=== PATIENT | female | born 1955 | race Caucasian/White ===

== ENCOUNTER 2020-07-26 10:15 | Outpatient (CLI) | payer BC, OTHER, SELFPAY ==
--- NOTE | ~2020-07-26 | MM_ITS ---
EXAMINATION: MM screening davie BI w dexter HISTORY: Screening TECHNIQUE: Craniocaudal and mediolateral oblique 3-D tomosynthesis images were obtained and synthetic 2-D images were generated. CAD analysis was submitted and interpreted. COMPARISON: Comparison to multiple prior studies sequentially, with oldest reviewed study dated 12/11. BREAST PARENCHYMAL COMPOSITION: The breasts are heterogeneously dense, which may obscure small masses . FINDINGS: There is no evidence of suspicious mass, calcification, or architectural distortion to sugg est malignancy in either breast. There has been no suspicious interval change. IMPRESSION: 1. No mammographic evidence of malignancy. 2. Recommend routine screening mammography in one year. BI-RADS Category 1: Negative Reviewed, dictated and finalized at location A.
[2020-07-26 10:31] LABS: Hematocrit 38.3 % (35.0-49.0); Mean Corpuscular HGB Conc 31.3 g/dL (32.0-36.0); Mean Corpuscular Hemoglobin 28.4 pg (27.0-31.0); Mean Corpuscular Volume 90.8 fL (78.0-102.0); Mean Platelet Volume 9.2 fl (9.2-11.8); Platelet Count Result 199 K/mm3 (150-420); Red Blood Count 4.22 M/mm3 (4.20-5.40); Red Cell Distribution Width 14.4 % (11.6-14.4); White Blood Count 5.4 K/mm3 (4.8-10.8)
[2020-07-26 10:33] LABS: Add Urine Microscopic? YES; Appearance Urine Clear (Clear); Bilirubin Urine Negative (Negative); Blood Urine Negative (Negative); Color Urine Yellow (Yellow); Glucose Urine UA Negative (Negative); Ketones Urine Negative (Negative); Leukocyte Esterase Ur 1+ (Negative); Nitrate Urine Negative (Negative); Protein Urine Negative (Negative); Urobilinogen Urine 0.2 mg/dL (0.2-1.0); pH Urine 6.5 (5.0-8.0)
[2020-07-26 10:39] LABS: Bacteria Urine Trace /hpf; RBC Urine 0-2 /hpf (0-2); Squamous Epithelial Cell Urine Few /hpf (Few)
[2020-07-26 10:55] LABS: Band Neutrophils Percent 0 % (0-6); Lymphocytes Absolute Manual 1.51 K/mm3 (1.1-4.5); Lymphocytes Percent Manual 28 % (18-44); Monocytes Absolute Manual 0.43 K/mm3 (0.1-0.90); Monocytes Percent Manual 8 % (3-9); Neutrophils Absolute Manual 3.29 K/mm3 (1.7-7.2); Neutrophils Percent Manual 61 % (46-73); Total Cells Counted 100
[2020-07-26 10:56] LABS: Basophils Percent Manual 0 % (0-1); Eosinophils Absolute Manual 0.16 K/mm3 (0.02-0.5); Eosinophils Percent Manual 3 % (1-6); Platelet Estimate Adequate (Adequate)
[2020-07-26 11:12] LABS: Alanine Aminotransferase 25 U/L (14-59); Albumin Level 3.6 g/dL (3.4-5.0); Alkaline Phosphatase 104 U/L (46-116); Anion Gap 3 mmol/L (8-16); Aspartate Amino Transferase 21 U/L (15-37); Bilirubin,Total 0.5 mg/dL (0.00-1.00); Blood Urea Nitrogen 13 mg/dL (7-18); Calcium 9.1 mg/dL (8.5-10.1); Carbon Dioxide 32 mmol/L (21-32); Chloride 106 mmol/L (98-108); Cholesterol 149 mg/dL (0-200); Estimated Glomerular Filt Rate > 60; Glucose 93 mg/dL (70-99); HDL Direct 14 mg/dL (40-60); LDL Cholesterol Calculated 115 mg/dL (<130); Osmolality Calculated 292 mOsm/kg (285-295); Potassium 4.4 mmol/L (3.5-5.1); Sodium 141 mmol/L (136-145); Total Protein 7.6 g/dL (6.4-8.2); Triglycerides 102 mg/dL (0-150)
== END 2020-07-26 10:16 | disposition home or self-care (01) ==
LOC: CHSIMG 10:20
PROVIDERS: PCP Internal Medicine; Visit Provider Internal Medicine
DX: Z12.31 Encounter for screening mammogram for malignant neoplasm of breast (principal); Z00.00 Encounter for general adult medical examination without abnormal findings
CPT/HCPCS: 36415; 77063; 77067; 80053; 80061; 81001; 85025

== ENCOUNTER 2021-09-05 06:56 | Outpatient (CLI) | payer BC, OTHER, SELFPAY ==
[2021-09-05 07:09] LABS: Basophils Absolute Auto 0.05 K/mm3 (0.00-0.10); Basophils Percent Auto 0.6 % (0.0-1.0); Eosinophils Absolute Auto 0.25 K/mm3 (0.02-0.50); Eosinophils Percent Auto 3.2 % (1.0-6.0); Hematocrit 37.4 % (35.0-49.0); Hemoglobin 11.9 g/dL (12.0-15.0); Immature Granulocyte Absolute 0.03 K/mm3 (0.00-0.00); Immature Granulocyte Percent A 0.4 % (0.0-0.0); Lymphocytes Absolute Auto 1.91 K/mm3 (1.10-4.50); Lymphocytes Percent Auto 24.3 % (18.0-42.0); Mean Corpuscular HGB Conc 31.8 g/dL (32.0-36.0); Mean Corpuscular Hemoglobin 27.9 pg (27.0-31.0); Mean Corpuscular Volume 87.8 fL (78.0-102.0); Mean Platelet Volume 9.2 fl (9.2-11.8); Monocytes Absolute Auto 0.77 K/mm3 (0.10-0.90); Monocytes Percent Auto 9.8 % (2.0-11.0); Neutrophils Absolute Auto 4.8 K/mm3 (1.7-7.2); Neutrophils Percent Auto 61.7 % (50.0-70.0); Platelet Count Result 266 K/mm3 (150-420); Red Blood Count 4.26 M/mm3 (4.20-5.40); Red Cell Distribution Width 13.8 % (11.6-14.4); White Blood Count 7.9 K/mm3 (4.8-10.8)
[2021-09-05 07:13] LABS: Add Urine Microscopic? YES; Appearance Urine Clear (Clear); Bilirubin Urine Negative (Negative); Blood Urine Negative (Negative); Color Urine Light Yellow (Yellow); Glucose Urine UA Negative (Negative); Ketones Urine Negative (Negative); Leukocyte Esterase Ur Trace (Negative); Nitrate Urine Negative (Negative); Protein Urine Negative (Negative); Specific Grav Ur 1.025 (1.010-1.020); Urobilinogen Urine 0.2 mg/dL (0.2-1.0)
[2021-09-05 07:31] LABS: Bacteria Urine Trace /hpf; RBC Urine 0-2 /hpf (0-2); Squamous Epithelial Cell Urine Few /hpf (Few); WBC Urine 0-3 /hpf (0-3)
[2021-09-05 08:12] LABS: Alanine Aminotransferase 24 U/L (14-59); Albumin Level 3.2 g/dL (3.4-5.0); Alkaline Phosphatase 115 U/L (46-116); Anion Gap 7 mmol/L (8-16); Aspartate Amino Transferase 18 U/L (15-37); Bilirubin,Total 0.3 mg/dL (0.00-1.00); Blood Urea Nitrogen 18 mg/dL (7-18); Calcium 9.5 mg/dL (8.5-10.1); Carbon Dioxide 31 mmol/L (21-32); Chloride 103 mmol/L (98-108); Estimated Glomerular Filt Rate > 60; Glucose 89 mg/dL (70-99); HDL Direct 33 mg/dL (40-60); Osmolality Calculated 292 mOsm/kg (285-295); Potassium 4.4 mmol/L (3.5-5.1); Sodium 141 mmol/L (136-145); Triglycerides 48 mg/dL (0-150)
[2021-09-05 08:43] LABS: Cholesterol 158 mg/dL (0-200); LDL Cholesterol Calculated 115 mg/dL (<130)
== END 2021-09-05 06:57 | disposition home or self-care (01) ==
LOC: CHSLAB 07:00
PROVIDERS: PCP Internal Medicine; Visit Provider Internal Medicine
DX: Z00.00 Encounter for general adult medical examination without abnormal findings (principal); M85.80 Other specified disorders of bone density and structure, unspecified site
CPT/HCPCS: 36415; 80053; 80061; 81001; 84443; 85025

== ENCOUNTER 2021-09-14 13:07 | Outpatient (CLI) | payer BC, OTHER, SELFPAY ==
--- NOTE | ~2021-09-14 | MM_ITS ---
EXAMINATION: MM screening davie BI w dexter HISTORY: Screening mammogram TECHNIQUE: Craniocaudal and mediolateral oblique 3-D tomosynthesis images were obtained and synthetic 2-D images were generated. CAD analysis was submitted and interpreted. COMPARISON: , 06/11/2019, 10/14/2017 bilateral screening mammogram examinations BREAST PARENCHYMAL COMPOSITION: The breasts are heterogeneously dense, which may obscure small masses . FINDINGS: There is no evidence of suspicious mass, calcification, or architectural distortion to sugg est malignancy in either breast. There has been no suspicious interval change. IMPRESSION: 1. No mammographic evidence of malignancy. 2. Recommend routine screening mammography in one year. BI-RADS Category 1: Negative Reviewed, dictated and finalized at location A.
--- NOTE | ~2021-09-14 | DEXA_ITS ---
Bone Density Report Name: Bruna Turcios Age: 66 Sex: Female Ethnicity: White Date of : 1955 Indication: postmenopausal; screening for osteoporosis; height loss; Referring Provider: Rodney Mckay Study: Bone densitometry was performed. Exam Date: September 14, 2021 Accession number: [id number] Bone Density: Region BMD T-score Z-score Classification AP Spine(L1-L4) 0.987 -0.5 1.2 Normal Femoral Neck (Left) 0.691 -1.4 0.0 Osteopenia Total Hip (Left) 0.894 -0.4 0.8 Normal Femoral Neck (Right) 0.681 -1.5 0.0 Osteopenia Total Hip (Right) 0.853 -0.7 0.4 Normal Femoral Neck Mean 0.686 -1.5 0.0 Osteopenia Total Hip Mean 0.874 -0.6 0.6 Normal World Health Organization criteria for BMD impression classify patients as: Normal (T-score at or above -1.0), Osteopenia (T-score between -1.0 and -2.5), or Osteoporosis (T-score at or below -2.5). 10-year Fracture Risk(1): Major Osteoporotic Fracture 8.6% Hip Fracture 0.9% Reported Risk Factors: [place] (), Neck BMD=0.681, BMI=23.9 (1) FRAX(R) Version 3.08. Fracture probability calculated for an untreated patient. Fracture probability may be lower if the patient has received treatment. Clinical Information Provided by Patient: Has used the following medications: Calcium, vit d3 Patient maximum height was 64 Menopause Age: 52 No regular weight bearing exercise Drinks caffeinated beverages Onset of menses at age 15 Number of children 1 Impression: The patient has low bone mass, based on the Right Femoral Neck T-score. Discussion: BONE DENSITY IS LOW AT ONE OR MORE SKELETAL SITES. This patient's lowest T-score is low at one or more skeletal sites. It meets the World Health Organization's (WHO) criteria for ?low bone mass? (T-score between -1.0 and -2.5). The patient's 10-year risk of fracture as calculated by FRAX is less than the threshold where pharmacological therapy is recommended by the National Osteoporosis Foundation (NOF). However, all treatment decisions require clinical judgment and consideration of individual patient factors, including patient preferences, comorbidities, previous drug use, risk factors not captured in the FRAX model (e.g., frailty, falls, vitamin D deficiency, increased bone turnover, interval significant decline in bone density) and possible under or overestimation of fracture risk by FRAX. The patient should follow a healthful lifestyle (good nutrition with adequate calcium and vitamin D, and appropriate weight-bearing exercise). Follow-Up: Consider repeating this study in 2 to 3 years to reassess this patient's status, or sooner if there is some new clinical indication. Reported by: Dr. Ascencion Duffy on 09/14/2021 2:01:00 PM.
--- NOTE | 2021-09-14 14:50 | ECHO_ITS ---
Patient Info Name: Bruna Turcios Age: 66 years : 1955 Gender: Female Ht: 63 in Wt: 135 lbs BSA: 1.66 m2 HR: 74 bpm BP: 125 / 72 mmHg Exam Date: 09/14/2021 2:45 PM Exam Location: [facility] Patient Status: Outpatient Admit Date: 09/14/2021 Staff Ordering Physician: Rodney Mckay MD Poultry Hatchery Manager: Migue Petty RDCS, RT Attending Provider: Rodney Mckay MD Exam Type: CA echo doppler color flow Study Info Indications R94.31 - Abnormal electrocardiogram ECG EKG Complete two-dimensional, color flow and Doppler transthoracic echocardiogram is performed. Strain analysis performed. Summary 1. Complete two-dimensional, color flow and Doppler transthoracic echocardiogram is performed. 2. Left ventricular chamber dimension is normal. 3. Left ventricular systolic function is normal, estimated at 60-65%. 4. The left ventricular diastolic function is grade II diastolic dysfunction. 5. E/e' 6 is not elevated. 6. Global longitudinal strain is normal at -18.5%. 7. There is mild mitral valve regurgitation. 8. There is mild tricuspid valve regurgitation. 9. No pulmonary hypertension, estimated pulmonary arterial systolic pressure is 23 mmHg. 10. There is trace pulmonic regurgitation. Left Ventricle E/e' 6 is not elevated. Global longitudinal strain is normal at -18.5%. Left ventricular chamber dimension is normal. Left ventricular systolic function is normal, estimated at 60-65%. The left ventricular diastolic function is grade II diastolic dysfunction. Right Ventricle Right ventricular systolic function is normal and with normal TAPSE 2.2 cm. Right ventricular chamber dimension is normal. Left Atria Left atrial chamber dimension is normal. Right Atria Right atrial chamber dimension is normal. Aortic Valve The aortic valve is trileaflet. There is no aortic valve stenosis. There is no aortic valve regurgitation. Pulmonic Valve There is trace pulmonic regurgitation. Mitral Valve There is no mitral valve stenosis. There is mild mitral valve regurgitation. Tricuspid Valve There is mild tricuspid valve regurgitation. No pulmonary hypertension, estimated pulmonary arterial systolic pressure is 23 mmHg. Pericardium/Pleural There is no pericardial effusion. Inferior Vena Cava Normal inferior vena cava with >50% collapse upon inspiration consistent with normal right atrial pressure, 5 mmHg. Aorta The aortic root size at the sinus of Valsalva is normal. Left Ventricular Outflow Tract Name Value Normal LVOT 2D LVOT Diameter 1.9 cm LVOT Doppler LVOT Peak Velocity 87 cm/s LVOT Peak Gradient 3 mmHg LVOT Mean Gradient 2 mmHg LVOT VTI 20 cm LVOT VTI/AV VTI Ratio 0.8 LVOT Stroke Volume 56 ml Mitral Valve Name Value Normal MV Doppler
== END 2021-09-14 13:08 | disposition home or self-care (01) ==
PROVIDERS: PCP Internal Medicine; Visit Provider Internal Medicine
DX: Z78.0 Asymptomatic menopausal state (principal); Z12.31 Encounter for screening mammogram for malignant neoplasm of breast; R94.31 Abnormal electrocardiogram [ECG] [EKG]
CPT/HCPCS: 77063; 77067; 77080; 93306

== ENCOUNTER 2021-11-16 06:59 | Outpatient (CLI) | payer BC, OTHER, SELFPAY ==
[2021-11-16 07:12] LABS: Hematocrit 33.5 % (35.0-49.0); Hemoglobin 10.5 g/dL (12.0-15.0); Mean Corpuscular HGB Conc 31.3 g/dL (32.0-36.0); Mean Corpuscular Hemoglobin 27.6 pg (27.0-31.0); Mean Corpuscular Volume 88.2 fL (78.0-102.0); Mean Platelet Volume 9.6 fl (9.2-11.8); Platelet Count Result 219 K/mm3 (150-420); Red Cell Distribution Width 14.6 % (11.6-14.4); White Blood Count 10.1 K/mm3 (4.8-10.8)
[2021-11-16 07:45] LABS: Band Neutrophils Percent 0 % (0-6); Eosinophils Percent Manual 2 % (1-6); Lymphocytes Absolute Manual 3.53 K/mm3 (1.1-4.5); Lymphocytes Percent Manual 35 % (18-44); Monocytes Percent Manual 9 % (3-9); Neutrophils Absolute Manual 5.45 K/mm3 (1.7-7.2); Neutrophils Percent Manual 54 % (46-73); Total Cells Counted 100
[2021-11-16 07:46] LABS: Platelet Estimate Adequate (Adequate)
[2021-11-16 08:06] LABS: Alanine Aminotransferase 24 U/L (14-59); Albumin Level 2.9 g/dL (3.4-5.0); Alkaline Phosphatase 118 U/L (46-116); Anion Gap 7 mmol/L (8-16); Aspartate Amino Transferase 23 U/L (15-37); Bilirubin,Total 0.3 mg/dL (0.00-1.00); Blood Urea Nitrogen 19 mg/dL (7-18); Calcium 9.2 mg/dL (8.5-10.1); Carbon Dioxide 32 mmol/L (21-32); Chloride 103 mmol/L (98-108); Estimated Glomerular Filt Rate > 60; Glucose 101 mg/dL (70-99); Osmolality Calculated 296 mOsm/kg (285-295); Potassium 4.2 mmol/L (3.5-5.1); Sodium 142 mmol/L (136-145)
== END 2021-11-16 07:00 | disposition home or self-care (01) ==
LOC: CHSLAB 07:03
PROVIDERS: PCP Internal Medicine; Visit Provider Internal Medicine
DX: E88.09 Other disorders of plasma-protein metabolism, not elsewhere classified (principal)
CPT/HCPCS: 36415; 80053; 85025

== ENCOUNTER 2021-12-04 09:12 | Outpatient (CLI) | payer BC, OTHER, SELFPAY ==
[2021-12-04 09:43] LABS: Immature Reticulocyte Fraction 13.9 % (2.0-16.52); Reticulocyte Hemoglobin Conten 29.7 pg (28.0-35.0); Reticulocyte Percent 2.05 % (0.50-1.50); Reticulocytes Absolute 0.08 M/mm3 (0.02-0.1)
[2021-12-04 10:54] LABS: Ferritin 72 ng/mL (8-252); Iron 75 ug/dL (50-170); Percent Iron Saturation 37 % (12-57)
[2021-12-04 11:22] LABS: Basophils Absolute Auto 0.05 K/mm3 (0.00-0.10); Basophils Percent Auto 0.6 % (0.0-1.0); Eosinophils Absolute Auto 0.11 K/mm3 (0.02-0.50); Eosinophils Percent Auto 1.2 % (1.0-6.0); Hematocrit 33.5 % (35.0-49.0); Hemoglobin 10.4 g/dL (12.0-15.0); Immature Granulocyte Absolute 0.03 K/mm3 (0.00-0.00); Immature Granulocyte Percent A 0.3 % (0.0-0.0); Lymphocytes Absolute Auto 2.55 K/mm3 (1.10-4.50); Lymphocytes Percent Auto 28.3 % (18.0-42.0); Mean Corpuscular Hemoglobin 27.4 pg (27.0-31.0); Mean Corpuscular Volume 88.4 fL (78.0-102.0); Mean Platelet Volume 10.1 fl (9.2-11.8); Monocytes Absolute Auto 0.95 K/mm3 (0.10-0.90); Monocytes Percent Auto 10.6 % (2.0-11.0); Neutrophils Absolute Auto 5.3 K/mm3 (1.7-7.2); Platelet Count Result 312 K/mm3 (150-420); Red Blood Count 3.79 M/mm3 (4.20-5.40)
[2021-12-07 14:54] LABS: Red Blood Cell Folate 969 ng/mL RBC (>280)
[2021-12-08 16:49] LABS: Methylmalonic Acid 228 nmol/L (87-318)
== END 2021-12-04 09:13 | disposition home or self-care (01) ==
LOC: CHSLAB 09:14
PROVIDERS: PCP Internal Medicine; Visit Provider Internal Medicine
DX: D64.9 Anemia, unspecified (principal)
CPT/HCPCS: 36415; 82728; 82747; 83540; 83550; 83921; 85025; 85046

== ENCOUNTER 2022-02-08 07:27 | Outpatient (CLI) | payer BC, OTHER, SELFPAY ==
[2022-02-08 07:47] VITALS: BP 130/62; PULSE 88; RESP 14; TEMP 36.6; O2SAT 98
[2022-02-08 07:48] VITALS: BMI 22.1
[2022-02-08] MEDS: IRON SUCROSE COMPLEX 300 MG in SODIUM CHLORIDE 0.9% IV 235 ML 125 MG IVPB (08:13)
--- NOTE | 2022-02-08 11:11 | PC.NURSE ---
Patient here for #1 of 3 IV weekly Venofer infusions. Education given. All concerns answered. IV Venofer administered. See MAR. Tolerated well. Will return 02/16/22 for #2 of 3. Safe exit of hospital.
== END 2022-02-08 07:28 | disposition home or self-care (01) ==
LOC: CHSTREATRM 07:35
PROVIDERS: PCP Internal Medicine; Visit Provider Internal Medicine Hematology & Oncology
DX: D50.9 Iron deficiency anemia, unspecified (principal)
CPT/HCPCS: 96365; 96366; J1756; J7050

== ENCOUNTER 2022-02-15 07:57 | Outpatient (CLI) | payer BC, OTHER, SELFPAY ==
[2022-02-15 08:03] VITALS: BMI 22.1
[2022-02-15] MEDS: IRON SUCROSE COMPLEX 300 MG in SODIUM CHLORIDE 0.9% IV 250 ML 125 MG IV PUSH (08:10)
[2022-02-15 08:15] VITALS: BP 122/67; PULSE 88; RESP 14; TEMP 36; O2SAT 99
--- NOTE | 2022-02-15 10:41 | PC.NURSE ---
Patient here for #2 of 3 IV Venofer infusions. Education given. No concerns voiced. IV Venofer administered. See MAR. Tolerated well. Safe exit of hospital. Will return for #3 02/20/22 at 0800.
== END 2022-02-15 07:58 | disposition home or self-care (01) ==
LOC: CHSTREATRM 08:01
PROVIDERS: PCP Internal Medicine; Visit Provider Internal Medicine Hematology & Oncology
DX: D50.9 Iron deficiency anemia, unspecified (principal)
CPT/HCPCS: 96365; 96366; J1756; J7050

== ENCOUNTER 2022-02-22 07:49 | Outpatient (CLI) | payer BC, OTHER, SELFPAY ==
[2022-02-22 08:05] VITALS: BP 106/70; PULSE 92; RESP 14; TEMP 36.4; O2SAT 98
[2022-02-22 08:06] VITALS: BMI 22.1
[2022-02-22] MEDS: IRON SUCROSE COMPLEX 300 MG in SODIUM CHLORIDE 0.9% IV 235 ML 125 MG IVPB (08:15)
--- NOTE | 2022-02-22 10:05 | PC.NURSE ---
Patient here for #3 of 3 IV Venofer infusions. No concerns voiced. Reports feels a little more energetic. IV Venofer administered. SEE MAR. Tolerated well. Safe exit of hospital. Patient will follow up in month with Dr. Jones.
== END 2022-02-22 07:50 | disposition home or self-care (01) ==
LOC: CHSTREATRM 07:53
PROVIDERS: PCP Internal Medicine; Visit Provider Internal Medicine Hematology & Oncology
DX: D50.9 Iron deficiency anemia, unspecified (principal)
CPT/HCPCS: 96365; 96366; J1756; J7050

== ENCOUNTER 2022-03-20 07:21 | Outpatient (CLI) | payer BC, OTHER, SELFPAY ==
[2022-03-20 07:34] LABS: Basophils Absolute Auto 0.04 K/mm3 (0.00-0.10); Basophils Percent Auto 0.5 % (0.0-1.0); Eosinophils Absolute Auto 0.15 K/mm3 (0.02-0.50); Eosinophils Percent Auto 1.8 % (1.0-6.0); Hematocrit 33.2 % (35.0-49.0); Immature Granulocyte Absolute 0.02 K/mm3 (0.00-0.00); Immature Granulocyte Percent A 0.2 % (0.0-0.0); Lymphocytes Absolute Auto 1.51 K/mm3 (1.10-4.50); Lymphocytes Percent Auto 17.9 % (18.0-42.0); Mean Corpuscular HGB Conc 30.1 g/dL (32.0-36.0); Mean Corpuscular Volume 86.2 fL (78.0-102.0); Mean Platelet Volume 9.1 fl (9.2-11.8); Monocytes Absolute Auto 0.74 K/mm3 (0.10-0.90); Monocytes Percent Auto 8.8 % (2.0-11.0); Neutrophils Percent Auto 70.8 % (50.0-70.0); Platelet Count Result 295 K/mm3 (150-420); Red Blood Count 3.85 M/mm3 (4.20-5.40); Red Cell Distribution Width 17.4 % (11.6-14.4); White Blood Count 8.4 K/mm3 (4.8-10.8)
[2022-03-20 08:31] LABS: Ferritin 471 ng/mL (8-252); Iron 46 ug/dL (50-170); Percent Iron Saturation 23 % (12-57)
== END 2022-03-20 07:22 | disposition home or self-care (01) ==
LOC: CHSLAB 07:23
PROVIDERS: PCP Internal Medicine; Visit Provider Internal Medicine Hematology & Oncology
DX: E61.1 Iron deficiency (principal)
CPT/HCPCS: 36415; 82728; 83540; 83550; 85025

== ENCOUNTER 2022-05-14 15:30 | Outpatient (CLI) | payer BC, OTHER, SELFPAY ==
[2022-05-14 15:45] LABS: Basophils Absolute Auto 0.04 K/mm3 (0.00-0.10); Basophils Percent Auto 0.5 % (0.0-1.0); Eosinophils Percent Auto 2.3 % (1.0-6.0); Hematocrit 37.3 % (35.0-49.0); Hemoglobin 11.4 g/dL (12.0-15.0); Immature Granulocyte Absolute 0.03 K/mm3 (0.00-0.00); Immature Granulocyte Percent A 0.3 % (0.0-0.0); Lymphocytes Absolute Auto 2.14 K/mm3 (1.10-4.50); Lymphocytes Percent Auto 24.4 % (18.0-42.0); Mean Corpuscular HGB Conc 30.6 g/dL (32.0-36.0); Mean Corpuscular Hemoglobin 26.6 pg (27.0-31.0); Mean Corpuscular Volume 86.9 fL (78.0-102.0); Mean Platelet Volume 8.6 fl (9.2-11.8); Monocytes Absolute Auto 0.75 K/mm3 (0.10-0.90); Monocytes Percent Auto 8.5 % (2.0-11.0); Neutrophils Absolute Auto 5.6 K/mm3 (1.7-7.2); Platelet Count Result 310 K/mm3 (150-420); Red Blood Count 4.29 M/mm3 (4.20-5.40); Red Cell Distribution Width 14.6 % (11.6-14.4); White Blood Count 8.8 K/mm3 (4.8-10.8)
[2022-05-14 16:42] LABS: Alanine Aminotransferase 14 U/L (14-59); Albumin Level 3.1 g/dL (3.4-5.0); Alkaline Phosphatase 126 U/L (46-116); Amylase 31 U/L (25-115); Anion Gap 6 mmol/L (8-16); Aspartate Amino Transferase 20 U/L (15-37); Bilirubin,Total 0.4 mg/dL (0.00-1.00); Blood Urea Nitrogen 11 mg/dL (7-18); CRP 0.6 mg/dL (0.0-0.9); Calcium 9.4 mg/dL (8.5-10.1); Carbon Dioxide 31 mmol/L (21-32); Chloride 103 mmol/L (98-108); Creatine Kinase 24 U/L (26-192); Estimated Glomerular Filt Rate > 60; Ferritin 211 ng/mL (8-252); Glucose 100 mg/dL (70-99); Iron 29 ug/dL (50-170); Lipase 18 U/L (73-393); Osmolality Calculated 289 mOsm/kg (285-295); Percent Iron Saturation 13 % (12-57); Potassium 3.9 mmol/L (3.5-5.1); Sodium 140 mmol/L (136-145); Troponin I 5.8 ng/L (0.00-60.4)
== END 2022-05-14 15:31 | disposition home or self-care (01) ==
LOC: CHSLAB 15:32
PROVIDERS: PCP Internal Medicine; Visit Provider Nurse Practitioner Family
DX: R10.9 Unspecified abdominal pain (principal); D64.9 Anemia, unspecified
CPT/HCPCS: 36415; 80053; 82150; 82550; 82553; 82728; 83540; 83550; 83690; 84484; 85025; 86140

== ENCOUNTER 2022-05-14 18:35 | Emergency (ER) | payer BC, OTHER, SELFPAY ==
--- NOTE | ~2022-05-14 | XR_ITS ---
EXAM: XR abdomen/kub 1V DATE: 05/14/2022 22:22 HISTORY: NG placement . COMPARISON: CT abdomen and pelvis, same date. FINDINGS: NG tube, tip and side port within the gas distended stomach. Multiple loops of air-filled dilated small bowel in the mid abdomen. Regional bones and soft tissues are normal for age. IMPRESSION: NG tube, in good position. Several air-filled dilated loops of small bowel in the midabdo men, noting that the cecal/small bowel obstruction demonstrated in the prior CT is less well seen due to multiple loops of fluid-filled bowel. Reviewed, dictated and finalized at location K. IMPRESSION: NG tube, in good position. Several air-filled dilated loops of smal l bowel in the midabdomen, noting that the cecal/small bowel obstruction demons trated in the prior CT is less well seen due to multiple loops of fluid-filled bowel.
--- NOTE | ~2022-05-14 | CT_ITS ---
EXAMINATION: CT abdomen pelvis wo con DATE: 05/14/2022 21:01 INDICATION: epigastric pain w/ N/V TECHNIQUE: Computed tomography (CT) of the abdomen and pelvis was performed without intravenous contr ast. Automated exposure control and iterative reconstruction technique were employed. The dose-length product was 220.58 mGy-cm. COMPARISON: None. FINDINGS: Lower thorax: Bibasilar atelectasis. Liver: Normal. Biliary/Gallbladder: Gallbladder is normal. No bile duct dilation. Pancreas: No mass or duct dilation. Spleen: Normal. Adrenals:No mass. Kidneys: No mass, stone, or hydronephrosis. GI tract: Diffuse dilation of fluid-filled small bowel. The cecum is dilated up to 7.8 cm. Pronounced , irregular and eccentric short segment soft tissue density wall thickening in the distal cecum/proxi mal ascending colon. The distal colon is decompressed but also contains fluid. Appendix not visualize d. Mesentery/Peritoneum: Right lower quadrant lymphadenopathy. Innumerable subcentimeter lymph nodes thr oughout the remainder of the mesentery. Retroperitoneum: No mass. Periaortic lymphadenopathy. Pelvis: Pelvic organs are within normal limits. Soft Tissues: Soft tissues and body wall unremarkable. Bones: No acute osseous finding. IMPRESSION: Distal cecal/proximal ascending colonic mass, concerning for carcinoma, causing at least partial ceca l and diffuse small bowel obstruction. Right lower quadrant and periaortic lymphadenopathy. Reviewed, dictated and finalized at location K. IMPRESSION: Distal cecal/proximal ascending colonic mass, concerning for carcinoma, causing at least partial cecal and diffuse small bowel obstruction. Right lower quadra nt and periaortic lymphadenopathy.
--- NOTE | 2022-05-14 18:53 | ED.NAVMDI ---
HPI - Nausea/Vomiting/Diarrhea General Chief complaint: Abdominal Pain Stated complaint: abdominal pain/vomiting Time Seen by Provider: 05/14/22 18:53 Source: patient Limitations: no limitations History of Present Illness HPI Narrative: 66-year-old female with recently diagnosed iron deficiency anemia (with a negative EGD and a negative colonoscopy 4 years ago. Normal Bone marrow exam) presents to the ER with a 12 hour history of -- epigastric discomfort /pain which is intermittent. Pain increases to 8/10 with periods of no pain -- nausea/ vomiting which started half an hour ago no fever. No diarrhea. No hematemesis/ melena. No recent use of NSAIDs. MD elicited complaint: nausea, vomiting and abdominal pain Pertinent past history: anorexia Onset (ago): hour(s) ( Started 12 hours ago) Description of vomiting: food contents Associated nausea: Yes Associated abdominal pain: Yes Location of pain: epigastric Radiation: does not radiate Pain consistency: intermittent Severity: moderate Pain scale (0-10): 8 Exacerbating factors: none Relieving factors: none Associated symptoms: denies other symptoms Related Data Home Medications Medication Instructions Recorded Confirmed montelukast 10 mg tablet 10 mg PO DAILY 02/08/22 05/14/22 oxybutynin chloride 10 mg 10 mg PO DAILY 02/08/22 05/14/22 tablet,extended release 24 hr Allergies Allergy/AdvReac Type Severity Reaction Status Date / Time codeine AdvReac Nausea Verified 05/14/22 19:36 Review of Systems Review of Systems: All systems reviewed & are unremarkable except as noted in HPI and below Constitutional: Constitutional: Reports as per HPI and Reports no additional constitutional complaints Eyes: Eyes: Reports as per HPI and Reports no additional eye complaints ENT: Reports system reviewed and no additional complaints, except as documented and Reports as per HPI Cardiovascular: Cardiovascular: Reports as per HPI and Reports no additional cardiovascular complaints Respiratory: Respiratory: Reports as per HPI and Reports no additional respiratory complaints Gastrointestinal: Gastrointestinal: Reports as per HPI, Reports no additional gastrointestinal complaints, Reports abdominal pain, Reports GI cramping, Reports nausea and Reports vomiting Genitourinary: Genitourinary: Reports no additional female genitourinary complaints and Reports as per HPI Musculoskeletal: Musculoskeletal: Reports no additional musculoskeletal complaints and Reports as per HPI Integumentary/Breasts: Skin/Breast: Reports system reviewed and no additional complaints, except as docu and Reports as per HPI Neurologic: Reports system reviewed and no additional complaints, except as documented and Reports as per HPI Psychiatric: Psychiatric: Reports no additional psychiatric complaints and Reports as per HPI Endocrine: Endocrine: Reports no additional endocrine complaints and Reports as per HPI Hematologic/Lymphatic: Hematologic/Lymphatic: Reports no additional hematologic/lymphatic complaints and Reports as per HPI Allergic/Immunologic: Allergic/Immunologic: Reports no additional allergic/immunologic complaints and Reports as per HPI Exam Const: General: cooperative, healthy appearing and comfortable Orientation/consciousness: oriented to person, oriented to place, oriented to time and patient oriented x3 Limitations: no limitations HENMT: Head: normal to inspection, No palpable skull fracture present and normocephalic Ears: hearing grossly normal bilaterally and external ears normal General nose exam: Normal external nose present Face and sinus: normal facial exam and sinuses nontender Mouth: Yes Normal oral and palatal mucosa present and Yes lip normal Throat: posterior oropharynx normal Eyes: General: appearance normal, both eyes and all related structures Visual Lake: normal visual lake by confrontation Alignment and Position: alignment normal Eyelids: eyelids normal Conjunct
[2022-05-14 19:07] VITALS: BP 129/77; PULSE 105; RESP 16; TEMP 36.9; O2SAT 96
--- NOTE | 2022-05-14 19:15 | ECG_ITS ---
Measurements Intervals [place] Rate: 82 P: 36 ND: 135 QRS: 16 QRSD: 86 T: 30 QT: 376 QTc: 440 Interpretive Statements SINUS RHYTHM NO PREVIOUS ECG AVAILABLE FOR COMPARISON Electronically Signed On 05-15-2022 10:44:00 CDT by Gold Carrillo M.D.
[2022-05-14 19:35] LABS: Basophils Absolute Auto 0.04 K/mm3 (0.00-0.10); Basophils Percent Auto 0.4 % (0.0-1.0); Eosinophils Absolute Auto 0.16 K/mm3 (0.02-0.50); Eosinophils Percent Auto 1.5 % (1.0-6.0); Hemoglobin 11.5 g/dL (12.0-15.0); Immature Granulocyte Absolute 0.05 K/mm3 (0.00-0.00); Immature Granulocyte Percent A 0.5 % (0.0-0.0); Lymphocytes Absolute Auto 2.37 K/mm3 (1.10-4.50); Lymphocytes Percent Auto 21.6 % (18.0-42.0); Mean Corpuscular HGB Conc 31.1 g/dL (32.0-36.0); Mean Corpuscular Hemoglobin 26.6 pg (27.0-31.0); Mean Corpuscular Volume 85.5 fL (78.0-102.0); Monocytes Absolute Auto 0.83 K/mm3 (0.10-0.90); Monocytes Percent Auto 7.6 % (2.0-11.0); Neutrophils Absolute Auto 7.5 K/mm3 (1.7-7.2); Neutrophils Percent Auto 68.4 % (50.0-70.0); Platelet Count Result 322 K/mm3 (150-420); Red Blood Count 4.33 M/mm3 (4.20-5.40); Red Cell Distribution Width 14.6 % (11.6-14.4)
[2022-05-14] MEDS: ONDANSETRON INJ 4 MG/2 ML VIAL IV PUSH (19:35)
[2022-05-14] MEDS: LACTATED RINGERS 1,000 ML 999 ML IV CONT (19:35)
[2022-05-14 19:38] LABS: Add Urine Microscopic? YES; Appearance Urine Clear (Clear); Bilirubin Urine 1+ (Negative); Blood Urine Negative (Negative); Color Urine Dark Yellow (Yellow); Glucose Urine UA Negative (Negative); Ketones Urine Trace (Negative); Leukocyte Esterase Ur Negative (Negative); Nitrate Urine Negative (Negative); Protein Urine Trace (Negative); Specific Grav Ur >= 1.030 (1.010-1.020); Urobilinogen Urine 0.2 mg/dL (0.2-1.0); pH Urine 5.5 (5.0-8.0)
[2022-05-14 19:52] LABS: Bacteria Urine 2+ /hpf; Calcium Oxalate Crystals Urine Present /hpf; RBC Urine 0-2 /hpf (0-2); Squamous Epithelial Cell Urine Rare /hpf (Few); WBC Urine 0-3 /hpf (0-3)
[2022-05-14 20:04] LABS: Partial Thromboplastin Time 23.7 SEC (23.90-30.70)
[2022-05-14 20:05] VITALS: BP 124/71; PULSE 92; RESP 16; O2SAT 98
[2022-05-14 20:08] LABS: Alanine Aminotransferase 17 U/L (14-59); Alkaline Phosphatase 127 U/L (46-116); Anion Gap 10 mmol/L (8-16); Aspartate Amino Transferase 22 U/L (15-37); Bilirubin,Total 0.4 mg/dL (0.00-1.00); Blood Urea Nitrogen 13 mg/dL (7-18); Calcium 9.3 mg/dL (8.5-10.1); Carbon Dioxide 26 mmol/L (21-32); Chloride 102 mmol/L (98-108); Estimated CRCL calculation 54 ml/min; Estimated Glomerular Filt Rate > 60; Glucose 185 mg/dL (70-99); Lipase 17 U/L (73-393); Osmolality Calculated 291 mOsm/kg (285-295); Potassium 3.7 mmol/L (3.5-5.1); Sodium 138 mmol/L (136-145); Total Protein 7.6 g/dL (6.4-8.2); Troponin I 5.4 ng/L (0.00-60.4)
[2022-05-14 20:11] LABS: Lactic Acid Reflex 0.8 mmol/L (0.4-2.0)
[2022-05-14] MEDS: PANTOPRAZOLE SODIUM IV 40 MG VIAL IV PUSH (20:30)
[2022-05-14] MEDS: PROCHLORPERAZINE EDISYLATE 10 MG/2 ML VIAL IV PUSH (20:46)
[2022-05-14 21:19] VITALS: BP 118/54; PULSE 93; RESP 14; O2SAT 96
[2022-05-14] MEDS: LACTATED RINGERS 1,000 ML 150 ML IV CONT (21:37)
[2022-05-14] MEDS: HYDROmorphone HCL INJ (*CRX) 2 MG/ML VIAL 0.5 MG IV PUSH (21:40)
--- NOTE | 2022-05-14 22:04 | PC.NURSE ---
RN called [facility] for an attempt to transfer per pt request. After talking to transfer center, RN was informed that pt would be placed on a waitlist due to no beds this evening. [facility] would update RN if a change in bed status occurs.
--- NOTE | 2022-05-14 22:08 | PC.NURSE ---
RN called transfer center for [facility]. RN was informed [facility] is on surgical delay and could not take a pt requiring immediate surgery, but would update if a medical bed is open. RN instructed that [facility] would be receiving a call soon.
--- NOTE | 2022-05-14 22:35 | PC.NURSE ---
Call back fro [facility], no bed available for surgical tonight if needed, pt placed on their waitlist. Informed Dr Salgado and pt informed.
[2022-05-14 22:58] LABS: SARS-CoV-2 Ag Negative (Negative)
--- NOTE | 2022-05-14 22:58 | PC.NURSE ---
RN called [facility] steward/stewardess for a possible transfer. weave room supervisor states that there is a delay on any surgical bed and would be updated as soon as possible.
[2022-05-14 23:15] VITALS: BP 143/77; PULSE 89; RESP 20; O2SAT 92
[2022-05-15 00:22] VITALS: BP 141/82; PULSE 86; RESP 18; O2SAT 95
[2022-05-15 01:00] VITALS: BP 131/74; PULSE 93; RESP 18; TEMP 36.6; O2SAT 96
[2022-05-15] MEDS: HYDROmorphone HCL INJ (*CRX) 2 MG/ML VIAL 0.5 MG IV PUSH (01:20)
[2022-05-15 02:01] VITALS: BP 134/74; PULSE 79; RESP 14; O2SAT 95
== END 2022-05-15 02:20 | disposition short-term general hospital (02) ==
PROVIDERS: Emergency Provider Internal Medicine Critical Care Medicine; PCP Internal Medicine
DX: R19.09 Other intra-abdominal and pelvic swelling, mass and lump (principal); K56.609 Unspecified intestinal obstruction, unspecified as to partial versus complete obstruction; Z20.822 Contact with and (suspected) exposure to COVID-19
CPT/HCPCS: 36415; 74018; 74176; 80053; 81001; 83605; 83690; 84484; 85025; 85730; 87426; 93005; 96361; 96374; 96375; 96376; 99285; C9113; C9803; J0780; J1170; J2405; J7120

== ENCOUNTER 2022-05-15 04:17 | Inpatient (IN) | payer BC, OTHER, SELFPAY ==
--- NOTE | ~2022-05-15 | XR_ITS ---
XR abdomen obstructive series 05/16/2022 09:12 Indication: Bowel obstruction. Cecal mass. Procedure: KUB Comparison: 05/14/2022 Findings: There are multiple air-fluid levels in the small bowel, consistent with obstruction. NG tub e in the stomach. No acute osseous abnormality. Small sclerotic lesion of the right ilium which may r epresent a bone island, although given the history of colon mass, cannot exclude metastases. Small le ft pleural effusion. Impression: 1: Small bowel obstruction. 2: Small sclerotic lesion of the right ilium, most likely bone island, although metastatic disease no t excluded. Consider correlation with bone scan. 3: Small left pleural effusion. Reviewed, dictated and finalized at location A. Impression: 1: Small bowel obstruction. 2: Small sclerotic lesion of the right ilium, most likely bone island, although metastatic disease not excluded. Consider correlation with bone scan. 3: Small left pleural effusion.
--- NOTE | 2022-05-15 03:01 | ADMGEN ---
This patient, Bruna Turcios, was admitted to Medical Room [facility] at 0255. Patient/family oriented to hospital policies and general routines including ID bracelet, bed and alarms, visiting hours, pain management, procedures, bathroom and other care routines, personal items, smoking policy, room service/diet, and visiting hours. Information on how to activate the Rapid Response Team has been discussed. Patient/Family are encouraged to report perceived risks to care and to ask questions if they do not understand what they are told or what they should do.
[2022-05-15 03:03] VITALS: BMI 21.3
[2022-05-15] MEDS: SODIUM CHLORIDE 0.9% IV 1,000 ML 100 ML IV CONT ×2 (04:18→14:49)
[2022-05-15 04:31] VITALS: BP 138/80; PULSE 86; RESP 16; TEMP 36.4; O2SAT 97
[2022-05-15] MEDS: ONDANSETRON INJ 4 MG/2 ML VIAL IV PUSH ×2 (05:46→20:11)
[2022-05-15] MEDS: MORPHINE SULFATE (*CRX) 2 MG/ML INJ IV PUSH ×4 (05:46→20:11)
--- NOTE | 2022-05-15 06:22 | PM.IMHP ---
H&P: HPI History of Present Illness Date/Time: 05/15/22 06:22 Chief Complaint: Nausea vomiting abdominal pain Narrative: 66-year-old female with a past medical history of urge urinary incontinence, allergic rhinitis and grade 2 diastolic dysfunction who presented to the ER at [facility] due to sudden onset of abdominal pain, nausea and vomiting. The patient reported that she woke up on the morning of the with upper abdominal pain that was colicky in nature. When it with crescendo her pain was a 9/10 in intensity but did tend to wax and wane throughout the day. After morphine the patient's pain was a 6/10 in intensity. Around 3:00 p.m. she had acute worsening of her abdominal pain with associated vomiting. She was unable to keep anything down and decided to go to the ER. In the ER the patient had a CT of the abdomen pelvis without contrast performed which demonstrated distal cecal/ ascending colon mass concerning for carcinoma causing at least partial cecal and diffuse small-bowel obstruction with associated right lower quadrant and periaortic lymphadenopathy. Patient had baseline labs drawn which were relatively unremarkable. Patient's labs were significant for some mild anemia. The patient has been struggling with mild anemia since August of last year. She went to the doctor complaining of dyspnea on exertion. She had an echocardiogram performed which demonstrated grade 2 diastolic dysfunction but was otherwise unremarkable. She stated that she went back to the gear shaver set up operator because her primary doctor did not believe that the echo was that bad to describe the patient's symptoms and when she went back to the gear shaver set up operator the rate read the echo and said that it was a bad read. She does not know what version of the report is in the computer. She reports that any time she gets up and walks around she does get some dyspnea. At that time they did do anemia labs and her 2nd and 3rd set of labs did demonstrate low iron levels with 2nd set of labs demonstrating a high ferritin in the 3rd set demonstrating a low ferritin. Her % saturation was within normal limits but trending down. These labs were most consistent with iron deficiency anemia. She did undergo an EGD last month to evaluate her iron deficiency. She reports that they did not do a colonoscopy because her primary care doctor did not feel she needed it since she had a colonoscopy 4 years ago. She reports that she was not having any preceding symptoms prior to her abdominal pain on the morning of the . She did not notice any changes school stool caliber, stool color or consistency. She does admit that she would have varying stool consistency between hard stools to soft stools but this is unchanged for many years. Patient reports that she has had chronic urinary incontinence and has to wear pads at all times ever since her daughter was born. CT at [place] demonstrated Distal cecal/proximal ascending colonic mass, concerning for carcinoma, causing at least partial cecal and diffuse small bowel obstruction. Right lower quadrant and periaortic lymphadenopathy. CMP was reviewed and was remarkable only for glucose of 1 Review of Systems Review of Systems: 12 systems were reviewed with pertinent positives and negatives per HPI. Except as documented in the HPI, all other systems were reviewed and are negative. [facility] Past Medical History Medical History (Updated 05/15/22 @ 10:06 by Jigna Allen DO) Allergic rhinitis Grade II diastolic dysfunction Echocardiogram 08/2021: Patient denies significant cardiac history and states the gear shaver set up operator changes read after repeat visit. Iron deficiency anemia Mixed stress and urge urinary incontinence Normal colonoscopy (~2018) Surgical History Surgical History (Updated 05/15/22 @ 10:00 by Jigna Allen DO) History of dilation and curettage (~2006) Family History Family History (Updated 05/15/22 @ 10:05 by Jigna Williamson
--- NOTE | 2022-05-15 10:25 | PM.CNGS ---
Assessment and Plan Assessment and plan (1) Cecum mass: Code(s): K63.89 - Other specified diseases of intestine Status: Acute Assessment and Plan: CT scan reviewed and discussed with the patient and her in detail. There is evidence of a distal cecal/proximal ascending colon mass that is causing an obstruction, as well as some right lower quadrant and periaortic lymphadenopathy. This is concerning for a malignancy. She reports having a normal colonoscopy about 4 years ago in [place], but there is no record of this in our chart. She does have obstructive symptoms with no bowel function today. She would likely not tolerate the prep for a colonoscopy at this point. For now, we will continue with NG tube decompression and bowel rest. I discussed with the patient that we will plan on scheduling a colon resection in the next few days depending on how she progresses. This will allow some time for bowel decompression and preparation for surgery. Will order an obstructive series for tomorrow morning and check a CEA level. Thank you for allowing us to see the patient in consultation and we will continue to follow along with you. (2) Bowel obstruction: Code(s): K56.609 - Unspecified intestinal obstruction, unspecified as to partial versus complete obstruction Status: Acute Assessment and Plan: Secondary to the colon mass. Continue NG tube decompression, bowel rest, IV fluids, and analgesics as needed. See plan above. (3) Anemia of chronic disease: Code(s): D63.8 - Anemia in other chronic diseases classified elsewhere Status: Acute (4) Grade II diastolic dysfunction: Code(s): I51.89 - Other ill-defined heart diseases Status: Acute Plan I have discussed the patient's case and plan of care with Dr. Moreno. History of Present Illness Consult details Consult date: 05/15/22 Reason for consult: other (Cecal mass with obstruction) Requesting physician: Jigna Allen DO Narrative: This is a 66-year-old female who presented to [place] ER yesterday with complaints of upper abdominal pain and vomiting. She reports epigastric abdominal pain starting yesterday afternoon. She describes this as cramping abdominal pain that would come and go. She tried taking Tums without relief. She developed bloating and had an episode of vomiting in the afternoon. She had drank red Gatorade prior to vomiting, and reports her emesis had the same appearance. Symptoms persisted and she presented to the ER at [place] yesterday evening. CT scan of the abdomen and pelvis showed a distal cecal/proximal ascending colon mass concerning for malignancy that is causing at least a partial obstruction, and right lower quadrant and periaortic lymphadenopathy. The patient was transferred and directly admitted to [facility] last night. Our service has been consulted for surgical evaluation of the obstructing colon mass. She has an NG tube and is currently NPO. The patient is seen on the medical floor. She is still experiencing cramping abdominal pain that seems to return as her pain medication wears off. She reports having 3 small formed bowel movements yesterday and 1 small liquid bowel movement in the ER last night. She denies flatus today. She does report that over the past year, she has noticed a change in her bowel habits. She deals with a fluctuation between constipation and diarrhea, but symptoms have been mild so she has not seen a medical provider. She reports a history of iron deficiency anemia that was reportedly worked up with a negative colonoscopy and EGD 4 years ago. About 3 months ago on outpatient labs, she was found to have severely low iron and has had further work-up for this. She required three iron infusions at [place] and was referred to a [facility]. She had a bone marrow biopsy that was reportedly normal, and another negative EGD. She denies a colonoscopy being done at that time. Rachel
--- NOTE | 2022-05-15 13:04 | PM.IMPN ---
Progress Note: A&P Assessment and Plan (1) Cecum mass: Code(s): K63.89 - Other specified diseases of intestine Status: Acute (2) SBO (small bowel obstruction): Code(s): K56.609 - Unspecified intestinal obstruction, unspecified as to partial versus complete obstruction Status: Deleted Plan Abdominal pain nausea vomiting: CT abdomen pelvis without contrast showed distal cecal/ascending mass concerning for ACS versus eco issues small-bowel obstruction with associated right lower quadrant and. Aortic lymphadenopathy. Small-bowel obstruction due to cecal mass. General surgery has been consulted. Patient is NPO. NG is in place to suction lower intermittent. Pain medications nausea medications and Tylenol have been ordered. IV fluids have been ordered. history of urge incontinence Grade 2 diastolic dysfunction Iron deficiency anemia recently underwent EGD. No recent colonoscopy last colonoscopy done 4 years ago DVT prophylaxis SCDs Subjective Date/time seen: 05/15/22 13:04 Interval history: HPI:66-year-old female with a past medical history of urge urinary incontinence, allergic rhinitis and grade 2 diastolic dysfunction who presented to the ER at [facility] due to sudden onset of abdominal pain, nausea and vomiting.? The patient reported that she woke up on the morning of the with upper abdominal pain that was colicky in nature.? When it with crescendo her pain was a 9/10 in intensity but did tend to wax and wane throughout the day.? After morphine the patient's pain was a 6/10 in intensity.? Around 3:00 p.m. she had acute worsening of her abdominal pain with associated vomiting.? She was unable to keep anything down and decided to go to the ER.? In the ER the patient had a CT of the abdomen pelvis without contrast performed which demonstrated distal cecal/ ascending colon mass concerning for carcinoma causing at least partial cecal and diffuse small-bowel obstruction with associated right lower quadrant and periaortic lymphadenopathy.? Patient had baseline labs drawn which were relatively unremarkable.? Patient's labs were significant for some mild anemia.? The patient has been struggling with mild anemia since August of last year.? She went to the doctor complaining of dyspnea on exertion.? She had an echocardiogram performed which demonstrated grade 2 diastolic dysfunction but was otherwise unremarkable.? She stated that she went back to the associate professor computer science because her primary doctor did not believe that the echo was that bad to describe the patient's symptoms and when she went back to the associate professor computer science the rate read the echo and said that it was a bad read.? She does not know what version of the report is in the computer.? She reports that any time she gets up and walks around she does get some dyspnea.? At that time they did do anemia labs and her 2nd and 3rd set of labs did demonstrate low iron levels with 2nd set of labs demonstrating a high ferritin in the 3rd set demonstrating a low ferritin.? Her % saturation was within normal limits but trending down.? These labs were most consistent with iron deficiency anemia.? She did undergo an EGD last month to evaluate her iron deficiency.? She reports that they did not do a colonoscopy because her primary care doctor did not feel she needed it since she had a colonoscopy 4 years ago.? She reports that she was not having any preceding symptoms prior to her abdominal pain on the morning of the .? She did not notice any changes school stool caliber, stool color or consistency.? She does admit that she would have varying stool consistency between hard stools to soft stools but this is unchanged for many years.? Patient reports that she has had chronic urinary incontinence and has to wear pads at all times ever since her daughter was born. CT at [place] demonstrated?Distal cecal/proximal ascending colonic mass, concerning for carcinoma, causing at least partial cecal and d
[2022-05-15 14:36] VITALS: BP 139/75; PULSE 97; RESP 18; TEMP 36.7; O2SAT 97
[2022-05-16] VITALS (13 sets, daily range): BP systolic 108–143; BP diastolic 59–78; PULSE 78–114; RESP 12–20; TEMP 36.4–37.1; O2SAT 93–100; BMI 21.3
[2022-05-16] MEDS: SODIUM CHLORIDE 0.9% IV 1,000 ML 100 ML IV CONT ×2 (00:27→10:55)
[2022-05-16 05:44] LABS: Basophils Percent Auto 0.4 % (0.2-1.2); Eosinophils Absolute Auto 0.1 K/mm3 (0-0.3); Eosinophils Percent Auto 0.5 % (0-4.4); Hematocrit 38.6 % (37.0-47.0); Hemoglobin 12.1 g/dL (12.0-15.0); Immature Granulocyte Absolute 0.06 K/mm3 (0.00-0.031); Immature Granulocyte Percent A 0.5 % (0-0.5); Lymphocytes Absolute Auto 1.84 K/mm3 (0.9-3.2); Lymphocytes Percent Auto 16.3 % (18.3-44.2); Mean Corpuscular HGB Conc 31.3 g/dl (32-36); Mean Corpuscular Hemoglobin 26.7 pg (26-34); Mean Corpuscular Volume 85.2 fl (80-100); Mean Platelet Volume 8.8 fl (7.4-10.4); Monocytes Absolute Auto 0.8 K/mm3 (0.1-0.6); Monocytes Percent Auto 6.9 % (2.6-8.5); Neutrophils Absolute Auto 8.5 K/mm3 (1.3-6.7); Neutrophils Percent Auto 75.4 % (45.5-73.1); Platelet Count Result 351 k/mm3 (150-375); Red Blood Count 4.53 M/mm3 (4.2-5.4); Red Cell Distribution Width 14.9 % (11.5-14.5); White Blood Count 11.3 K/mm3 (4.5-10.0)
[2022-05-16 05:55] LABS: Anion Gap 6 mmol/L (8-16); Blood Urea Nitrogen 13 mg/dL (7-17); Calcium 7.7 mg/dL (8.4-10.2); Carbon Dioxide 24 mmol/L (22-30); Chloride 107 mmol/L (98-107); Estimated CRCL calculation 67 ml/min; Estimated Glomerular Filt Rate > 60; Glucose 113 mg/dL (65-110); Potassium 3.8 mmol/L (3.4-5.0); Sodium 137 mmol/L (137-145)
[2022-05-16 06:25] LABS: Carcinoembryonic Antigen 0.9 ng/mL (0.0-3.0)
--- NOTE | 2022-05-16 13:03 | WPDANESEPPF ---
Anes - Initial Pre Proc Eval Procedure: Operation Date: 05/16/22 13:00 Proposed Procedures p Hand Assisted Laparoscopic Right Hemicolectomy - Yves Moreno DO Date/Time: 05/16/22 13:03 Surgeon: Dl Oneill MD Pre Op Diagnosis: Small Bowel Obstruction Patient Data Age: 66 Gender: F Height: 1.6 m Weight: 54.7 kg Last Vital Signs Temp 36.7 C 05/16/22 05:22 Pulse 100 05/16/22 05:22 Resp 16 05/16/22 05:22 BP 143/78 H 05/16/22 05:22 Pulse Ox 93 05/16/22 05:22 O2 Del Method Room Air 05/16/22 08:00 Allergies Allergy/AdvReac Type Severity Reaction Status Date / Time codeine AdvReac Nausea Verified 05/14/22 19:36 Home Medications Medication Instructions Recorded Confirmed Type montelukast 10 mg tablet 10 mg PO DAILY 02/08/22 05/15/22 History oxybutynin chloride 10 mg 10 mg PO BID 02/08/22 05/15/22 History tablet,extended release 24 hr Laboratory Tests 05/16/22 05/16/22 05/16/22 05:27 05:27 05:27 WBC 11.3 K/mm3 H K/mm3 (4.5-10.0) RBC 4.53 M/mm3 M/mm3 (4.2-5.4) Hgb 12.1 g/dL g/dL (12.0-15.0) Hct 38.6 % % (37.0-47.0) MCV 85.2 fl fl (80-100) MCH 26.7 pg pg (26-34) MCHC 31.3 g/dl L g/dl (32-36) RDW 14.9 % H % (11.5-14.5) Plt Count 351 k/mm3 k/mm3 (150-375) MPV 8.8 fl fl (7.4-10.4) Immature Gran % (Auto) 0.5 % % (0-0.5) Neut % (Auto) 75.4 % H % (45.5-73.1) Lymph % (Auto) 16.3 % L % (18.3-44.2) [place] % (Auto) 6.9 % % (2.6-8.5) Eos % (Auto) 0.5 % % (0-4.4) Baso % (Auto) 0.4 % % (0.2-1.2) Lymph # (Auto) 1.84 K/mm3 K/mm3 (0.9-3.2) [place] # (Auto) 0.8 K/mm3 H K/mm3 (0.1-0.6) Eos # (Auto) 0.1 K/mm3 K/mm3 (0-0.3) Baso # (Auto) 0.0 K/mm3 K/mm3 (0.0-0.1) Abs Immat Gran (auto) 0.06 K/mm3 H K/mm3 (0.00-0.031) Absolute Neuts (auto) 8.5 K/mm3 H K/mm3 (1.3-6.7) Absolute Nucleated RBC 0.0 K/mm3 K/mm3 (0.0-0.012) Nucleated RBC % 0.0 % % (0.0-0.2) Sodium 137 mmol/L mmol/L (137-145) Potassium 3.8 mmol/L mmol/L (3.4-5.0) Chloride 107 mmol/L mmol/L (98-107) Carbon Dioxide 24 mmol/L mmol/L (22-30) Anion Gap 6 mmol/L L mmol/L (8-16) BUN 13 mg/dL mg/dL (7-17) Creatinine 0.60 mg/dL L mg/dL (0.7-1.0) Estim Creat Clear Calc 67 ml/min ml/min Estimated GFR > 60 (59 - ) Glucose 113 mg/dL H mg/dL (65-110) Calcium 7.7 mg/dL L mg/dL (8.4-10.2) Carcinoembryonic Ag 0.9 ng/mL ng/mL (0.0-3.0) Blood Type O Negative Antibody Screen Negative Patient hx anesthesia problems: none Family hx anesthesia problems: none Results Review: All pre-operative results and documents have been reviewed as part of the pre-operative evaluation. [facility] Past Medical History Medical History Allergic rhinitis Grade II diastolic dysfunction Echocardiogram 08/2021: Patient denies significant cardiac history and states the fingernail sculptor changes read after repeat visit. Iron deficiency anemia Mixed stress and urge urinary incontinence Normal colonoscopy (~2018) Surgical History Surgical History History of dilation and curettage (~2006) Family History Family History Father , Age 61 Lung cancer Mother Over 80 years old, Onset Age: 91 Sibling Multiple sclerosis Social History Social History Social History: Code status: Full code Surrogate decision maker: Smoking status: Never smoker Alcohol intake: never Substance use:
[2022-05-16] MEDS: ONDANSETRON INJ 4 MG/2 ML VIAL IV PUSH (13:34)
--- NOTE | 2022-05-16 13:40 | WPDHPUPDATE1 ---
History and Physical Update Update Date/Time: 05/16/22 13:40 History and Physical has been reviewed, including an updated exam of the patient. There are NO changes in the patient's condition. Risks, benefits, and alternatives have been discussed and questions answered. Patient agrees to proceed with procedure.
--- NOTE | 2022-05-16 13:53 | PM.IMPN ---
Progress Note: A&P Assessment and Plan (1) Cecum mass: Code(s): K63.89 - Other specified diseases of intestine Status: Inactive (2) SBO (small bowel obstruction): Code(s): K56.609 - Unspecified intestinal obstruction, unspecified as to partial versus complete obstruction Status: Inactive Plan Abdominal pain nausea vomiting: CT abdomen pelvis without contrast showed distal cecal/ascending mass concerning for carcinoma causing at least partial cecal and diffuse small-bowel obstruction with associated right lower quadrant and. Aortic lymphadenopathy. Small-bowel obstruction due to cecal mass. General surgery has been consulted. Patient is NPO. NG is in place to suction lower intermittent. Pain medications nausea medications and Tylenol have been ordered. IV fluids have been ordered. She is planned for right hemicolectomy this afternoon history of urge incontinence Grade 2 diastolic dysfunction Iron deficiency anemia recently underwent EGD. No recent colonoscopy last colonoscopy done 4 years ago DVT prophylaxis SCDs Subjective Date/time seen: 05/16/22 13:53 Interval history: HPI:66-year-old female with a past medical history of urge urinary incontinence, allergic rhinitis and grade 2 diastolic dysfunction who presented to the ER at [facility] due to sudden onset of abdominal pain, nausea and vomiting.? The patient reported that she woke up on the morning of the with upper abdominal pain that was colicky in nature.? When it with crescendo her pain was a 9/10 in intensity but did tend to wax and wane throughout the day.? After morphine the patient's pain was a 6/10 in intensity.? Around 3:00 p.m. she had acute worsening of her abdominal pain with associated vomiting.? She was unable to keep anything down and decided to go to the ER.? In the ER the patient had a CT of the abdomen pelvis without contrast performed which demonstrated distal cecal/ ascending colon mass concerning for carcinoma causing at least partial cecal and diffuse small-bowel obstruction with associated right lower quadrant and periaortic lymphadenopathy.? Patient had baseline labs drawn which were relatively unremarkable.? Patient's labs were significant for some mild anemia.? The patient has been struggling with mild anemia since August of last year.? She went to the doctor complaining of dyspnea on exertion.? She had an echocardiogram performed which demonstrated grade 2 diastolic dysfunction but was otherwise unremarkable.? She stated that she went back to the head golf coach because her primary doctor did not believe that the echo was that bad to describe the patient's symptoms and when she went back to the head golf coach the rate read the echo and said that it was a bad read.? She does not know what version of the report is in the computer.? She reports that any time she gets up and walks around she does get some dyspnea.? At that time they did do anemia labs and her 2nd and 3rd set of labs did demonstrate low iron levels with 2nd set of labs demonstrating a high ferritin in the 3rd set demonstrating a low ferritin.? Her % saturation was within normal limits but trending down.? These labs were most consistent with iron deficiency anemia.? She did undergo an EGD last month to evaluate her iron deficiency.? She reports that they did not do a colonoscopy because her primary care doctor did not feel she needed it since she had a colonoscopy 4 years ago.? She reports that she was not having any preceding symptoms prior to her abdominal pain on the morning of the .? She did not notice any changes school stool caliber, stool color or consistency.? She does admit that she would have varying stool consistency between hard stools to soft stools but this is unchanged for many years.? Patient reports that she has had chronic urinary incontinence and has to wear pads at all times ever since her daughter was born. CT at [place] demonstrated?Distal cecal/p
[2022-05-16] MEDS: metroNIDAZOLE 500 MG/ISO 100ML 500 MG/100 ML BAG 100 MG IVPB (14:05)
[2022-05-16] MEDS: ceFAZolin 2 GM/D5W 50 ML 2 GM/50 ML BAG IVPB (14:05)
[2022-05-16] MEDS: LACTATED RINGERS 1,000 ML 30 ML IV CONT ×2 (16:42)
--- NOTE | 2022-05-16 16:55 | W.PM.PROC2 ---
Procedure Note - Detailed Date of Procedure 05/16/22 Pre-op Diagnosis Cecal mass, bowel obstruction Post-op Diagnosis Other (Ascending colon mass with peritoneal implant) Procedure Performed Hand assisted laparoscopic right hemicolectomy with ileocolic anastomosis Surgeon Yves Moreno, DO Anesthesia General and Local (Exparel) Indications This is a 66-year-old woman who presented to the emergency department on 05/14/2022 with complaints of abdominal pain, bloating, nausea, and vomiting. She initially presented to the emergency department in [place] and then was transferred to [facility] for further treatment. The CT in [place] showed evidence of a cecal or ascending colon mass causing a bowel obstruction. There was also evidence of lymphadenopathy. An NG tube was placed to decompress the bowel. She was showing no signs of returning bowel function and appeared to be completely obstructed. Discussions were made with the patient about treatment options and decision was made to proceed with hand assisted laparoscopic right hemicolectomy, possible open. Her preoperative labs did show a slightly elevated alk-phos but her CEA level was normal. Findings Hand assisted laparoscopic right hemicolectomy was performed. Upon inspecting the abdomen laparoscopically, the patient did have a significant amount of serous ascites. About 750 mL was suctioned from the abdomen. In the right lower quadrant there did appear to be a peritoneal implant right next to the mass along the lateral abdominal wall. I was able to excise this with the mass and right colon. There also appeared to be some tethering of the mass to the retroperitoneum. I identified the right ureter and had to carefully dissect the mass off of the retroperitoneum. I did not see the mass invading into the ureter along its path and was careful to avoid injuring the ureter while dissecting the mass free. There also appeared to be some enlarged lymph nodes along the mesocolon. A high ligation of the ileocolic vessels was performed to adequately obtain lymph nodes for staging purposes. A [id number] stapled ileocolic anastomosis was performed. NG tube was checked and appeared in proper position the right colon was sent to the lab for pathology. Description of Procedure Procedure as well as risks benefits and alternatives were explained to the patient. Written consent was obtained and placed in chart prior to procedure. Patient was brought back to surgical suite. She was placed supine on operating table. Time-out was done to confirm patient procedure. she was then intubated by the anesthesia department. her abdomen was prepped and draped in sterile fashion using chlorhexidine prep. A 7 centimeter vertical incision was made centered on the umbilicus using a 15 blade scalpel. Electrocautery was used for hemostasis and for dissection down through Cristine's fascia. The linea alba was identified, and incised using electrocautery. Two Janey clamps were used to lift the fascia anteriorly, and the peritoneum was then entered using electrocautery. The abdomen was inspected and no acute abnormalities were noted. The wound protector was placed at this incision, and the GelPort was applied with a 5 millimeter port placed through it. Carbon dioxide insufflation was used to create a pneumoperitoneum. The camera was inserted and the abdominal cavity was inspected. The tattooed region was identified on the colon, and no other abnormalities were noted. The patient was placed in Trendelenburg position and rotated slightly to the left. A 5 millimeter incision was made in the lower midline and a 5 millimeter trocar was inserted under direct visualization. Another 5 millimeter incision was made in the left lower quadrant, and a 5 millimeter trocar was inserted under direct visualization. A transversus abdominis plane block with Exparel was performed under laparoscopic visualization bilaterally. After ca
--- NOTE | 2022-05-16 17:03 | SUR.PHASEI ---
1703- oral airway removed
[2022-05-16] MEDS: fentaNYL CITRATE INJ (*CRX) 100 MCG/2 ML VIAL 25 MCG IV PUSH (17:32)
[2022-05-16] MEDS: LACTATED RINGERS 1,000 ML 100 ML IV CONT (18:41)
[2022-05-16] MEDS: MORPHINE SULFATE (*CRX) 2 MG/ML INJ IV PUSH (18:42)
[2022-05-16] MEDS: MORPHINE SULFATE (*CRX) 4 MG/ML INJ IV PUSH ×2 (19:41→23:44)
--- NOTE | 2022-05-16 23:28 | ECG_ITS ---
Measurements Intervals [place] Rate: 114 P: 34 NV: 108 QRS: 18 QRSD: 80 T: 34 QT: 336 QTc: 463 Interpretive Statements SINUS TACHYCARDIA WITH SHORT NV INTERVAL POSSIBLE LEFT ATRIAL ENLARGEMENT [-0.1mV P WAVE IN V1/V2] COMPARED TO ECG 05/14/2022 19:42:35 SINUS TACHYCARDIA NOW PRESENT MINIMAL ST CHANGES PRESENT Electronically Signed On 05-17-2022 17:54:44 CDT by Kassie Thorpe M.D.
[2022-05-17] VITALS (8 sets, daily range): BP systolic 100–120; BP diastolic 55–60; PULSE 89–110; RESP 16–18; TEMP 36.6–37.4; O2SAT 92–97
--- NOTE | 2022-05-17 00:09 | PC.NURSE ---
Respitory called to bring incentive spirometer at 2020
[2022-05-17] MEDS: LACTATED RINGERS 1,000 ML 100 ML IV CONT ×2 (05:31→16:11)
[2022-05-17 06:05] LABS: Basophils Absolute Auto 0.1 K/mm3 (0.0-0.1); Basophils Percent Auto 0.5 % (0.2-1.2); Eosinophils Percent Auto 0.4 % (0-4.4); Hematocrit 36.3 % (37.0-47.0); Hemoglobin 11.2 g/dL (12.0-15.0); Immature Granulocyte Absolute 0.04 K/mm3 (0.00-0.031); Immature Granulocyte Percent A 0.4 % (0-0.5); Lymphocytes Absolute Auto 1.65 K/mm3 (0.9-3.2); Lymphocytes Percent Auto 14.9 % (18.3-44.2); Mean Corpuscular HGB Conc 30.9 g/dl (32-36); Mean Corpuscular Hemoglobin 26.5 pg (26-34); Monocytes Absolute Auto 0.7 K/mm3 (0.1-0.6); Monocytes Percent Auto 6.4 % (2.6-8.5); Neutrophils Absolute Auto 8.6 K/mm3 (1.3-6.7); Neutrophils Percent Auto 77.4 % (45.5-73.1); Platelet Count Result 353 k/mm3 (150-375); Red Blood Count 4.22 M/mm3 (4.2-5.4); Red Cell Distribution Width 14.9 % (11.5-14.5); White Blood Count 11.1 K/mm3 (4.5-10.0)
[2022-05-17 06:17] LABS: Alanine Aminotransferase 10 U/L (6-35); Albumin Level 2.6 g/dL (3.5-5.1); Alkaline Phosphatase 79 U/L (38-126); Anion Gap 2 mmol/L (8-16); Aspartate Amino Transferase 25 U/L (14-36); Bilirubin,Total 0.3 mg/dL (0.2-1.3); Blood Urea Nitrogen 13 mg/dL (7-17); Calcium 7.8 mg/dL (8.4-10.2); Carbon Dioxide 28 mmol/L (22-30); Chloride 102 mmol/L (98-107); Estimated CRCL calculation 67 ml/min; Estimated Glomerular Filt Rate > 60; Glucose 126 mg/dL (65-110); Magnesium 2.2 mg/dL (1.6-2.3); Potassium 3.8 mmol/L (3.4-5.0); Sodium 132 mmol/L (137-145)
[2022-05-17] MEDS: ENOXAPARIN 40 MG/0.4 ML SYRINGE SUB-Q (08:51)
--- NOTE | 2022-05-17 09:15 | P.PNAN_ITS ---
Anes - Prog Note Post-Op Date/Time: 05/17/22 09:15 Cardiovascular status: normal Respiratory status: normal Airway patency: baseline Mental status: baseline Post-Op hydration status: normal Vital Signs: Last Vital Signs Temp 36.6 C 05/17/22 07:53 Pulse 102 H 05/17/22 07:53 Resp 18 05/17/22 07:53 BP 120/57 L 05/17/22 07:53 Pulse Ox 92 05/17/22 07:53 O2 Del Method Room Air 05/17/22 03:50 O2 Flow Rate 8 05/16/22 17:12 Pain Score (VAS): 2 I/O: Intake & Output 05/16/22 05/17/22 05/17/22 23:59 07:59 15:59 Intake Total 200 1050 Output Total 50 550 Balance 150 500 Laboratory Tests 05/17/22 05:39 05/17/22 05:39 05/17/22 05/17/22 05:39 05:39 WBC 11.1 H RBC 4.22 Hgb 11.2 L Hct 36.3 L MCV 86.0 MCH 26.5 MCHC 30.9 L RDW 14.9 H Plt Count 353 MPV 9.0 Immature Gran % (Auto) 0.4 Neut % (Auto) 77.4 H Lymph % (Auto) 14.9 L [place] % (Auto) 6.4 Eos % (Auto) 0.4 Baso % (Auto) 0.5 Lymph # (Auto) 1.65 [place] # (Auto) 0.7 H Eos # (Auto) 0.0 Baso # (Auto) 0.1 Abs Immat Gran (auto) 0.04 H Absolute Neuts (auto) 8.6 H Absolute Nucleated RBC 0.0 Nucleated RBC % 0.0 Sodium 132 L Potassium 3.8 Chloride 102 Carbon Dioxide 28 Anion Gap 2 L BUN 13 Creatinine 0.60 L Estim Creat Clear Calc 67 Estimated GFR > 60 Glucose 126 H Calcium 7.8 L Magnesium 2.2 Total Bilirubin 0.3 AST 25 ALT 10 Alkaline Phosphatase 79 Total Protein 5.0 L Albumin 2.6 L Post-procedural complaints: none Patient Feedback: Patient satisfied with anesthetic care.
--- NOTE | 2022-05-17 10:17 | PM.PNGS ---
Progress Note: A&P Assessment and Plan (1) Colonic mass: Code(s): K63.89 - Other specified diseases of intestine Status: Acute Assessment and Plan: Await return of bowel function. Will remove NG and start clear liquids. Encouraged sitting in the chair and to try walking in the halls today Pathology pending Repeat labs tomorrow (2) Bowel obstruction: Code(s): K56.609 - Unspecified intestinal obstruction, unspecified as to partial versus complete obstruction Status: Acute Assessment and Plan: Remove NG and try clear liquids Plan I have discussed the plan of care with Dr. Moreno. Subjective Subjective Date/Time Seen: 05/17/22 09:17 Post Op day: 1 (ROSY right hemicolectomy with ileocolic anastomosis) Patient reports: voiding w/o difficulty, no flatus, no bowel movement and afebrile Interval history: Patient seen and examined. She reports feeling very bloated this morning. She also has some incisional pain but mostly complains of the bloating. No nausea. No flatus yet. She has been up to the chair and walked in the room, which she tolerated well. Noted mild tachycardia on her vital signs, and appears Hospitalist got EKG last night that showed sinus tachycardia. Review of Systems Review of Systems: All systems reviewed & are unremarkable except as noted in HPI and below Constitutional: Constitutional: Reports no additional constitutional complaints and Denies fever(s) Cardiovascular: Cardiovascular: Reports no additional cardiovascular complaints, Denies chest pain and Denies leg edema Respiratory: Respiratory: Reports no additional respiratory complaints and Denies dyspnea Gastrointestinal: Gastrointestinal: Reports as per HPI and Reports no additional gastrointestinal complaints Exam Const: General: comfortable and no acute distress Orientation/consciousness: patient oriented x3 Resp: Effort & Inspection: normal respiratory effort Auscultation: clear to auscultation bilaterally Cardio: Rate: tachycardic Rhythm: regular rhythm GI: Inspection: distended and incision (dry and glue intact.) GI Palp: Yes Soft to palpation and Yes Tenderness to palpation present (GI) (incisional) Auscultation: Hypoactive bowel sounds present Neuro: General: moves all extremities and no focal motor deficits Extrem: General: no calf tenderness and no edema Psych: Insight: Good insight present (Psych) Judgement: Good judgement present (Psych) Objective Data Vital Signs Vital Signs: Vital Signs - 24 hr 05/16/22 16:42 05/16/22 16:57 05/16/22 17:12 Temperature 97.7 F Pulse Rate 85 80 78 Respiratory Rate 16 14 14 Blood Pressure 127/62 124/68 131/65 Pulse Oximetry 100 100 100 Oxygen Delivery Simple Face Mask Simple Face Mask Simple Face Mask Oxygen Flow Rate 8 8 8 05/16/22 17:25 05/16/22 17:40 05/16/22 17:46 Temperature Pulse Rate 87 82 89 Respiratory Rate 18 12 14 Blood Pressure 126/67 120/63 121/68 Pulse Oximetry 96 93 94 Oxygen Delivery Room Air Room Air Room Air Oxygen Flow Rate 05/16/22 18:15 05/16/22 18:30 05/16/22 19:00 Temperature 98.8 F 98.8 F 98.6 F Pulse Rate 95 91 104 H Respiratory Rate 20 20 18 Blood Pressure 126/64 120/62 123/62 Pulse Oximetry 94 93 94 Oxygen Delivery Oxygen Flow Rate 05/16/22 19:53 05/16/22 20:00 05/16/22 23:53 Temperature 97.6 F 97.8 F Pulse Rate 110 H 110 H 114 H Respiratory Rate 16 16 16 Blood Pressure 108/59 L 121/60 Pulse Oximetry 94 94 93 Oxygen Delivery Room Air Oxygen Flow Rate 05/17/22 03:50 05/17/22 03:53 05/17/22 07:53 Temperature 99.3 F 97.9 F Pulse Rate 110 H 102 H Respiratory Rate 16 18 Blood Pressure 104/60 120/57 L Pulse Oximetry 94 93 92 Oxygen Delivery Room Air Oxygen Flow Rate Intake/Output Intake/Output: Intake & Output 05/14/22 05/15/22 05/16/22 05/17/22 23:59 23:59 23:59 23:59 Intake Total 1000 2200 1050 Output Total 550 450 650 Balance 450 1750
--- NOTE | 2022-05-17 15:36 | PM.IMPN ---
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 Aortic lymphadenopathy. #Small-bowel obstruction due to cecal mass. General surgery has been consulted. Patient is NPO. NG is in place to suction lower intermittent. Pain medications nausea medications and Tylenol have been ordered. IV fluids have been ordered. 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 # history of urge incontinence #Grade 2 diastolic dysfunction #Iron deficiency anemia recently underwent EGD. No recent colonoscopy last colonoscopy done 4 years ago #DVT prophylaxis SCDs, Lovenox started Subjective Date/time seen: 05/17/22 15:36 Interval history: HPI:66-year-old female with a past medical history of urge urinary incontinence, allergic rhinitis and grade 2 diastolic dysfunction who presented to the ER at [facility] due to sudden onset of abdominal pain, nausea and vomiting.? The patient reported that she woke up on the morning of the with upper abdominal pain that was colicky in nature.? When it with crescendo her pain was a 9/10 in intensity but did tend to wax and wane throughout the day.? After morphine the patient's pain was a 6/10 in intensity.? Around 3:00 p.m. she had acute worsening of her abdominal pain with associated vomiting.? She was unable to keep anything down and decided to go to the ER.? In the ER the patient had a CT of the abdomen pelvis without contrast performed which demonstrated distal cecal/ ascending colon mass concerning for carcinoma causing at least partial cecal and diffuse small-bowel obstruction with associated right lower quadrant and periaortic lymphadenopathy.? Patient had baseline labs drawn which were relatively unremarkable.? Patient's labs were significant for some mild anemia.? The patient has been struggling with mild anemia since August of last year.? She went to the doctor complaining of dyspnea on exertion.? She had an echocardiogram performed which demonstrated grade 2 diastolic dysfunction but was otherwise unremarkable.? She stated that she went back to the white sugar supervisor because her primary doctor did not believe that the echo was that bad to describe the patient's symptoms and when she went back to the white sugar supervisor the rate read the echo and said that it was a bad read.? She does not know what version of the report is in the computer.? She reports that any time she gets up and walks around she does get some dyspnea.? At that time they did do anemia labs and her 2nd and 3rd set of labs did demonstrate low iron levels with 2nd set of labs demonstrating a high ferritin in the 3rd set demonstrating a low ferritin.? Her % saturation was within normal limits but trending down.? These labs were most consistent with iron deficiency anemia.? She did undergo an EGD last month to evaluate her iron deficiency.? She reports that they did not do a colonoscopy because her primary care doctor did not feel she needed it since she had a colonoscopy 4 years ago.? She reports that she was not having any preceding symptoms prior to her abdominal pain on the morning of the .? She did not notice any changes school stool caliber, stool color or consistency.? She does admit that she would have varying stool consistency between hard stools to soft stools but this is unchanged for many years.? Patient reports that she has had chronic urinary incontine
[2022-05-17] MEDS: MORPHINE SULFATE (*CRX) 2 MG/ML INJ IV PUSH (20:51)
[2022-05-18] MEDS: LACTATED RINGERS 1,000 ML 100 ML IV CONT (01:42)
[2022-05-18] MEDS: MORPHINE SULFATE (*CRX) 2 MG/ML INJ IV PUSH (02:47)
[2022-05-18 03:56] VITALS: BP 115/61; PULSE 81; RESP 17; TEMP 36.6; O2SAT 98
[2022-05-18 06:00] LABS: Hematocrit 30.5 % (37.0-47.0); Hemoglobin 9.4 g/dL (12.0-15.0); Mean Corpuscular HGB Conc 30.8 g/dl (32-36); Mean Corpuscular Hemoglobin 26.8 pg (26-34); Mean Corpuscular Volume 86.9 fl (80-100); Platelet Count Result 238 k/mm3 (150-375); Red Blood Count 3.51 M/mm3 (4.2-5.4); Red Cell Distribution Width 14.8 % (11.5-14.5); White Blood Count 6.4 K/mm3 (4.5-10.0)
[2022-05-18 06:11] LABS: Alanine Aminotransferase 10 U/L (6-35); Albumin Level 2.2 g/dL (3.5-5.1); Alkaline Phosphatase 73 U/L (38-126); Anion Gap 0 mmol/L (8-16); Aspartate Amino Transferase 26 U/L (14-36); Bilirubin,Total 0.2 mg/dL (0.2-1.3); Blood Urea Nitrogen 11 mg/dL (7-17); Calcium 7.4 mg/dL (8.4-10.2); Carbon Dioxide 31 mmol/L (22-30); Chloride 105 mmol/L (98-107); Estimated CRCL calculation 67 ml/min; Estimated Glomerular Filt Rate > 60; Glucose 92 mg/dL (65-110); Magnesium 2.2 mg/dL (1.6-2.3); Potassium 3.4 mmol/L (3.4-5.0); Sodium 136 mmol/L (137-145)
[2022-05-18] MEDS: ENOXAPARIN 40 MG/0.4 ML SYRINGE SUB-Q (08:33)
--- NOTE | 2022-05-18 11:51 | PCNFU ---
Nutrition Follow-Up Complete: Altered GI function as related to SMO as evidenced by NPO Goal: Meet estimated nutritional needs - pt is progressing towards her goal, continue with current goal Pt current nutrition is clear liquids. Last recorded weight is 62.7 kg, up 8kg from initial visit on 05/16. Bowel Motility: Last BM was recorded on 05/15 Labs Reviewed: Hgb 9.4, Hct 30.5, Alb 2.2, Na 136, Cr .6 Meds Noted: Zofran, Morphine Sulfate Skin:WNL except surgical incision (abdomen). Additional Notes: Pt is very compliant and polite. She reports an improved appetite and is eating about half her meals. Pt is currently on orders for Ensure Clear (240kcal, 8gm protein) and was instructed to drink as much of it as she can. Pt is looking forward to transitioning back to her normal PO diet. Will monitor every 5 days.
--- NOTE | 2022-05-18 12:37 | PM.IMPN ---
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 Aortic lymphadenopathy. #Small-bowel obstruction due to cecal mass. General surgery has been consulted. Patient is NPO. NG is in place to suction lower intermittent. Pain medications nausea medications and Tylenol have been ordered. IV fluids have been ordered. NG tube removed now post surgery # status post right hemicolectomy With ileocolic anastomosis 05/16/2022 findings of cecal mass in the ascending colon with peritoneal implant. Awaiting pathology report # history of urge incontinence #Grade 2 diastolic dysfunction #Iron deficiency anemia recently underwent EGD. No recent colonoscopy last colonoscopy done 4 years ago #DVT prophylaxis SCDs, Lovenox started Subjective Date/time seen: 05/18/22 12:37 Interval history: HPI:66-year-old female with a past medical history of urge urinary incontinence, allergic rhinitis and grade 2 diastolic dysfunction who presented to the ER at [facility] due to sudden onset of abdominal pain, nausea and vomiting.? The patient reported that she woke up on the morning of the with upper abdominal pain that was colicky in nature.? When it with crescendo her pain was a 9/10 in intensity but did tend to wax and wane throughout the day.? After morphine the patient's pain was a 6/10 in intensity.? Around 3:00 p.m. she had acute worsening of her abdominal pain with associated vomiting.? She was unable to keep anything down and decided to go to the ER.? In the ER the patient had a CT of the abdomen pelvis without contrast performed which demonstrated distal cecal/ ascending colon mass concerning for carcinoma causing at least partial cecal and diffuse small-bowel obstruction with associated right lower quadrant and periaortic lymphadenopathy.? Patient had baseline labs drawn which were relatively unremarkable.? Patient's labs were significant for some mild anemia.? The patient has been struggling with mild anemia since August of last year.? She went to the doctor complaining of dyspnea on exertion.? She had an echocardiogram performed which demonstrated grade 2 diastolic dysfunction but was otherwise unremarkable.? She stated that she went back to the controls technician because her primary doctor did not believe that the echo was that bad to describe the patient's symptoms and when she went back to the controls technician the rate read the echo and said that it was a bad read.? She does not know what version of the report is in the computer.? She reports that any time she gets up and walks around she does get some dyspnea.? At that time they did do anemia labs and her 2nd and 3rd set of labs did demonstrate low iron levels with 2nd set of labs demonstrating a high ferritin in the 3rd set demonstrating a low ferritin.? Her % saturation was within normal limits but trending down.? These labs were most consistent with iron deficiency anemia.? She did undergo an EGD last month to evaluate her iron deficiency.? She reports that they did not do a colonoscopy because her primary care doctor did not feel she needed it since she had a colonoscopy 4 years ago.? She reports that she was not having any preceding symptoms prior to her abdominal pain on the morning of the .? She did not notice any changes school stool caliber, stool color or consistency.? She does admit that she would have varying stool consistency between hard stools to soft stools but this is unchanged for many years
--- NOTE | 2022-05-18 12:55 | PM.PNGS ---
Progress Note: A&P Assessment and Plan (1) Colonic mass: Code(s): K63.89 - Other specified diseases of intestine Status: Acute Assessment and Plan: Increase activity Will advance to full liquids for dinner Await return of bowel function Pathology pending (2) Bowel obstruction: Code(s): K56.609 - Unspecified intestinal obstruction, unspecified as to partial versus complete obstruction Status: Acute Subjective Subjective Date/Time Seen: 05/18/22 12:55 Interval history: Improved ambulation. Pain controlled. Tolerating clears. No nausea but mild bloating. No flatus or BM yet. Exam GI: Inspection: incision (intact with glue) and other (minimal distention) Auscultation: normal bowel sounds Objective Data Vital Signs Vital Signs: Vital Signs - 24 hr 05/17/22 17:13 05/17/22 15:53 05/17/22 19:45 Temperature 37.2 C 36.6 C Pulse Rate 102 H 89 Respiratory Rate 16 18 Blood Pressure 115/59 L 100/60 Pulse Oximetry 94 96 97 Oxygen Delivery Room Air 05/17/22 20:00 05/18/22 03:56 Temperature 36.6 C Pulse Rate 89 81 Respiratory Rate 18 17 Blood Pressure 115/61 Pulse Oximetry 97 98 Oxygen Delivery Room Air Intake/Output Intake/Output: Intake & Output 05/15/22 05/16/22 05/17/22 05/18/22 23:59 23:59 23:59 23:59 Intake Total 1000 2200 2490 2360 Output Total 454 707 8895 1400 Balance 450 1750 1240 960 Meds/Results Medications: Active Medications Generic Name Dose Route Start Last Admin Trade Name Freq PRN Reason Stop Dose Admin Benzocaine 1 lozenge 05/16/22 18:08 Benzocaine/Menthol (*Bkc) 18 Ea Lozenge PO PRN PRN Sore Throat Enoxaparin Sodium 40 mg 05/17/22 09:00 05/18/22 08:33 Enoxaparin 40 Mg/0.4 Ml Syringe SUB-Q 40 mg DAILY KIRSTEN Administration Lactated Ringer's 1,000 mls @ 50 mls/hr 05/16/22 18:08 05/18/22 01:42 Lr - Lactated Ringers Iv IV CONT 100 mls/hr .Q20H KIRSTEN Administration Morphine Sulfate 2 mg 05/16/22 18:08 05/18/22 02:47 Morphine Sulfate (*Crx) 2 Mg/Ml Inj IV PUSH 2 mg Q2H PRN Administration Pain Rated 4-6 Morphine Sulfate 4 mg 05/16/22 18:08 05/16/22 23:44 Morphine Sulfate (*Crx) 4 Mg/Ml Inj IV PUSH 4 mg Q2H PRN Administration Pain Rated 7-10 Ondansetron HCl 4 mg 05/15/22 03:19 05/16/22 13:34 Ondansetron Inj 4 Mg/2 Ml Vial IV PUSH 4 mg Q6H PRN Administration Nausea And Vomiting Radiology Results: ITS Impressions Abdomen X-Ray 05/16/22 10:03 Impression: 1: Small bowel obstruction. 2: Small sclerotic lesion of the right ilium, most likely bone island, although metastatic disease not excluded. Consider correlation with bone scan. 3: Small left pleural effusion. Labs Labs: Laboratory Results - last 24 hr 05/18/22 05/18/22 05:44 05:44 WBC 6.4 RBC 3.51 L Hgb 9.4 L Hct 30.5 L MCV 86.9 MCH 26.8 MCHC 30.8 L RDW 14.8 H Plt Count 238 MPV 9.0 Sodium 136 L Potassium 3.4 Chloride 105 Carbon Dioxide 31 H Anion Gap 0 L BUN 11 Creatinine 0.60 L Estim Creat Clear Calc 67 Estimated GFR > 60 Glucose 92 Calcium 7.4 L Magnesium 2.2 Total Bilirubin 0.2 AST 26 ALT 10 Alkaline Phosphatase 73 Total Protein 5.0 L Albumin 2.2 L Quality VTE Prophylaxis VTE prophylaxis: mechanical ordered (SCDs)
[2022-05-18 13:00] VITALS: BP 142/66; PULSE 82; RESP 20; TEMP 36.5; O2SAT 99
--- NOTE | 2022-05-18 15:19 | PCNSR ---
On 05/18/22, the student, Alexa Kern, provided care and completed [facility] documentation on this patient. I have reviewed the student's documentation and agree with the findings.
[2022-05-18] MEDS: ACETAMINOPHEN 500 MG TABLET 1000 MG PO (18:47)
[2022-05-18 20:30] VITALS: BP 105/63; PULSE 97; RESP 18; TEMP 36.8; O2SAT 97
[2022-05-18 21:07] VITALS: O2SAT 97
[2022-05-18] MEDS: SIMETHICONE 80 MG TAB.CHEW PO (21:49)
[2022-05-19] MEDS: ACETAMINOPHEN 500 MG TABLET 1000 MG PO ×2 (00:30→06:51)
[2022-05-19 05:28] VITALS: BP 116/70; PULSE 79; RESP 18; TEMP 36.8; O2SAT 98
[2022-05-19 05:35] LABS: Hematocrit 37.3 % (37.0-47.0); Hemoglobin 11.9 g/dL (12.0-15.0); Mean Corpuscular HGB Conc 31.9 g/dl (32-36); Mean Corpuscular Hemoglobin 26.7 pg (26-34); Mean Corpuscular Volume 83.8 fl (80-100); Platelet Count Result 387 k/mm3 (150-375); Red Blood Count 4.45 M/mm3 (4.2-5.4); Red Cell Distribution Width 14.4 % (11.5-14.5); White Blood Count 9.7 K/mm3 (4.5-10.0)
[2022-05-19 05:39] LABS: Anion Gap 6 mmol/L (8-16); Blood Urea Nitrogen 9 mg/dL (7-17); Calcium 8.3 mg/dL (8.4-10.2); Carbon Dioxide 28 mmol/L (22-30); Chloride 103 mmol/L (98-107); Estimated CRCL calculation 67 ml/min; Estimated Glomerular Filt Rate > 60; Glucose 96 mg/dL (65-110); Magnesium 2.2 mg/dL (1.6-2.3); Potassium 3.6 mmol/L (3.4-5.0); Sodium 137 mmol/L (137-145)
[2022-05-19] MEDS: SIMETHICONE 80 MG TAB.CHEW PO (06:51)
[2022-05-19 08:18] VITALS: O2SAT 95
[2022-05-19] MEDS: ENOXAPARIN 40 MG/0.4 ML SYRINGE SUB-Q (08:40)
--- NOTE | 2022-05-19 11:37 | PM.DS ---
DS: Admitting Diagnosis Discharge Date 05/19/2022 Admitting Diagnosis Obstructing cecal mass Small bowel obstruction Iron deficiency anemia DS: Discharge Diagnosis Discharge Diagnosis (1) Colonic mass: Code(s): K63.89 - Other specified diseases of intestine Status: Acute (2) Bowel obstruction: Code(s): K56.609 - Unspecified intestinal obstruction, unspecified as to partial versus complete obstruction Status: Acute (3) Anemia of chronic disease: Code(s): D63.8 - Anemia in other chronic diseases classified elsewhere Status: Acute DS: Summary Hospital Course Hospital Course: Patient is a 66-year-old woman with a history of iron deficiency anemia who developed vomiting and abdominal pain. She presented to the emergency room in [place] on 05/15/2029. 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 She transferred to [facility]. She was seen in consultation by General surgery, Dr. Moreno. After discussion and NG tube decompression, she was taken to surgery on 05/16/2029. She underwent laparoscopic right colectomy. At surgery there were some suspicious enlarged mesenteric lymph nodes as well as a possible peritoneal implant near the tumor. These were all excised with the specimen. Pathology is pending at the time of this dictation. Patient did well after the surgery. She was tolerating liquids and had bowel movements on postoperative day number 2. She was comfortable with really only Tylenol for pain and was able to be discharged in good condition on postop day 3. No transfusions were required. Hemoglobin was very stable and was 11.9 on the day of discharge. Status at Discharge Functional status at discharge: independent ambulation Overall status at discharge: patient is progressing back to baseline Time Spent with Patient Time attestation: Total time spent providing and/or coordinating discharge services: Time spent: Less than 30 minutes Exam Const: General: cooperative, healthy appearing, comfortable, alert and awake Nutritional Appearance: thin Orientation/consciousness: patient oriented x3 and No confusion GI: Inspection: non-distended and incision (All incisions look good and healing well) GI Palp: Yes Soft to palpation and Yes Tenderness to palpation present (GI) (Minimal tenderness) Auscultation: normal bowel sounds DS: Data Data Completed and Pending Pending studies at discharge: Pending at discharge 05/16/22 15:53 Surgical [PTH] Routine Labs on day of discharge: Labs from last 24 hours 05/19/22 05/19/22 05:21 05:21 WBC 9.7 RBC 4.45 Hgb 11.9 L Hct 37.3 MCV 83.8 MCH 26.7 MCHC 31.9 L RDW 14.4 Plt Count 387 H D MPV 9.0 Sodium 137 Potassium 3.6 Chloride 103 Carbon Dioxide 28 Anion Gap 6 L BUN 9 Creatinine 0.60 L Estim Creat Clear Calc 67 Estimated GFR > 60 Glucose 96 Calcium 8.3 L Magnesium 2.2 Discharge Plan Discharge Attending physician on discharge: Dl Oneill Consulting providers: Yves Moreno ; Jigna Allen Discharging Clinician: Ford Carrillo Anticipated Discharge Date/Time: 05/19/22 11:47 Patient Disposition: Home, Self-Care Activity: may shower, no straining and as tolerated Diet: as tolerated Wound Care Instructions: incision open to air Discharge Instructions: Ambulate 3-4 x per day and as tolerated. No lifting over 15-20lbs. May bathe or shower. Stairs are OK. May drive a car in 3 days. Rabun diet next 48 hours then advance to regular diet. Loose stools are common after this surgery. If stools are frequent enough to cause rectal discomfort, try Imodium 1-2 tabs p.o. q.6 hours p.r.n. diarrhea. It is over the counter. Patient Instructions: Antibiotic Form Stand Alone Forms: General Discharge Information Follow-up/Referrals: Rodney Mckay MD [Primary Care Provider] - 2 Weeks (Call for appointment) Timothy
--- NOTE | 2022-05-19 13:09 | PM.IMPN ---
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 Aortic lymphadenopathy. #Small-bowel obstruction due to cecal mass. General surgery has been consulted. Patient is NPO. NG is in place to suction lower intermittent. Pain medications nausea medications and Tylenol have been ordered. IV fluids have been ordered. NG tube removed now post surgery. Postoperatively doing well tolerating diet. Okay to discharge from medical standpoint # status post right hemicolectomy With ileocolic anastomosis 05/16/2022 findings of cecal mass in the ascending colon with peritoneal implant. Awaiting pathology report follow-up as an outpatient basis # history of urge incontinence #Grade 2 diastolic dysfunction #Iron deficiency anemia recently underwent EGD. No recent colonoscopy last colonoscopy done 4 years ago #DVT prophylaxis SCDs, Lovenox started Subjective Date/time seen: 05/19/22 13:09 Interval history: HPI:66-year-old female with a past medical history of urge urinary incontinence, allergic rhinitis and grade 2 diastolic dysfunction who presented to the ER at [facility] due to sudden onset of abdominal pain, nausea and vomiting.? The patient reported that she woke up on the morning of the with upper abdominal pain that was colicky in nature.? When it with crescendo her pain was a 9/10 in intensity but did tend to wax and wane throughout the day.? After morphine the patient's pain was a 6/10 in intensity.? Around 3:00 p.m. she had acute worsening of her abdominal pain with associated vomiting.? She was unable to keep anything down and decided to go to the ER.? In the ER the patient had a CT of the abdomen pelvis without contrast performed which demonstrated distal cecal/ ascending colon mass concerning for carcinoma causing at least partial cecal and diffuse small-bowel obstruction with associated right lower quadrant and periaortic lymphadenopathy.? Patient had baseline labs drawn which were relatively unremarkable.? Patient's labs were significant for some mild anemia.? The patient has been struggling with mild anemia since August of last year.? She went to the doctor complaining of dyspnea on exertion.? She had an echocardiogram performed which demonstrated grade 2 diastolic dysfunction but was otherwise unremarkable.? She stated that she went back to the repair manager because her primary doctor did not believe that the echo was that bad to describe the patient's symptoms and when she went back to the repair manager the rate read the echo and said that it was a bad read.? She does not know what version of the report is in the computer.? She reports that any time she gets up and walks around she does get some dyspnea.? At that time they did do anemia labs and her 2nd and 3rd set of labs did demonstrate low iron levels with 2nd set of labs demonstrating a high ferritin in the 3rd set demonstrating a low ferritin.? Her % saturation was within normal limits but trending down.? These labs were most consistent with iron deficiency anemia.? She did undergo an EGD last month to evaluate her iron deficiency.? She reports that they did not do a colonoscopy because her primary care doctor did not feel she needed it since she had a colonoscopy 4 years ago.? She reports that she was not having any preceding symptoms prior to her abdominal pain on the morning of the .? She did not notice any changes school stool caliber, stool color or consistency.? She does a
[2022-05-19 13:41] VITALS: BP 141/70; PULSE 92; RESP 16; TEMP 36.8; O2SAT 98
== END 2022-05-19 16:00 | disposition home or self-care (01) | DRG 330 ==
PROVIDERS: Internal Medicine; Nurse Practitioner Family; Surgery; Admitting Provider Internal Medicine; PCP Internal Medicine; Visit Provider Surgery
PROC: 0DTF4ZZ Resection of Right Large Intestine, Percutaneous Endoscopic Approach (ICD-10-PCS; CPT 44204; principal; 2022-05-16 13:00)
DX: C18.2 Malignant neoplasm of ascending colon (principal); K56.609 Unspecified intestinal obstruction, unspecified as to partial versus complete obstruction; N80.3 Endometriosis of pelvic peritoneum; D63.8 Anemia in other chronic diseases classified elsewhere; D50.9 Iron deficiency anemia, unspecified; N39.46 Mixed incontinence; I51.89 Other ill-defined heart diseases
CPT/HCPCS: 36415; 74019; 80048; 80053; 82378; 83735; 85025; 85027; 86850; 86900; 86901; 88309; 93005; A9270; C9290; J0131; J0330; J0690; J1100; J1170; J1650; J2250; J2270; J2370; J2405; J2704; J2710; J3010; J7030; J7120

== ENCOUNTER 2022-05-23 12:19 | Outpatient (CLI) | payer BC, OTHER, SELFPAY ==
--- NOTE | ~2022-05-23 | US_ITS ---
EXAMINATION: US venous doppler [facility] DATE: 05/23/2022 13:11 INDICATION: Bilateral lower limb swelling TECHNIQUE: Grayscale ultrasound images without and with compression and Doppler ultrasound images of the bilateral lower extremity veins were obtained. COMPARISON: None. FINDINGS: The visualized portions of right common femoral vein, profunda (deep) femoral vein, femoral vein, pop liteal vein, posterior tibial veins, peroneal veins, gastrocnemius vein, lesser saphenous vein and gr eater saphenous vein outflow are patent. The visualized portions of left common femoral vein, profunda femoral vein, femoral vein, popliteal v ein, posterior tibial veins, peroneal veins, gastrocnemius vein, lesser saphenous vein and greater sa phenous vein outflow are patent. IMPRESSION: 1. No deep venous thrombosis in either lower limb. Reviewed, dictated and finalized at location A.
== END 2022-05-23 12:20 | disposition home or self-care (01) ==
LOC: CHSLAB 12:22
PROVIDERS: PCP Internal Medicine; Visit Provider Internal Medicine
DX: M79.89 Other specified soft tissue disorders (principal)
CPT/HCPCS: 93970

== ENCOUNTER 2023-09-26 12:46 | Outpatient (CLI) | payer MEDICARE, OTHER, SELFPAY ==
--- NOTE | ~2023-09-26 | MM_ITS ---
EXAMINATION: MM screening davie BI w dexter HISTORY: Screening TECHNIQUE: Craniocaudal and mediolateral oblique 3-D tomosynthesis images were obtained and synthetic 2-D images were generated. CAD analysis was submitted and interpreted. COMPARISON: Comparison to multiple prior studies sequentially, with oldest reviewed study dated 12/11. BREAST PARENCHYMAL COMPOSITION: The breasts are heterogeneously dense, which may obscure small masses FINDINGS: There is no evidence of suspicious mass, calcification, or architectural distortion to sugg est malignancy in either breast. There has been no suspicious interval change. IMPRESSION: 1. No mammographic evidence of malignancy. 2. Recommend routine screening mammography in one year. BI-RADS Category 1: Negative Reviewed, dictated and finalized at location A. N'S APPAREL SALESPERSON
== END 2023-09-26 12:47 | disposition home or self-care (01) ==
LOC: CHSIMG 12:48
PROVIDERS: PCP Internal Medicine; Visit Provider Internal Medicine
DX: Z12.31 Encounter for screening mammogram for malignant neoplasm of breast (principal)
CPT/HCPCS: 77063; 77067

== ENCOUNTER 2023-10-01 08:17 | Outpatient (CLI) | payer MEDICARE, OTHER, SELFPAY ==
[2023-10-01 09:41] LABS: Cholesterol 198 mg/dL (0-200); HDL Direct 55 mg/dL (40-60); LDL Cholesterol Calculated 131 mg/dL (<130); Thyroid Stimulating Hormone 3.34 uIU/mL (0.36-3.74); Triglycerides 58 mg/dL (0-150)
== END 2023-10-01 08:18 | disposition home or self-care (01) ==
LOC: CHSLAB 08:20
PROVIDERS: PCP Internal Medicine; Visit Provider Internal Medicine
DX: E78.5 Hyperlipidemia, unspecified (principal); R53.83 Other fatigue
CPT/HCPCS: 36415; 80061; 84443

== ENCOUNTER 2024-04-29 12:00 | Outpatient (CLI) | payer MEDICARE, OTHER, SELFPAY ==
--- NOTE | ~2024-04-29 | XR_ITS ---
EXAMINATION: XR chest 2V 04/29/2024 12:41 INDICATION: Pneumonia. Shortness of breath. PROCEDURE: 2 view chest COMPARISON: 06/04/2019 FINDINGS: The lungs are clear. The cardiomediastinal silhouette is within normal limits. There are no pleural effusions. There is no pneumothorax suspected. Portacatheter tip in the SVC. There is pe ctus excavatum. IMPRESSION: 1: NO ACUTE CARDIOPULMONARY DISEASE. Reviewed, dictated and finalized at location B.
[2024-04-29 13:00] LABS: Basophils Absolute Auto 0.02 K/mm3 (0.00-0.10); Basophils Percent Auto 0.2 % (0.0-1.0); Eosinophils Percent Auto 1.2 % (1.0-6.0); Hematocrit 40.5 % (35.0-42.0); Hemoglobin 13.1 g/dL (11.7-13.8); Immature Granulocyte Absolute 0.03 K/mm3 (0.00-0.00); Immature Granulocyte Percent A 0.4 % (0.0-0.0); Lymphocytes Absolute Auto 1.68 K/mm3 (1.10-4.50); Lymphocytes Percent Auto 20.2 % (18.0-42.0); Mean Corpuscular HGB Conc 32.3 g/dL (32-36); Mean Corpuscular Hemoglobin 28.4 pg (27.0-31.0); Mean Corpuscular Volume 87.7 fL (78.0-102.0); Mean Platelet Volume 9.9 fl (9.2-11.8); Monocytes Absolute Auto 0.42 K/mm3 (0.10-0.90); Monocytes Percent Auto 5.1 % (2.0-11.0); Neutrophils Absolute Auto 6.05 K/mm3 (1.70-7.20); Neutrophils Percent Auto 72.9 % (50.0-70.0); Platelet Count Result 216 K/mm3 (150-420); Red Blood Count 4.62 M/mm3 (4.20-5.40); Red Cell Distribution Width 13.2 % (11.6-14.4); White Blood Count 8.3 K/mm3 (4.8-10.8)
[2024-04-29 13:11] LABS: SARS-CoV-2 RNA PCR Negative (Negative)
[2024-04-29 13:12] LABS: RSV RNA, RT-PCR Negative (Negative)
[2024-04-29 13:20] LABS: Alanine Aminotransferase 29 U/L (14-59); Albumin Level 3.6 g/dL (3.4-5.0); Alkaline Phosphatase 157 U/L (46-116); Anion Gap 10 mmol/L (4-12); Aspartate Amino Transferase 31 U/L (15-37); Bilirubin,Total 0.5 mg/dL (0.00-1.00); Blood Urea Nitrogen 12 mg/dL (7-18); Calcium 9.3 mg/dL (8.5-10.1); Carbon Dioxide 29 mmol/L (21-32); Chloride 101 mmol/L (98-108); Estimated Glomerular Filt Rate > 60; Glucose 102 mg/dL (70-99); Osmolality Calculated 289 mOsm/kg (285-295); Potassium 3.9 mmol/L (3.5-5.1); Sodium 140 mmol/L (136-145); Total Protein 7.5 g/dL (6.4-8.2)
[2024-05-05 01:23] LABS: Legionella pneumophila Ag Ur NOT DETECTED
[2024-05-16 00:43] LABS: C. pneumoniae Ab (IgG) <1:64 titer; C. pneumoniae Ab (IgM) <1:10 titer; C. psittaci Ab (IgG) <1:64 titer; C. psittaci Ab (IgM) <1:10 titer; C. trachomatis Ab (IgG) <1:64 titer; C. trachomatis Ab (IgM) <1:10 titer
== END 2024-04-29 12:01 | disposition home or self-care (01) ==
PROVIDERS: PCP Internal Medicine; Visit Provider Internal Medicine
DX: J18.9 Pneumonia, unspecified organism (principal); R06.02 Shortness of breath; Z11.3 Encounter for screening for infections with a predominantly sexual mode of transmission
CPT/HCPCS: 36415; 71046; 80053; 85025; 86140; 86631; 86632; 86738; 87449; 87634; 87635

== ENCOUNTER 2024-12-16 11:53 | Outpatient (CLI) | payer MEDICARE, OTHER, SELFPAY ==
--- NOTE | ~2024-12-16 | MM_ITS ---
EXAMINATION: MM screening davie BI w dexter HISTORY: Screening TECHNIQUE: Craniocaudal and mediolateral oblique 3-D tomosynthesis images were obtained and synthetic 2-D images were generated. CAD analysis was submitted and interpreted. COMPARISON: Comparison to multiple prior studies sequentially, with oldest reviewed study dated 06/13. BREAST PARENCHYMAL COMPOSITION: Dense: The breasts are heterogeneously dense, which may obscure small masses FINDINGS: There is no evidence of suspicious mass, calcification, or architectural distortion to sugg est malignancy in either breast. There has been no suspicious interval change. IMPRESSION: 1. No mammographic evidence of malignancy. 2. Recommend routine screening mammography in one year. BI-RADS Category 1: Negative Reviewed, dictated and finalized at location A. [employer] SALES CONSULTANT
--- OUTSIDE RECORDS SUMMARY | 2024-12-16 13:02 | XMS_ITS | Data Portability ---
Author Organization [facility], [address] [facility] Address [address] [address] Care Team Providers Care Calibration Technician Name Role Phone JM SEBASTIAN Primary Care Provider Assessment Encounter Date Assessment Date Assessment LastModified by Organization Details LastModified Time 06/29/2024 06/29/2024 Bruna Turcios was in today for hearing aid check. She is accompanied by her . Julito Pandya L70? R L [id number] on the left and [id number] on the right 1M(5) with small open domes Warranty expires 02/27/2027 Last hearing test 01/03/2024 She states everything is going well. I also reviewed with her the application. RECOMMENDATION S: 1. Patient will return in 6 months for hearing aid check. 2. No charges for today's appointment. [email or web address] Not available 06/29/2024 12:39:16 Plan of Treatment Reminders Order Date Submit Date Provider Last Modified By Organization Details Last Modified Time Details Appointments Establis [facility] Patient 30.EST 2024 09:30A M Hilaria Maillet Not available Not available Not available Lab None recorded . Referral None recorded . Procedures None recorded . Surgeries None recorded . Imaging None recorded . Medication Orders None recorded . Patient TargetsNo targets recorded. Patient InstructionsNo instructions recorded. Reason for Referral None Reported. Results Created Date Observation Date Name Description Value Unit Range Abnormal Flag Note LastModifiedBy Organization Detail LastModifiedTime 09/15/20 24 12/24/2023 imagi ng/di agnos tic resul t No observ ation record ed. [email or web address] Not Available 05:59:32 Result Notes None recorded. Problems Name Problem SNOMED Code Status Onset Date Resolution Date Notes Provider Name and Address Organization Details Recorded Time Sensorineural hearing loss of bilateral ears [id number] Active 2023 Noe Palma [address] [facility], [place], [address] , [facility] 12:36:28 Problem Notes None recorded. Procedures Surgical History None recorded. Imaging Results Imaging Date Name Status LastModified by Organiz ation Details LastModified Time 12/24/2023 imaging/diag nostic result completed [email or web address] Information not available 09/15/2024 05:59:32 Procedure Notes None recorded. Medical Equipment None Reported. Allergies Allergen ID Allergen Name Allergen Category Reaction Reaction Severity Criticality Documentation Date Start Date Code Code System Note Provider Name and Address Organization Details Recorded Time [id number] codeine medicatio n Not available Not available Not available 12/16/20232006 2670 RxNorm Not Available Not Available Not Available Vitals None Recorded Social History None recorded. Functional Status None recorded. Mental Status None recorded. Family History Nothing Reported. Medical History No medical history recorded. Gynecological HistoryNo gynecological history recorded. Obstetrics History GPAL:G 0 P 0 0 0 0 Past Encounters Encounter ID Performer Location Encounter Start Date Encounter Closed Date Diagnosis/Indication Diagnosis SNOMED-CT Code Diagnosis ICD10 Code Diagnosis Note [id number] [facility]e [facility] [address] [place] [address] 06/29/2024 10:49:15 06/29/2024 10:52:05 Sensorineural hearing loss of bilateral ears 701961465 H90.3 Health Concerns Section Related Observation LastModified by Organization Detai ls LastModified Time None Recorded Concern Status LastModified by Organization Details LastModified Time None Recorded Advance Directives Directive None Recorded Payers None recorded. OBGyn Episode No OBEpisode recorded.
--- OUTSIDE RECORDS SUMMARY | 2024-12-16 13:02 | XMS_ITS | Encounter Summary ---
Author Organization [facility] Address [address] [place] [address] Phone Care Team Providers Care Sterilization Technician Name Role Phone Rodney Mckay MD Primary Care Provider [phone] Yves Moreno DO Unavailable [phone] Jose G Jimenez MD Unavailable [phone] Encounter Details Date Type Department Care Team (Latest Contact Info) Description 05/16/2022 Orders Only [facility] Scanning, Provider Social History Tobacco Use Types Packs/Day Years Used Date Smoking Tobacco: Never Assessed Comments Unknown Sex and Gender Information Value Date Recorded Sex Assigned at Not on file 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 Gender Identity Not on file Sexual Orientation Not on file documented as of this encounter Plan of Treatment Not on file documented as of this encounter Procedures Procedure Name Priority Date/Time Associated Diagnosis Comments SCAN - PATHOLOGY 05/16/2022 documented in this encounter Results * SCAN - PATHOLOGY (05/16/2022) us Provider Scanning Final Result documented in this encounter Visit Diagnoses Not on filedocumented in this encounter Additional Health Concerns Infection Onset Date Last Indicated Resolved Time COVID: Suspected 07/26/2023 07/26/2023 07/26/2023 2:20 PM CDT documented as of this encounter Care Teams Sterilization Technician Relationship Specialty Start Date End Date Rodney Mckay MD PCP - General Internal Medicine 05/30/22 Yves Moreno DO [address] [facility] [address] [facility] [address] [place] [address] Referring Physician Surgery 06/04/22 Jose G Jimenez MD [address] [facility], [facility] [address] [place] [address] Medical Oncologist/Legal Intern Medical Oncology 09/04/23 documented as of this encounter
--- OUTSIDE RECORDS SUMMARY | 2024-12-16 13:02 | XMS_ITS | Clinical Summary ---
Author Organization [facility] Address [address] [place] [address] Care Team Providers Care Agricultural Pilot Name Role Phone Rodney Mckay MD Primary Care Provider [phone] Source Comments [facility]-owned [facility] and Associated [facility]ician Practices is amultiple site organization consisting of ambulatory clinics and hospital sitesin [place], [place], [place] and [place]. This disclosure is being madepursuant to the Care Everywhere program and may not contain all information available regarding this patient. Last updated 18.[facility] Allergies Active Allergy Reactions Criticality Noted Date Comments Azithromycin Palpitations Low 06/09/2018 Codeine Nausea and/or Vomiting Low 06/09/2018 Medications * Be aware that medications may not be up to date on this document. Alwaysverify current medications with the patient. Medication Sig Dispensed Refills Start Date End Date Status vitamin D3 (Cholecalciferol) (25 MCG) 1000 UNIT capsule Take 1 (one) capsule by mouth once daily Active dexAMETHasone (Decadron) 4 MG tablet 01/22/2023 Active Ferrous Sulfate 324 MG TBEC Take 324 mg by mouth once daily Active gabapentin (Neurontin) 300 MG capsule TAKE ONE CAPSULE BY MOUTH IN THE AM. TAKE TWO CAPSULES BY MOUTH IN THE PM 02/13/2023 Active lidocaine-prilocaine (Emla) 2.5-2.5 % cream APPLY TOPICALLY NEEDED FOR PAIN PLEASE APPLY ONE HOUR PRIOR TO PORT USE 07/02/2022 Active montelukast (Singulair) 10 MG tablet Take 1 (one) tablet by mouth once daily 12/31/2022 Active omeprazole (PriLOSEC) 40 MG capsule TAKE 1 CAPSULE BY MOUTH EVERY DAY BEFORE A MEAL 05/14/2022 Active ondansetron (Zofran) 8 MG tablet 06/22/2022 Active oxyBUTYnin CR 24hr (Ditropan-XL) 10 MG tablet Take 1 (one) tablet by mouth 2 times daily 12/31/2022 Active prochlorperazine (Compazine) 10 MG tablet 06/22/2022 Active Pyridoxine HCl 100 MG Take 1 (one) tablet by mouth once daily Active Social History Tobacco Use Types Packs/Day Years Used Date Smoking Tobacco: Never Smokeless Tobacco: Never Sex and Gender Information Value Date Recorded Sex Assigned at Not on file Gender Identity Not on file Sexual Orientation Not on file Last Filed Vital Signs Vital Sign Reading Time Taken Comments Blood Pressure 126/75 03/07/2023 8:13 AM CDT Pulse 82 03/07/2023 8:13 AM CDT Temperature 36.8 ??C (98.2 ??F) 03/07/2023 8:13 AM CD T Respiratory Rate - - Oxygen Saturation 95% 03/07/2023 8:13 AM CDT Inhaled Oxygen Concentration - - Weight 62.9 kg (138 lb 9.6 oz) 03/07/2023 8:13 A M CDT Height 160 cm (5' 3 ) 03/07/2023 8:13 AM CDT Body Mass Index 24.55 03/07/2023 8:13 AM CDT Plan of Treatment Health Maintenance Due Date Last Done Comments BONE DENSITY TESTING 1955 COLOGUARD (AGES 45-75) - COL ON CA SCREENING 1957 COLON MONITORING 1957 COLONOSCOPY - COLON CA SCREENING 1957 CT COLONOGRAPHY - COLON CA SCREENING 1955 Colorectal Cancer Screening 1957 FIT - COLON CA SCREENING 1957 FLEX SIG - COLON CA SCREENING 1957 LIPID TESTING 1957 MAMMOGRAM 1957 HEPATITIS C SCREENING 07/30/1975 DTAP/TDAP/TD VACCINES (1 - Tdap) 1976 PNEUMOCOCCAL VACCINE 50+ (1 of 1 - PCV) 2007 ZOSTER VACCINE (1 of 2) 2007 COVID-19 VACCINE ( - 2023-2 5 season) 2024 INFLUENZA VACCINE (#1) 2024 08/29/2022 DEPRESSION SCREENING 11/18/2024 Respiratory Syncytial Virus (RSV) Vaccine Pt: or over 60 yrs (1 - 1-dose 75+ series) 2032 HEPATITIS B VACCINE Aged Out No longe r eligible based on patient's age to complete this topic HIB VACCINE Aged Out No longer eligi ble based on patient's age to complete this topic HPV VACCINE Aged Out No longer eligi ble based on patient's age to complete this topic MENINGOCOCCAL (Group B) VACCINE Aged Out No longer eligible based on patient's age to complete this topic MENINGOCOCCAL VACCINE Aged Out No bhavani pedrito eligible based on patient's age to complete this topic Care Teams Agricultural Pilot Relationship Specialty Start Date End Date Rodney Mckay MD [address] [place], [place] [id number] PCP - General 05/25/22
--- OUTSIDE RECORDS SUMMARY | 2024-12-16 13:02 | XMS_ITS | Encounter Summary ---
Author Organization [facility] Address [address] [place] [address]. [place] [address] [place] [address] Care Team Providers Care Atomic Physics Professor Name Role Phone Rodney Mckay MD Primary Care Provider Danyel Romero MD Unavailable Unavailabl e Encounter Details Date Type Department Care Team (Late st Contact Info) Description 06/09/2018 Abstract [facility] [address] [place] [id number] Danyel Romero MD Social History Tobacco Use Types Packs/Day Years Used Date Smoking Tobacco: Never Smokeless Tobacco: Never Alcohol Use Standard Drinks/Week Comments No 0 (1 standard drink = 0.6 oz pur e alcohol) Comments Unknown Sex and Gender Information Value Date Recorded Sex Assigned at Not on file 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
--- OUTSIDE RECORDS SUMMARY | 2024-12-16 13:02 | XMS_ITS | Referral Summary ---
Author Organization [facility] Address [address] [place] [address] Care Team Providers Care Auto Technician Name Role Phone Rodney Mckay MD Primary Care Provider [phone] Source Comments [facility],non-Counts include [facility] and Associated [facility]ician Practices is amultiple site organization consisting of ambulatory clinics and hospital sitesin [place], [place], [place] and [place]. This disclosure is being madepursuant to the Care Everywhere program and may not contain all information available regarding this patient. Last updated 18.[facility] Allergies Active Allergy Reactions Criticality Noted Date [...] 03/07/2023 8:13 AM CDT Plan of Treatment Not on file Care Teams Auto Technician Relationship Specialty Start Date End Date Rodney Mckay MD [address] [place], [place] [id number] PCP - General 05/25/22
--- OUTSIDE RECORDS SUMMARY | 2024-12-16 13:02 | XMS_ITS | Encounter Summary ---
Author Organization [facility] Address [address] [place] [address] Phone Care Team Providers Care Tractor Technician Name Role Phone Rodney Mckay MD Primary Care Provider [phone] Yves Moreno DO Unavailable [phone] Jose G Jimenez MD Unavailable [phone] Encounter Details Date Type Department Care Team (Latest Contact Info) Description 01/30/2024 Orders Only [facility] Scanning, Provider Social History Tobacco Use Types Packs/Day Years Used Date Smoking Tobacco: Never Smokeless Tobacco: Never AUDIT-C Answer Date Recorded Frequency of Alcohol Consumption Not on file 01/28/2024 Q2: How many drinks containi ng alcohol do you have on a typical day when you are drinking? 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 Gender Identity Not on file Sexual Orientation Not on file documented as of this encounter Plan of Treatment Not on file documented as of this encounter Procedures Procedure Name Priority Date/Time Associated Diagnosis Comments SCAN - PATHOLOGY 01/30/2024 10:50 AM CDT documented in this encounter Results * SCAN - PATHOLOGY (01/30/2024 10:50 AM CDT) us Provider Scanning Final Result documented in this encounter Visit Diagnoses Not on filedocumented in this encounter Care Teams Tractor Technician Relationship Specialty Start Date End Date Rodney Mckay MD PCP - General Internal Medicine 05/30/22 Yves Moreno DO [address] [facility] [address] [place], [place] [id number] Referring Physician Surgery 06/04/22 Jose G Jimenez MD [facility] [facility], [facility] [address] [place] [address] Medical Oncologist/Engine Head Repairer Medical Oncology 09/04/23 documented as of this encounter
--- OUTSIDE RECORDS SUMMARY | 2024-12-16 13:02 | XMS_ITS | Clinical Summary ---
Author Organization [facility] Address [address] [place] [address]. [place] [address] [place] [address] Care Team Providers Care Continuous Dryout Operator Helper Name Role Phone Rodney Mckay MD Primary Care Provider Danyel Romero MD Unavailable Unavailabl e Allergies Active Allergy Reactions Criticality Noted Date Comments Azithromycin Palpitations Low 06/09/2018 Codeine Nausea Only 06/09/2018 Medications montelukast 10 MG tablet Take 10 mg by mouth nightly at bedtime. Active oxybutynin ER 10 MG 24 hr tablet Take 10 mg by mouth 2 (two) times daily. Active vitamin B-12 1000 MCG tablet Take 1,000 mcg by mouth daily. Active Vitamin D, Cholecalciferol , 1000 units Cap Take 1 tablet by mouth daily. Active Ascorbic Acid (VITAMIN C) 100 MG tablet Take 100 mg by mouth daily. Active ferrous sulfate, 65 mg elemental, 324 (65 Fe) MG tablet Take 324 mg by mouth daily with breakfast. 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 Gender Identity Not on file Sexual Orientation Not on file Last Filed Vital Signs Vital Sign Reading Time Taken Comments Blood Pressure 102/58 06/13/2018 10:44 AM CDT Pulse 83 06/13/2018 10:44 AM CDT Temperature - - Respiratory Rate 18 06/13/2018 10:44 AM CDT Oxygen Saturation 96% 06/13/2018 10:44 AM CDT Inhaled Oxygen Concentration - - Weight 61.2 kg (135 lb) 06/13/2018 10:44 AM CDT Height 162.6 cm (5' 4 ) 06/13/2018 10:44 AM CDT Body Mass Index 23.17 06/13/2018 10:44 AM CDT Plan of Treatment Health Maintenance Due Date Last Done Comments Colorectal Cancer Screening Colonoscopy (10 Years) 1957 Hepatitis C 1975 DTaP, Tdap and Td Vaccines ( 1 - Tdap) 1976 Mammogram Screening 1997 Zoster Vaccines (1 of 2) 2007 Dexa Scan (General) 2022 Pneumococcal Vaccine: 65+ Ye ars (1 of 1 - PCV) 2022 COVID-19 Vaccine (1 - 2023-2 5 season) 2024 Influenza Adult (#1) 2024 RSV Immunization or 60+ Years (1 - 1-dose 75+ series) 2032 Meningococcal B Vaccine Aged Out No l onger eligible based on patient's age to complete this topic Meningococcal Vaccine Aged Out No bhavani pedrito eligible based on patient's age to complete this topic RSV Immunizations Under 20 Months Aged Out No longer eligible based on patient's age to complete this topic Insurance Care Teams Continuous Dryout Operator Helper Relationship Specialty Start Date End Date Rodney Mckay MD [address] [place] [address] PCP - General INTERNAL MEDICINE 06/11/18 Danyel Romero MD [address] [place] [address] [place] Division Officer Weapons Department CARDIOVASCULAR DISEASE 06/11/18
--- OUTSIDE RECORDS SUMMARY | 2024-12-16 13:02 | XMS_ITS | Patient Health Summary ---
Author Organization [facility] Address [address] [place] [address] Care Team Providers Care Cable Lacer Name Role Phone Rodney Mckay MD Primary Care Provider [phone] Note from [facility],non-owned Affiliates and Associated Physician Practices is amultiple site organization consisting of ambulatory clinics and hospital sitesin [place], [place], [place] and [place]. This disclosure is being madepursuant to the Care Everywhere program and may not contain all information available regarding this patient. Last updated 18.[facility] Allergies * Azithromycin(Palpitations) -Low Criticality * Codeine(Nausea and/or Vomiting) -Low Criticality Medications * Be aware that medications may not be up to date on this document. Alwaysverify current medications with the patient. * vitamin D3 (Cholecalciferol) (25 MCG) 1000 UNIT capsule Take 1 (one) capsule by mouth once daily * dexAMETHasone (Decadron) 4 MG tablet(Started 01/22/2023) * Ferrous Sulfate 324 MG TBEC Take 324 mg by mouth once daily * gabapentin (Neurontin) 300 MG capsule(Started 02/13/2023) TAKE ONE CAPSULE BY MOUTH IN THE AM. TAKE TWO CAPSULES BY MOUTH IN THE PM * lidocaine-prilocaine (Emla) 2.5-2.5 % cream(Started 07/02/2022) APPLY TOPICALLY NEEDED FOR PAIN PLEASE APPLY ONE HOUR PRIOR TO PORT USE * montelukast (Singulair) 10 MG tablet(Started 12/31/2022) Take 1 (one) tablet by mouth once daily * omeprazole (PriLOSEC) 40 MG capsule(Started 05/14/2022) TAKE 1 CAPSULE BY MOUTH EVERY DAY BEFORE A MEAL * ondansetron (Zofran) 8 MG tablet(Started 06/22/2022) * oxyBUTYnin CR 24hr (Ditropan-XL) 10 MG tablet(Started 12/31/2022) Take 1 (one) tablet by mouth 2 times daily * prochlorperazine (Compazine) 10 MG tablet(Started 06/22/2022) * Pyridoxine HCl 100 MG Take 1 (one) tablet by mouth once daily Social History Tobacco Use Types Packs/Day Years [...] Mass Index 24.55 03/07/2023 8:13 AM CDT Care Teams Cable Lacer Relationship Specialty Start Date End Date Rodney Mckay MD [address] [place], [place] [id number] PCP - General 05/25/22
--- OUTSIDE RECORDS SUMMARY | 2024-12-16 13:03 | XMS_ITS | Encounter Summary ---
Author Organization [facility] Address [address] [place] [address] Phone Care Team Providers Care Test Kitchen Home Economist Name Role Phone Rodney Mckay MD Primary Care Provider [phone] Yves Moreno DO Unavailable [phone] Jose G Jimenez MD Unavailable [phone] Encounter Details Date Type Department Care Team (Latest Contact Info) Description 07/18/2023 Orders Only [facility] Scanning, Provider Social History Tobacco Use Types Packs/Day Years Used Date Smoking Tobacco: Never Smokeless Tobacco: Never AUDIT-C Answer Date Recorded Q1: How often do you have a drink containing alcohol? Never 06/27/2022 Q2: How many drinks containi ng alcohol do you have on a typical day when you are drinking? Patient does not drink Q3: How often do you have si x or more drinks on one occasion? 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 Gender Identity Not on file Sexual Orientation Not on file documented as of this encounter Plan of Treatment Not on file documented as of this encounter Procedures Procedure Name Priority Date/Time Associated Diagnosis Comments SCAN - PATHOLOGY 07/18/2023 3:32 PM CDT documented in this encounter Results * SCAN - PATHOLOGY (07/18/2023 3:32 PM CDT) us Provider Scanning Final Result documented in this encounter Visit Diagnoses Not on filedocumented in this encounter Additional Health Concerns Infection Onset Date Last Indicated Resolved Time COVID: Suspected 07/26/2023 07/26/2023 07/26/2023 2:20 PM CDT documented as of this encounter Care Teams Test Kitchen Home Economist Relationship Specialty Start Date End Date Rodney Mckay MD PCP - General Internal Medicine 05/30/22 Yves Moreno DO [address] [facility] [address] [place] [address] Referring Physician Surgery 06/04/22 Jose G Jimenez MD [address] [facility], [address] [address] Medical Oncologist/Sterilization Technician Medical Oncology 09/04/23 documented as of this encounter
--- OUTSIDE RECORDS SUMMARY | 2024-12-16 13:03 | XMS_ITS | Encounter Summary ---
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) Malignant neoplasm of ascending colon (CMS/HCC) (HCC) Jose G Jimenez MD [address] [facility] [address] [place] [address] Phone: tel: fax: [facility] at [address] [address] Phone: tel: fax: Referral ID Status Reason Start Date Expiration Date V isits Requested Visits Authorized [id number] Authorized 07/10/2023 03/17/2025 1 99 Encounter Details Date Type Department Care Team (Late st Contact Info) Description 12/15/2024 11:00 AM TAXICAB STARTER Infusion [facility] at [address] [address] Malignant neoplasm of ascending colon (CMS/HCC) (HCC) (Primary Dx); 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 female who presents for treatment cycle 12, day 15 of Opdivo. 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) Oral Mucosa Grade: Normal (0) Shortness of Breath?: No Respiratory Effort Characteristics: Dyspnea exertion Cough: Absent (resolved) Appetite: Good Nausea/Vomiting: No Abdomen: Soft Diarrhea: No Constipation: No Skin Condition/Temp: Warm, Dry Swelling: No Encounter Vitals BP: 129/77 (12/15/2024 10:28 AM) Pulse: 59 (12/15/2024 10:28 AM) Resp: 16 (12/15/2024 10:28 AM) Temp: 36.4 ??C (97.5 ??F) (12/15/2024 10:28 AM) Temp src: Temporal (12/15/2024 10:28 AM) SpO2: 98 % (12/15/2024 10:28 AM) Weight: 64 kg (141 lb) (no shoes) (12/15/2024 10:28 AM) Pain Score: 0 - No pain Treatment Patient: met treatment parameters Pre blood return: Brisk Bruna Turcios tolerated treatment well. Patient was frequently observed and monitored throughout the administration of their treatment. Post blood return: Brisk IV access post infusion: NS Patient Education Treatment Education: Information/teaching given to patient including symptom management, process and procedure related to today's visit, and when to notify MD Response: Verbalizes understanding Discharge Plan Discharge instructions given to patient. Future appointments given and reviewed with treatment plan. 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) documented in this encounter Administered Medications Inactive Administered Medications - up to 3 most recent administrations Medication Order MAR Action Action Date Dose Rate Site diphenhydrAMINE (BENADRYL) tab/cap 25 mg 25 mg, oral, Once, On Sat12/15/24 at 1215, For 1 doseIndications: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),Malignant neoplasm of ascending colon (CMS/HCC) (HCC) New Bag 12/15/2024 12:08 PM TAXICAB STARTER 190 mg 154 mL/hr documented in this encounter Orders Nursing Count Last Ordered Date First Orde red Date ONCBCN NURSING COMMUNICATION [id number] 1 0 12/15/2024 ONCBCN TREATMENT PARAMETERS 4 1 12/15/2024 Appointment Requests Count Last Ordered Date Fi rst Ordered Date ONCBCN RETURN CHEMO 2.5HRS 1 12/15/2024 documented in this encounter Care Teams An/Sqq 89(V)15 Sonar System Journeyman Relationship Specialty Start Date End Date Rodney Mckay MD PCP - General Internal Medicine 05/30/22 Yves Moreno DO [address] [place] [address] Referring Physician Surgery 06/04/22 Jose G Jimenez MD [address] [facility], [address] [place] [address] Medical Oncologist/Gas Welder Apprentice Medical Oncology 09/04/23 documented as of this encounter
--- OUTSIDE RECORDS SUMMARY | 2024-12-16 13:03 | XMS_ITS | Clinical Summary ---
Author Organization [address] Address [address] [place] [phone] Care Team Providers Care Special Agent Secret Service Name Role Phone Rodney Mckay MD Primary Care Provider Yves Moreno DO Unavailable [phone] Jose G Jimenez MD Unavailable [phone] Allergies Active Allergy Reactions Criticality Noted Date Comments Azithromycin Palpitations Low 06/09/2018 Codeine Nausea only Low 06/09/2018 Nivolumab Other (See comments) Low 08/07/2023 Lower back pain/tightening Medications ascorbic acid (VITAMIN C) 100 mg tablet Take 1 tablet (100 mg total) by mouth daily Active cholecalciferol (VITAMIN D-3) 1,000 unit capsule Take 1 capsule (1,000 Units total) by mouth daily Active cyanocobalamin (Vitamin B-12) 1,000 mcg tablet Take 1 tablet (1,000 mcg total) by mouth daily Active ferrous sulfate ER 324 mg (65 mg iron) EC tablet Take 1 tablet (324 mg total) by mouth daily Active montelukast (SINGULAIR) 10 mg tablet Take 1 tablet (10 mg total) by mouth daily Active omeprazole (PriLOSEC) 40 mg capsule Take by mouth daily before breakfast 2 Active oxybutynin XL (DITROPAN-XL) 10 mg 24 hr tablet Take 1 tablet (10 mg total) by mouth 2 (two) times a day Active oxyCODONE-acetamin ophen (PERCOCET) 5-325 mg per tablet 2 Active lidocaine-prilocai ne (EMLA) creamIndications:A dministration of Local Anesthesia Apply topically as needed for pain Please apply one hour prior to port use 30 g 11 2 Active al & mag hydroxide with simethicone-diphen hydramine-lidocain e (MAGIC MOUTHWASH) suspension 7-5-6Dbjcurqmfua:C hemotherapy-Induce d Mucositis Swish and swallow 15 mL every 4 (four) hours as needed (Mucositis; mouth sores; pain) 480 mL 2 2 Active Lactated Ringer's parenteral solution 1,000 mL with lidocaine 20 mg/mL (2 %) solution 60 mL, EPINEPHrine 1 mg/mL (1 mL) solution 1 mg 2 Active pyridoxine (VITAMIN B-6) 100 mg tablet Take 1 tablet (100 mg total) by mouth daily Active traMADoL (ULTRAM) 50 mg tabletIndications: Malignant neoplasm of ascending colon (CMS/HCC) (HCC),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),Low back pain, unspecified back pain laterality, unspecified chronicity, unspecified whether sciatica present Take 1 tablet (50 mg total) by mouth every 6 (six) hours as needed for pain 56 tablet 3 Active prochlorperazine (Compazine) 10 mg tabletIndications: 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) 12/15/2024 10:00 AM DISABILITY SERVICES COORDINATOR Clinical Support [facility] at [address] [address] 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); Malignant neoplasm of ascending colon (CMS/HCC) (HCC) 12/01/2024 1:00 PM DISABILITY SERVICES COORDINATOR Infusion [facility] at [address] [phone] Malignant neoplasm of ascending colon (CMS/HCC) (HCC) (Primary Dx); 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) 12/01/2024 12:30 PM DISABILITY SERVICES COORDINATOR Clinical Support [facility] at [address] [address] 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); Malignant neoplasm of ascending colon (CMS/HCC) (HCC) 12/01/2024 Orders Only [facility] Oncology [facility] [place] [address] Jose G Jimenze MD 11/17/2024 1:00 PM DISABILITY SERVICES COORDINATOR Infusion [facility] at [address] [phone] Malignant neoplasm of ascending colon (CMS/HCC) (HCC) (Primary Dx); 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 Oncology [address] [place] [phone] Kathie Stockton NP 11/17/2024 Orders Only 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); Malignant neoplasm of ascending colon (CMS/HCC) (HCC) 10/27/2024 7:48 AM DISABILITY SERVICES COORDINATOR - 10/27/2024 11:59 PM DISABILITY SERVICES COORDINATOR Hospital Encounter [facility] [address] [place] [address] Malignant neoplasm of ascending colon (CMS/HCC) (HCC) Discharge Disposition: Discharge to home or self care 10/20/2024 8:45 AM DISABILITY SERVICES COORDINATOR Infusion [address] [phone] Malignant neoplasm of ascending colon (CMS/HCC) (HCC) (Primary Dx); 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); Malignant neoplasm of ascending colon (CMS/HCC) (HCC) 09/21/2024 Orders Only [facility] Phys[facility] Oncology [address] [facility] [address] [place] [phone] Jose G Jimenez MD from Last 3 Months Immunizations Name Administration Dates Next Due Influenza, Quadrivalent, Michelle l Culture-based MDCK, Preservative Free, Antibiotic Free, Intramuscular 08/29/2022 Influenza, Quadrivalent, Split, Intramuscular Influenza, Quadrivalent, Spl it, Preservative Free, Intramuscular 08/10/2021,11/03/2020 Influenza, Unspecified 07/19/2023 Tdap 06/14/2020,05/11/2009 ZOSTER Recombinant 09/06/2019,06/30/2019 Surgical History Surgery Date Site/Laterality Comments PORT PLACEMENT CHEST >5 YEARS 06/27/2022 N/A COLON SURGERY Medical History Medical History Date Comments Cancer (CMS/HCC) (HCC) Social History Tobacco Use Types Packs/Day Years Used Date Smoking Tobacco: Never Smokeless Tobacco: Never Tobacco Cessation:Counseling Given: Not Answered AUDIT-C Answer Date Recorded Frequency of Alcohol Consumption Not on file 01/28/2024 Q2: How many drinks containi ng alcohol do you have on a typical day when you are drinking? Patient does not drink Frequency of Binge Drinking Not on file 01/16 Comments Unknown Sex and Gender Information Value Date Recorded Sex Assigned at Not on file Legal Sex Female 12:09 PM DISABILITY SERVICES COORDINATOR Gender Identity Not on file Sexual Orientation Not on file Obstetrics History Last Filed Vital Signs Vital Sign Reading Time Taken Comments Blood Pressure 129/77 12/15/2024 10:28 AM DISABILITY SERVICES COORDINATOR Pulse 59 12/15/2024 10:28 AM DISABILITY SERVICES COORDINATOR Temperature 36.4 ??C (97.5 ??F) 12/15/2024 10:[address] Respiratory Rate 16 12/15/2024 10:28 AM DISABILITY SERVICES COORDINATOR Oxygen Saturation 98% 12/15/2024 10:28 AM DISABILITY SERVICES COORDINATOR Inhaled Oxygen Concentration - - Weight 64 kg (141 lb) 12/15/2024 10:28 AM DISABILITY SERVICES COORDINATOR no shoes Height 160 cm (5' 3 ) 08/18/2024 9:36 AM CDT Body Mass Index 24.98 08/18/2024 9:36 AM CDT Plan of Treatment Health Maintenance Due Date Last Done Comments Breast Cancer Screening-Mammogram 1957 Colon Cancer Screening-Colonoscopy 1955 Depression Screening 1957 Hepatitis C Screening 1957 Osteoporosis Screening-Bone Density Scan 1957 Pneumococcal vaccine 65+ (1 of 2 - PCV) 1963 Hepatitis B Screening 1975 Well Visit 65+ 2022 Covid-19 Vaccine (4 - 2023-2 5 season) 2024 10/31/2021, 01/13/2021, 12/23/2020 Influenza Vaccine (#1) 2024 , 08/29/2022, 08/10/2021, Additional history exists Fall Risk Assessment 07/26/2024 07/26/2023 DTaP/Tdap/Td Vaccine (3 - Td or Tdap) 06/14/2030 06/14/2020, 05/11/2009 Zoster Vaccine Completed 09/06/2019, 06/30/2019 Medical Devices Implanted Type Area Brick Shader Device Identifier Shelf Expiration Date Model / Serial / Lot [employer] Excela Low Porfile Power Port 8fr 1.6mm 1 Lumen [id number] - [id number] Implanted:Qty: 1 on 06/27/2022 at [facility] [employer] 02/06/2027 [id number] / / [id number] Procedures Procedure Name Priority Date/Time Associated Diagnosis Comments EGFR STAT 12/15/2024 10:18 AM DISABILITY SERVICES COORDINATOR 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) Malignant neoplasm of ascending colon (CMS/HCC) (HCC) DIFFERENTIAL AUTO Routine 12/15/2024 10: 18 AM DISABILITY SERVICES COORDINATOR 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) Malignant neoplasm of ascending colon (CMS/HCC) (HCC) CBC WITH AUTO DIFFERENTIAL Routine 12/15/2024 10:18 AM DISABILITY SERVICES COORDINATOR 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) Malignant neoplasm of ascending colon (CMS/HCC) (HCC) COMPREHENSIVE METABOLIC PANEL STAT 12/15/2024 10:18 AM DISABILITY SERVICES COORDINATOR 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) Malignant neoplasm of ascending colon (CMS/HCC) (HCC) EGFR STAT 12/01/2024 12:48 PM DISABILITY SERVICES COORDINATOR 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) Malignant neoplasm of ascending colon (CMS/HCC) (HCC) DIFFERENTIAL AUTO Routine 12/01/2024 12: 48 PM DISABILITY SERVICES COORDINATOR 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) Malignant neoplasm of ascending colon (CMS/HCC) (HCC) CEA Routine 12/01/2024 12:48 PM DISABILITY SERVICES COORDINATOR 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) Malignant neoplasm of ascending colon (CMS/HCC) (HCC) CBC WITH AUTO DIFFERENTIAL Routine 12/01/2024 12:48 PM DISABILITY SERVICES COORDINATOR 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) Malignant neoplasm of ascending colon (CMS/HCC) (HCC) COMPREHENSIVE METABOLIC PANEL STAT 12/01/2024 12:48 PM DISABILITY SERVICES COORDINATOR 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) Malignant neoplasm of ascending colon (CMS/HCC) (HCC) THYROID FUNCTION CASCADE STAT 12/01/2024 12:48 PM DISABILITY SERVICES COORDINATOR 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) Malignant neoplasm of ascending colon (CMS/HCC) (HCC) CORTISOL Routine 12/01/2024 12:48 PM DISABILITY SERVICES COORDINATOR 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) Malignant neoplasm of ascending colon (CMS/HCC) (HCC) EGFR STAT 11/17/2024 12:40 PM DISABILITY SERVICES COORDINATOR 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) Malignant neoplasm of ascending colon (CMS/HCC) (HCC) DIFFERENTIAL AUTO Routine 11/17/2024 12: 40 PM DISABILITY SERVICES COORDINATOR 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) Malignant neoplasm of ascending colon (CMS/HCC) (HCC) CBC WITH AUTO DIFFERENTIAL Routine 11/17/2024 12:40 PM DISABILITY SERVICES COORDINATOR 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) Malignant neoplasm of ascending colon (CMS/HCC) (HCC) COMPREHENSIVE METABOLIC PANEL STAT 11/17/2024 12:40 PM DISABILITY SERVICES COORDINATOR 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) Malignant neoplasm of ascending colon (CMS/HCC) (HCC) EGFR STAT 11/03/2024 9:39 AM DISABILITY SERVICES COORDINATOR 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) Malignant neoplasm of ascending colon (CMS/HCC) (HCC) DIFFERENTIAL AUTO Routine 11/03/2024 9:3 9 AM DISABILITY SERVICES COORDINATOR 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) Malignant neoplasm of ascending colon (CMS/HCC) (HCC) CEA Routine 11/03/2024 9:39 AM DISABILITY SERVICES COORDINATOR Malignant neoplasm of ascending colon (CMS/HCC) (HCC) CBC WITH AUTO DIFFERENTIAL Routine 11/03/2024 9:39 AM DISABILITY SERVICES COORDINATOR 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) Malignant neoplasm of ascending colon (CMS/HCC) (HCC) COMPREHENSIVE METABOLIC PANEL STAT 11/03/2024 9:39 AM DISABILITY SERVICES COORDINATOR 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) Malignant neoplasm of ascending colon (CMS/HCC) (HCC) CT CHEST ABDOMEN PELVIS W CONTRAST Schedule Routine, Read Routine (OP Routine) 10/27/2024 8:27 AM DISABILITY SERVICES COORDINATOR Malignant neoplasm of ascending colon (CMS/HCC) (HCC) EGFR STAT 10/20/2024 8:23 AM DISABILITY SERVICES COORDINATOR 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) Malignant neoplasm of ascending colon (CMS/HCC) (HCC) DIFFERENTIAL AUTO Routine 10/20/2024 8:2 3 AM DISABILITY SERVICES COORDINATOR 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) Malignant neoplasm of ascending colon (CMS/HCC) (HCC) CBC WITH AUTO DIFFERENTIAL Routine 10/20/2024 8:23 AM DISABILITY SERVICES COORDINATOR 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) Malignant neoplasm of ascending colon (CMS/HCC) (HCC) COMPREHENSIVE METABOLIC PANEL STAT 10/20/2024 8:23 AM DISABILITY SERVICES COORDINATOR 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) Malignant neoplasm of ascending colon (CMS/HCC) (HCC) THYROID FUNCTION CASCADE STAT 10/20/2024 8:23 AM DISABILITY SERVICES COORDINATOR 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) Malignant neoplasm of ascending colon (CMS/HCC) (HCC) CORTISOL Routine 10/20/2024 8:23 AM DISABILITY SERVICES COORDINATOR 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) Malignant neoplasm of ascending colon (CMS/HCC) (HCC) EGFR STAT 10/06/2024 9:38 AM DISABILITY SERVICES COORDINATOR 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) Malignant neoplasm of ascending colon (CMS/HCC) (HCC) DIFFERENTIAL AUTO Routine 10/06/2024 9:3 8 AM DISABILITY SERVICES COORDINATOR 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) Malignant neoplasm of ascending colon (CMS/HCC) (HCC) CBC WITH AUTO DIFFERENTIAL Routine 10/06/2024 9:38 AM DISABILITY SERVICES COORDINATOR 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) Malignant neoplasm of ascending colon (CMS/HCC) (HCC) COMPREHENSIVE METABOLIC PANEL STAT 10/06/2024 9:38 AM DISABILITY SERVICES COORDINATOR 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) Malignant neoplasm of ascending colon (CMS/HCC) (HCC) SIGNATERA ONLY Routine 10/06/2024 8:58 AM DISABILITY SERVICES COORDINATOR MANUAL DIFFERENTIAL Routine 09/22/2024 1 1:58 AM DISABILITY SERVICES COORDINATOR 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) Malignant neoplasm of ascending colon (CMS/HCC) (HCC) EGFR STAT 09/22/2024 11:58 AM DISABILITY SERVICES COORDINATOR 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) Malignant neoplasm of ascending colon (CMS/HCC) (HCC) DIFFERENTIAL AUTO Routine 09/22/2024 11: 58 AM DISABILITY SERVICES COORDINATOR 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 73 m2 Comment: Interpretive Data Reference Interval Normal ?>/= 90 mL/min/1.73m2 Mildly decreased* ? 60 - 89 mL/min/1.73m2 Mildly to moderately decreased ?45 - 59 mL/min/1.73m2 Moderately to severely decreased ??30 - 44 mL/min/1.73m2 Severely decreased ?15 - 29 mL/min/1.73m2 Kidney Failure ?< 15 ??mL/min/1.73m2 *Relative to young adult level Estimated glomerular filtration rate is determined by the 2020 CKD-EPI equation recommended by the National Kid[employer] (A Unifying Approach to GFR Estimation: Recommendations of the NKF-ASK Task Force on Reassessing the Inclusion of Race in Diagnosing Kidney Disease, JASN 202). The CKD-EPI equation should not be used for patients with unstable renal function and has not been validated in children and those over 70. Current interpretive data was last reviewed 2021. Testing performed by: [facility], [address] [place] [address], [place]., [address] Blood 12/15/2024 10:1 8 AM DISABILITY SERVICES COORDINATOR 12/15/2024 10:19 AM DISABILITY SERVICES COORDINATOR Jose G Jimenez MD LAB BLOOD ORDERABLES Final Result [facility] [address] [facility] Department [place] [address] * Differential, auto (12/15/2024 10:18 AM DISABILITY SERVICES COORDINATOR) Neutrophil abs 3.3 1.5 - 6.5 K/cumm Comment:Testing performed by : [address] [address] Imm gran abs 0.0 0.0 - 0.1 K/cumm ABHIJEET Comment:Testing performed by : [address] [address] Lymphocyte abs 1.4 0.8 - 3.3 K/cumm ABHIJEET Comment:Testing performed by : [address] [address] Monocyte abs 0.6 0.2 - 0.8 K/cumm ABHIJEET Comment:Testing performed by : [address] [address] Eosinophil abs 0.2 0.0 - 0.5 K/cumm ABHIJEET Comment:Testing performed by : [address] [address] Basophil abs 0.0 0.0 - 0.1 K/cumm ABHIJEET Comment:Testing performed by : [address] [address] Neutrophil pct 59.8 % [facility] Comment: Interpretive Data Percent cell count reference ranges are not reported, since discordance with absolute values may lead to misinterpretation of CBC data. Current Interpretive Data was last revised on 2018. Testing performed by: [address] [address] Imm gran pct 0.2 % [facility] Comment: Interpretive Data Percent cell count reference ranges are not reported, since discordance with absolute values may lead to misinterpretation of CBC data. Current Interpretive Data was last revised on 2018. Testing performed by: [address] [address] Lymphocyte pct 25.9 % [facility] Comment: Interpretive Data Percent cell count reference ranges are not reported, since discordance with absolute values may lead to misinterpretation of CBC data. Current Interpretive Data was last revised on 2018. Testing performed by: [address] [address] Monocyte pct 10.7 % [facility] Comment: Interpretive Data Percent cell count reference ranges are not reported, since discordance with absolute values may lead to misinterpretation of CBC data. Current Interpretive Data was last revised on 2018. Testing performed by: [address] [address] Eosinophil pct 2.9 % [facility] Comment: Interpretive Data Percent cell count reference ranges are not reported, since discordance with absolute values may lead to misinterpretation of CBC data. Current Interpretive Data was last revised on 2018. Testing performed by: [address] [address] Basophil pct 0.5 % [facility] Comment: Interpretive Data Percent cell count reference ranges are not reported, since discordance with absolute values may lead to misinterpretation of CBC data. Current Interpretive Data was last revised on 2018. Testing performed by: [address] [address] Blood 12/15/2024 10:1 8 AM DISABILITY SERVICES COORDINATOR 12/15/2024 10:19 AM DISABILITY SERVICES COORDINATOR us Jose G Jimenez MD LAB BLOOD ORDERABLES Final Result [facility] NOONAN [address] [facility] Department [place] [address] * (ABNORMAL) CBC with auto differential (12/15/2024 10:18 AM DISABILITY SERVICES COORDINATOR) WBC 5.5 3.8 - 9.9 K/cumm Comment:Testing performed by : [address] [address] Hgb 12.0 11.9 - 15.5 g/dL [facility] Comment:Testing performed by : [address] [address] Hct 35.2(L) 35.6 - 45.5 % [facility] Comment:Testing performed by : [address] [address] Plt 174 150 - 400 K/cumm ABHIJEET Comment:Testing performed by : [address] [address] MPV 9.9 9.1 - 12.3 fL [facility] Comment:Testing performed by : [address], [address] RBC 4.12 3.90 - 5.20 M/cumm [facility]HIJEET Comment:Testing performed by : [address] [address] MCV 85.4 81.3 - 96.4 fL [facility] Comment:Testing performed by : [address] [address] MCH 29.1 27.1 - 33.3 pg [facility]ET Comment:Testing performed by : [address] [address] MCHC 34.1 32.3 - 35.7 g/dL [facility]HI[facility] Comment:Testing performed by : [address], [address] RDW CV 13.9 11.1 - 14.9 % [facility] Comment:Testing performed by : [address] [address] RDW SD 43.2 35.7 - 48.1 fL [facility] Comment:Testing performed by : [address] [address] NRBC abs 0.00 0.00 - 0.01 K/cumm [facility] Comment:Testing performed by : [address] [address] Blood 12/15/2024 10:1 8 AM DISABILITY SERVICES COORDINATOR 12/15/2024 10:19 AM DISABILITY SERVICES COORDINATOR us Jose G Jimenez MD LAB BLOOD ORDERABLES Final Result [facility] [address] [facility] Department [place] [address] * Comprehensive metabolic panel (12/15/2024 10:18 AM DISABILITY SERVICES COORDINATOR) Sodium 142 135 - 145 mmol/L Comment:Testing performed by : [address] [address] Potassium, pl 4.0 3.3 - 4.9 mmol/L [facility] Comment:Testing performed by : [address] [address] Chloride 105 97 - 110 mmol/L [facility] Comment:Testing performed by : [address] [address] CO2 29 22 - 32 mmol/L [facility] Comment:Testing performed by : [address] [address] Anion gap 8 2 - 15 mmol/L [facility] Comment:Testing performed by : [address] [address] BUN 17 6 - 25 mg/dL [facility] Comment:Testing performed by : [address] [address] Creatinine 0.60 0.60 - 1.10 mg/dL ABHIJEET Comment:Testing performed by : [address] [address] Glucose 93 70 - 199 mg/dL ABHIJEET Comment: Interpretive Data Fasting glucose >/= 126 mg/dl is diagnostic for diabetes. ?? Fasting is defined as no caloric intake for at least 8 hours. Fasting glucose between 100 mg/dl to 125 mg/dl is diagnostic of prediabetes. In a patient with classic symptoms of hyperglycemia or hyperglycemic crisis, a random glucose >/= 200 mg/dl is diagnostic for diabetes. In the absence of unequivocal hyperglycemia, results should be confirmed by repeat testing. The classification and Diagnosis of Diabetes Diabetes Care 202; 46: S19-S40. Current interpretive data was last revised 2022. Testing performed by: [facility], [address] [place] [address]., [address] Calcium 9.3 8.5 - 10.3 mg/dL ABHIJEET Comment:Testing performed by : [address] [address] Bilirubin, total 0.4 0.1 - 1.2 mg/dL [facility] Comment:Testing performed by : [address] [address] Protein, pl 6.8 6.5 - 8.5 g/dL [facility] Comment:Testing performed by : [address], [address] Albumin 3.9 3.5 - 5.0 g/dL ABHIJEET Comment:Testing performed by : [address] [address] Alk phos 122 40 - 130 Units/L ABHIJEET Comment:Testing performed by : [address] [address] ALT 22 7 - 45 Units/L [facility] Comment:Testing performed by : [address] [address] AST 29 10 - 45 Units/L [facility] Comment:Testing performed by : [address] [address] Blood 12/15/2024 10:1 8 AM DISABILITY SERVICES COORDINATOR 12/15/2024 10:19 AM DISABILITY SERVICES COORDINATOR Jose G Jimenez MD LAB BLOOD ORDERABLES Final Result [facility] [address] [facility] Department [place] [address] * eGFR (12/01/2024 12:48 PM DISABILITY SERVICES COORDINATOR) eGFR >90 >=60 mL/min/1. 73 m2 Comment: Interpretive Data Reference Interval Normal ?>/= 90 mL/min/1.73m2 Mildly decreased* ? 60 - 89 mL/min/1.73m2 Mildly to moderately decreased ?45 - 59 mL/min/1.73m2 Moderately to severely decreased ??30 - 44 mL/min/1.73m2 Severely decreased ?15 - 29 mL/min/1.73m2 Kidney Failure ?< 15 ??mL/min/1.73m2 *Relative to young adult level Estimated glomerular filtration rate is determined by the 2020 CKD-EPI equation recommended by the National Kidney Foundation (A Unifying Approach to GFR Estimation: Recommendations of the NKF-ASK Task Force on Reassessing the Inclusion of Race in Diagnosing Kidney Disease, JASN 2020). The CKD-EPI equation should not be used for patients with unstable renal function and has not been validated in children and those over 70. Current interpretive data was last reviewed 2021. Testing performed by: [address] [address] Blood 12/01/2024 12:4 8 PM DISABILITY SERVICES COORDINATOR 12/01/2024 12:56 PM DISABILITY SERVICES COORDINATOR us Jose G Jimenez MD LAB BLOOD ORDERABLES Final Result [facility] [address] [facility] Department [place] [address] * Differential, auto (12/01/2024 12:48 PM DISABILITY SERVICES COORDINATOR) Neutrophil abs 3.5 1.5 - 6.5 K/cumm Comment:Testing performed by : [address] [address] Imm gran abs 0.0 0.0 - 0.1 K/cumm ABHIJEET NOONAN Comment:Testing performed by : [address] [address] Lymphocyte abs 2.0 0.8 - 3.3 K/cumm ABHIJEET NOONAN Comment:Testing performed by : [address] [address] Monocyte abs 0.6 0.2 - 0.8 K/cumm ABHIJEET Comment:Testing performed by : [address] [address] Eosinophil abs 0.1 0.0 - 0.5 K/cumm ABHIJEET Comment:Testing performed by : [address] [address] Basophil abs 0.0 0.0 - 0.1 K/cumm ABHIJEET Comment:Testing performed by : [address] [address] Neutrophil pct 55.8 % [facility] Comment: Interpretive Data Percent cell count reference ranges are not reported, since discordance with absolute values may lead to misinterpretation of CBC data. Current Interpretive Data was last revised on 2018. Testing performed by: [address] [address] Imm gran pct 0.3 % [facility] Comment: Interpretive Data Percent cell count reference ranges are not reported, since discordance with absolute values may lead to misinterpretation of CBC data. Current Interpretive Data was last revised on 2018. Testing performed by: [address] [address] Lymphocyte pct 32.0 % [facility] Comment: Interpretive Data Percent cell count reference ranges are not reported, since discordance with absolute values may lead to misinterpretation of CBC data. Current Interpretive Data was last revised on 2018. Testing performed by: [address] [address] Monocyte pct 10.0 % [facility] Comment: Interpretive Data Percent cell count reference ranges are not reported, since discordance with absolute values may lead to misinterpretation of CBC data. Current Interpretive Data was last revised on 2018. Testing performed by: [address] [address] Eosinophil pct 1.4 % [facility] Comment: Interpretive Data Percent cell count reference ranges are not reported, since discordance with absolute values may lead to misinterpretation of CBC data. Current Interpretive Data was last revised on 2018. Testing performed by: [address] [address] Basophil pct 0.5 % ABHIJEET Comment: Interpretive Data Percent cell count reference ranges are not reported, since discordance with absolute values may lead to misinterpretation of CBC data. Current Interpretive Data was last revised on 2018. Testing performed by: [address] [address] Blood 12/01/2024 12:4 8 PM DISABILITY SERVICES COORDINATOR 12/01/2024 12:56 PM DISABILITY SERVICES COORDINATOR Jose G Jimenez MD LAB BLOOD ORDERABLES Final Result Performing Organization Address City/[facility] Co de Phone Number [address] [place] [address] * Thyroid Function Crumrod (12/01/2024 12:48 PM DISABILITY SERVICES COORDINATOR) Pathologist [facility] [place] TSH 3.07 0.30 - 4.20 mcIUnit/mL Comment:Testing performed by : [address] [address] Blood 12/01/2024 12:4 8 PM DISABILITY SERVICES COORDINATOR 12/01/2024 1:44 PM DISABILITY SERVICES COORDINATOR Jose G Jimenez MD LAB BLOOD ORDERABLES Final Result Performing Organization Address City/[facility]/ZIP Co de Phone Number [address] [place] [place] [address] * CBC with auto differential (12/01/2024 12:48 PM DISABILITY SERVICES COORDINATOR) WBC 6.3 3.8 - 9.9 K/cumm Comment:Testing performed by : [address] [address] Hgb 12.5 11.9 - 15.5 g/dL ABHIJEET NOONAN Comment:Testing performed by : [address] [address] Hct 37.1 35.6 - 45.5 % ABHIJEET Comment:Testing performed by : [address] [address] Plt 217 150 - 400 K/cumm ABHIJEET Comment:Testing performed by : [address] [address] MPV 9.9 9.1 - 12.3 fL ABHIJEET Comment:Testing performed by : [address] [address] RBC 4.38 3.90 - 5.20 M/cumm ABHIJEET Comment:Testing performed by : [address] [address] MCV 84.7 81.3 - 96.4 fL ABHIJEET Comment:Testing performed by : [address] [address] MCH 28.5 27.1 - 33.3 pg ABHIJEET Comment:Testing performed by : [address] [address] MCHC 33.7 32.3 - 35.7 g/dL ABHIJEET Comment:Testing performed by : [address], [address] RDW CV 13.8 11.1 - 14.9 % ABHIJEET Comment:Testing performed by : [address] [address] RDW SD 42.7 35.7 - 48.1 fL ABHIJEET Comment:Testing performed by : [address] [address] NRBC abs 0.00 0.00 - 0.01 K/cumm ABHIJEET Comment:Testing performed by : [address] [address] Blood 12/01/2024 12:4 8 PM DISABILITY SERVICES COORDINATOR 12/01/2024 12:56 PM DISABILITY SERVICES COORDINATOR us Jose G Jimenez MD LAB BLOOD ORDERABLES Final Result ABHIJEET [address] [facility] Department [place] [address] * Cortisol (12/01/2024 12:48 PM DISABILITY SERVICES COORDINATOR) Pathologist [facility] Cortisol 10.0 4.8 - 19.5 mcg/dl Blood 12/01/2024 12:4 8 PM DISABILITY SERVICES COORDINATOR 12/01/2024 2:40 PM DISABILITY SERVICES COORDINATOR Jose G Jimenez MD LAB BLOOD ORDERABLES Final Result Performing Organization Address [facility] de Phone Number [address] [address] * CEA (12/01/2024 12:48 PM DISABILITY SERVICES COORDINATOR) [facility] CEA 1.4 <=5.0 ng/mL Comment: Interpretive Data: Reference Range: Non-Smokers: 0.0 ? 5.0 ng/mL Smokers: 0.0 ? 6.5 ng/mL The Benny CEA assay procedure was used. Results from different manufacturers or methods may not be comparable. Serial testing should be performed using the same method. Current interpretive data was last revised 2023. Testing performed by: [address] [address] Blood 12/01/2024 12:4 8 PM DISABILITY SERVICES COORDINATOR 12/01/2024 1:44 PM DISABILITY SERVICES COORDINATOR Jose G Jimenez MD LAB BLOOD ORDERABLES Final Result Performing Organization Address [facility] de Phone Number [address] [address] * Comprehensive metabolic panel (12/01/2024 12:48 PM DISABILITY SERVICES COORDINATOR) [facility] Sodium 140 135 - 145 mmol/L Comment:Testing performed by : [address] [address] Potassium, pl 3.9 3.3 - 4.9 mmol/L ABHIJEET Comment:Testing performed by : [address] [address] Chloride 102 97 - 110 mmol/L ABHIJEET Comment:Testing performed by : [address] [address] CO2 27 22 - 32 mmol/L ABHIJEET Comment:Testing performed by : [address] [address] Anion gap 11 2 - 15 mmol/L ABHIJEET Comment:Testing performed by : [address] [address] BUN 22 6 - 25 mg/dL ABHIJEET Comment:Testing performed by : [address], [place]., [address] Creatinine 0.70 0.60 - 1.10 mg/dL ABHIJEET Comment:Testing performed by : [address] [address] Glucose 89 70 - 199 mg/dL ABHIJEET Comment: Interpretive Data Fasting glucose >/= 126 mg/dl is diagnostic for diabetes. ?? Fasting is defined as no caloric intake for at least 8 hours. Fasting glucose between 100 mg/dl to 125 mg/dl is diagnostic of prediabetes. In a patient with classic symptoms of hyperglycemia or hyperglycemic crisis, a random glucose >/= 200 mg/dl is diagnostic for diabetes. In the absence of unequivocal hyperglycemia, results should be confirmed by repeat testing. The classification and Diagnosis of Diabetes Diabetes Care 202; 46: S19-S40. Current interpretive data was last revised 2022. Testing performed by: [address] [address] Calcium 9.6 8.5 - 10.3 mg/dL ABHIJEET Comment:Testing performed by : [address] [address] Bilirubin, total 0.5 0.1 - 1.2 mg/dL ABHIJEET Comment:Testing performed by : [address] [address] Protein, pl 7.4 6.5 - 8.5 g/dL ABHIJEET Comment:Testing performed by : [address] [address] Albumin 4.2 3.5 - 5.0 g/dL ABHIJEET Comment:Testing performed by : [address] [address] Alk phos 120 40 - 130 Units/L ABHIJEET Comment:Testing performed by : [address], [address] ALT 20 7 - 45 Units/L ABHIJEET Comment:Testing performed by : [address], [address] AST 32 10 - 45 Units/L ABHIJEET Comment:Testing performed by : [address] [address] Blood 12/01/2024 12:4 8 PM DISABILITY SERVICES COORDINATOR 12/01/2024 12:56 PM DISABILITY SERVICES COORDINATOR Jose G Jimenez MD LAB BLOOD ORDERABLES Final Result Performing Organization Address City/State/[facility] Co de Phone Number [facility] [address] [facility] Department of Laboratories [place], [place] [id number] * eGFR (11/17/2024 12:40 PM DISABILITY SERVICES COORDINATOR) eGFR >90 >=60 mL/min/1. 73 m2 Comment: Interpretive Data Reference Interval Normal ?>/= 90 mL/min/1.73m2 Mildly decreased* ? 60 - 89 mL/min/1.73m2 Mildly to moderately decreased ?45 - 59 mL/min/1.73m2 Moderately to severely decreased ??30 - 44 mL/min/1.73m2 Severely decreased ?15 - 29 mL/min/1.73m2 Kidney Failure ?< 15 ??mL/min/1.73m2 *Relative to young adult level Estimated glomerular filtration rate is determined by the 2020 CKD-EPI equation recommended by the National Kidney Foundation (A Unifying Approach to GFR Estimation: Recommendations of the NKF-ASK Task Force on Reassessing the Inclusion of Race in Diagnosing Kidney Disease, BETZAIDASN 2020). The CKD-EPI equation should not be used for patients with unstable renal function and has not been validated in children and those over 70. Current interpretive data was last reviewed 2021. Testing performed by: [address] [address] Blood 11/17/2024 12:4 0 PM DISABILITY SERVICES COORDINATOR 11/17/2024 12:43 PM DISABILITY SERVICES COORDINATOR Jose G Jimenez MD LAB BLOOD ORDERABLES Final Result [facility] [address] [facility] Department [place] [address] * Differential, auto (11/17/2024 12:40 PM DISABILITY SERVICES COORDINATOR) Pathologist [facility] Neutrophil abs 2.7 1.5 - 6.5 K/cumm Comment:Testing performed by : [address] [address] Imm gran abs 0.0 0.0 - 0.1 K/cumm ABHIJEET Comment:Testing performed by : [address] [address] Lymphocyte abs 2.3 0.8 - 3.3 K/cumm ABHIJEET Comment:Testing performed by : [address] [address] Monocyte abs 0.5 0.2 - 0.8 K/cumm ABHIJEET Comment:Testing performed by : [address] [address] Eosinophil abs 0.1 0.0 - 0.5 K/cumm ABHIJEET Comment:Testing performed by : [address] [address] Basophil abs 0.0 0.0 - 0.1 K/cumm ABHIJEET Comment:Testing performed by : [address] [address] Neutrophil pct 47.7 % ABHIJEET Comment: Interpretive Data Percent cell count reference ranges are not reported, since discordance with absolute values may lead to misinterpretation of CBC data. Current Interpretive Data was last revised on 2018. Testing performed by: [address] [address] Imm gran pct 0.2 % ABHIJEET Comment: Interpretive Data Percent cell count reference ranges are not reported, since discordance with absolute values may lead to misinterpretation of CBC data. Current Interpretive Data was last revised on 2018. Testing performed by: [address] [address] Lymphocyte pct 39.8 % [facility] Comment: Interpretive Data Percent cell count reference ranges are not reported, since discordance with absolute values may lead to misinterpretation of CBC data. Current Interpretive Data was last revised on 2018. Testing performed by: [address] [address] Monocyte pct 9.3 % ABHIJEET Comment: Interpretive Data Percent cell count reference ranges are not reported, since discordance with absolute values may lead to misinterpretation of CBC data. Current Interpretive Data was last revised on 2018. Testing performed by: [address] [address] Eosinophil pct 2.5 % [facility] Comment: Interpretive Data Percent cell count reference ranges are not reported, since discordance with absolute values may lead to misinterpretation of CBC data. Current Interpretive Data was last revised on 2018. Testing performed by: [address] [address] Basophil pct 0.5 % ABHIJEET Comment: Interpretive Data Percent cell count reference ranges are not reported, since discordance with absolute values may lead to misinterpretation of CBC data. Current Interpretive Data was last revised on 2018. Testing performed by: [address] [address] Blood 11/17/2024 12:4 0 PM DISABILITY SERVICES COORDINATOR 11/17/2024 12:43 PM DISABILITY SERVICES COORDINATOR Jose G Jimenez MD LAB BLOOD ORDERABLES Final Result ABHIJEET [address] Department [place] [address] * (ABNORMAL) CBC with auto differential (11/17/2024 12:40 PM DISABILITY SERVICES COORDINATOR) [facility] WBC 5.7 3.8 - 9.9 K/cumm Comment:Testing performed by : [address] [address] Hgb 11.4(L) 11.9 - 15.5 g/dL ABHIJEET Comment:Testing performed by : [address] [address] Hct 34.6(L) 35.6 - 45.5 % ABHIJEET Comment:Testing performed by : [address] [address] Plt 165 150 - 400 K/cumm ABHIJEET Comment:Testing performed by : [address] [address] MPV 10.4 9.1 - 12.3 fL ABHIJEET Comment:Testing performed by : [address], [address] RBC 3.99 3.90 - 5.20 M/cumm ABHIJEET Comment:Testing performed by : [address] [address] MCV 86.7 81.3 - 96.4 fL ABHIJEET Comment:Testing performed by : [address] [address] MCH 28.6 27.1 - 33.3 pg ABHIJEET Comment:Testing performed by : [address] [address] MCHC 32.9 32.3 - 35.7 g/dL ABHIJEET Comment:Testing performed by : [address], [address] RDW CV 14.6 11.1 - 14.9 % ABHIJEET Comment:Testing performed by : [address] [address] RDW SD 46.9 35.7 - 48.1 fL ABHIJEET Comment:Testing performed by : [address] [address] NRBC abs 0.00 0.00 - 0.01 K/cumm ABHIJEET Comment:Testing performed by : [address] [address] Blood 11/17/2024 12:4 0 PM DISABILITY SERVICES COORDINATOR 11/17/2024 12:43 PM DISABILITY SERVICES COORDINATOR Jose G Jimenez MD LAB BLOOD ORDERABLES Final Result ABHIJEET [address] [facility] Department [place] [address] * (ABNORMAL) Comprehensive metabolic panel (11/17/2024 12:40 PM DISABILITY SERVICES COORDINATOR) Sodium 141 135 - 145 mmol/L Comment:Testing performed by : [address] [address] Potassium, pl 3.9 3.3 - 4.9 mmol/L ABHIJEET Comment:Testing performed by : [address] [address] Chloride 105 97 - 110 mmol/L ABHIJEET Comment:Testing performed by : [address] [address] CO2 26 22 - 32 mmol/L ABHIJEET Comment:Testing performed by : [address] [address] Anion gap 10 2 - 15 mmol/L ABHIJEET Comment:Testing performed by : [address] [address] BUN 15 6 - 25 mg/dL ABHIJEET Comment:Testing performed by : [address] [address] Creatinine 0.60 0.60 - 1.10 mg/dL ABHIJEET Comment:Testing performed by : [address] [address] Glucose 127 70 - 199 mg/dL ABHIJEET Comment: Interpretive Data Fasting glucose >/= 126 mg/dl is diagnostic for diabetes. ?? Fasting is defined as no caloric intake for at least 8 hours. Fasting glucose between 100 mg/dl to 125 mg/dl is diagnostic of prediabetes. In a patient with classic symptoms of hyperglycemia or hyperglycemic crisis, a random glucose >/= 200 mg/dl is diagnostic for diabetes. In the absence of unequivocal hyperglycemia, results should be confirmed by repeat testing. The classification and Diagnosis of Diabetes Diabetes Care 2021; 46: S19-S40. Current interpretive data was last revised 2022. Testing performed by: [address] [address] Calcium 9.0 8.5 - 10.3 mg/dL ABHIJEET Comment:Testing performed by : [address] [address] Bilirubin, total 0.2 0.1 - 1.2 mg/dL ABHIJEET Comment:Testing performed by : [address] [address] Protein, pl 6.9 6.5 - 8.5 g/dL ABHIJEET Comment:Testing performed by : [address] [address] Albumin 3.8 3.5 - 5.0 g/dL ABHIJEET Comment:Testing performed by : [address] [address] Alk phos 139(H) 40 - 130 Units/L ABHIJEET Comment:Testing performed by : [address] [address] ALT 18 7 - 45 Units/L ABHIJEET Comment:Testing performed by : [address] [address] AST 25 10 - 45 Units/L ABHIJEET Comment:Testing performed by : [address] [address] Blood 11/17/2024 12:4 0 PM DISABILITY SERVICES COORDINATOR 11/17/2024 12:43 PM DISABILITY SERVICES COORDINATOR us Jose G Jimenez MD LAB BLOOD ORDERABLES Final Result ABHIJEET [address] [facility] Department [place] [address] * eGFR (11/03/2024 9:39 AM DISABILITY SERVICES COORDINATOR) eGFR >90 >=60 mL/min/1. 73 m2 Comment: Interpretive Data Reference Interval Normal ?>/= 90 mL/min/1.73m2 Mildly decreased* ? 60 - 89 mL/min/1.73m2 Mildly to moderately decreased ?45 - 59 mL/min/1.73m2 Moderately to severely decreased ??30 - 44 mL/min/1.73m2 Severely decreased ?15 - 29 mL/min/1.73m2 Kidney Failure ?< 15 ??mL/min/1.73m2 *Relative to young adult level Estimated glomerular filtration rate is determined by the 2020 CKD-EPI equation recommended by the National Kidney Foundation (A Unifying Approach to GFR Estimation: Recommendations of the NKF-ASK Task Force on Reassessing the Inclusion of Race in Diagnosing Kidney Disease, JASN 2020). The CKD-EPI equation should not be used for patients with unstable renal function and has not been validated in children and those over 70. Current interpretive data was last reviewed 2021. Testing performed by: [address] [address] Blood 11/03/2024 9:39 AM DISABILITY SERVICES COORDINATOR 11/03/2024 9:40 AM DISABILITY SERVICES COORDINATOR us Jose G Jimenez MD LAB BLOOD ORDERABLES Final Result [facility] [address] [facility] Department [place] [address] * Differential, auto (11/03/2024 9:39 AM DISABILITY SERVICES COORDINATOR) Pathologist [facility] Neutrophil abs 3.6 1.5 - 6.5 K/cumm Comment:Testing performed by : [address] [address] Imm gran abs 0.0 0.0 - 0.1 K/cumm CERNER Comment:Testing performed by : [address] [address] Lymphocyte abs 1.6 0.8 - 3.3 K/cumm CERNER Comment:Testing performed by : [address] [address] Monocyte abs 0.4 0.2 - 0.8 K/cumm [facility] Comment:Testing performed by : [address] [address] Eosinophil abs 0.1 0.0 - 0.5 K/cumm [facility] Comment:Testing performed by : [address] [address] Basophil abs 0.0 0.0 - 0.1 K/cumm [facility] Comment:Testing performed by : [address] [address] Neutrophil pct 63.4 % [facility] Comment: Interpretive Data Percent cell count reference ranges are not reported, since discordance with absolute values may lead to misinterpretation of CBC data. Current Interpretive Data was last revised on 2018. Testing performed by: [address] [address] Imm gran pct 0.2 % [facility] Comment: Interpretive Data Percent cell count reference ranges are not reported, since discordance with absolute values may lead to misinterpretation of CBC data. Current Interpretive Data was last revised on 2018. Testing performed by: [address] [address] Lymphocyte pct 27.1 % CERNER Comment: Interpretive Data Percent cell count reference ranges are not reported, since discordance with absolute values may lead to misinterpretation of CBC data. Current Interpretive Data was last revised on 2018. Testing performed by: [address] [address] Monocyte pct 7.0 % CERNER Comment: Interpretive Data Percent cell count reference ranges are not reported, since discordance with absolute values may lead to misinterpretation of CBC data. Current Interpretive Data was last revised on 2018. Testing performed by: [address] [address] Eosinophil pct 1.8 % ABHIJEET Comment: Interpretive Data Percent cell count reference ranges are not reported, since discordance with absolute values may lead to misinterpretation of CBC data. Current Interpretive Data was last revised on 2018. Testing performed by: [address] [address] Basophil pct 0.5 % ABHIJEET Comment: Interpretive Data Percent cell count reference ranges are not reported, since discordance with absolute values may lead to misinterpretation of CBC data. Current Interpretive Data was last revised on 2018. Testing performed by: [address] [address] Blood 11/03/2024 9:39 AM DISABILITY SERVICES COORDINATOR 11/03/2024 9:40 AM DISABILITY SERVICES COORDINATOR Jose G Jimenez MD LAB BLOOD ORDERABLES Final Result [facility] [address] [facility] [place] [address] * (ABNORMAL) CBC with auto differential (11/03/2024 9:39 AM DISABILITY SERVICES COORDINATOR) WBC 5.7 3.8 - 9.9 K/cumm Comment:Testing performed by : [address] [address] Hgb 11.8(L) 11.9 - 15.5 g/dL ABHIJEET NOONAN Comment:Testing performed by : [address] [address] Hct 35.9 35.6 - 45.5 % ABHIJEET Comment:Testing performed by : [address] [address] Plt 211 150 - 400 K/cumm ABHIJEET NOONAN Comment:Testing performed by : [address] [address] MPV 9.7 9.1 - 12.3 fL ABHIJEET NOONAN Comment:Testing performed by : [facility], [address] [place] [address]., [address] RBC 4.16 3.90 - 5.20 M/cumm ABHIJEET NOONAN Comment:Testing performed by : [address] [address] MCV 86.3 81.3 - 96.4 fL ABHIJEET Comment:Testing performed by : [address] [address] MCH 28.4 27.1 - 33.3 pg ABHIJEET Comment:Testing performed by : [address] [address] MCHC 32.9 32.3 - 35.7 g/dL ABHIJEET Comment:Testing performed by : [address] [address] RDW CV 13.6 11.1 - 14.9 % ABHIJEET Comment:Testing performed by : [address], [address] RDW SD 43.5 35.7 - 48.1 fL ABHIJEET Comment:Testing performed by : [address] [address] NRBC abs 0.00 0.00 - 0.01 K/cumm ABHIJEET Comment:Testing performed by : [address] [address] Blood 11/03/2024 9:39 AM DISABILITY SERVICES COORDINATOR 11/03/2024 9:40 AM DISABILITY SERVICES COORDINATOR Jose G Jimenez MD LAB BLOOD ORDERABLES Final Result [facility] [address] [facility] [place] [address] * CEA (11/03/2024 9:39 AM DISABILITY SERVICES COORDINATOR) [facility] CEA 1.5 <=5.0 ng/mL Comment: Interpretive Data: Reference Range: Non-Smokers: 0.0 ? 5.0 ng/mL Smokers: 0.0 ? 6.5 ng/mL The Benny CEA assay procedure was used. Results from different manufacturers or methods may not be comparable. Serial testing should be performed using the same method. Current interpretive data was last revised 2023. Testing performed by: [address] [address] Blood 11/03/2024 9:39 AM DISABILITY SERVICES COORDINATOR 11/03/2024 11:30 AM DISABILITY SERVICES COORDINATOR Jose G Jimenez MD LAB BLOOD ORDERABLES Final Result [facility] [address] [facility] Department [place] [address] * Comprehensive metabolic panel (11/03/2024 9:39 AM DISABILITY SERVICES COORDINATOR) Sodium 145 135 - 145 mmol/L Comment:Testing performed by : [address] [address] Potassium, pl 3.9 3.3 - 4.9 mmol/L ABHIJEET Comment:Testing performed by : [address] [address] Chloride 108 97 - 110 mmol/L ABHIJEET Comment:Testing performed by : [address] [address] CO2 27 22 - 32 mmol/L ABHIJEET Comment:Testing performed by : [address] [address] Anion gap 10 2 - 15 mmol/L ABHIJEET Comment:Testing performed by : [address] [address] BUN 9 6 - 25 mg/dL ABHIJEET Comment:Testing performed by : [address] [address] Creatinine 0.60 0.60 - 1.10 mg/dL ABHIJEET Comment:Testing performed by : [address] [address] Glucose 98 70 - 199 mg/dL ABHIJEET Comment: Interpretive Data Fasting glucose >/= 126 mg/dl is diagnostic for diabetes. ?? Fasting is defined as no caloric intake for at least 8 hours. Fasting glucose between 100 mg/dl to 125 mg/dl is diagnostic of prediabetes. In a patient with classic symptoms of hyperglycemia or hyperglycemic crisis, a random glucose >/= 200 mg/dl is diagnostic for diabetes. In the absence of unequivocal hyperglycemia, results should be confirmed by repeat testing. The classification and Diagnosis of Diabetes Diabetes Care 2021; 46: S19-S40. Current interpretive data was last revised 2022. Testing performed by: [address] [address] Calcium 9.2 8.5 - 10.3 mg/dL ABHIJEET Comment:Testing performed by : [address] [address] Bilirubin, total 0.3 0.1 - 1.2 mg/dL ABHIJEET Comment:Testing performed by : [address] [address] Protein, pl 6.7 6.5 - 8.5 g/dL ABHIJEET Comment:Testing performed by : [address] [address] Albumin 3.9 3.5 - 5.0 g/dL ABHIJEET Comment:Testing performed by : [address] [address] Alk phos 112 40 - 130 Units/L ABHIJEET Comment:Testing performed by : [address] [address] ALT 18 7 - 45 Units/L ABHIJEET Comment:Testing performed by : [address] [address] AST 27 10 - 45 Units/L ABHIJEET Comment:Testing performed by : [address] [address] Blood 11/03/2024 9:39 AM DISABILITY SERVICES COORDINATOR 11/03/2024 9:40 AM DISABILITY SERVICES COORDINATOR us Jose G Jimenez MD LAB BLOOD ORDERABLES Final Result [facility]HIJEET [address] [facility] Department [place] [address] * CT Chest Abdomen Pelvis W Contrast (10/27/2024 8:27 AM DISABILITY SERVICES COORDINATOR) Anatomical Region Laterality Modality Body N/A Computed Tomogra phy 11/01/2024 7:50 AM DISABILITY SERVICES COORDINATOR Narrative 11/01/2024 8:00 AM DISABILITY SERVICES COORDINATOR EXAM DESCRIPTION: CT CHEST ABDOMEN PELVIS W CONTRAST REASON FOR STUDY: Colon cancer with previous surgery. ??CT imaging for ?? restaging and subsequent treatment strategy. ? TECHNIQUE: CT scan of the chest, abdomen, and pelvis performed with intravenous and ??without ??oral contrast using helical scanning technique with dynamic intravenous contrast injection. Reconstructed coronal and sagittal MPR images reviewed. All images stored on PACS. Automated exposure control was used as a dose optimization technique for this examination. CONTRAST TYPE/DOSE: 100mL of IOVERSOL 350 MG IODINE/ML INTRAVENOUS SYRINGE ?? injected via ?? intravenous COMPARISON: 08/21/2024, 05/26/2024 and PET-CT 03/24/2024. FINDINGS: CHEST LUNGS: ?? There is no pneumonic consolidation present within either lung. ??Mild subsegmental scarring/atelectasis most evident in the right middle lobe and lingula. ??No suspicious pulmonary nodule. PLEURA: ?? No effusion. No pneumothorax. MEDIASTINUM/LENEA: ?? The thyroid gland is unremarkable. ??There is no mediastinal or hilar lymphadenopathy. ??Subcentimeter short axis dimension nodes are stable. HEART: ?? The heart is stable in size without a pericardial effusion. VASCULATURE CHEST: ?? No thoracic aortic aneurysm or dissection. AXILLA: ?? Scattered axillary nodes are grossly stable. ??No new adenopathy. CHEST WALL: ?? No masses. ??No subcutaneous air. HARDWARE/LINES/TUBES: ?? Right Ogdpxb-P-Jiuv catheter is noted. ??Distal tip is at the cavoatrial junction MUSCULOSKELETAL CHEST: ?? There is no acute osseous abnormality. ??No destructive osseous lesion. ABDOMEN/PELVIS LIVER: ?? Normal size. ??No identified cystic or solid masses. GALLBLADDER: ?? No stones identified. No wall thickening or inflammatory changes. BILE DUCTS: ?? No intrahepatic or extrahepatic ductal dilatation. SPLEEN: ?? Normal size. ??No focal lesions. PANCREAS: ?? No identified cystic or solid masses. No significant calcifications. No adjacent inflammation or peripancreatic fluid collections. Pancreatic duct not dilated. ?? ADRENALS: ?? Normal. KIDNEYS/URINARY TRACT: ?? No identified significant cystic or solid masses. No visualized stones. No hydronephrosis or hydroureter. Symmetric enhancement. ? Urinary bladder is unremarkable. GI: ?? The stomach is decompressed. ??Small bowel loops are normal in caliber. ?? There is no obstruction. ??Postsurgical changes of right hemicolectomy with ileocolonic anastomosis. ??There is increased stool burden within the colon. ?? There is equivocal wall thickening involving the splenic flexure and descending colon, not significantly changed compared to the previous examination. ??Correlate with regards to any symptoms of colitis. PERITONEUM: ?? There is no free intraperitoneal air. ??No significant free fluid. ??No mesenteric lymphadenopathy. RETROPERITONEUM: ?? There are retroperitoneal nodes again demonstrated. ??Left posterolateral periaortic node measures 8 mm short axis, stable compared to the previous examination. ??Node on image 53 measures 1.6 x 0.8 cm, stable. ?? Node on image 60 measures 6 mm short axis. ??The previously documented tubular soft tissue attenuation structure within the posterior right retroperitoneum interposed between the psoas and iliacus muscle is stable. External iliac chain node on the left on image number 108 measures 1 cm short axis, stable. ??Node on the right on image number 105 measures 9 mm short axis, stable. ?? REPRODUCTIVE: ?? The uterus and ovaries appear grossly stable. VASCULATURE ABDOMEN: ?? No abdominal aortic aneurysm. MUSCULOSKELETAL ABDOMEN PELVIS: ?? Lumbar spondylosis and degenerative disc disease greatest at L5-S1. ??No acute osseous abnormality. OTHER: ?? No significant abnormality. IMPRESSION: Postsurgical changes of right hemicolectomy with ileocolonic anastomosis. No evidence of local recurrence. Mildly prominent retroperitoneal and pelvic nodes, stable in size compared to the prior examination. Equivocal wall thickening involving the splenic flexure and descending colon. Correlate with any symptoms of colitis. No evidence of metastatic disease within the chest. Additional findings as above. THIS IS AN ELECTRONICALLY VERIFIED FINAL REPORT 11/01/2024 8:00 AM - Electronically signed by ??Merced Michael M.D. TW D: ??11/01/2024 8:00 AM T: Report ID: [id number] Reading Location: ??[id number] Procedure Note Merced Michael MD - 11/01/2024 EXAM DESCRIPTION: CT CHEST ABDOMEN PELVIS W CONTRAST REASON FOR STUDY: Colon cancer with previous surgery. CT imaging for restaging andsubsequent treatment strategy. TECHNIQUE: CT scan of the chest, abdomen, and pelvis performed with intravenous and without oral contrast using helical scanning techniquewith dynamic intravenous contrast injection. Reconstructed coronal and sagittalMPR images reviewed. All images stored on PACS. Automated exposure control was used as a dose optimization technique for this examination. CONTRAST TYPE/DOSE: 100mL of IOVERSOL 350 MG IODINE/ML INTRAVENOUS SYRINGE injected via intravenous COMPARISON: 08/21/2024, 05/26/2024 and PET-CT 03/24/2024. FINDINGS: CHEST LUNGS: There is no pneumonic consolidation present within either lung.Mild subsegmental scarring/atelectasis most evident in the right middle lobeand lingula. No suspicious pulmonary nodule. PLEURA: No effusion. No pneumothorax. MEDIASTINUM/LEENA: The thyroid gland is unremarkable. There is no mediastinal or hilar lymphadenopathy. Subcentimeter short axis dimension nodes are stable. HEART: The heart is stable in size without a pericardial effusion. VASCULATURE CHEST: No thoracic aortic aneurysm or dissection. AXILLA: Scattered axillary nodes are grossly stable. No new adenopathy. CHEST WALL: No masses. No subcutaneous air. HARDWARE/LINES/TUBES: Right Ghxmbm-J-Pzux catheter is noted. Distal tipis at the cavoatrial junction MUSCULOSKELETAL CHEST: There is no acute osseous abnormality. No destructive osseous lesion. ABDOMEN/PELVIS LIVER: Normal size. No identified cystic or solid masses. GALLBLADDER: No stones identified. No wall thickening or inflammatory changes. BILE DUCTS: No intrahepatic or extrahepatic ductal dilatation. SPLEEN: Normal size. No focal lesions. PANCREAS: No identified cystic or solid masses. No significant calcifications. No adjacent inflammation or peripancreatic fluidcollections. Pancreatic duct not dilated. ADRENALS: Normal. KIDNEYS/URINARY TRACT: No identified significant cystic or solid masses.No visualized stones. No hydronephrosis or hydroureter. Symmetricenhancement. Urinary bladder is unremarkable. GI: The stomach is decompressed. Small bowel loops are normal incaliber. There is no obstruction. Postsurgical changes of right hemicolectomy with ileocolonic anastomosis. There is increased stool burden within thecolon. There is equivocal wall thickening involving the splenic flexure and descending colon, not significantly changed compared to the previous examination. Correlate with regards to any symptoms of colitis. PERITONEUM: There is no free intraperitoneal air. No significant free fluid. No mesenteric lymphadenopathy. RETROPERITONEUM: There are retroperitoneal nodes again demonstrated.Left posterolateral periaortic node measures 8 mm short axis, stable comparedto the previous examination. Node on image 53 measures 1.6 x 0.8 cm, stable. Node on image 60 measures 6 mm short axis. The previously documentedtubular soft tissue attenuation structure within the posterior rightretroperitoneum interposed between the psoas and iliacus muscle is stable. External iliac chain node on the left on image number 108 measures 1 cmshort axis, stable. Node on the right on image number 105 measures 9 mm shortaxis, stable. REPRODUCTIVE: The uterus and ovaries appear grossly stable. VASCULATURE ABDOMEN: No abdominal aortic aneurysm. MUSCULOSKELETAL ABDOMEN PELVIS: Lumbar spondylosis and degenerative disc disease greatest at L5-S1. No acute osseous abnormality. OTHER: No significant abnormality. IMPRESSION: Postsurgical changes of right hemicolectomy with ileocolonic anastomosis.No evidence of local recurrence. Mildly prominent retroperitoneal and pelvic nodes, stable in sizecompared to the prior examination. Equivocal wall thickening involving the splenic flexure and descendingcolon. Correlate with any symptoms of colitis. No evidence of metastatic disease within the chest. Additional findings as above. THIS IS AN ELECTRONICALLY VERIFIED FINAL REPORT 11/01/2024 8:00 AM - Electronically signed by Merced Michael M.D. TW T: Report ID: [id number] Reading Location: [place] [address] Jose G Jimenez MD [facility] [facility] PROCEDURES Fi nal Result * eGFR (10/20/2024 8:23 AM DISABILITY SERVICES COORDINATOR) eGFR >90 >=60 mL/min/1. 73 m2 Comment: Interpretive Data Reference Interval Normal ?>/= 90 mL/min/1.73m2 Mildly decreased* ? 60 - 89 mL/min/1.73m2 Mildly to moderately decreased ?45 - 59 mL/min/1.73m2 Moderately to severely decreased ??30 - 44 mL/min/1.73m2 Severely decreased ?15 - 29 mL/min/1.73m2 Kidney Failure ?< 15 ??mL/min/1.73m2 *Relative to young adult level Estimated glomerular filtration rate is determined by the 2020 CKD-EPI equation recommended by the National Kidney Foundation (A Unifying Approach to GFR Estimation: Recommendations of the NKF-ASK Task Force on Reassessing the Inclusion of Race in Diagnosing Kidney Disease, JASN 2020). The CKD-EPI equation should not be used for patients with unstable renal function and has not been validated in children and those over 70. Current interpretive data was last reviewed 2021. Testing performed by: [address] [address] Blood 10/20/2024 8:23 AM DISABILITY SERVICES COORDINATOR 10/20/2024 8:26 AM DISABILITY SERVICES COORDINATOR us Jose G Jimenez MD LAB BLOOD ORDERABLES Final Result Performing Organization Address City/State/[facility] Co de Phone Number [facility] [address] [facility] Department [place] [address] * Differential, auto (10/20/2024 8:23 AM DISABILITY SERVICES COORDINATOR) Neutrophil abs 2.8 1.5 - 6.5 K/cumm Comment:Testing performed by : [address] [address] Imm gran abs 0.0 0.0 - 0.1 K/cumm ABHIJEET Comment:Testing performed by : [address] [address] Lymphocyte abs 1.6 0.8 - 3.3 K/cumm ABHIJEET Comment:Testing performed by : [address] [address] Monocyte abs 0.7 0.2 - 0.8 K/cumm AHBIJEET Comment:Testing performed by : [address], [place]., [address] Eosinophil abs 0.1 0.0 - 0.5 K/cumm [facility] Comment:Testing performed by : [address] [address] Basophil abs 0.0 0.0 - 0.1 K/cumm [facility] Comment:Testing performed by : [address] [address] Neutrophil pct 52.6 % [facility] Comment: Interpretive Data Percent cell count reference ranges are not reported, since discordance with absolute values may lead to misinterpretation of CBC data. Current Interpretive Data was last revised on 2018. Testing performed by: [address] [address] Imm gran pct 0.2 % [facility] Comment: Interpretive Data Percent cell count reference ranges are not reported, since discordance with absolute values may lead to misinterpretation of CBC data. Current Interpretive Data was last revised on 2018. Testing performed by: [address] [address] Lymphocyte pct 30.6 % [facility] Comment: Interpretive Data Percent cell count reference ranges are not reported, since discordance with absolute values may lead to misinterpretation of CBC data. Current Interpretive Data was last revised on 2018. Testing performed by: [address] [address] Monocyte pct 13.3 % [facility] Comment: Interpretive Data Percent cell count reference ranges are not reported, since discordance with absolute values may lead to misinterpretation of CBC data. Current Interpretive Data was last revised on 2018. Testing performed by: [address] [address] Eosinophil pct 2.5 % [facility] Comment: Interpretive Data Percent cell count reference ranges are not reported, since discordance with absolute values may lead to misinterpretation of CBC data. Current Interpretive Data was last revised on 2018. Testing performed by: [address] [address] Basophil pct 0.8 % ABHIJEET NOONAN Comment: Interpretive Data Percent cell count reference ranges are not reported, since discordance with absolute values may lead to misinterpretation of CBC data. Current Interpretive Data was last revised on 2018. Testing performed by: [address] [address] Blood 10/20/2024 8:23 AM DISABILITY SERVICES COORDINATOR 10/20/2024 8:26 AM DISABILITY SERVICES COORDINATOR Jose G Jimenez MD LAB BLOOD ORDERABLES Final Result Performing Organization Address City/[facility] Co de Phone Number [address] [place] [address] * Thyroid Function Crumrod (10/20/2024 8:23 AM DISABILITY SERVICES COORDINATOR) Pathologist [facility] TSH 4.13 0.30 - 4.20 mcIUnit/mL Comment:Testing performed by : [address] [address] Blood 10/20/2024 8:23 AM DISABILITY SERVICES COORDINATOR 10/20/2024 9:55 AM DISABILITY SERVICES COORDINATOR Jose G Jimenez MD LAB BLOOD ORDERABLES Final Result Performing Organization Address [facility] Co de Phone Number [address] [address] * (ABNORMAL) CBC with auto differential (10/20/2024 8:23 AM DISABILITY SERVICES COORDINATOR) WBC 5.3 3.8 - 9.9 K/cumm Comment:Testing performed by : [address] [address] Hgb 11.7(L) 11.9 - 15.5 g/dL ABHIJEET NOONAN Comment:Testing performed by : [address] [address] Hct 35.4(L) 35.6 - 45.5 % ABHIJEET Comment:Testing performed by : [address] [address] Plt 131(L) 150 - 400 K/cumm ABHIJEET NOONAN Comment:Testing performed by : [address] [address] MPV 9.8 9.1 - 12.3 fL ABHIJEET Comment:Testing performed by : [address], [address] RBC 4.07 3.90 - 5.20 M/cumm ABHIJEET Comment:Testing performed by : [address], [address] MCV 87.0 81.3 - 96.4 fL ABHIJEET Comment:Testing performed by : [address] [address] MCH 28.7 27.1 - 33.3 pg ABIHJEET Comment:Testing performed by : [address] [address] MCHC 33.1 32.3 - 35.7 g/dL ABHIJEET Comment:Testing performed by : [address], [address] RDW CV 14.3 11.1 - 14.9 % ABHIJEET Comment:Testing performed by : [address] [address] RDW SD 45.7 35.7 - 48.1 fL ABHIJEET Comment:Testing performed by : [address] [address] NRBC abs 0.00 0.00 - 0.01 K/cumm ABHIJEET Comment:Testing performed by : [address] [address] Blood 10/20/2024 8:2 3 AM DISABILITY SERVICES COORDINATOR 10/20/2024 8:26 AM DISABILITY SERVICES COORDINATOR us Jose G Jimenez MD LAB BLOOD ORDERABLES Final Result [facility] [address] [facility] Department [place] [address] * Cortisol (10/20/2024 8:23 AM DISABILITY SERVICES COORDINATOR) Pathologist [facility] Cortisol 9.6 4.8 - 19.5 mcg/dl Blood 10/20/2024 8:23 AM DISABILITY SERVICES COORDINATOR 10/20/2024 12:38 PM DISABILITY SERVICES COORDINATOR Jose G Jimenez MD LAB BLOOD ORDERABLES Final Result [place] [id number] [facility] Department [place] [address] * Comprehensive metabolic panel (10/20/2024 8:23 AM DISABILITY SERVICES COORDINATOR) [facility] Sodium 143 135 - 145 mmol/L Comment:Testing performed by : [address] [address] Potassium, pl 4.0 3.3 - 4.9 mmol/L ABHIJEET Comment:Testing performed by : [address] [address] Chloride 105 97 - 110 mmol/L ABHIJEET Comment:Testing performed by : [address] [address] CO2 27 22 - 32 mmol/L ABHIJEET Comment:Testing performed by : [address] [address] Anion gap 11 2 - 15 mmol/L ABHIJEET Comment:Testing performed by : [address] [address] BUN 12 6 - 25 mg/dL ABHIJEET Comment:Testing performed by : [address] [address] Creatinine 0.70 0.60 - 1.10 mg/dL ABHIJEET Comment:Testing performed by : [address] [address] Glucose 101 70 - 199 mg/dL ABHIJEET Comment: Interpretive Data Fasting glucose >/= 126 mg/dl is diagnostic for diabetes. ?? Fasting is defined as no caloric intake for at least 8 hours. Fasting glucose between 100 mg/dl to 125 mg/dl is diagnostic of prediabetes. In a patient with classic symptoms of hyperglycemia or hyperglycemic crisis, a random glucose >/= 200 mg/dl is diagnostic for diabetes. In the absence of unequivocal hyperglycemia, results should be confirmed by repeat testing. The classification and Diagnosis of Diabetes Diabetes Care 2021; 46: S19-S40. Current interpretive data was last revised 2022. Testing performed by: [address] [address] Calcium 9.2 8.5 - 10.3 mg/dL ABHIJEET Comment:Testing performed by : [address] [address] Bilirubin, total 0.5 0.1 - 1.2 mg/dL ABHIJEET Comment:Testing performed by : [address] [address] Protein, pl 6.7 6.5 - 8.5 g/dL ABHIJEET Comment:Testing performed by : [address] [address] Albumin 3.7 3.5 - 5.0 g/dL ABHIJEET Comment:Testing performed by : [address] [address] Alk phos 121 40 - 130 Units/L ABHIJEET Comment:Testing performed by : [address] [address] ALT 19 7 - 45 Units/L ABHIJEET Comment:Testing performed by : [address] [address] AST 27 10 - 45 Units/L ABHIJEET Comment:Testing performed by : [address] [address] Blood 10/20/2024 8:23 AM DISABILITY SERVICES COORDINATOR 10/20/2024 8:26 AM DISABILITY SERVICES COORDINATOR us Jose G Jimenez MD LAB BLOOD ORDERABLES Final Result [facility] [address] [facility] Department [place] [address] * eGFR (10/06/2024 9:38 AM DISABILITY SERVICES COORDINATOR) eGFR >90 >=60 mL/min/1. 73 m2 Comment: Interpretive Data Reference Interval Normal ?>/= 90 mL/min/1.73m2 Mildly decreased* ? 60 - 89 mL/min/1.73m2 Mildly to moderately decreased ?45 - 59 mL/min/1.73m2 Moderately to severely decreased ??30 - 44 mL/min/1.73m2 Severely decreased ?15 - 29 mL/min/1.73m2 Kidney Failure ?< 15 ??mL/min/1.73m2 *Relative to young adult level Estimated glomerular filtration rate is determined by the 2020 CKD-EPI equation recommended by the National Kidney Foundation (A Unifying Approach to GFR Estimation: Recommendations of the NKF-ASK Task Force on Reassessing the Inclusion of Race in Diagnosing Kidney Disease, JASN 2020). The CKD-EPI equation should not be used for patients with unstable renal function and has not been validated in children and those over 70. Current interpretive data was last reviewed 2021. Testing performed by: [address] [address] Blood 10/06/2024 9:38 AM DISABILITY SERVICES COORDINATOR 10/06/2024 9:54 AM DISABILITY SERVICES COORDINATOR us Jose G Jimenez MD LAB BLOOD ORDERABLES Final Result [place] [address] [facility] Department [place] [address] * Differential, auto (10/06/2024 9:38 AM DISABILITY SERVICES COORDINATOR) Pathologist [facility] Neutrophil abs 3.4 1.5 - 6.5 K/cumm Comment:Testing performed by : [address] [address] Imm gran abs 0.0 0.0 - 0.1 K/cumm CERNER Comment:Testing performed by : [address] [address] Lymphocyte abs 1.8 0.8 - 3.3 K/cumm CERNER Comment:Testing performed by : [address] [address] Monocyte abs 0.5 0.2 - 0.8 K/cumm [facility] Comment:Testing performed by : [address] [address] Eosinophil abs 0.2 0.0 - 0.5 K/cumm [facility] Comment:Testing performed by : [address] [address] Basophil abs 0.0 0.0 - 0.1 K/cumm [facility] Comment:Testing performed by : [address] [address] Neutrophil pct 57.1 % [facility] Comment: Interpretive Data Percent cell count reference ranges are not reported, since discordance with absolute values may lead to misinterpretation of CBC data. Current Interpretive Data was last revised on 2018. Testing performed by: [address] [address] Imm gran pct 0.2 % [facility] Comment: Interpretive Data Percent cell count reference ranges are not reported, since discordance with absolute values may lead to misinterpretation of CBC data. Current Interpretive Data was last revised on 2018. Testing performed by: [address] [address] Lymphocyte pct 30.0 % CERNER Comment: Interpretive Data Percent cell count reference ranges are not reported, since discordance with absolute values may lead to misinterpretation of CBC data. Current Interpretive Data was last revised on 2018. Testing performed by: [address] [address] Monocyte pct 8.7 % CERNER Comment: Interpretive Data Percent cell count reference ranges are not reported, since discordance with absolute values may lead to misinterpretation of CBC data. Current Interpretive Data was last revised on 2018. Testing performed by: [address] [address] Eosinophil pct 3.7 % ABHIJEET Comment: Interpretive Data Percent cell count reference ranges are not reported, since discordance with absolute values may lead to misinterpretation of CBC data. Current Interpretive Data was last revised on 2018. Testing performed by: [address] [address] Basophil pct 0.3 % ABHIJEET Comment: Interpretive Data Percent cell count reference ranges are not reported, since discordance with absolute values may lead to misinterpretation of CBC data. Current Interpretive Data was last revised on 2018. Testing performed by: [address] [address] Blood 10/06/2024 9:38 AM DISABILITY SERVICES COORDINATOR 10/06/2024 9:47 AM DISABILITY SERVICES COORDINATOR Jose G Jimenez MD LAB BLOOD ORDERABLES Final Result [place] [id number] [facility] [place] [address] * (ABNORMAL) CBC with auto differential (10/06/2024 9:38 AM DISABILITY SERVICES COORDINATOR) Pathologist [facility] [place] WBC 6.0 3.8 - 9.9 K/cumm Comment:Testing performed by : [address] [address] Hgb 12.0 11.9 - 15.5 g/dL ABHIJEET NOONAN Comment:Testing performed by : [address] [address] Hct 34.9(L) 35.6 - 45.5 % ABHIJEET Comment:Testing performed by : [address] [address] Plt 197 150 - 400 K/cumm ABHIJEET NOONAN Comment:Testing performed by : [address] [address] MPV 9.7 9.1 - 12.3 fL ABHIJEET NOONAN Comment:Testing performed by : [address] [address] RBC 4.09 3.90 - 5.20 M/cumm ABHIJEET NOONAN Comment:Testing performed by : [address] [address] MCV 85.3 81.3 - 96.4 fL ABHIJEET NOONAN Comment:Testing performed by : [address] [address] MCH 29.3 27.1 - 33.3 pg ABHIJEET NOONAN Comment:Testing performed by : [address] [address] MCHC 34.4 32.3 - 35.7 g/dL ABHIJEET NOONAN Comment:Testing performed by : [address] [address] RDW CV 14.1 11.1 - 14.9 % ABHIJEET Comment:Testing performed by : [address] [address] RDW SD 44.1 35.7 - 48.1 fL ABHIJEET Comment:Testing performed by : [address] [address] NRBC abs 0.00 0.00 - 0.01 K/cumm ABHIJEET Comment:Testing performed by : [address] [address] Blood 10/06/2024 9:38 AM DISABILITY SERVICES COORDINATOR 10/06/2024 9:47 AM DISABILITY SERVICES COORDINATOR us Jose G Jimenez MD LAB BLOOD ORDERABLES Final Result [facility] [address] [facility] Department [place] [address] * Comprehensive metabolic panel (10/06/2024 9:38 AM DISABILITY SERVICES COORDINATOR) Pathologist [facility] [place] Sodium 143 135 - 145 mmol/L Comment:Testing performed by : [address] [address] Potassium, pl 4.5 3.3 - 4.9 mmol/L ABHIJEET NOONAN Comment:Testing performed by : [address], [place]., [address] Chloride 105 97 - 110 mmol/L ABHIJEET Comment:Testing performed by : [address], [place]., [address] CO2 29 22 - 32 mmol/L ABHIJEET Comment:Testing performed by : [address], [place]., [address] Anion gap 9 2 - 15 mmol/L ABHIJEET Comment:Testing performed by : [address], [place]., [address] BUN 15 6 - 25 mg/dL ABHIJEET Comment:Testing performed by : [address], [place]., [address] Creatinine 0.60 0.60 - 1.10 mg/dL ABHIJEET Comment:Testing performed by : [address], [place]., [address] Glucose 108 70 - 199 mg/dL ABHIJEET Comment: Interpretive Data Fasting glucose >/= 126 mg/dl is diagnostic for diabetes. ?? Fasting is defined as no caloric intake for at least 8 hours. Fasting glucose between 100 mg/dl to 125 mg/dl is diagnostic of prediabetes. In a patient with classic symptoms of hyperglycemia or hyperglycemic crisis, a random glucose >/= 200 mg/dl is diagnostic for diabetes. In the absence of unequivocal hyperglycemia, results should be confirmed by repeat testing. The classification and Diagnosis of Diabetes Diabetes Care 202; 46: S19-S40. Current interpretive data was last revised 2022. Testing performed by: [address] [address] Calcium 9.1 8.5 - 10.3 mg/dL ABHIJEET Comment:Testing performed by : [address] [address] Bilirubin, total 0.4 0.1 - 1.2 mg/dL ABHIJEET Comment:Testing performed by : [address], [place]., [address] Protein, pl 6.7 6.5 - 8.5 g/dL ABHIJEET Comment:Testing performed by : [address] [address] Albumin 3.9 3.5 - 5.0 g/dL ABHIJEET Comment:Testing performed by : [address] [address] Alk phos 127 40 - 130 Units/L ABHIJEET Comment:Testing performed by : [address] [address] ALT 23 7 - 45 Units/L ABHIJEET Comment:Testing performed by : [address] [address] AST 32 10 - 45 Units/L ABHIJEET Comment:Testing performed by : [address], [facility], [address] Blood 10/06/2024 9:38 AM DISABILITY SERVICES COORDINATOR 10/06/2024 9:47 AM DISABILITY SERVICES COORDINATOR Jose G Jimenez MD LAB BLOOD ORDERABLES Final Result Performing Organization Address City/[facility]/ZIP Co de Phone Number [address] Department [place] [address] * Signatera (10/06/2024 8:58 AM DISABILITY SERVICES COORDINATOR) Other (Other) [facility] Provider LAB GENETIC TESTING Final Result Performing Organization Address City/[facility]/ZIP Co de Phone Number [address] * eGFR (09/22/2024 11:58 AM DISABILITY SERVICES COORDINATOR) eGFR >90 >=60 mL/min/1. 73 m2 Comment: Interpretive Data Reference Interval Normal ?>/= 90 mL/min/1.73m2 Mildly decreased* ? 60 - 89 mL/min/1.73m2 Mildly to moderately decreased ?45 - 59 mL/min/1.73m2 Moderately to severely decreased ??30 - 44 mL/min/1.73m2 Severely decreased ?15 - 29 mL/min/1.73m2 Kidney Failure ?< 15 ??mL/min/1.73m2 *Relative to young adult level Estimated glomerular filtration rate is determined by the 2020 CKD-EPI equation recommended by the National Kidney Foundation (A Unifying Approach to GFR Estimation: Recommendations of the NKF-ASK Task Force on Reassessing the Inclusion of Race in Diagnosing Kidney Disease, JASN 2020). The CKD-EPI equation should not be used for patients with unstable renal function and has not been validated in children and those over 70. Current interpretive data was last reviewed 2021. Testing performed by: [address] [address] Blood 09/22/2024 11:5 8 AM DISABILITY SERVICES COORDINATOR 09/22/2024 12:01 PM DISABILITY SERVICES COORDINATOR Jose G Jimenez MD LAB BLOOD ORDERABLES Final Result [facility] [address] [facility] [place] [address] * Differential, auto (09/22/2024 11:58 AM DISABILITY SERVICES COORDINATOR) Neutrophil abs 3.8 1.5 - 6.5 K/cumm Comment:Testing performed by : [address] [address] Imm gran abs 0.0 0.0 - 0.1 K/cumm ABHIJEET Comment:Testing performed by : [address] [address] Lymphocyte abs 1.7 0.8 - 3.3 K/cumm ABHIJEET Comment:Testing performed by : [address] [address] Monocyte abs 0.5 0.2 - 0.8 K/cumm ABHIJEET Comment:Testing performed by : [address] [address] Eosinophil abs 0.2 0.0 - 0.5 K/cumm [facility] Comment:Testing performed by : [address] [address] Basophil abs 0.0 0.0 - 0.1 K/cumm ABHIJEET Comment:Testing performed by : [address] [address] Neutrophil pct 60.4 % [facility] Comment: Interpretive Data Percent cell count reference ranges are not reported, since discordance with absolute values may lead to misinterpretation of CBC data. Current Interpretive Data was last revised on 2018. Testing performed by: [address] [address] Imm gran pct 0.3 % [facility] Comment: Interpretive Data Percent cell count reference ranges are not reported, since discordance with absolute values may lead to misinterpretation of CBC data. Current Interpretive Data was last revised on 2018. Testing performed by: [address] [address] Lymphocyte pct 27.5 % [facility] Comment: Interpretive Data Percent cell count reference ranges are not reported, since discordance with absolute values may lead to misinterpretation of CBC data. Current Interpretive Data was last revised on 2018. Testing performed by: [address] [address] Monocyte pct 8.6 % [facility] Comment: Interpretive Data Percent cell count reference ranges are not reported, since discordance with absolute values may lead to misinterpretation of CBC data. Current Interpretive Data was last revised on 2018. Testing performed by: [address] [address] Eosinophil pct 2.7 % [facility] Comment: Interpretive Data Percent cell count reference ranges are not reported, since discordance with absolute values may lead to misinterpretation of CBC data. Current Interpretive Data was last revised on 2018. Testing performed by: [address] [address] Basophil pct 0.5 % [facility] Comment: Interpretive Data Percent cell count reference ranges are not reported, since discordance with absolute values may lead to misinterpretation of CBC data. Current Interpretive Data was last revised on 2018. Testing performed by: [address] [address] Blood 09/22/2024 11:5 8 AM DISABILITY SERVICES COORDINATOR 09/22/2024 12:01 PM DISABILITY SERVICES COORDINATOR us Jose G Jimenez MD LAB BLOOD ORDERABLES Final Result [facility] [address] [facility] Department [place] [address] * (ABNORMAL) CBC with auto differential (09/22/2024 11:58 AM DISABILITY SERVICES COORDINATOR) WBC 6.3 3.8 - 9.9 K/cumm Comment:Testing performed by : [address] [address] Hgb 11.8(L) 11.9 - 15.5 g/dL ABHIJEET Comment:Testing performed by : [address] [address] Hct 35.7 35.6 - 45.5 % ABHIJEET Comment:Testing performed by : [address] [address] Plt 182 150 - 400 K/cumm ABHIJEET Comment:Testing performed by : [address] [address] MPV 9.9 9.1 - 12.3 fL ABHIJEET Comment:Testing performed by : [address] [address] RBC 4.17 3.90 - 5.20 M/cumm ABHIJEET Comment:Testing performed by : [address] [address] MCV 85.6 81.3 - 96.4 fL ABHIJEET Comment:Testing performed by : [address] [address] MCH 28.3 27.1 - 33.3 pg ABHIJEET NOONAN Comment:Testing performed by : [address] [address] MCHC 33.1 32.3 - 35.7 g/dL ABHIJEET NOONAN Comment:Testing performed by : [address] [address] RDW CV 14.3 11.1 - 14.9 % ABHIJEET NOONAN Comment:Testing performed by : [address] [address] RDW SD 44.3 35.7 - 48.1 fL ABHIJEET NOONAN Comment:Testing performed by : [address] [address] NRBC abs 0.00 0.00 - 0.01 K/cumm ABHIJEET NOONAN Comment:Testing performed by : [address] [address] Blood 09/22/2024 11:5 8 AM DISABILITY SERVICES COORDINATOR 09/22/2024 12:01 PM DISABILITY SERVICES COORDINATOR Jose G Jimenez MD LAB BLOOD ORDERABLES Final Result Performing Organization Address [facility] Co de Phone Number [address] [place] [address] * Manual Differential (09/22/2024 11:58 AM DISABILITY SERVICES COORDINATOR) Differential Auto Comment:Testing performed by : [address] [address] RBC morphology Consistent with RBC Indicies ABHIJEET NOONAN Comment:Testing performed by : [address] [address] Platelet estimate Adequate ABHIJEET NOONAN Comment:Testing performed by : [address] [address] Blood 09/22/2024 11:5 8 AM DISABILITY SERVICES COORDINATOR 09/22/2024 12:01 PM DISABILITY SERVICES COORDINATOR Jose G Jimenez MD LAB BLOOD ORDERABLES Final Result Performing Organization Address City/[facility] de Phone Number [address] [employer] [place] [address] * (ABNORMAL) Comprehensive metabolic panel (09/22/2024 11:58 AM DISABILITY SERVICES COORDINATOR) Sodium 141 135 - 145 mmol/L Comment:Testing performed by : [address] [address] Potassium, pl 3.9 3.3 - 4.9 mmol/L ABHIJEET Comment:Testing performed by : [address] [address] Chloride 104 97 - 110 mmol/L [facility] Comment:Testing performed by : [address], [place]., [address] CO2 26 22 - 32 mmol/L [facility] Comment:Testing performed by : [address] [address] Anion gap 11 2 - 15 mmol/L [facility] Comment:Testing performed by : [address] [address] BUN 16 6 - 25 mg/dL [facility] Comment:Testing performed by : [address], [place]., [address] Creatinine 0.60 0.60 - 1.10 mg/dL [facility] Comment:Testing performed by : [address] [address] Glucose 159 70 - 199 mg/dL [facility] Comment: Interpretive Data Fasting glucose >/= 126 mg/dl is diagnostic for diabetes. ?? Fasting is defined as no caloric intake for at least 8 hours. Fasting glucose between 100 mg/dl to 125 mg/dl is diagnostic of prediabetes. In a patient with classic symptoms of hyperglycemia or hyperglycemic crisis, a random glucose >/= 200 mg/dl is diagnostic for diabetes. In the absence of unequivocal hyperglycemia, results should be confirmed by repeat testing. The classification and Diagnosis of Diabetes Diabetes Care 202; 46: S19-S40. Current interpretive data was last revised 2022. Testing performed by: [address] [address] Calcium 9.3 8.5 - 10.3 mg/dL [facility] Comment:Testing performed by : [address] [address] Bilirubin, total 0.5 0.1 - 1.2 mg/dL ABHIJEET Comment:Testing performed by : [address] [address] Protein, pl 6.8 6.5 - 8.5 g/dL ABHIJEET Comment:Testing performed by : [address] [address] Albumin 3.9 3.5 - 5.0 g/dL ABHIJEET Comment:Testing performed by : [address] [address] Alk phos 134(H) 40 - 130 Units/L ABHIJEET Comment:Testing performed by : [address] [address] ALT 21 7 - 45 Units/L ABHIJEET Comment:Testing performed by : [address] [address] AST 26 10 - 45 Units/L ABHIJEET Comment:Testing performed by : [address] [address] Blood 09/22/2024 11:5 8 AM DISABILITY SERVICES COORDINATOR 09/22/2024 12:01 PM DISABILITY SERVICES COORDINATOR Jose G Jimenez MD LAB BLOOD ORDERABLES Final Result Performing Organization Address [facility] Co de Phone Number ABHIJEET [address] [facility] [place] [address] from Last 3 Months Insurance [facility] CHOICE PLUS [facility] MEDICARE [facility] MEDICARE MEDICARE Advance Directives For more information, please contact: [phone] * Full Code (Latest Code Status on File) Date Activated Date Inactivated Comments 06/27/2022 7:04 AM 06/28/2022 5:09 AM Care Teams Special Agent Secret Service Relationship Specialty Start Date End Date Rodney Mckay MD PCP - General Internal Medicine 05/30/22 Yves Moreno DO [address] [facility] [address] [facility] [address] [place] [address] Referring Physician Surgery 06/04/22 Jose G Jimenez MD [address] [place] [address] MEDICAL ONCOLOGY, [facility] [address] [place] [address] Medical Oncologist/Scientific Systems Analyst Medical Oncology 09/04/23
--- OUTSIDE RECORDS SUMMARY | 2024-12-16 13:03 | XMS_ITS | Encounter Summary ---
Author Organization [facility] [place] [facility] Address [address] [place] [address] Phone Care Team Providers Care Supervisor Cell Room Name Role Phone Rodney Mckay MD Primary Care Provider [phone] Yves Moreno DO Unavailable [phone] Jose G Jimenez MD Unavailable [phone] Reason for Referral * MRI/CAT/PET Scan (Routine) - Authorized Specialty Diagnoses / Procedures Referred By Tony t Referred To Contact Radiology Diagnoses Malignant neoplasm of ascending colon (CMS/HCC) (HCC) Procedures CT Chest Abdomen Pelvis W Contrast Jose G Jimenez MD [address] [place] [address] [address] [place] [address] Phone: tel: fax: [address] [address] Referral ID Status Reason Start Date Expiration Date V isits Requested Visits Authorized [id number] Authorized 12/15/2024 01/14/2026 1 1 CAL ASSOCIATE Reason for Visit * Reason Comments Follow-up * Episode Based Medications (Routine) - Authorized Specialty Diagnoses / Procedures [facility] Referred To Contact Oncology Diagnoses 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) Malignant neoplasm of ascending colon (CMS/HCC) (HCC) Jose G Jimenez MD [address] [place], [place] [address] [place] [address] Phone: tel: fax: [facility] [address] [place] [address] Phone: tel: fax: Referral ID Status Reason Start Date Expiration Date V isits Requested Visits Authorized [id number] Authorized 07/10/2023 03/17/2025 1 99 Encounter Details Date Type Department Care Team (Late st Contact Info) Description 12/15/2024 10:30 AM MEDICAL ASSOCIATE Office Visit [facility] Oncology [address] [place] [address] Jose G Jimenez MD [address] [facility] [address] [place] [address] Malignant neoplasm of ascending colon (CMS/HCC) (HCC) [...] on file Legal Sex Female 12:09 PM MEDICAL ASSOCIATE Gender Identity Not on file Sexual Orientation Not on file documented as of this encounter Last Filed Vital Signs Vital Sign Reading Time Taken Comments Blood Pressure 129/77 12/15/2024 10:28 AM MEDICAL ASSOCIATE Pulse 59 12/15/2024 10:28 AM MEDICAL ASSOCIATE Temperature 36.4 ??C (97.5 ??F) 12/15/2024 10:[address] Respiratory Rate 16 12/15/2024 10:28 AM MEDICAL ASSOCIATE Oxygen Saturation 98% 12/15/2024 10:28 AM MEDICAL ASSOCIATE Inhaled Oxygen Concentration - - Weight 64 kg (141 lb) 12/15/2024 10:28 AM MEDICAL ASSOCIATE no shoes Height - - Body Mass Index 24.98 08/18/2024 9:36 AM CDT documented in this encounter Plan of Treatment Scheduled Orders Name Type Priority Associated Diagnoses Order Schedule CBC with auto differential Lab Routine Malignant neoplasm of ascending colon (CMS/HCC) (HCC) 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) Expected: 12/29/2024, Expires: 12/29/2025 Comprehensive metabolic panel Lab STAT Malignant neoplasm of ascending colon (CMS/HCC) (HCC) 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) Expected: 12/29/2024, Expires: 12/29/2025 CBC with auto differential Lab Routine Malignant neoplasm of ascending colon (CMS/HCC) (HCC) 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) Expected: 01/12/2025, Expires: 01/12/2026 Comprehensive metabolic panel Lab STAT Malignant neoplasm of ascending colon (CMS/HCC) (HCC) 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) Expected: 01/12/2025, Expires: 01/12/2026 Thyroid Function [place] Lab STAT Malignant neoplasm of ascending colon (CMS/HCC) (HCC) 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) Expected: 01/12/2025, Expires: 01/12/2026 Cortisol Lab Routine Malignant neoplasm of ascending colon (CMS/HCC) (HCC) 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) Expected: 01/12/2025, Expires: 01/12/2026 CBC with auto differential Lab Routine Malignant neoplasm of ascending colon (CMS/HCC) (HCC) 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) Expected: 01/26/2025, Expires: 01/26/2026 Comprehensive metabolic panel Lab STAT Malignant neoplasm of ascending colon (CMS/HCC) (HCC) 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) Expected: 01/26/2025, Expires: 01/26/2026 Iron profile w/ IBC Lab Routine Malignant neoplasm of ascending colon (CMS/HCC) (HCC) Expected: 01/26/2025, Expires: 12/15/2025 Ferritin Lab Routine Malignant neoplasm of ascending colon (CMS/HCC) (HCC) Expected: 01/26/2025, Expires: 12/15/2025 Vitamin B12 Lab Routine Malignant neoplasm of ascending colon (CMS/HCC) (HCC) Expected: 01/26/2025, Expires: 12/15/2025 CT Chest Abdomen Pelvis W Contrast Imaging Schedule Routine, Read Routine (OP Routine) Malignant neoplasm of ascending colon (CMS/HCC) (HCC) Expected: 01/19/2025, Expires: 12/15/2025 Signatera Only Initial Draw Lab Routine Malignant neoplasm of ascending colon (CMS/HCC) (HCC) Expected: 01/26/2025 (Approximate), Expires: 12/15/2025 documented as of this encounter Visit Diagnoses Diagnosis Malignant neoplasm of ascending colon (CMS/HCC) (HCC)- Primary Malignant neoplasm of ascending colon 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) documented in this encounter Orders Appointment Requests Count Last Ordered Date Fi rst Ordered Date ONCBCN CLINIC APPOINTMENT REQUEST 2 025 ONCBCN LAB APPOINTMENT 3 12/15/2024 ONCBCN RETURN CHEMO 2.5HRS 2 12/15/2024 ONCBCN RETURN CHEMO 3.5HRS 1 12/15/2024 documented in this encounter Care Teams Supervisor Cell Room Relationship Specialty Start Date End Date Rodney Mckay MD PCP - General Internal Medicine 05/30/22 Yves Moreno DO [address] [facility] [address] [facility] [address] [place], [place] [address] Referring Physician Surgery 06/04/22 Jose G Jimenez MD [address] [facility] MEDICAL ONCOLOGY, [address] [address] Medical Oncologist/Patent Counsel Medical Oncology 09/04/23 documented as of this encounter
--- OUTSIDE RECORDS SUMMARY | 2024-12-16 13:03 | XMS_ITS | Encounter Summary ---
Author Organization [facility] Address [address] [place] [address] Phone Care Team Providers Care Washtub Worker Helper Name Role Phone Rodney Mckay MD Primary Care Provider [phone] Yves Moreno DO Unavailable [phone] Jose G Jimenez MD Unavailable [phone] Encounter Details Date Type Department Care Team (Latest Contact Info) Description 02/11/2024 Orders Only [facility] Scanning, Provider [...] on file Legal Sex Female 12:09 PM RIVET BUCKER Gender Identity Not on file Sexual Orientation Not on file documented as of this encounter Plan of Treatment Not on file documented as of this encounter Procedures Procedure Name Priority Date/Time Associated Diagnosis Comments SCAN - PATHOLOGY 02/11/2024 3:36 PM CDT documented in this encounter Results * SCAN - PATHOLOGY (02/11/2024 3:36 PM CDT) us Provider Scanning Final Result documented in this encounter Visit Diagnoses Not on filedocumented in this encounter Care Teams Washtub Worker Helper Relationship Specialty Start Date End Date Rodney Mckay MD PCP - General Internal Medicine 05/30/22 Yves Moreno DO [address] [facility] [address] [place], [place] [address] Referring Physician Surgery 06/04/22 Jose G Jimenez MD [facility] [facility] MEDICAL ONCOLOGY, [facility] [address] [place] [address] Medical Oncologist/Sustainable Agriculture Faculty Medical Oncology 09/04/23 documented as of this encounter
--- OUTSIDE RECORDS SUMMARY | 2024-12-16 13:03 | XMS_ITS | Encounter Summary ---
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) Malignant neoplasm of ascending colon (CMS/HCC) (HCC) Jose G Jimenez MD [address] [facility] [address] [place] [address] Phone: tel: fax: [facility] at [address] [place] [id number] Phone: tel: fax: Referral ID Status Reason Start Date Expiration Date V isits Requested Visits Authorized [id number] Authorized 07/10/2023 03/17/2025 1 99 Encounter Details Date Type Department Care Team (Latest Contact Info) Description 12/15/2024 10:00 AM [employer] Clinical Support [facility] at [address] [address] 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); Malignant neoplasm of ascending colon (CMS/HCC) (HCC) Social History Tobacco Use Types [...] on file Legal Sex Female 12:09 PM [employer] Gender Identity Not on file Sexual Orientation Not on file documented as of this encounter Plan of Treatment Not on file documented as of this encounter Procedures Procedure Name Priority Date/Time Associated Diagnosis Comments EGFR STAT 12/15/2024 10:18 AM [employer] 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) Malignant neoplasm of ascending colon (CMS/HCC) (HCC) DIFFERENTIAL AUTO Routine 12/15/2024 10: 18 AM [employer] 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 73 m2 Comment: [...] was last reviewed 2021. Testing performed by: [address] [address] Blood 12/15/2024 10:1 8 AM [employer] 12/15/2024 10:19 AM [employer] Jose G Jimenez MD LAB BLOOD ORDERABLES Final Result [facility] [address] [facility] Department [place] [address] * Differential, auto (12/15/2024 10:18 AM [employer]) Pathologist [facility] Neutrophil abs 3.3 1.5 - 6.5 K/cumm Comment:Testing performed by : [address] [address] Imm gran abs 0.0 0.0 - 0.1 K/cumm ABHIJEET Comment:Testing performed by : [address] [address] Lymphocyte abs 1.4 0.8 - 3.3 K/cumm ABHIJEET Comment:Testing performed by : [address] [address] Monocyte abs 0.6 0.2 - 0.8 K/cumm ABHIJEET Comment:Testing performed by : [address] [address] Eosinophil abs 0.2 0.0 - 0.5 K/cumm [facility] Comment:Testing performed by : [address] [address] Basophil abs 0.0 0.0 - 0.1 K/cumm ABHIJEET Comment:Testing performed by : [address] [address] Neutrophil pct 59.8 % [facility] Comment: Interpretive Data Percent cell count reference ranges are not reported, since discordance with absolute values may lead to misinterpretation of CBC data. Current Interpretive Data was last revised on 2018. Testing performed by: [address] [address] Imm gran pct 0.2 % [facility] Comment: Interpretive Data Percent cell count reference ranges are not reported, since discordance with absolute values may lead to misinterpretation of CBC data. Current Interpretive Data was last revised on 2018. Testing performed by: [address] [address] Lymphocyte pct 25.9 % [facility] Comment: Interpretive Data Percent cell count reference ranges are not reported, since discordance with absolute values may lead to misinterpretation of CBC data. Current Interpretive Data was last revised on 2018. Testing performed by: [address] [address] Monocyte pct 10.7 % [facility] Comment: Interpretive Data Percent cell count reference ranges are not reported, since discordance with absolute values may lead to misinterpretation of CBC data. Current Interpretive Data was last revised on 2018. Testing performed by: [address] [address] Eosinophil pct 2.9 % [facility] Comment: Interpretive Data Percent cell count reference ranges are not reported, since discordance with absolute values may lead to misinterpretation of CBC data. Current Interpretive Data was last revised on 2018. Testing performed by: [address] [address] Basophil pct 0.5 % [facility] Comment: Interpretive Data Percent cell count reference ranges are not reported, since discordance with absolute values may lead to misinterpretation of CBC data. Current Interpretive Data was last revised on 2018. Testing performed by: [address] [address] Blood 12/15/2024 10:1 8 AM [employer] 12/15/2024 10:19 AM [employer] Jose G Jimenez MD LAB BLOOD ORDERABLES Final Result [facility] [address] [facility] Department [place] [address] * (ABNORMAL) CBC with auto differential (12/15/2024 10:18 AM [employer]) WBC 5.5 3.8 - 9.9 K/cumm Comment:Testing performed by : [address] [address] Hgb 12.0 11.9 - 15.5 g/dL ABHIJEET Comment:Testing performed by : [address] [address] Hct 35.2(L) 35.6 - 45.5 % [facility] Comment:Testing performed by : [address] [address] Plt 174 150 - 400 K/cumm ABHIJEET Comment:Testing performed by : [address] [address] MPV 9.9 9.1 - 12.3 fL ABHIJEET Comment:Testing performed by : [address] [address] RBC 4.12 3.90 - 5.20 M/cumm ABHIJEET NOONAN Comment:Testing performed by : [address] [address] MCV 85.4 81.3 - 96.4 fL [facility]HIJE[facility] NOONAN Comment:Testing performed by : [address] [address] MCH 29.1 27.1 - 33.3 pg ABHIJEET NOONAN Comment:Testing performed by : [address] [address] MCHC 34.1 32.3 - 35.7 g/dL ABHIJEET NOONAN Comment:Testing performed by : [address] [address] RDW CV 13.9 11.1 - 14.9 % [facility] NOONAN Comment:Testing performed by : [address] [address] RDW SD 43.2 35.7 - 48.1 fL ABHIJE[facility] NOONAN Comment:Testing performed by : [address] [address] NRBC abs 0.00 0.00 - 0.01 K/cumm ABHIJEET NOONAN Comment:Testing performed by : [address] [address] Blood 12/15/2024 10:1 8 AM [employer] 12/15/2024 10:19 AM [employer] Jose G Jimenez MD LAB BLOOD ORDERABLES Final Result [facility] [facility] Department [place] [address] * Comprehensive metabolic panel (12/15/2024 10:18 AM [employer]) Sodium 142 135 - 145 mmol/L Comment:Testing performed by : [address] [address] Potassium, pl 4.0 3.3 - 4.9 mmol/L ABHIJEET NOONAN Comment:Testing performed by : [address] [address] Chloride 105 97 - 110 mmol/L ABHIJEET NOONAN Comment:Testing performed by : [address] [address] CO2 29 22 - 32 mmol/L ABHIJEET NOONAN Comment:Testing performed by : [address] [address] Anion gap 8 2 - 15 mmol/L ABHIJEET NOONAN Comment:Testing performed by : [address] [address] BUN 17 6 - 25 mg/dL ABHIJEET NOONAN Comment:Testing performed by : [address] [address] Creatinine 0.60 0.60 - 1.10 mg/dL ABHIJEET Comment:Testing performed by : [address] [address] Glucose 93 70 - 199 mg/dL ABHIJEET [...] was last revised 2022. Testing performed by: [address] [address] Calcium 9.3 8.5 - 10.3 mg/dL ABHIJEET Comment:Testing performed by : [address] [address] Bilirubin, total 0.4 0.1 - 1.2 mg/dL ABHIJEET Comment:Testing performed by : [address] [address] Protein, pl 6.8 6.5 - 8.5 g/dL ABHIJEET Comment:Testing performed by : [address] [address] Albumin 3.9 3.5 - 5.0 g/dL ABHIJEET Comment:Testing performed by : [address] [address] Alk phos 122 40 - 130 Units/L ABHIJEET Comment:Testing performed by : [address] [address] ALT 22 7 - 45 Units/L ABHIJEET Comment:Testing performed by : [address] [address] AST 29 10 - 45 Units/L ABHIJEET Comment:Testing performed by : [address] [address] Blood 12/15/2024 10:1 8 AM [employer] 12/15/2024 10:19 AM [employer] Jose G Jimenez MD LAB BLOOD ORDERABLES Final Result [facility] Department [place] [address] documented in this encounter Visit Diagnoses Diagnosis 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) Malignant neoplasm of ascending colon (CMS/HCC) (HCC) Malignant neoplasm of ascending colon documented in this encounter Orders Appointment Requests Count Last Ordered Date Fi rst Ordered Date ONCBCN LAB APPOINTMENT 1 12/15/2024 documented in this encounter Care Teams Launch Steward Relationship Specialty Start Date End Date Rodney Mckay MD PCP - General Internal Medicine 05/30/22 Yves Moreno DO [address] [facility] [address] [place] [address] Referring Physician Surgery 06/04/22 Jose G Jimenez MD [address] [facility], [address] [address] Medical Oncologist/Manager Of [employer] 09/04/23 documented as of this encounter
--- OUTSIDE RECORDS SUMMARY | 2024-12-16 13:03 | XMS_ITS ---
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 IV Maintenance Therapy Plan* Plan Start Date:07/18/2022 Plan Provider:Jose G Jimenez MD Linked Problems Malignant neoplasm of ascend ing colon (CMS/HCC) (HCC) Treatment Medications No medications scheduled. Nivolumab 3 mg/kg every 2 weeks / Ipilimumab 1 mg/kg every 6 weeks 42 Day Cycles -colon with metastatic* Plan Start Date:07/23/2023 Plan Provider:Jose G Jimenez MD Linked Problems Malignant neoplasm metastati c to omentum (HCC)Malignant neoplasm of ascending colon (CMS/HCC) (HCC) Treatment Medications Current Day (Day 2 9, Cycle 12 - Planned for 12/29/2024) Next Day (Day 1, Cycle 13 - Planned for 01/12/2025) ipilimumab (YERVOY)ipilimumab (YERVOY) IVPB in 25 mLnivolumab (OPDIVO)nivolumab (OPDIVO) in 50 mL IVPB nivolumab (OPDIVO) 190 mg in sodium chloride 0.9% 50 mL IVPB ipilimumab (YERVOY) 65 mg in sodium chloride 0.9% 38 mL IVPBnivolumab (OPDIVO) 190 mg in sodium chloride 0.9% 50 mL IVPB Past Plans Oncology Chemotherapy Treatment Plan Name Start Date Discontinue Date Treatment Medications Discontinue Reason Plan Provider Cycles [id number]: (Fluorouracil / Leucovorin / OXALIplatin / Bevacizumab) 14 Day Cycles - Colon/Rectum 2 07/23/2023 bevacizumab-awwb (MVASI)bevacizumab -awwb (MVASI) IVPBfluorouracil (ADRUCIL)fluoroura cil (ADRUCIL) infusion - for home infusion (ADRUCIL)leucovori nleucovorin IVPB in 250 mLoxaliplatin (ELOXATIN)oxalipla tin (ELOXATIN) IVPB Progressive Disease Jose G Jimenez MD 25 of 28 cycles started Radiation Treatments * No radiation treatments are documented for this patient in [facility]. Treatments may have been administered in another system. Lifetime Dose Tracking * Chemical Lifetime Dose Automatic Entry Manual Entr y Fluoro Time 0.1 minutes 0.1 minutes 0 minutes DLP 3,410 mGycm 3,410 mGycm 0 mGycm
--- OUTSIDE RECORDS SUMMARY | 2024-12-16 13:03 | XMS_ITS | Referral Summary ---
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) 12/15/2024 10:00 AM PIPED POCKET MACHINE OPERATOR Clinical Support [facility] [address] [address] 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); Malignant neoplasm of ascending colon (CMS/HCC) (HCC) 12/15/2024 10:30 AM PIPED POCKET MACHINE OPERATOR Office Visit [facility] [address] [place] [address] [place] [phone] Jose G Jimenez MD Malignant neoplasm of ascending colon (CMS/HCC) (HCC) (Primary Dx); 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) 12/01/2024 Orders Only [facility] [address] [place] [phone] Jose G Jimenez MD 12/01/2024 12:30 PM PIPED POCKET MACHINE OPERATOR Clinical Support [facility] [address] [address] 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 [address] [place] [phone] Kathie Stockton NP 11/17/2024 Orders Only 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) 10/27/2024 7:48 AM PIPED POCKET MACHINE OPERATOR - 10/27/2024 11:59 PM PIPED POCKET MACHINE OPERATOR [facility] [address] [place] [address] Malignant neoplasm of ascending colon (CMS/HCC) (HCC) Discharge Disposition: Discharge to home or self care 10/20/2024 [facility] [address] [phone] Jose G Jimenez MD 10/20/2024 8:45 AM PIPED POCKET MACHINE OPERATOR Infusion [facility] [address] [phone] Malignant neoplasm of ascending colon (CMS/HCC) (HCC) (Primary Dx); 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); Malignant neoplasm of ascending colon (CMS/HCC) (HCC) 10/06/2024 10:15 AM PIPED POCKET MACHINE OPERATOR Office Visit [facility] [address] [place] [phone] Jose G Jimenez MD Malignant neoplasm of ascending colon (CMS/HCC) (HCC) (Primary Dx); 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 [address] [place] [phone] Jose G Jimenez MD from Last 3 Months Allergies Active Allergy Reactions Criticality Noted Date [...] with simethicone-diphen hydramine-lidocain e (MAGIC MOUTHWASH) suspension [id number]:C hemotherapy-Induce d Mucositis Swish and swallow 15 [...] Malignant neoplasm of ascending colon (CMS/HCC) 06/07/2022 Immunizations Name Administration Dates Next Due Influenza, Quadrivalent, Michelle l Culture-based MDCK, Preservative Free, Antibiotic Free, Intramuscular 08/29/2022 Influenza, Quadrivalent, Split, Intramuscular Influenza, Quadrivalent, Spl it, Preservative Free, Intramuscular 08/10/2021,11/03/2020 Influenza, Unspecified 07/19/2023 Tdap 06/14/2020,05/11/2009 ZOSTER Recombinant 09/06/2019,06/30/2019 Social History Tobacco Use Types Packs/Day Years [...] on file Legal Sex Female 12:09 PM PIPED POCKET MACHINE OPERATOR Gender Identity Not on file Sexual Orientation Not on file Last Filed Vital Signs Vital Sign Reading Time Taken Comments Blood Pressure 129/77 12/15/2024 10:28 AM PIPED POCKET MACHINE OPERATOR Pulse 59 12/15/2024 10:28 AM PIPED POCKET MACHINE OPERATOR Temperature 36.4 ??C (97.5 ??F) 12/15/2024 10:[address] Respiratory Rate 16 12/15/2024 10:28 AM PIPED POCKET MACHINE OPERATOR Oxygen Saturation 98% 12/15/2024 10:28 AM PIPED POCKET MACHINE OPERATOR Inhaled Oxygen Concentration - - Weight 64 kg (141 lb) 12/15/2024 10:28 AM PIPED POCKET MACHINE OPERATOR no shoes Height 160 cm (5' 3 ) 08/18/2024 9:36 AM CDT Body Mass Index 24.98 08/18/2024 9:36 AM CDT Plan of Treatment Not on file Medical Devices Implanted Type Area Tray Packer Device Identifier Shelf Expiration Date Model / Serial / Lot [employer] Low Porfile Power Port 8fr 1.6mm 1 Lumen [id number] - [id number] Implanted:Qty: 1 on 06/27/2022 at [facility] [employer] 02/06/2027 [id number] / / [id number] Procedures Procedure Name Priority Date/Time Associated Diagnosis Comments EGFR STAT 12/15/2024 10:18 AM PIPED POCKET MACHINE OPERATOR 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) Malignant neoplasm of ascending colon (CMS/HCC) (HCC) DIFFERENTIAL AUTO Routine 12/15/2024 10: 18 AM PIPED POCKET MACHINE OPERATOR 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) Malignant neoplasm of ascending colon (CMS/HCC) (HCC) CBC WITH AUTO DIFFERENTIAL Routine 12/15/2024 10:18 AM PIPED POCKET MACHINE OPERATOR 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) Malignant neoplasm of ascending colon (CMS/HCC) (HCC) COMPREHENSIVE METABOLIC PANEL STAT 12/15/2024 10:18 AM PIPED POCKET MACHINE OPERATOR 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) Malignant neoplasm of ascending colon (CMS/HCC) (HCC) EGFR STAT 12/01/2024 12:48 PM PIPED POCKET MACHINE OPERATOR 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) Malignant neoplasm of ascending colon (CMS/HCC) (HCC) DIFFERENTIAL AUTO Routine 12/01/2024 12: 48 PM PIPED POCKET MACHINE OPERATOR 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) Malignant neoplasm of ascending colon (CMS/HCC) (HCC) CEA Routine 12/01/2024 12:48 PM PIPED POCKET MACHINE OPERATOR 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) Malignant neoplasm of ascending colon (CMS/HCC) (HCC) CBC WITH AUTO DIFFERENTIAL Routine 12/01/2024 12:48 PM PIPED POCKET MACHINE OPERATOR 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) Malignant neoplasm of ascending colon (CMS/HCC) (HCC) COMPREHENSIVE METABOLIC PANEL STAT 12/01/2024 12:48 PM PIPED POCKET MACHINE OPERATOR 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) Malignant neoplasm of ascending colon (CMS/HCC) (HCC) THYROID FUNCTION CASCADE STAT 12/01/2024 12:48 PM PIPED POCKET MACHINE OPERATOR 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) Malignant neoplasm of ascending colon (CMS/HCC) (HCC) CORTISOL Routine 12/01/2024 12:48 PM PIPED POCKET MACHINE OPERATOR 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) Malignant neoplasm of ascending colon (CMS/HCC) (HCC) EGFR STAT 11/17/2024 12:40 PM PIPED POCKET MACHINE OPERATOR 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) Malignant neoplasm of ascending colon (CMS/HCC) (HCC) DIFFERENTIAL AUTO Routine 11/17/2024 12: 40 PM PIPED POCKET MACHINE OPERATOR 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) Malignant neoplasm of ascending colon (CMS/HCC) (HCC) CBC WITH AUTO DIFFERENTIAL Routine 11/17/2024 12:40 PM PIPED POCKET MACHINE OPERATOR 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) Malignant neoplasm of ascending colon (CMS/HCC) (HCC) COMPREHENSIVE METABOLIC PANEL STAT 11/17/2024 12:40 PM PIPED POCKET MACHINE OPERATOR 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) Malignant neoplasm of ascending colon (CMS/HCC) (HCC) EGFR STAT 11/03/2024 9:39 AM PIPED POCKET MACHINE OPERATOR 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) Malignant neoplasm of ascending colon (CMS/HCC) (HCC) DIFFERENTIAL AUTO Routine 11/03/2024 9:3 9 AM PIPED POCKET MACHINE OPERATOR 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) Malignant neoplasm of ascending colon (CMS/HCC) (HCC) CEA Routine 11/03/2024 9:39 AM PIPED POCKET MACHINE OPERATOR Malignant neoplasm of ascending colon (CMS/HCC) (HCC) CBC WITH AUTO DIFFERENTIAL Routine 11/03/2024 9:39 AM PIPED POCKET MACHINE OPERATOR 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) Malignant neoplasm of ascending colon (CMS/HCC) (HCC) COMPREHENSIVE METABOLIC PANEL STAT 11/03/2024 9:39 AM PIPED POCKET MACHINE OPERATOR 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) Malignant neoplasm of ascending colon (CMS/HCC) (HCC) CT CHEST ABDOMEN PELVIS W CONTRAST Schedule Routine, Read Routine (OP Routine) 10/27/2024 8:27 AM PIPED POCKET MACHINE OPERATOR Malignant neoplasm of ascending colon (CMS/HCC) (HCC) EGFR STAT 10/20/2024 8:23 AM PIPED POCKET MACHINE OPERATOR 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) Malignant neoplasm of ascending colon (CMS/HCC) (HCC) DIFFERENTIAL AUTO Routine 10/20/2024 8:2 3 AM PIPED POCKET MACHINE OPERATOR 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) Malignant neoplasm of ascending colon (CMS/HCC) (HCC) CBC WITH AUTO DIFFERENTIAL Routine 10/20/2024 8:23 AM PIPED POCKET MACHINE OPERATOR 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) Malignant neoplasm of ascending colon (CMS/HCC) (HCC) COMPREHENSIVE METABOLIC PANEL STAT 10/20/2024 8:23 AM PIPED POCKET MACHINE OPERATOR 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) Malignant neoplasm of ascending colon (CMS/HCC) (HCC) THYROID FUNCTION CASCADE STAT 10/20/2024 8:23 AM PIPED POCKET MACHINE OPERATOR 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) Malignant neoplasm of ascending colon (CMS/HCC) (HCC) CORTISOL Routine 10/20/2024 8:23 AM PIPED POCKET MACHINE OPERATOR 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) Malignant neoplasm of ascending colon (CMS/HCC) (HCC) EGFR STAT 10/06/2024 9:38 AM PIPED POCKET MACHINE OPERATOR 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) Malignant neoplasm of ascending colon (CMS/HCC) (HCC) DIFFERENTIAL AUTO Routine 10/06/2024 9:3 8 AM PIPED POCKET MACHINE OPERATOR 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) Malignant neoplasm of ascending colon (CMS/HCC) (HCC) CBC WITH AUTO DIFFERENTIAL Routine 10/06/2024 9:38 AM PIPED POCKET MACHINE OPERATOR 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) Malignant neoplasm of ascending colon (CMS/HCC) (HCC) COMPREHENSIVE METABOLIC PANEL STAT 10/06/2024 9:38 AM PIPED POCKET MACHINE OPERATOR 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) Malignant neoplasm of ascending colon (CMS/HCC) (HCC) SIGNATERA ONLY Routine 10/06/2024 8:58 AM PIPED POCKET MACHINE OPERATOR MANUAL DIFFERENTIAL Routine 09/22/2024 1 1:58 AM PIPED POCKET MACHINE OPERATOR 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) Malignant neoplasm of ascending colon (CMS/HCC) (HCC) EGFR STAT 09/22/2024 11:58 AM PIPED POCKET MACHINE OPERATOR 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) Malignant neoplasm of ascending colon (CMS/HCC) (HCC) DIFFERENTIAL AUTO Routine 09/22/2024 11: 58 AM PIPED POCKET MACHINE OPERATOR 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 73 m2 Comment: [...] was last reviewed 2021. Testing performed by: [address] [address] Blood 12/15/2024 10:1 8 AM PIPED POCKET MACHINE OPERATOR 12/15/2024 10:19 AM PIPED POCKET MACHINE OPERATOR Jose G Jimenez MD LAB BLOOD ORDERABLES Final Result Performing Organization Address City/State/[facility] Co de Phone Number [facility] [address] [facility] Department of Laboratories [place], [place] [id number] * Differential, auto (12/15/2024 10:18 AM PIPED POCKET MACHINE OPERATOR) Neutrophil abs 3.3 1.5 - 6.5 K/cumm Comment:Testing performed by : [address] [address] Imm gran abs 0.0 0.0 - 0.1 K/cumm ABHIJEET NOONAN Comment:Testing performed by : [address] [address] Lymphocyte abs 1.4 0.8 - 3.3 K/cumm ABHIJEET Comment:Testing performed by : [address] [address] Monocyte abs 0.6 0.2 - 0.8 K/cumm ABHIJEET Comment:Testing performed by : [address] [address] Eosinophil abs 0.2 0.0 - 0.5 K/cumm ABHIJEET Comment:Testing performed by : [address] [address] Basophil abs 0.0 0.0 - 0.1 K/cumm ABHIJEET Comment:Testing performed by : [address] [address] Neutrophil pct 59.8 % [facility] Comment: Interpretive Data Percent cell count reference ranges are not reported, since discordance with absolute values may lead to misinterpretation of CBC data. Current Interpretive Data was last revised on 2018. Testing performed by: [address] [address] Imm gran pct 0.2 % [facility] Comment: Interpretive Data Percent cell count reference ranges are not reported, since discordance with absolute values may lead to misinterpretation of CBC data. Current Interpretive Data was last revised on 2018. Testing performed by: [address] [address] Lymphocyte pct 25.9 % [facility] Comment: Interpretive Data Percent cell count reference ranges are not reported, since discordance with absolute values may lead to misinterpretation of CBC data. Current Interpretive Data was last revised on 2018. Testing performed by: [address] [address] Monocyte pct 10.7 % [facility] Comment: Interpretive Data Percent cell count reference ranges are not reported, since discordance with absolute values may lead to misinterpretation of CBC data. Current Interpretive Data was last revised on 2018. Testing performed by: [address] [address] Eosinophil pct 2.9 % [facility] Comment: Interpretive Data Percent cell count reference ranges are not reported, since discordance with absolute values may lead to misinterpretation of CBC data. Current Interpretive Data was last revised on 2018. Testing performed by: [address] [address] Basophil pct 0.5 % [facility] Comment: Interpretive Data Percent cell count reference ranges are not reported, since discordance with absolute values may lead to misinterpretation of CBC data. Current Interpretive Data was last revised on 2018. Testing performed by: [address] [address] Blood 12/15/2024 10:1 8 AM PIPED POCKET MACHINE OPERATOR 12/15/2024 10:19 AM PIPED POCKET MACHINE OPERATOR Jose G Jimenez MD LAB BLOOD ORDERABLES Final Result [facility] [address] [facility] Department [place] [address] * (ABNORMAL) CBC with auto differential (12/15/2024 10:18 AM PIPED POCKET MACHINE OPERATOR) WBC 5.5 3.8 - 9.9 K/cumm Comment:Testing performed by : [address] [address] Hgb 12.0 11.9 - 15.5 g/dL ABHIJEET Comment:Testing performed by : [address] [address] Hct 35.2(L) 35.6 - 45.5 % [facility] Comment:Testing performed by : [address] [address] Plt 174 150 - 400 K/cumm ABHIJEET Comment:Testing performed by : [address] [address] MPV 9.9 9.1 - 12.3 fL ABHIJEET Comment:Testing performed by : [address] [address] RBC 4.12 3.90 - 5.20 M/cumm ABHIJEET Comment:Testing performed by : [address] [address] MCV 85.4 81.3 - 96.4 fL ABHIJEET Comment:Testing performed by : [address] [address] MCH 29.1 27.1 - 33.3 pg ABHIJEET NOONAN Comment:Testing performed by : [address] [address] MCHC 34.1 32.3 - 35.7 g/dL ABHIJEET NOONAN Comment:Testing performed by : [address] [address] RDW CV 13.9 11.1 - 14.9 % ABHIJE[facility] NOONAN Comment:Testing performed by : [address] [address] RDW SD 43.2 35.7 - 48.1 fL ABHIJEET NOONAN Comment:Testing performed by : [address] [address] NRBC abs 0.00 0.00 - 0.01 K/cumm ABHIJEET NOONAN Comment:Testing performed by : [address] [address] Blood 12/15/2024 10:1 8 AM PIPED POCKET MACHINE OPERATOR 12/15/2024 10:19 AM PIPED POCKET MACHINE OPERATOR us Jose G Jimenez MD LAB BLOOD ORDERABLES Final Result [facility] [address] [facility] Department [place] [address] * Comprehensive metabolic panel (12/15/2024 10:18 AM PIPED POCKET MACHINE OPERATOR) Sodium 142 135 - 145 mmol/L Comment:Testing performed by : [address] [address] Potassium, pl 4.0 3.3 - 4.9 mmol/L ABHIJEET NOONAN Comment:Testing performed by : [address] [address] Chloride 105 97 - 110 mmol/L ABHIJEET NOONAN Comment:Testing performed by : [address] [address] CO2 29 22 - 32 mmol/L ABHIJEET NOONAN Comment:Testing performed by : [address] [address] Anion gap 8 2 - 15 mmol/L ABHIJEET NOONAN Comment:Testing performed by : [address] [address] BUN 17 6 - 25 mg/dL ABHIJEET Comment:Testing performed by : [address] [address] Creatinine 0.60 0.60 - 1.10 mg/dL ABHIJEET Comment:Testing performed by : [address] [address] Glucose 93 70 - 199 mg/dL ABHIJEET [...] was last revised 2022. Testing performed by: [address] [address] Calcium 9.3 8.5 - 10.3 mg/dL ABHIJEET Comment:Testing performed by : [address] [address] Bilirubin, total 0.4 0.1 - 1.2 mg/dL ABHI[facility]ET Comment:Testing performed by : [address] [address] Protein, pl 6.8 6.5 - 8.5 g/dL ABHIJEET Comment:Testing performed by : [address] [address] Albumin 3.9 3.5 - 5.0 g/dL ABHIJEET Comment:Testing performed by : [address] [address] Alk phos 122 40 - 130 Units/L ABHIJEET Comment:Testing performed by : [address] [address] ALT 22 7 - 45 Units/L ABHIJEET Comment:Testing performed by : [address] [address] AST 29 10 - 45 Units/L ABHIJEET Comment:Testing performed by : [facility], [address] [place] [address]., [address] Blood 12/15/2024 10:1 8 AM PIPED POCKET MACHINE OPERATOR 12/15/2024 10:19 AM PIPED POCKET MACHINE OPERATOR Jose G Jimenez MD LAB BLOOD ORDERABLES Final Result [facility] [address] [facility] Department [place] [address] * eGFR (12/01/2024 12:48 PM PIPED POCKET MACHINE OPERATOR) eGFR >90 >=60 mL/min/1. 73 m2 Comment: [...] was last reviewed 2021. Testing performed by: [facility], [address] [place] [address]., [address] Blood 12/01/2024 12:4 8 PM PIPED POCKET MACHINE OPERATOR 12/01/2024 12:56 PM PIPED POCKET MACHINE OPERATOR Jose G Jimenez MD LAB BLOOD ORDERABLES Final Result [facility] [address] [facility] Department [place] [address] * Differential, auto (12/01/2024 12:48 PM PIPED POCKET MACHINE OPERATOR) Neutrophil abs 3.5 1.5 - 6.5 K/cumm Comment:Testing performed by : [address] [address] Imm gran abs 0.0 0.0 - 0.1 K/cumm ABHIJEET Comment:Testing performed by : [address] [address] Lymphocyte abs 2.0 0.8 - 3.3 K/cumm ABHIJEET Comment:Testing performed by : [address] [address] Monocyte abs 0.6 0.2 - 0.8 K/cumm ABHIJEET Comment:Testing performed by : [address] [address] Eosinophil abs 0.1 0.0 - 0.5 K/cumm ABHIJEET Comment:Testing performed by : [address] [address] Basophil abs 0.0 0.0 - 0.1 K/cumm ABHIJEET Comment:Testing performed by : [address] [address] Neutrophil pct 55.8 % [facility] Comment: Interpretive Data Percent cell count reference ranges are not reported, since discordance with absolute values may lead to misinterpretation of CBC data. Current Interpretive Data was last revised on 2018. Testing performed by: [address] [address] Imm gran pct 0.3 % [facility] Comment: Interpretive Data Percent cell count reference ranges are not reported, since discordance with absolute values may lead to misinterpretation of CBC data. Current Interpretive Data was last revised on 2018. Testing performed by: [address] [address] Lymphocyte pct 32.0 % [facility] Comment: Interpretive Data Percent cell count reference ranges are not reported, since discordance with absolute values may lead to misinterpretation of CBC data. Current Interpretive Data was last revised on 2018. Testing performed by: [address] [address] Monocyte pct 10.0 % [facility] Comment: Interpretive Data Percent cell count reference ranges are not reported, since discordance with absolute values may lead to misinterpretation of CBC data. Current Interpretive Data was last revised on 2018. Testing performed by: [address] [address] Eosinophil pct 1.4 % [facility] Comment: Interpretive Data Percent cell count reference ranges are not reported, since discordance with absolute values may lead to misinterpretation of CBC data. Current Interpretive Data was last revised on 2018. Testing performed by: [address] [address] Basophil pct 0.5 % [facility] Comment: Interpretive Data Percent cell count reference ranges are not reported, since discordance with absolute values may lead to misinterpretation of CBC data. Current Interpretive Data was last revised on 2018. Testing performed by: [address] [address] Blood 12/01/2024 12:4 8 PM PIPED POCKET MACHINE OPERATOR 12/01/2024 12:56 PM PIPED POCKET MACHINE OPERATOR us Jose G Jimenez MD LAB BLOOD ORDERABLES Final Result [facility] [address] [facility] Department [place] [address] * Thyroid Function Rosalie (12/01/2024 12:48 PM PIPED POCKET MACHINE OPERATOR) TSH 3.07 0.30 - 4.20 mcIUnit/mL Comment:Testing performed by : [address] [address] Blood 12/01/2024 12:4 8 PM PIPED POCKET MACHINE OPERATOR 12/01/2024 1:44 PM PIPED POCKET MACHINE OPERATOR Jose G Jimenez MD LAB BLOOD ORDERABLES Final Result [facility] [facility] [address] [facility] Department [place] [address] * CBC with auto differential (12/01/2024 12:48 PM PIPED POCKET MACHINE OPERATOR) WBC 6.3 3.8 - 9.9 K/cumm Comment:Testing performed by : [address] [address] Hgb 12.5 11.9 - 15.5 g/dL ABHIJEET Comment:Testing performed by : [address] [address] Hct 37.1 35.6 - 45.5 % ABHIJEET Comment:Testing performed by : [address] [address] Plt 217 150 - 400 K/cumm ABHIJEET Comment:Testing performed by : [address] [address] MPV 9.9 9.1 - 12.3 fL ABHIJEET Comment:Testing performed by : [address] [address] RBC 4.38 3.90 - 5.20 M/cumm ABHIJEET Comment:Testing performed by : [address] [address] MCV 84.7 81.3 - 96.4 fL ABHIJEET Comment:Testing performed by : [address] [address] MCH 28.5 27.1 - 33.3 pg ABHIJEET NOONAN Comment:Testing performed by : [address] [address] MCHC 33.7 32.3 - 35.7 g/dL ABHIJEET Comment:Testing performed by : [address], [address] RDW CV 13.8 11.1 - 14.9 % ABHIJEET Comment:Testing performed by : [address] [address] RDW SD 42.7 35.7 - 48.1 fL ABHIJEET NOONAN Comment:Testing performed by : [address] [address] NRBC abs 0.00 0.00 - 0.01 K/cumm ABHIJEET Comment:Testing performed by : [address], [address] Blood 12/01/2024 12:4 8 PM PIPED POCKET MACHINE OPERATOR 12/01/2024 12:56 PM PIPED POCKET MACHINE OPERATOR Jose G Jimenez MD LAB BLOOD ORDERABLES Final Result Performing Organization Address [facility] de Phone Number [address] [facility] [place] [address] * Cortisol (12/01/2024 12:48 PM PIPED POCKET MACHINE OPERATOR) Cortisol 10.0 4.8 - 19.5 mcg/dl Blood 12/01/2024 12:4 8 PM PIPED POCKET MACHINE OPERATOR 12/01/2024 2:40 PM PIPED POCKET MACHINE OPERATOR Result [facility] Jose G Jimenez MD LAB BLOOD ORDERABLES Final Result Performing Organization Address [facility] de Phone Number [address] [address] * CEA (12/01/2024 12:48 PM PIPED POCKET MACHINE OPERATOR) CEA 1.4 <=5.0 ng/mL Comment: Interpretive Data: Reference Range: Non-Smokers: 0.0 ? 5.0 ng/mL Smokers: 0.0 ? 6.5 ng/mL The Benny CEA assay procedure was used. Results from different manufacturers or methods may not be comparable. Serial testing should be performed using the same method. Current interpretive data was last revised 2023. Testing performed by: [address] [address] Blood 12/01/2024 12:4 8 PM PIPED POCKET MACHINE OPERATOR 12/01/2024 1:44 PM PIPED POCKET MACHINE OPERATOR Jose G Jimenez MD LAB BLOOD ORDERABLES Final Result [facility] [address] [facility] Department [place] [address] * Comprehensive metabolic panel (12/01/2024 12:48 PM PIPED POCKET MACHINE OPERATOR) Sodium 140 135 - 145 mmol/L Comment:Testing performed by : [address] [address] Potassium, pl 3.9 3.3 - 4.9 mmol/L ABHIJEET Comment:Testing performed by : [address] [address] Chloride 102 97 - 110 mmol/L ABHIJEET Comment:Testing performed by : [address] [address] CO2 27 22 - 32 mmol/L ABHIJEET Comment:Testing performed by : [address] [address] Anion gap 11 2 - 15 mmol/L ABHIJEET Comment:Testing performed by : [address] [address] BUN 22 6 - 25 mg/dL ABHIJEET Comment:Testing performed by : [address] [address] Creatinine 0.70 0.60 - 1.10 mg/dL ABHIJEET Comment:Testing performed by : [address] [address] Glucose 89 70 - 199 mg/dL ABHIJEET [...] was last revised 2022. Testing performed by: [address] [address] Calcium 9.6 8.5 - 10.3 mg/dL ABHIJEET Comment:Testing performed by : [address] [address] Bilirubin, total 0.5 0.1 - 1.2 mg/dL ABHIJEET Comment:Testing performed by : [address] [address] Protein, pl 7.4 6.5 - 8.5 g/dL ABHIJEET Comment:Testing performed by : [address] [address] Albumin 4.2 3.5 - 5.0 g/dL ABHIJEET Comment:Testing performed by : [address] [address] Alk phos 120 40 - 130 Units/L ABHIJEET Comment:Testing performed by : [address] [address] ALT 20 7 - 45 Units/L ABHIJEET Comment:Testing performed by : [address] [address] AST 32 10 - 45 Units/L ABHIJEET Comment:Testing performed by : [address] [address] Blood 12/01/2024 12:4 8 PM PIPED POCKET MACHINE OPERATOR 12/01/2024 12:56 PM PIPED POCKET MACHINE OPERATOR us Jose G Jimenez MD LAB BLOOD ORDERABLES Final Result [facility] [address] [facility] Department [place] [address] * eGFR (11/17/2024 12:40 PM PIPED POCKET MACHINE OPERATOR) [facility] eGFR >90 >=60 mL/min/1. 73 m2 Comment: [...] was last reviewed 2021. Testing performed by: [address] [address] Blood 11/17/2024 12:4 0 PM PIPED POCKET MACHINE OPERATOR 11/17/2024 12:43 PM PIPED POCKET MACHINE OPERATOR Jose G Jimenez MD LAB BLOOD ORDERABLES Final Result ABHIJEET NOONAN [address] [facility] Department [place] [address] * Differential, auto (11/17/2024 12:40 PM PIPED POCKET MACHINE OPERATOR) Neutrophil abs 2.7 1.5 - 6.5 K/cumm Comment:Testing performed by : [address] [address] Imm gran abs 0.0 0.0 - 0.1 K/cumm ABHIJEET NOONAN Comment:Testing performed by : [address] [address] Lymphocyte abs 2.3 0.8 - 3.3 K/cumm CERMARISSA Comment:Testing performed by : [address] [address] Monocyte abs 0.5 0.2 - 0.8 K/cumm CERNER Comment:Testing performed by : [address] [address] Eosinophil abs 0.1 0.0 - 0.5 K/cumm CERMARISSA Comment:Testing performed by : [address], [place]., [address] Basophil abs 0.0 0.0 - 0.1 K/cumm ABHIJEET Comment:Testing performed by : [address] [address] Neutrophil pct 47.7 % CERNER Comment: Interpretive Data Percent cell count reference ranges are not reported, since discordance with absolute values may lead to misinterpretation of CBC data. Current Interpretive Data was last revised on 2018. Testing performed by: [address] [address] Imm gran pct 0.2 % CERMARISSA Comment: Interpretive Data Percent cell count reference ranges are not reported, since discordance with absolute values may lead to misinterpretation of CBC data. Current Interpretive Data was last revised on 2018. Testing performed by: [address] [address] Lymphocyte pct 39.8 % CERMARISSA Comment: Interpretive Data Percent cell count reference ranges are not reported, since discordance with absolute values may lead to misinterpretation of CBC data. Current Interpretive Data was last revised on 2018. Testing performed by: [address] [address] Monocyte pct 9.3 % CERNER Comment: Interpretive Data Percent cell count reference ranges are not reported, since discordance with absolute values may lead to misinterpretation of CBC data. Current Interpretive Data was last revised on 2018. Testing performed by: [address] [address] Eosinophil pct 2.5 % CERNER MH Comment: Interpretive Data Percent cell count reference ranges are not reported, since discordance with absolute values may lead to misinterpretation of CBC data. Current Interpretive Data was last revised on 2018. Testing performed by: [address] [address] Basophil pct 0.5 % ABHIJEET NOONAN Comment: Interpretive Data Percent cell count reference ranges are not reported, since discordance with absolute values may lead to misinterpretation of CBC data. Current Interpretive Data was last revised on 2018. Testing performed by: [address] [address] Blood 11/17/2024 12:4 0 PM PIPED POCKET MACHINE OPERATOR 11/17/2024 12:43 PM PIPED POCKET MACHINE OPERATOR us Jose G Jimenez MD LAB BLOOD ORDERABLES Final Result [facility] [address] [facility] Department [place] [address] * (ABNORMAL) CBC with auto differential (11/17/2024 12:40 PM PIPED POCKET MACHINE OPERATOR) WBC 5.7 3.8 - 9.9 K/cumm Comment:Testing performed by : [address] [address] Hgb 11.4(L) 11.9 - 15.5 g/dL ABHIJEET NOONAN Comment:Testing performed by : [address] [address] Hct 34.6(L) 35.6 - 45.5 % ABHIJEET NOONAN Comment:Testing performed by : [address] [address] Plt 165 150 - 400 K/cumm ABHIJEET NOONAN Comment:Testing performed by : [address] [address] MPV 10.4 9.1 - 12.3 fL ABHIJEET NOONAN Comment:Testing performed by : [address] [address] RBC 3.99 3.90 - 5.20 M/cumm ABHIJEET NOONAN Comment:Testing performed by : [facility], [address] [place] [address]., [address] MCV 86.7 81.3 - 96.4 fL ABHIJEET NOONAN Comment:Testing performed by : [address] [address] MCH 28.6 27.1 - 33.3 pg ABHIJEET NOONAN Comment:Testing performed by : [address] [address] MCHC 32.9 32.3 - 35.7 g/dL ABHIJEET NOONAN Comment:Testing performed by : [address] [address] RDW CV 14.6 11.1 - 14.9 % ABHIJEET NOONAN Comment:Testing performed by : [address] [address] RDW SD 46.9 35.7 - 48.1 fL ABHIJEET NOONAN Comment:Testing performed by : [address] [address] NRBC abs 0.00 0.00 - 0.01 K/cumm ABHIJEET NOONAN Comment:Testing performed by : [address] [address] Blood 11/17/2024 12:4 0 PM PIPED POCKET MACHINE OPERATOR 11/17/2024 12:43 PM PIPED POCKET MACHINE OPERATOR Jose G Jimenez MD LAB BLOOD ORDERABLES Final Result [facility] [address] [facility] Department of Laboratories [place], [place] [id number] * (ABNORMAL) Comprehensive metabolic panel (11/17/2024 12:40 PM PIPED POCKET MACHINE OPERATOR) Sodium 141 135 - 145 mmol/L Comment:Testing performed by : [address] [address] Potassium, pl 3.9 3.3 - 4.9 mmol/L ABHIJEET NOONAN Comment:Testing performed by : [address] [address] Chloride 105 97 - 110 mmol/L ABHIJEET NOONAN Comment:Testing performed by : [address] [address] CO2 26 22 - 32 mmol/L ABHIJEET Comment:Testing performed by : [address] [address] Anion gap 10 2 - 15 mmol/L ABHIJEET Comment:Testing performed by : [address] [address] BUN 15 6 - 25 mg/dL ABHIJEET Comment:Testing performed by : [address], [place]., [address] Creatinine 0.60 0.60 - 1.10 mg/dL ABHIJEET Comment:Testing performed by : [address] [address] Glucose 127 70 - 199 mg/dL ABHIJEET [...] was last revised 2022. Testing performed by: [address] [address] Calcium 9.0 8.5 - 10.3 mg/dL ABHIJEET Comment:Testing performed by : [address] [address] Bilirubin, total 0.2 0.1 - 1.2 mg/dL ABHIJEET Comment:Testing performed by : [address] [address] Protein, pl 6.9 6.5 - 8.5 g/dL ABHIJEET Comment:Testing performed by : [address] [address] Albumin 3.8 3.5 - 5.0 g/dL ABHIJEET Comment:Testing performed by : [address] [address] Alk phos 139(H) 40 - 130 Units/L ABHIJEET NOONAN Comment:Testing performed by : [address] [address] ALT 18 7 - 45 Units/L ABHIJEET NOONAN Comment:Testing performed by : [address] [address] AST 25 10 - 45 Units/L ABHIJEET Comment:Testing performed by : [address] [address] Blood 11/17/2024 12:4 0 PM PIPED POCKET MACHINE OPERATOR 11/17/2024 12:43 PM PIPED POCKET MACHINE OPERATOR us Jose G Jimenez MD LAB BLOOD ORDERABLES Final Result Performing Organization Address City/State/[facility] Co de Phone Number ABHIJEET [address] [facility] Department of Laboratories [place], [place] [id number] * eGFR (11/03/2024 9:39 AM PIPED POCKET MACHINE OPERATOR) eGFR >90 >=60 mL/min/1. 73 m2 Comment: [...] was last reviewed 2021. Testing performed by: [address] [address] Blood 11/03/2024 9:39 AM PIPED POCKET MACHINE OPERATOR 11/03/2024 9:40 AM PIPED POCKET MACHINE OPERATOR us Jose G Jimenez MD LAB BLOOD ORDERABLES Final Result [facility] [address] [facility] Department [place] [address] * Differential, auto (11/03/2024 9:39 AM PIPED POCKET MACHINE OPERATOR) Neutrophil abs 3.6 1.5 - 6.5 K/cumm Comment:Testing performed by : [address] [address] Imm gran abs 0.0 0.0 - 0.1 K/cumm ABHIJEET Comment:Testing performed by : [address] [address] Lymphocyte abs 1.6 0.8 - 3.3 K/cumm ABHIJEET Comment:Testing performed by : [address] [address] Monocyte abs 0.4 0.2 - 0.8 K/cumm ABHIJEET Comment:Testing performed by : [address] [address] Eosinophil abs 0.1 0.0 - 0.5 K/cumm ABHIJEET Comment:Testing performed by : [address] [address] Basophil abs 0.0 0.0 - 0.1 K/cumm ABHIJEET Comment:Testing performed by : [address] [address] Neutrophil pct 63.4 % ABHIJEET Comment: Interpretive Data Percent cell count reference ranges are not reported, since discordance with absolute values may lead to misinterpretation of CBC data. Current Interpretive Data was last revised on 2018. Testing performed by: [address] [address] Imm gran pct 0.2 % [facility] Comment: Interpretive Data Percent cell count reference ranges are not reported, since discordance with absolute values may lead to misinterpretation of CBC data. Current Interpretive Data was last revised on 2018. Testing performed by: [address] [address] Lymphocyte pct 27.1 % [facility] Comment: Interpretive Data Percent cell count reference ranges are not reported, since discordance with absolute values may lead to misinterpretation of CBC data. Current Interpretive Data was last revised on 2018. Testing performed by: [address] [address] Monocyte pct 7.0 % [facility] Comment: Interpretive Data Percent cell count reference ranges are not reported, since discordance with absolute values may lead to misinterpretation of CBC data. Current Interpretive Data was last revised on 2018. Testing performed by: [address] [address] Eosinophil pct 1.8 % [facility] Comment: Interpretive Data Percent cell count reference ranges are not reported, since discordance with absolute values may lead to misinterpretation of CBC data. Current Interpretive Data was last revised on 2018. Testing performed by: [address] [address] Basophil pct 0.5 % [facility] Comment: Interpretive Data Percent cell count reference ranges are not reported, since discordance with absolute values may lead to misinterpretation of CBC data. Current Interpretive Data was last revised on 2018. Testing performed by: [address] [address] Blood 11/03/2024 9:39 AM PIPED POCKET MACHINE OPERATOR 11/03/2024 9:40 AM PIPED POCKET MACHINE OPERATOR Jose G Jimenez MD LAB BLOOD ORDERABLES Final Result ABHIJEET [address] Department [place] [address] * (ABNORMAL) CBC with auto differential (11/03/2024 9:39 AM PIPED POCKET MACHINE OPERATOR) [facility] WBC 5.7 3.8 - 9.9 K/cumm Comment:Testing performed by : [address] [address] Hgb 11.8(L) 11.9 - 15.5 g/dL ABHIJEET Comment:Testing performed by : [address] [address] Hct 35.9 35.6 - 45.5 % ABHIJEET Comment:Testing performed by : [address] [address] Plt 211 150 - 400 K/cumm ABHIJEET Comment:Testing performed by : [address] [address] MPV 9.7 9.1 - 12.3 fL ABHIJEET Comment:Testing performed by : [address] [address] RBC 4.16 3.90 - 5.20 M/cumm ABHIJEET Comment:Testing performed by : [address] [address] MCV 86.3 81.3 - 96.4 fL ABHIJEET Comment:Testing performed by : [address] [address] MCH 28.4 27.1 - 33.3 pg ABHIJEET Comment:Testing performed by : [address] [address] MCHC 32.9 32.3 - 35.7 g/dL ABHIJEET Comment:Testing performed by : [address] [address] RDW CV 13.6 11.1 - 14.9 % ABHIJEET Comment:Testing performed by : [address] [address] RDW SD 43.5 35.7 - 48.1 fL ABHIJEET Comment:Testing performed by : [address] [address] NRBC abs 0.00 0.00 - 0.01 K/cumm ABHIJEET Comment:Testing performed by : [address] [address] Blood 11/03/2024 9:39 AM PIPED POCKET MACHINE OPERATOR 11/03/2024 9:40 AM PIPED POCKET MACHINE OPERATOR Jose G Jimenez MD LAB BLOOD ORDERABLES Final Result Performing Organization Address [facility] de Phone Number [address] [address] * CEA (11/03/2024 9:39 AM PIPED POCKET MACHINE OPERATOR) Pathologist [facility] CEA 1.5 <=5.0 ng/mL Comment: Interpretive Data: Reference Range: Non-Smokers: 0.0 ? 5.0 ng/mL Smokers: 0.0 ? 6.5 ng/mL The Benny CEA assay procedure was used. Results from different manufacturers or methods may not be comparable. Serial testing should be performed using the same method. Current interpretive data was last revised 2023. Testing performed by: [address] [address] Blood 11/03/2024 9:39 AM PIPED POCKET MACHINE OPERATOR 11/03/2024 11:30 AM PIPED POCKET MACHINE OPERATOR Jose G Jimenez MD LAB BLOOD ORDERABLES Final Result Performing Organization Address [facility] de Phone Number [address] [address] * Comprehensive metabolic panel (11/03/2024 9:39 AM PIPED POCKET MACHINE OPERATOR) [facility] Sodium 145 135 - 145 mmol/L Comment:Testing performed by : [address] [address] Potassium, pl 3.9 3.3 - 4.9 mmol/L ABHIJEET NOONAN Comment:Testing performed by : [address] [address] Chloride 108 97 - 110 mmol/L ABHIJEET Comment:Testing performed by : [address] [address] CO2 27 22 - 32 mmol/L ABHIJEET Comment:Testing performed by : [address] [address] Anion gap 10 2 - 15 mmol/L ABHIJEET Comment:Testing performed by : [address] [address] BUN 9 6 - 25 mg/dL ABHIJEET Comment:Testing performed by : [address], [place]., [address] Creatinine 0.60 0.60 - 1.10 mg/dL ABHIJEET Comment:Testing performed by : [address] [address] Glucose 98 70 - 199 mg/dL ABHIJEET [...] was last revised 2022. Testing performed by: [address] [address] Calcium 9.2 8.5 - 10.3 mg/dL ABHIJEET Comment:Testing performed by : [address] [address] Bilirubin, total 0.3 0.1 - 1.2 mg/dL ABHIJEET Comment:Testing performed by : [address] [address] Protein, pl 6.7 6.5 - 8.5 g/dL ABHIJEET Comment:Testing performed by : [address] [address] Albumin 3.9 3.5 - 5.0 g/dL BAHIJEET Comment:Testing performed by : [address] [address] Alk phos 112 40 - 130 Units/L ABHIJEET Comment:Testing performed by : [address] [address] ALT 18 7 - 45 Units/L ABHIJEET Comment:Testing performed by : [address] [address] AST 27 10 - 45 Units/L ABHIJEET Comment:Testing performed by : [address] [address] Blood 11/03/2024 9:39 AM PIPED POCKET MACHINE OPERATOR 11/03/2024 9:40 AM PIPED POCKET MACHINE OPERATOR Jose G Jimenez MD LAB BLOOD ORDERABLES Final Result [facility] [address] [facility] Department [place] [address] * CT Chest Abdomen Pelvis W Contrast (10/27/2024 8:27 AM PIPED POCKET MACHINE OPERATOR) Anatomical Region Laterality Modality Body N/A Computed Tomogra phy 11/01/2024 7:50 AM PIPED POCKET MACHINE OPERATOR Narrative 11/01/2024 8:00 AM PIPED POCKET MACHINE OPERATOR EXAM DESCRIPTION: CT CHEST ABDOMEN PELVIS W [...] nodule. PLEURA: ?? No effusion. No pneumothorax. MEDIASTINUM/LEENA: ?? The thyroid gland is unremarkable. ??There is no mediastinal or hilar lymphadenopathy. ??Subcentimeter short axis dimension nodes are stable. HEART: ?? The heart is stable in size without a pericardial effusion. VASCULATURE CHEST: ?? No thoracic aortic aneurysm or dissection. AXILLA: ?? Scattered axillary nodes are grossly stable. ??No new adenopathy. CHEST WALL: ?? No masses. ??No subcutaneous air. HARDWARE/LINES/TUBES: ?? Right Zrivtv-Q-Pluy catheter is noted. ??Distal tip is at [...] D: ??11/01/2024 8:00 AM T: Report ID: [id number] Reading Location: ??[id number] Procedure Note Merced Michael MD - 11/01/2024 [...] No masses. No subcutaneous air. HARDWARE/LINES/TUBES: Right Jmyzyw-V-Bfzb catheter is noted. Distal tipis at the [...] Merced Michael M.D. TW T: Report ID: [id number] Reading Location: [id number] Jose G Jimenez MD IMG CT PROCEDURES Fi nal Result * eGFR (10/20/2024 8:23 AM PIPED POCKET MACHINE OPERATOR) eGFR >90 >=60 mL/min/1. 73 m2 Comment: [...] was last reviewed 2021. Testing performed by: [facility], [address] [place] [address]., [address] Blood 10/20/2024 8:23 AM PIPED POCKET MACHINE OPERATOR 10/20/2024 8:26 AM PIPED POCKET MACHINE OPERATOR Jose G Jimenez MD LAB BLOOD ORDERABLES Final Result [facility] [address] [facility] Department [place] [address] * Differential, auto (10/20/2024 8:23 AM PIPED POCKET MACHINE OPERATOR) Neutrophil abs 2.8 1.5 - 6.5 K/cumm Comment:Testing performed by : [address] [address] Imm gran abs 0.0 0.0 - 0.1 K/cumm ABHIJEET Comment:Testing performed by : [address] [address] Lymphocyte abs 1.6 0.8 - 3.3 K/cumm ABHIJEET Comment:Testing performed by : [address] [address] Monocyte abs 0.7 0.2 - 0.8 K/cumm ABHIJEET Comment:Testing performed by : [address] [address] Eosinophil abs 0.1 0.0 - 0.5 K/cumm ABHIJEET Comment:Testing performed by : [address] [address] Basophil abs 0.0 0.0 - 0.1 K/cumm ABHIJEET Comment:Testing performed by : [address] [address] Neutrophil pct 52.6 % ABHIJEET Comment: Interpretive Data Percent cell count reference ranges are not reported, since discordance with absolute values may lead to misinterpretation of CBC data. Current Interpretive Data was last revised on 2018. Testing performed by: [address] [address] Imm gran pct 0.2 % ABHIJEET Comment: Interpretive Data Percent cell count reference ranges are not reported, since discordance with absolute values may lead to misinterpretation of CBC data. Current Interpretive Data was last revised on 2018. Testing performed by: [address] [address] Lymphocyte pct 30.6 % [facility] Comment: Interpretive Data Percent cell count reference ranges are not reported, since discordance with absolute values may lead to misinterpretation of CBC data. Current Interpretive Data was last revised on 2018. Testing performed by: [address] [address] Monocyte pct 13.3 % [facility] Comment: Interpretive Data Percent cell count reference ranges are not reported, since discordance with absolute values may lead to misinterpretation of CBC data. Current Interpretive Data was last revised on 2018. Testing performed by: [address] [address] Eosinophil pct 2.5 % [facility] Comment: Interpretive Data Percent cell count reference ranges are not reported, since discordance with absolute values may lead to misinterpretation of CBC data. Current Interpretive Data was last revised on 2018. Testing performed by: [address] [address] Basophil pct 0.8 % [facility] Comment: Interpretive Data Percent cell count reference ranges are not reported, since discordance with absolute values may lead to misinterpretation of CBC data. Current Interpretive Data was last revised on 2018. Testing performed by: [address] [address] Blood 10/20/2024 8:23 AM PIPED POCKET MACHINE OPERATOR 10/20/2024 8:26 AM PIPED POCKET MACHINE OPERATOR us Jose G Jimenez MD LAB BLOOD ORDERABLES Final Result [facility] [address] [facility] Department [place] [address] * Thyroid Function Rosalie (10/20/2024 8:23 AM PIPED POCKET MACHINE OPERATOR) TSH 4.13 0.30 - 4.20 mcIUnit/mL Comment:Testing performed by : [address] [address] Blood 10/20/2024 8:23 AM PIPED POCKET MACHINE OPERATOR 10/20/2024 9:55 AM PIPED POCKET MACHINE OPERATOR us Jose G Jimenez MD LAB BLOOD ORDERABLES Final Result [facility] [address] [facility] Department [place] [address] * (ABNORMAL) CBC with auto differential (10/20/2024 8:23 AM PIPED POCKET MACHINE OPERATOR) WBC 5.3 3.8 - 9.9 K/cumm Comment:Testing performed by : [address] [address] Hgb 11.7(L) 11.9 - 15.5 g/dL ABHIJEET Comment:Testing performed by : [address] [address] Hct 35.4(L) 35.6 - 45.5 % ABHIJEET Comment:Testing performed by : [address] [address] Plt 131(L) 150 - 400 K/cumm ABHIJEET Comment:Testing performed by : [address] [address] MPV 9.8 9.1 - 12.3 fL ABHIJEET Comment:Testing performed by : [address] [address] RBC 4.07 3.90 - 5.20 M/cumm ABHIJEET Comment:Testing performed by : [address] [address] MCV 87.0 81.3 - 96.4 fL ABHIJEET Comment:Testing performed by : [address], [address] MCH 28.7 27.1 - 33.3 pg ABHIJEET Comment:Testing performed by : [address], [address] MCHC 33.1 32.3 - 35.7 g/dL ABHIJEET Comment:Testing performed by : [address] [address] RDW CV 14.3 11.1 - 14.9 % ABHIJEET NOONAN Comment:Testing performed by : [address] [address] RDW SD 45.7 35.7 - 48.1 fL ABHIJEET NOONAN Comment:Testing performed by : [address] [address] NRBC abs 0.00 0.00 - 0.01 K/cumm ABHIJEET NOONAN Comment:Testing performed by : [address] [address] Blood 10/20/2024 8:23 AM PIPED POCKET MACHINE OPERATOR 10/20/2024 8:26 AM PIPED POCKET MACHINE OPERATOR Jose G Jimenez MD LAB BLOOD ORDERABLES Final Result Performing Organization Address [facility] de Phone Number [address] [place] [address] * Cortisol (10/20/2024 8:23 AM PIPED POCKET MACHINE OPERATOR) Cortisol 9.6 4.8 - 19.5 mcg/dl Blood 10/20/2024 8:23 AM PIPED POCKET MACHINE OPERATOR 10/20/2024 12:38 PM PIPED POCKET MACHINE OPERATOR Jose G Jimenez MD LAB BLOOD ORDERABLES Final Result Performing Organization Address [facility] de Phone Number [address] [address] * Comprehensive metabolic panel (10/20/2024 8:23 AM PIPED POCKET MACHINE OPERATOR) Sodium 143 135 - 145 mmol/L Comment:Testing performed by : [address] [address] Potassium, pl 4.0 3.3 - 4.9 mmol/L ABHIJEET NOONAN Comment:Testing performed by : [address] [address] Chloride 105 97 - 110 mmol/L ABHIJEET Comment:Testing performed by : [address] [address] CO2 27 22 - 32 mmol/L ABHIJEET Comment:Testing performed by : [address] [address] Anion gap 11 2 - 15 mmol/L ABHIJEET Comment:Testing performed by : [address] [address] BUN 12 6 - 25 mg/dL ABHIJEET Comment:Testing performed by : [address] [address] Creatinine 0.70 0.60 - 1.10 mg/dL ABHIJEET Comment:Testing performed by : [address] [address] Glucose 101 70 - 199 mg/dL ABHIJEET [...] was last revised 2022. Testing performed by: [address] [address] Calcium 9.2 8.5 - 10.3 mg/dL ABHIJEET Comment:Testing performed by : [address] [address] Bilirubin, total 0.5 0.1 - 1.2 mg/dL ABHIJEET Comment:Testing performed by : [address] [address] Protein, pl 6.7 6.5 - 8.5 g/dL ABHIJEET Comment:Testing performed by : [address] [address] Albumin 3.7 3.5 - 5.0 g/dL ABHIJEET Comment:Testing performed by : [address] [address] Alk phos 121 40 - 130 Units/L ABHIJEET NOONAN Comment:Testing performed by : [address] [address] ALT 19 7 - 45 Units/L ABHIJEET NOONAN Comment:Testing performed by : [address] [address] AST 27 10 - 45 Units/L ABHIJEET Comment:Testing performed by : [address] [address] Blood 10/20/2024 8:23 AM PIPED POCKET MACHINE OPERATOR 10/20/2024 8:26 AM PIPED POCKET MACHINE OPERATOR us Jose G Jimenez MD LAB BLOOD ORDERABLES Final Result ABHIJEET [address] [facility] Department [place] [address] * eGFR (10/06/2024 9:38 AM PIPED POCKET MACHINE OPERATOR) eGFR >90 >=60 mL/min/1. 73 m2 Comment: [...] Inclusion of Race in Diagnosing Kidney Disease, MARIELN 2020). The CKD-EPI equation should not be used for patients with unstable renal function and has not been validated in children and those over 70. Current interpretive data was last reviewed 2021. Testing performed by: [address] [address] Blood 10/06/2024 9:38 AM PIPED POCKET MACHINE OPERATOR 10/06/2024 9:54 AM PIPED POCKET MACHINE OPERATOR Jose G Jimenez MD LAB BLOOD ORDERABLES Final Result [facility] [address] [facility] Department [place] [address] * Differential, auto (10/06/2024 9:38 AM PIPED POCKET MACHINE OPERATOR) Neutrophil abs 3.4 1.5 - 6.5 K/cumm Comment:Testing performed by : [address] [address] Imm gran abs 0.0 0.0 - 0.1 K/cumm ABHIJEET Comment:Testing performed by : [address] [address] Lymphocyte abs 1.8 0.8 - 3.3 K/cumm ABHIJEET Comment:Testing performed by : [address] [address] Monocyte abs 0.5 0.2 - 0.8 K/cumm ABHJIEET Comment:Testing performed by : [address] [address] Eosinophil abs 0.2 0.0 - 0.5 K/cumm ABHIJEET Comment:Testing performed by : [address] [address] Basophil abs 0.0 0.0 - 0.1 K/cumm ABHIJEET Comment:Testing performed by : [address] [address] Neutrophil pct 57.1 % ABHIJEET Comment: Interpretive Data Percent cell count reference ranges are not reported, since discordance with absolute values may lead to misinterpretation of CBC data. Current Interpretive Data was last revised on 2018. Testing performed by: [address] [address] Imm gran pct 0.2 % [facility] Comment: Interpretive Data Percent cell count reference ranges are not reported, since discordance with absolute values may lead to misinterpretation of CBC data. Current Interpretive Data was last revised on 2018. Testing performed by: [address] [address] Lymphocyte pct 30.0 % [facility] Comment: Interpretive Data Percent cell count reference ranges are not reported, since discordance with absolute values may lead to misinterpretation of CBC data. Current Interpretive Data was last revised on 2018. Testing performed by: [address] [address] Monocyte pct 8.7 % [facility] Comment: Interpretive Data Percent cell count reference ranges are not reported, since discordance with absolute values may lead to misinterpretation of CBC data. Current Interpretive Data was last revised on 2018. Testing performed by: [address] [address] Eosinophil pct 3.7 % [facility] Comment: Interpretive Data Percent cell count reference ranges are not reported, since discordance with absolute values may lead to misinterpretation of CBC data. Current Interpretive Data was last revised on 2018. Testing performed by: [address] [address] Basophil pct 0.3 % [facility] Comment: Interpretive Data Percent cell count reference ranges are not reported, since discordance with absolute values may lead to misinterpretation of CBC data. Current Interpretive Data was last revised on 2018. Testing performed by: [address] [address] Blood 10/06/2024 9:38 AM PIPED POCKET MACHINE OPERATOR 10/06/2024 9:47 AM PIPED POCKET MACHINE OPERATOR Jose G Jimenez MD LAB BLOOD ORDERABLES Final Result ABHIJEET [address] [place] [address] Department [place] [address] * (ABNORMAL) CBC with auto differential (10/06/2024 9:38 AM PIPED POCKET MACHINE OPERATOR) [facility] WBC 6.0 3.8 - 9.9 K/cumm Comment:Testing performed by : [address] [address] Hgb 12.0 11.9 - 15.5 g/dL ABHIJEET Comment:Testing performed by : [address], [address] Hct 34.9(L) 35.6 - 45.5 % ABHIJEET Comment:Testing performed by : [address] [address] Plt 197 150 - 400 K/cumm ABHIJEET Comment:Testing performed by : [address] [address] MPV 9.7 9.1 - 12.3 fL ABHIJEET Comment:Testing performed by : [address], [address] RBC 4.09 3.90 - 5.20 M/cumm ABHIJEET Comment:Testing performed by : [address] [address] MCV 85.3 81.3 - 96.4 fL ABHIJEET Comment:Testing performed by : [address] [address] MCH 29.3 27.1 - 33.3 pg ABHIJEET Comment:Testing performed by : [address], [address] MCHC 34.4 32.3 - 35.7 g/dL ABHIJEET Comment:Testing performed by : [address], [address] RDW CV 14.1 11.1 - 14.9 % ABHIJEET Comment:Testing performed by : [address] [address] RDW SD 44.1 35.7 - 48.1 fL ABHIJEET Comment:Testing performed by : [address] [address] NRBC abs 0.00 0.00 - 0.01 K/cumm ABHIJEET Comment:Testing performed by : [address] [address] Blood 10/06/2024 9:38 AM PIPED POCKET MACHINE OPERATOR 10/06/2024 9:47 AM PIPED POCKET MACHINE OPERATOR Jose G Jimenez MD LAB BLOOD ORDERABLES Final Result [facility]HIJEET [address] [facility] Department [place] [address] * Comprehensive metabolic panel (10/06/2024 9:38 AM PIPED POCKET MACHINE OPERATOR) Sodium 143 135 - 145 mmol/L Comment:Testing performed by : [address] [address] Potassium, pl 4.5 3.3 - 4.9 mmol/L ABHIJEET Comment:Testing performed by : [address] [address] Chloride 105 97 - 110 mmol/L ABHIJEET Comment:Testing performed by : [address] [address] CO2 29 22 - 32 mmol/L ABHIJEET Comment:Testing performed by : [address] [address] Anion gap 9 2 - 15 mmol/L ABHIJEET Comment:Testing performed by : [address] [address] BUN 15 6 - 25 mg/dL ABHIJEET Comment:Testing performed by : [address] [address] Creatinine 0.60 0.60 - 1.10 mg/dL ABHIJEET Comment:Testing performed by : [address] [address] Glucose 108 70 - 199 mg/dL ABHIJEET [...] was last revised 2022. Testing performed by: [address] [address] Calcium 9.1 8.5 - 10.3 mg/dL ABHIJEET Comment:Testing performed by : [address] [address] Bilirubin, total 0.4 0.1 - 1.2 mg/dL ABHIJEET Comment:Testing performed by : [address] [address] Protein, pl 6.7 6.5 - 8.5 g/dL ABHIJEET Comment:Testing performed by : [address] [address] Albumin 3.9 3.5 - 5.0 g/dL ABHIJEET Comment:Testing performed by : [address] [address] Alk phos 127 40 - 130 Units/L ABHIJEET Comment:Testing performed by : [address] [address] ALT 23 7 - 45 Units/L ABHIJEET Comment:Testing performed by : [address] [address] AST 32 10 - 45 Units/L ABHIJEET Comment:Testing performed by : [address] [address] Blood 10/06/2024 9:38 AM PIPED POCKET MACHINE OPERATOR 10/06/2024 9:47 AM PIPED POCKET MACHINE OPERATOR us Jose G Jimenez MD LAB BLOOD ORDERABLES Final Result [facility]HIJEET [address] [facility] Department [place] [address] * Signatera (10/06/2024 8:58 AM PIPED POCKET MACHINE OPERATOR) Other (Other) us Historical Provider LAB GENETIC TESTING Final Result Performing Organization Address City/[facility]/ZIP Co de Phone Number SYBIL CISNEROS [address] [place] [address], [facility] * eGFR (09/22/2024 11:58 AM PIPED POCKET MACHINE OPERATOR) eGFR >90 >=60 mL/min/1. 73 m2 Comment: [...] was last reviewed 2021. Testing performed by: [facility], [address] [place] [address], [place]., [address] Blood 09/22/2024 11:5 8 AM PIPED POCKET MACHINE OPERATOR 09/22/2024 12:01 PM PIPED POCKET MACHINE OPERATOR Jose G Jimenez MD LAB BLOOD ORDERABLES Final Result ABHIJEET [address] [facility] Department [place] [address] * Differential, auto (09/22/2024 11:58 AM PIPED POCKET MACHINE OPERATOR) Neutrophil abs 3.8 1.5 - 6.5 K/cumm Comment:Testing performed by : [address] [address] Imm gran abs 0.0 0.0 - 0.1 K/cumm ABHIJEET Comment:Testing performed by : [address] [address] Lymphocyte abs 1.7 0.8 - 3.3 K/cumm ABHIJEET Comment:Testing performed by : [address] [address] Monocyte abs 0.5 0.2 - 0.8 K/cumm ABHIJEET Comment:Testing performed by : [address] [address] Eosinophil abs 0.2 0.0 - 0.5 K/cumm ABHIJEET Comment:Testing performed by : [address] [address] Basophil abs 0.0 0.0 - 0.1 K/cumm ABHIJEET Comment:Testing performed by : [address] [address] Neutrophil pct 60.4 % ABHIJEET Comment: Interpretive Data Percent cell count reference ranges are not reported, since discordance with absolute values may lead to misinterpretation of CBC data. Current Interpretive Data was last revised on 2018. Testing performed by: [address] [address] Imm gran pct 0.3 % ABHIJEET Comment: Interpretive Data Percent cell count reference ranges are not reported, since discordance with absolute values may lead to misinterpretation of CBC data. Current Interpretive Data was last revised on 2018. Testing performed by: [address] [address] Lymphocyte pct 27.5 % ABHIJEET Comment: Interpretive Data Percent cell count reference ranges are not reported, since discordance with absolute values may lead to misinterpretation of CBC data. Current Interpretive Data was last revised on 2018. Testing performed by: [address] [address] Monocyte pct 8.6 % ABHIJEET Comment: Interpretive Data Percent cell count reference ranges are not reported, since discordance with absolute values may lead to misinterpretation of CBC data. Current Interpretive Data was last revised on 2018. Testing performed by: [address] [address] Eosinophil pct 2.7 % ABHIJEET Comment: Interpretive Data Percent cell count reference ranges are not reported, since discordance with absolute values may lead to misinterpretation of CBC data. Current Interpretive Data was last revised on 2018. Testing performed by: [address] [address] Basophil pct 0.5 % ABHIJEET Comment: Interpretive Data Percent cell count reference ranges are not reported, since discordance with absolute values may lead to misinterpretation of CBC data. Current Interpretive Data was last revised on 2018. Testing performed by: [address] [address] Blood 09/22/2024 11:5 8 AM PIPED POCKET MACHINE OPERATOR 09/22/2024 12:01 PM PIPED POCKET MACHINE OPERATOR us Jose G Jimenez MD LAB BLOOD ORDERABLES Final Result Performing Organization Address City/State/[facility] Co de Phone Number [facility] [address] [facility] Department [place] [address] * (ABNORMAL) CBC with auto differential (09/22/2024 11:58 AM PIPED POCKET MACHINE OPERATOR) WBC 6.3 3.8 - 9.9 K/cumm Comment:Testing performed by : [address] [address] Hgb 11.8(L) 11.9 - 15.5 g/dL ABHIJEET Comment:Testing performed by : [address] [address] Hct 35.7 35.6 - 45.5 % ABHIJEET NOONAN Comment:Testing performed by : [address] [address] Plt 182 150 - 400 K/cumm ABHIJEET Comment:Testing performed by : [address] [address] MPV 9.9 9.1 - 12.3 fL ABHIJEET NOONAN Comment:Testing performed by : [address] [address] RBC 4.17 3.90 - 5.20 M/cumm ABHIJEET Comment:Testing performed by : [address] [address] MCV 85.6 81.3 - 96.4 fL ABHIJEET Comment:Testing performed by : [address] [address] MCH 28.3 27.1 - 33.3 pg ABHIJEET Comment:Testing performed by : [address] [address] MCHC 33.1 32.3 - 35.7 g/dL ABHIJEET Comment:Testing performed by : [address] [address] RDW CV 14.3 11.1 - 14.9 % ABHIJEET Comment:Testing performed by : [address] [address] RDW SD 44.3 35.7 - 48.1 fL ABHIJEET Comment:Testing performed by : [address] [address] NRBC abs 0.00 0.00 - 0.01 K/cumm ABHIJEET Comment:Testing performed by : [address] [address] Blood 09/22/2024 11:5 8 AM PIPED POCKET MACHINE OPERATOR 09/22/2024 12:01 PM PIPED POCKET MACHINE OPERATOR us Jose G Jimenez MD LAB BLOOD ORDERABLES Final Result [facility]HIJEET [address] [facility] Department [place] [address] * Manual Differential (09/22/2024 11:58 AM PIPED POCKET MACHINE OPERATOR) Differential Auto Comment:Testing performed by : [facility] [address] [place] [address]., [address] RBC morphology Consistent with RBC Indicies ABHIJEET Comment:Testing performed by : [facility] [address] [place] [address], [place]., [address] Platelet estimate Adequate ABHIJEET Comment:Testing performed by : [address] [address] Blood 09/22/2024 11:5 8 AM PIPED POCKET MACHINE OPERATOR 09/22/2024 12:01 PM PIPED POCKET MACHINE OPERATOR Jose G Jimenez MD LAB BLOOD ORDERABLES Final Result ABHIJEET [address] [facility] Department [place] [address] * (ABNORMAL) Comprehensive metabolic panel (09/22/2024 11:58 AM PIPED POCKET MACHINE OPERATOR) Pathologist [facility] Sodium 141 135 - 145 mmol/L Comment:Testing performed by : [address] [address] Potassium, pl 3.9 3.3 - 4.9 mmol/L ABHIJEET Comment:Testing performed by : [address] [address] Chloride 104 97 - 110 mmol/L ABHIJEET Comment:Testing performed by : [address] [address] CO2 26 22 - 32 mmol/L ABHIJEET Comment:Testing performed by : [address] [address] Anion gap 11 2 - 15 mmol/L ABHIJEET Comment:Testing performed by : [address] [address] BUN 16 6 - 25 mg/dL ABHIJEET Comment:Testing performed by : [address] [address] Creatinine 0.60 0.60 - 1.10 mg/dL ABHIJEET NOONAN Comment:Testing performed by : [address] [address] Glucose 159 70 - 199 mg/dL ABHIJEET Comment: Interpretive [...] was last revised 2022. Testing performed by: [address] [address] Calcium 9.3 8.5 - 10.3 mg/dL ABHIJEET Comment:Testing performed by : [address] [address] Bilirubin, total 0.5 0.1 - 1.2 mg/dL ABHIJEET Comment:Testing performed by : [address] [address] Protein, pl 6.8 6.5 - 8.5 g/dL ABHIJEET Comment:Testing performed by : [address] [address] Albumin 3.9 3.5 - 5.0 g/dL ABHIJEET Comment:Testing performed by : [address] [address] Alk phos 134(H) 40 - 130 Units/L ABHIJEET Comment:Testing performed by : [address] [address] ALT 21 7 - 45 Units/L ABHIJEET Comment:Testing performed by : [address] [address] AST 26 10 - 45 Units/L ABHIJEET Comment:Testing performed by : [address] [address] Blood 09/22/2024 11:5 8 AM PIPED POCKET MACHINE OPERATOR 09/22/2024 12:01 PM PIPED POCKET MACHINE OPERATOR Jose G Jimenez MD LAB BLOOD ORDERABLES Final Result Performing Organization Address City/State/[facility] Co in Phone Number ABHIJEET MH [address] [facility] Department [place] [address] from Last 3 Months Insurance [facility] MEDICARE [facility] MEDICARE MEDICARE Advance Directives For more information, please contact: [phone] * Full Code (Latest Code Status on File) Date Activated Date Inactivated Comments 06/27/2022 7:04 AM 06/28/2022 5:09 AM Care Teams Fusing Line Inspector Relationship Specialty Start Date End Date Rodney Mckay MD PCP - General Internal Medicine 05/30/22 Yves Moreno DO [address] [facility] [address] [facility] [address] [place] [address] Referring Physician Surgery 06/04/22 Jose G Jimenez MD [address] [facility] MEDICAL ONCOLOGY, [facility] [address] [place] [address] Medical Oncologist/Agency Service Representative Medical Oncology 09/04/23
== END 2024-12-16 11:54 | disposition home or self-care (01) ==
LOC: CHSIMG 11:54
PROVIDERS: PCP Internal Medicine; Visit Provider Internal Medicine
DX: Z12.31 Encounter for screening mammogram for malignant neoplasm of breast (principal)
CPT/HCPCS: 77063; 77067

== ENCOUNTER 2025-01-12 11:07 | Outpatient (CLI) | payer MEDICARE, OTHER, SELFPAY ==
--- NOTE | ~2025-01-12 | XR_ITS ---
CHEST RADIOGRAPH, PA AND LATERAL CLINICAL HISTORY: cough, SOB, wheezing, chest pain X 2 weeks . COMPARISON: 04/29/2024 TECHNIQUE: PA and lateral views of the chest. FINDINGS Right internal jugular central venous power port catheter with its tip projecting over the cavoatrial junction. The remainder of the cardiomediastinal silhouette is otherwise unremarkable. The lungs are clear. Pectus excavatum is incidentally noted. IMPRESSION: No focal infiltrate or effusion. Reviewed, dictated and finalized at location A. ER BLOCK INSERTER REMOVER
--- OUTSIDE RECORDS SUMMARY | 2025-01-12 13:13 | XMS_ITS | Encounter Summary ---
Author Organization [facility] Address [address] [place] [address] Phone Care Team Providers Care Manager Cafe Name Role Phone Rodney Mckay MD Primary Care Provider [phone] Yves Moreno DO Unavailable Jose G Jimenez MD Unavailable [phone] Encounter Details Date Type Department Care Team (Late st Contact Info) Description 01/12/2025 Telephone [facility] Bone Marrow Transplant [address] [facility] Floor 6 [place] [address] Adela Leal, AJ [address] [place] [address] Social History Tobacco Use Types Packs/Day Years [...] on file Legal Sex Female 12:09 PM FULLING MACHINE OPERATOR Gender Identity Not on file Sexual Orientation Not on file documented as of this encounter Miscellaneous Notes * Telephone Encounter - Adela Leal RN - 01/12/2025 7:13 AM FULLING MACHINE OPERATOR Oncology After-Hours Outpatient Call Patient: Bruna Amaral 1955 Call date: 01/12/25 Caller: christophe amaral Reason for Call: patient has been on antibiotics through her pcp for the last wo weeks for pneumonia. The patient woke up still having trouble breathing. Recommendation: whle talking to the patient she expressed that she just feels it is hard to expand her lungs and that she does not feel like she is struggling to breath. Informed her to follow up with her pcp since they started the work up and see if they can get the patient an inhaler. The patient understands. Primary oncologist team updated via [facility]. Adela Leal RN ING MACHINE OPERATOR documented in this encounter Plan of Treatment Not on file documented as of this encounter Visit Diagnoses Not on filedocumented in this encounter Care Teams Manager Cafe Relationship Specialty Start Date End Date Rodney Mckay MD PCP - General Internal Medicine 05/30/22 Yves Moreno DO [address] [facility] [address] [place], [place] [address] Referring Physician Surgery 06/04/22 Jose G Jimenez MD [address] [facility] MEDICAL ONCOLOGY, [address] [address] Medical Oncologist/Measurement Analyst Medical Oncology 09/04/23 documented as of this encounter
--- OUTSIDE RECORDS SUMMARY | 2025-01-12 13:13 | XMS_ITS | Encounter Summary ---
Author Organization [facility] Address [address] [place] [address] Phone Care Team Providers Care Sap Basis Architect Name Role Phone Rodney Mckay MD Primary Care Provider [phone] Yves Moreno DO Unavailable [phone] Jose G Jimenez MD Unavailable [phone] Encounter Details Date Type Department Care Team (Late st Contact Info) Description 01/12/2025 Orders Only [facility] Oncology [address] [facility] [address] [place] [address] Jose G Jimenez MD [address] [facility] [address] [place] [address] Social History Tobacco Use Types Packs/Day Years [...] on file Legal 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 Gender Identity Not on file Sexual Orientation Not on file documented as of this encounter Plan of Treatment Not on file documented as of this encounter Visit Diagnoses Not on filedocumented in this encounter Care Teams Sap Basis Architect Relationship Specialty Start Date End Date Rodney Mckay MD PCP - General Internal Medicine 05/30/22 Yves Moreno DO [address] [facility] [address] [place] [address] Referring Physician Surgery 06/04/22 Jose G Jimenez MD [address] [place] [address] MEDICAL ONCOLOGY, [facility] [address] [place] [address] Medical Oncologist/Padded Products Inspector Trimmer Medical Oncology 09/04/23 documented as of this encounter
--- OUTSIDE RECORDS SUMMARY | 2025-01-12 13:13 | XMS_ITS | Encounter Summary ---
Author Organization [facility] Address [address] [place] [address] Phone Care Team Providers Care [employer] Operations [employer] Training Name Role Phone Rodney Mckay MD Primary Care Provider [phone] Yves Moreno DO Unavailable [phone] Jose G Jimenez MD Unavailable [phone] Encounter Details Date Type Department Care Team (Late st Contact Info) Description 01/12/2025 Orders Only [facility] Oncology [address] [place] [address] [address] [place] [address] Monica Wilder, RN 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); Malignant neoplasm of ascending colon (CMS/HCC) (HCC) [...] on file Legal Sex Female 12:09 PM REAL ESTATE DEVELOPMENT MANAGER Gender Identity Not on file Sexual Orientation Not on file documented as of this encounter Plan of Treatment Scheduled Orders Name Type Priority Associated Diagnoses Orde r Schedule CBC with auto differential Lab Routine 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) Malignant neoplasm of ascending colon (CMS/HCC) (HCC) Expected: 01/19/2025, Expires: 01/19/2026 Comprehensive metabolic panel Lab STAT 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) Malignant neoplasm of ascending colon (CMS/HCC) (HCC) Expected: 01/19/2025, Expires: 01/19/2026 Thyroid Function [place] [facility] STAT 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) Malignant neoplasm of ascending colon (CMS/HCC) (HCC) Expected: 01/19/2025, Expires: 01/19/2026 Cortisol Lab Routine 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) Malignant neoplasm of ascending colon (CMS/HCC) (HCC) Expected: 01/19/2025, Expires: 01/19/2026 documented as of this encounter Visit Diagnoses Diagnosis 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 Malignant neoplasm of ascending colon (CMS/HCC) (HCC) Malignant neoplasm of ascending colon documented in this encounter Orders Appointment Requests Count Last Ordered Date Fi rst Ordered Date ONCBCN LAB APPOINTMENT 1 01/12/2025 ONCBCN RETURN CHEMO 3.5HRS 1 01/12/2025 documented in this encounter Care Teams [employer] Operations [employer] Training Relationship Specialty Start Date End Date Rodney Mckay MD PCP - General Internal Medicine 05/30/22 Yves Moreno DO [address] [facility] [address] [place] [address] Referring Physician Surgery 06/04/22 Jose G Jimenez MD [address] [facility], [facility] [address] [place] [address] Medical Oncologist/Clinical Manager Medical Oncology 09/04/23 documented as of this encounter
--- OUTSIDE RECORDS SUMMARY | 2025-01-12 13:14 | XMS_ITS | Data Portability ---
Author Organization [facility], [address] [facility] ([place]) Address [address] [place] [address] Care Team Providers Care Cow Washer Name Role Phone JM SEBASTIAN Primary Care Provider Assessment Encounter Date Assessment Date Assessment LastModified by Organization Details LastModified Time 06/29/2024 06/29/2024 Bruna Turcios was in today for hearing aid check. She is accompanied by her . Phonak Audeo L70 RL [id number] on the left and [id number] on the right 1M(5) with small open [...] Organization Details Last Modified Time Details Appointments None record ed. Lab None record ed. Referral None record ed. Procedures None record ed. Surgeries None record ed. Imaging None record ed. Medication Orders None record ed. Patient TargetsNo targets recorded. Patient InstructionsNo instructions recorded. Reason for Referral None Reported. Results Created Date Observation Date Name Description Value Unit Range Abnormal Flag Note LastModifiedBy Organization Detail LastModifiedTime 09/15/20 24 12/24/2023 emily de la rosa/zachary ordaz tic resul t No observ ation record ed. [email or web address] Not Available 05:59:32 Result Notes None recorded. Problems Name Problem SNOMED Code Status Onset Date Resolution Date Notes Provider Name and Address Organization Details Recorded Time Sensorineural hearing loss of bilateral ears [id number] Active 2023 Noe Palma [address] [place] [address], [phone] , [facility] 12:36:28 Problem Notes None recorded. Procedures Surgical [...] Name and Address Organization Details Recorded Time 638120 codeine medicatio n Not available Not available [...] SNOMED-CT Code Diagnosis ICD10 Code Diagnosis Note [id number] Noe Palma [facility] [address] [place] [address] 06/29/2024 10:49:15 06/29/2024 10:52:05 Sensorineural hearing loss of bilateral ears 397362768 H90.3 Health Concerns Section Related Observation LastModified by Organization Detai ls LastModified Time None Recorded Concern Status LastModified by Organization Details LastModified Time None Recorded Advance Directives Directive None Recorded Payers None recorded. OBGyn Episode No OBEpisode recorded.
--- OUTSIDE RECORDS SUMMARY | 2025-01-12 13:14 | XMS_ITS | Referral Summary ---
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); Malignant neoplasm of ascending colon (CMS/HCC) (HCC) 01/12/2025 Orders Only [facility] Oncology [address] [place] [address] Jose G Jimenez MD 01/12/2025 Telephone [facility] [address] [place] [address] 6 [place] [address] Adela Leal RN 12/29/2024 Orders Only [facility] [place] [address] Jose G Jimenez MD 12/29/2024 Orders Only [facility] Oncology [address] [place] [address] Monica Wilder RN 12/29/2024 10:15 AM LITHOGRAPHIC PRESS OPERATOR APPRENTICE Clinical Support [facility] at [address] [address] 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); Malignant neoplasm of ascending colon (CMS/HCC) (HCC) 12/29/2024 10:45 AM LITHOGRAPHIC PRESS OPERATOR APPRENTICE Infusion [facility] at [address] [address] Malignant neoplasm of ascending colon (CMS/HCC) (HCC) (Primary Dx); 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) 12/15/2024 11:00 AM LITHOGRAPHIC PRESS OPERATOR APPRENTICE Infusion [address] [address] Malignant neoplasm of ascending colon (CMS/HCC) (HCC) (Primary Dx); 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) 12/15/2024 10:00 AM LITHOGRAPHIC PRESS OPERATOR APPRENTICE Clinical Support [facility] at [address] [address] 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); Malignant neoplasm of ascending colon (CMS/HCC) (HCC) 12/15/2024 10:30 AM LITHOGRAPHIC PRESS OPERATOR APPRENTICE Office Visit [facility] On[facility] [address] [place] [phone] Jose G Jimenez MD Malignant neoplasm of ascending colon (CMS/HCC) (HCC) (Primary Dx); 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) 12/01/2024 Orders Only [facility] [address] [place] [address] Jose G Jimenez MD 12/01/2024 12:30 PM LITHOGRAPHIC PRESS OPERATOR APPRENTICE Clinical Support [facility] at [address] [address] 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); Malignant neoplasm of ascending colon (CMS/HCC) (HCC) 12/01/2024 1:00 PM LITHOGRAPHIC PRESS OPERATOR APPRENTICE Infusion [facility] at [address] [address] Malignant neoplasm of ascending colon (CMS/HCC) (HCC) (Primary Dx); 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) 11/17/2024 Orders Only [facility] Oncology [address] [place] [phone] Kathie Stockton NP 11/17/2024 Orders Only [facility] Oncology [address] [place] [phone] Monica Wilder, AJ 11/17/2024 1:00 PM LITHOGRAPHIC PRESS OPERATOR APPRENTICE Infusion [facility] at [address] [address] Malignant neoplasm of ascending colon (CMS/HCC) (HCC) (Primary Dx); 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) 11/17/2024 12:30 PM LITHOGRAPHIC PRESS OPERATOR APPRENTICE Clinical Support [facility] at [address] [address] 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); Malignant neoplasm of ascending colon (CMS/HCC) (HCC) 11/03/2024 9:45 AM LITHOGRAPHIC PRESS OPERATOR APPRENTICE Clinical Support [facility] at [address] [address] 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); Malignant neoplasm of ascending colon (CMS/HCC) (HCC) 11/03/2024 10:45 AM LITHOGRAPHIC PRESS OPERATOR APPRENTICE Infusion [facility] at [address] [address] Malignant neoplasm of ascending colon (CMS/HCC) (HCC) (Primary Dx); 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) 11/03/2024 10:15 AM LITHOGRAPHIC PRESS OPERATOR APPRENTICE Office Visit [facility] Oncology [address] [place] [phone] Jose G Jimenez MD Malignant neoplasm of ascending colon (CMS/HCC) (HCC) (Primary Dx); 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) 10/27/2024 7:48 AM LITHOGRAPHIC PRESS OPERATOR APPRENTICE - 10/27/2024 11:59 PM LITHOGRAPHIC PRESS OPERATOR APPRENTICE Hospital Encounter [facility] [address] [place] [address] Malignant neoplasm of ascending colon (CMS/HCC) (HCC) Discharge Disposition: Discharge to home or self care 10/20/2024 Orders Only [facility] [address] [place] [address] [address] [place] [address] Jose G Jimenez MD 10/20/2024 8:45 AM LITHOGRAPHIC PRESS OPERATOR APPRENTICE Infusion [facility] at [address] [place] [address] Malignant neoplasm of ascending colon (CMS/HCC) (HCC) (Primary Dx); 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) 10/20/2024 8:15 AM LITHOGRAPHIC PRESS OPERATOR APPRENTICE Clinical Support [facility] at [address] [address] 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); Malignant neoplasm of ascending colon (CMS/HCC) (HCC) 10/13/2024 Orders Only [facility] Hematology [address] [place] [phone] ProviderAdore MD from Last 3 Months Allergies Active [...] with simethicone-diphen hydramine-lidocain e (MAGIC MOUTHWASH) suspension 1-3-7Fwgvqcxblne:C hemotherapy-Induce d Mucositis Swish and swallow 15 [...] neoplasm of ascending colon (CMS/HCC) 06/07/2022 Immunizations Immunization Administration Dates Next Due Influenza, Quadrivalent, Michelle [...] on file Legal Sex Female 12:09 PM LITHOGRAPHIC PRESS OPERATOR APPRENTICE Gender Identity Not on file Sexual Orientation Not on file Last Filed Vital Signs Vital Sign Reading Time Taken Comments Blood Pressure 94/63 12/29/2024 10:26 AM LITHOGRAPHIC PRESS OPERATOR APPRENTICE pt has been feeling very tired x3-4 days Pulse 81 12/29/2024 10:26 AM LITHOGRAPHIC PRESS OPERATOR APPRENTICE Temperature 36.8 C (98.3 F) 12/29/2024 10:26 AM LITHOGRAPHIC PRESS OPERATOR APPRENTICE Respiratory Rate 20 12/29/2024 10:2 6 AM LITHOGRAPHIC PRESS OPERATOR APPRENTICE Oxygen Saturation 96% 12/29/2024 10: 26 AM LITHOGRAPHIC PRESS OPERATOR APPRENTICE Inhaled Oxygen Concentration - - Weight 63.9 kg (140 lb 12.8 oz) 12/29/2024 10:26 AM LITHOGRAPHIC PRESS OPERATOR APPRENTICE w/o shoes Height 160 cm (5' 3 ) 08/18/2024 9:36 AM CDT Body Mass Index 24.94 08/18/2024 9:36 AM CDT Plan of Treatment Not on file Medical Devices Implanted Type Area Box Toe Cutter Device Identifier Shelf Expiration Date Model / Serial / Lot [employer] Excela Low Porfile Power Port 8fr 1.6mm 1 Lumen [id number] - [id number] Implanted:Qty: 1 on 06/27/2022 at [facility] [employer] 02/06/2027 [id number] / / [id number] Procedures Procedure Name Priority Date/Time Associated Diagnosis Comments EGFR STAT 12/29/2024 10:05 AM LITHOGRAPHIC PRESS OPERATOR APPRENTICE 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) Malignant neoplasm of ascending colon (CMS/HCC) (HCC) DIFFERENTIAL AUTO Routine 12/29/2024 10: 05 AM LITHOGRAPHIC PRESS OPERATOR APPRENTICE 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) Malignant neoplasm of ascending colon (CMS/HCC) (HCC) CBC WITH AUTO DIFFERENTIAL Routine 12/29/2024 10:05 AM LITHOGRAPHIC PRESS OPERATOR APPRENTICE 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) Malignant neoplasm of ascending colon (CMS/HCC) (HCC) COMPREHENSIVE METABOLIC PANEL STAT 12/29/2024 10:05 AM LITHOGRAPHIC PRESS OPERATOR APPRENTICE 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) Malignant neoplasm of ascending colon (CMS/HCC) (HCC) EGFR STAT 12/15/2024 10:18 AM LITHOGRAPHIC PRESS OPERATOR APPRENTICE 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) Malignant neoplasm of ascending colon (CMS/HCC) (HCC) DIFFERENTIAL AUTO Routine 12/15/2024 10: 18 AM LITHOGRAPHIC PRESS OPERATOR APPRENTICE 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) Malignant neoplasm of ascending colon (CMS/HCC) (HCC) CBC WITH AUTO DIFFERENTIAL Routine 12/15/2024 10:18 AM LITHOGRAPHIC PRESS OPERATOR APPRENTICE 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) Malignant neoplasm of ascending colon (CMS/HCC) (HCC) COMPREHENSIVE METABOLIC PANEL STAT 12/15/2024 10:18 AM LITHOGRAPHIC PRESS OPERATOR APPRENTICE 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) Malignant neoplasm of ascending colon (CMS/HCC) (HCC) EGFR STAT 12/01/2024 12:48 PM LITHOGRAPHIC PRESS OPERATOR APPRENTICE 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) Malignant neoplasm of ascending colon (CMS/HCC) (HCC) DIFFERENTIAL AUTO Routine 12/01/2024 12: 48 PM LITHOGRAPHIC PRESS OPERATOR APPRENTICE 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) Malignant neoplasm of ascending colon (CMS/HCC) (HCC) CEA Routine 12/01/2024 12:48 PM LITHOGRAPHIC PRESS OPERATOR APPRENTICE 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) Malignant neoplasm of ascending colon (CMS/HCC) (HCC) CBC WITH AUTO DIFFERENTIAL Routine 12/01/2024 12:48 PM LITHOGRAPHIC PRESS OPERATOR APPRENTICE 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) Malignant neoplasm of ascending colon (CMS/HCC) (HCC) COMPREHENSIVE METABOLIC PANEL STAT 12/01/2024 12:48 PM LITHOGRAPHIC PRESS OPERATOR APPRENTICE 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) Malignant neoplasm of ascending colon (CMS/HCC) (HCC) THYROID FUNCTION CASCADE STAT 12/01/2024 12:48 PM LITHOGRAPHIC PRESS OPERATOR APPRENTICE 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) Malignant neoplasm of ascending colon (CMS/HCC) (HCC) CORTISOL Routine 12/01/2024 12:48 PM LITHOGRAPHIC PRESS OPERATOR APPRENTICE 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) Malignant neoplasm of ascending colon (CMS/HCC) (HCC) EGFR STAT 11/17/2024 12:40 PM LITHOGRAPHIC PRESS OPERATOR APPRENTICE 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) Malignant neoplasm of ascending colon (CMS/HCC) (HCC) DIFFERENTIAL AUTO Routine 11/17/2024 12: 40 PM LITHOGRAPHIC PRESS OPERATOR APPRENTICE 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) Malignant neoplasm of ascending colon (CMS/HCC) (HCC) CBC WITH AUTO DIFFERENTIAL Routine 11/17/2024 12:40 PM LITHOGRAPHIC PRESS OPERATOR APPRENTICE 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) Malignant neoplasm of ascending colon (CMS/HCC) (HCC) COMPREHENSIVE METABOLIC PANEL STAT 11/17/2024 12:40 PM LITHOGRAPHIC PRESS OPERATOR APPRENTICE 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) Malignant neoplasm of ascending colon (CMS/HCC) (HCC) EGFR STAT 11/03/2024 9:39 AM LITHOGRAPHIC PRESS OPERATOR APPRENTICE 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) Malignant neoplasm of ascending colon (CMS/HCC) (HCC) DIFFERENTIAL AUTO Routine 11/03/2024 9:3 9 AM LITHOGRAPHIC PRESS OPERATOR APPRENTICE 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) Malignant neoplasm of ascending colon (CMS/HCC) (HCC) CEA Routine 11/03/2024 9:39 AM LITHOGRAPHIC PRESS OPERATOR APPRENTICE Malignant neoplasm of ascending colon (CMS/HCC) (HCC) CBC WITH AUTO DIFFERENTIAL Routine 11/03/2024 9:39 AM LITHOGRAPHIC PRESS OPERATOR APPRENTICE 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) Malignant neoplasm of ascending colon (CMS/HCC) (HCC) COMPREHENSIVE METABOLIC PANEL STAT 11/03/2024 9:39 AM LITHOGRAPHIC PRESS OPERATOR APPRENTICE 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) Malignant neoplasm of ascending colon (CMS/HCC) (HCC) CT CHEST ABDOMEN PELVIS W CONTRAST Schedule Routine, Read Routine (OP Routine) 10/27/2024 8:27 AM LITHOGRAPHIC PRESS OPERATOR APPRENTICE Malignant neoplasm of ascending colon (CMS/HCC) (HCC) EGFR STAT 10/20/2024 8:23 AM LITHOGRAPHIC PRESS OPERATOR APPRENTICE 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) Malignant neoplasm of ascending colon (CMS/HCC) (HCC) DIFFERENTIAL AUTO Routine 10/20/2024 8:2 3 AM LITHOGRAPHIC PRESS OPERATOR APPRENTICE 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) Malignant neoplasm of ascending colon (CMS/HCC) (HCC) CBC WITH AUTO DIFFERENTIAL Routine 10/20/2024 8:23 AM LITHOGRAPHIC PRESS OPERATOR APPRENTICE 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) Malignant neoplasm of ascending colon (CMS/HCC) (HCC) COMPREHENSIVE METABOLIC PANEL STAT 10/20/2024 8:23 AM LITHOGRAPHIC PRESS OPERATOR APPRENTICE 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 73 m2 Comment: Interpretive Data Reference Interval Normal >/= 90 mL/min/1.73m2 Mildly decreased* 60 - 89 mL/min/1.73m2 Mildly to moderately decreased 45 - 59 mL/min/1.73m2 Moderately to severely decreased 30 - 44 mL/min/1.73m2 Severely decreased 15 - 29 mL/min/1.73m2 Kidney Failure < 15 mL/min/1.73m2 *Relative to young adult level Estimated glomerular [...] was last reviewed 2021. Testing performed by: [address] [address] Blood 12/29/2024 10:0 5 AM LITHOGRAPHIC PRESS OPERATOR APPRENTICE 12/29/2024 10:06 AM LITHOGRAPHIC PRESS OPERATOR APPRENTICE us Jose G Jimenez MD LAB BLOOD ORDERABLES Final Result [facility] [address] [facility] [place] [address] * Differential, auto (12/29/2024 10:05 AM LITHOGRAPHIC PRESS OPERATOR APPRENTICE) Neutrophil abs 2.7 1.5 - 6.5 K/cumm Comment:Testing performed by : [address] [address] Imm gran abs 0.0 0.0 - 0.1 K/cumm CERNER Comment:Testing performed by : [address] [address] Lymphocyte abs 1.3 0.8 - 3.3 K/cumm CERNER Comment:Testing performed by : [address] [address] Monocyte abs 0.5 0.2 - 0.8 K/cumm CERNER Comment:Testing performed by : [address], [place]., [address] Eosinophil abs 0.1 0.0 - 0.5 K/cumm CERNER Comment:Testing performed by : [address] [address] Basophil abs 0.0 0.0 - 0.1 K/cumm [facility] Comment:Testing performed by : [address] [address] Neutrophil pct 59.7 % CERNER Comment: Interpretive Data Percent cell count reference ranges are not reported, since discordance with absolute values may lead to misinterpretation of CBC data. Current Interpretive Data was last revised on 2018. Testing performed by: [address] [address] Imm gran pct 0.4 % CERNER Comment: Interpretive Data Percent cell count reference ranges are not reported, since discordance with absolute values may lead to misinterpretation of CBC data. Current Interpretive Data was last revised on 2018. Testing performed by: [address] [address] Lymphocyte pct 27.7 % CERNER Comment: Interpretive Data Percent cell count reference ranges are not reported, since discordance with absolute values may lead to misinterpretation of CBC data. Current Interpretive Data was last revised on 2018. Testing performed by: [address] [address] Monocyte pct 10.5 % CERNER Comment: Interpretive Data Percent cell count reference ranges are not reported, since discordance with absolute values may lead to misinterpretation of CBC data. Current Interpretive Data was last revised on 2018. Testing performed by: [address] [address] Eosinophil pct 1.3 % ABHIJEET NOONAN Comment: Interpretive Data Percent cell count reference ranges are not reported, since discordance with absolute values may lead to misinterpretation of CBC data. Current Interpretive Data was last revised on 2018. Testing performed by: [address] [address] Basophil pct 0.4 % ABHIJEET NOONAN Comment: Interpretive Data Percent cell count reference ranges are not reported, since discordance with absolute values may lead to misinterpretation of CBC data. Current Interpretive Data was last revised on 2018. Testing performed by: [address] [address] Blood 12/29/2024 10:0 5 AM LITHOGRAPHIC PRESS OPERATOR APPRENTICE 12/29/2024 10:06 AM LITHOGRAPHIC PRESS OPERATOR APPRENTICE Jose G Jimenez MD LAB BLOOD ORDERABLES Final Result ABHI[facility] Department of Laboratories [place], [place] [id number] * (ABNORMAL) CBC with auto differential (12/29/2024 10:05 AM LITHOGRAPHIC PRESS OPERATOR APPRENTICE) WBC 4.6 3.8 - 9.9 K/cumm Comment:Testing performed by : [address] [address] Hgb 11.6(L) 11.9 - 15.5 g/dL ABHIJEET NOONAN Comment:Testing performed by : [address] [address] Hct 35.0(L) 35.6 - 45.5 % ABHIJEET NOONAN Comment:Testing performed by : [address] [address] Plt 154 150 - 400 K/cumm ABHIJEET NOONAN Comment:Testing performed by : [address] [address] MPV 9.8 9.1 - 12.3 fL ABHIJEET NOONAN Comment:Testing performed by : [address] [address] RBC 4.06 3.90 - 5.20 M/cumm ABHIJEET NOONAN Comment:Testing performed by : [address] [address] MCV 86.2 81.3 - 96.4 fL ABHIJEET NOONAN Comment:Testing performed by : [address] [address] MCH 28.6 27.1 - 33.3 pg ABHIJEET NOONAN Comment:Testing performed by : [address] [address] MCHC 33.1 32.3 - 35.7 g/dL ABHIJEET Comment:Testing performed by : [address] [address] RDW CV 14.2 11.1 - 14.9 % ABHIJEET Comment:Testing performed by : [address] [address] RDW SD 45.6 35.7 - 48.1 fL ABHIJEET Comment:Testing performed by : [address] [address] NRBC abs 0.00 0.00 - 0.01 K/cumm ABHIJEET Comment:Testing performed by : [address], [address] Blood 12/29/2024 10:0 5 AM LITHOGRAPHIC PRESS OPERATOR APPRENTICE 12/29/2024 10:06 AM LITHOGRAPHIC PRESS OPERATOR APPRENTICE Jose G Jimenez MD LAB BLOOD ORDERABLES Final Result [facility] [address] [facility] Department [place] [address] * (ABNORMAL) Comprehensive metabolic panel (12/29/2024 10:05 AM LITHOGRAPHIC PRESS OPERATOR APPRENTICE) Sodium 142 135 - 145 mmol/L Comment:Testing performed by : [address], [address] Potassium, pl 4.1 3.3 - 4.9 mmol/L ABHIJEET NOONAN Comment:Testing performed by : [address], [place]., [address] Chloride 105 97 - 110 mmol/L ABHIJEET Comment:Testing performed by : [address], [place]., [address] CO2 27 22 - 32 mmol/L ABHIJEET Comment:Testing performed by : [address], [place]., [address] Anion gap 10 2 - 15 mmol/L ABHIJEET Comment:Testing performed by : [address], [place]., [address] BUN 20 6 - 25 mg/dL [facility] Comment:Testing performed by : [address], [place]., [address] Creatinine 0.60 0.60 - 1.10 mg/dL ABHIJEET Comment:Testing performed by : [address], [place]., [address] Glucose 125 70 - 199 mg/dL ABHIJEET Comment: Interpretive Data Fasting glucose >/= 126 mg/dl is diagnostic for diabetes. Fasting is defined as no caloric intake [...] was last revised 2022. Testing performed by: [address] [address] Calcium 9.2 8.5 - 10.3 mg/dL [facility] Comment:Testing performed by : [address] [address] Bilirubin, total 0.3 0.1 - 1.2 mg/dL ABHIJEET Comment:Testing performed by : [address] [address] Protein, pl 6.7 6.5 - 8.5 g/dL ABHIJEET Comment:Testing performed by : [address] [address] Albumin 3.8 3.5 - 5.0 g/dL ABHIJEET Comment:Testing performed by : [address] [address] Alk phos 140(H) 40 - 130 Units/L ABHIJEET Comment:Testing performed by : [address] [address] ALT 25 7 - 45 Units/L ABHIJEET Comment:Testing performed by : [address] [address] AST 34 10 - 45 Units/L ABHIJEET Comment:Testing performed by : [address] [address] Blood 12/29/2024 10:0 5 AM LITHOGRAPHIC PRESS OPERATOR APPRENTICE 12/29/2024 10:06 AM LITHOGRAPHIC PRESS OPERATOR APPRENTICE Jose G Jimenez MD LAB BLOOD ORDERABLES Final Result [facility] [address] [facility] Department [place] [address] * eGFR (12/15/2024 10:18 AM LITHOGRAPHIC PRESS OPERATOR APPRENTICE) eGFR >90 >=60 mL/min/1. 73 m2 Comment: Interpretive Data Reference Interval Normal >/= 90 mL/min/1.73m2 Mildly decreased* 60 - 89 mL/min/1.73m2 Mildly to moderately decreased 45 - 59 mL/min/1.73m2 Moderately to severely decreased 30 - 44 mL/min/1.73m2 Severely decreased 15 - 29 mL/min/1.73m2 Kidney Failure < 15 mL/min/1.73m2 *Relative to young adult level Estimated glomerular [...] was last reviewed 2021. Testing performed by: [address] [address] Blood 12/15/2024 10:1 8 AM LITHOGRAPHIC PRESS OPERATOR APPRENTICE 12/15/2024 10:19 AM LITHOGRAPHIC PRESS OPERATOR APPRENTICE Jose G Jimenez MD LAB BLOOD ORDERABLES Final Result [facility] [address] [facility] [place] [address] * Differential, auto (12/15/2024 10:18 AM LITHOGRAPHIC PRESS OPERATOR APPRENTICE) Neutrophil abs 3.3 1.5 - 6.5 K/cumm Comment:Testing performed by : [address] [address] Imm gran abs 0.0 0.0 - 0.1 K/cumm ABHIJEET Comment:Testing performed by : [address] [address] Lymphocyte abs 1.4 0.8 - 3.3 K/cumm ABHIJEET Comment:Testing performed by : [address] [address] Monocyte abs 0.6 0.2 - 0.8 K/cumm ABHIJEET Comment:Testing performed by : [address] [address] Eosinophil abs 0.2 0.0 - 0.5 K/cumm ABHIJEET Comment:Testing performed by : [address] [address] Basophil abs 0.0 0.0 - 0.1 K/cumm ABHIJEET Comment:Testing performed by : [address] [address] Neutrophil pct 59.8 % ABHIJEET Comment: Interpretive Data Percent cell count reference ranges are not reported, since discordance with absolute values may lead to misinterpretation of CBC data. Current Interpretive Data was last revised on 2018. Testing performed by: [address] [address] Imm gran pct 0.2 % ABHIJEET Comment: Interpretive Data Percent cell count reference ranges are not reported, since discordance with absolute values may lead to misinterpretation of CBC data. Current Interpretive Data was last revised on 2018. Testing performed by: [address] [address] Lymphocyte pct 25.9 % CERMARISSA Comment: Interpretive Data Percent cell count reference ranges are not reported, since discordance with absolute values may lead to misinterpretation of CBC data. Current Interpretive Data was last revised on 2018. Testing performed by: [address] [address] Monocyte pct 10.7 % CERNER Comment: Interpretive Data Percent cell count reference ranges are not reported, since discordance with absolute values may lead to misinterpretation of CBC data. Current Interpretive Data was last revised on 2018. Testing performed by: [address] [address] Eosinophil pct 2.9 % CERMARISSA Comment: Interpretive Data Percent cell count reference ranges are not reported, since discordance with absolute values may lead to misinterpretation of CBC data. Current Interpretive Data was last revised on 2018. Testing performed by: [address] [address] Basophil pct 0.5 % CERMARISSA Comment: Interpretive Data Percent cell count reference ranges are not reported, since discordance with absolute values may lead to misinterpretation of CBC data. Current Interpretive Data was last revised on 2018. Testing performed by: [address] [address] Blood 12/15/2024 10:1 8 AM LITHOGRAPHIC PRESS OPERATOR APPRENTICE 12/15/2024 10:19 AM LITHOGRAPHIC PRESS OPERATOR APPRENTICE us Jose G Jimenez MD LAB BLOOD ORDERABLES Final Result ABHIJEET NOONAN [address] [facility] [place] [address] * (ABNORMAL) CBC with auto differential (12/15/2024 10:18 AM LITHOGRAPHIC PRESS OPERATOR APPRENTICE) WBC 5.5 3.8 - 9.9 K/cumm Comment:Testing performed by : [address], [address] Hgb 12.0 11.9 - 15.5 g/dL ABHIJEET Comment:Testing performed by : [address] [address] Hct 35.2(L) 35.6 - 45.5 % ABHIJEET Comment:Testing performed by : [address], [address] Plt 174 150 - 400 K/cumm ABHIJEET Comment:Testing performed by : [address], [address] MPV 9.9 9.1 - 12.3 fL ABHIJEET Comment:Testing performed by : [address], [address] RBC 4.12 3.90 - 5.20 M/cumm ABHIJEET Comment:Testing performed by : [address], [address] MCV 85.4 81.3 - 96.4 fL ABHIJEET Comment:Testing performed by : [address], [address] MCH 29.1 27.1 - 33.3 pg ABHIJEET Comment:Testing performed by : [address], [address] MCHC 34.1 32.3 - 35.7 g/dL ABHIJEET Comment:Testing performed by : [address], [address] RDW CV 13.9 11.1 - 14.9 % ABHIJEET Comment:Testing performed by : [address], [address] RDW SD 43.2 35.7 - 48.1 fL ABHIJEET Comment:Testing performed by : [address], [address] NRBC abs 0.00 0.00 - 0.01 K/cumm ABHIJEET Comment:Testing performed by : [address], [address] Blood 12/15/2024 10:1 8 AM LITHOGRAPHIC PRESS OPERATOR APPRENTICE 12/15/2024 10:19 AM LITHOGRAPHIC PRESS OPERATOR APPRENTICE Jose G Jimenez MD LAB BLOOD ORDERABLES Final Result ABHIJEET [address] [facility] [place] [address] * Comprehensive metabolic panel (12/15/2024 10:18 AM LITHOGRAPHIC PRESS OPERATOR APPRENTICE) Sodium 142 135 - 145 mmol/L Comment:Testing performed by : [address] [address] Potassium, pl 4.0 3.3 - 4.9 mmol/L ABHIJEET Comment:Testing performed by : [address] [address] Chloride 105 97 - 110 mmol/L ABHIJEET Comment:Testing performed by : [address] [address] CO2 29 22 - 32 mmol/L ABHIJEET Comment:Testing performed by : [address] [address] Anion gap 8 2 - 15 mmol/L ABHIJEET Comment:Testing performed by : [address] [address] BUN 17 6 - 25 mg/dL ABHIJEET Comment:Testing performed by : [address] [address] Creatinine 0.60 0.60 - 1.10 mg/dL ABHIJEET Comment:Testing performed by : [address] [address] Glucose 93 70 - 199 mg/dL ABHIJEET Comment: Interpretive Data Fasting glucose >/= 126 mg/dl is diagnostic for diabetes. Fasting is defined as no caloric intake [...] was last revised 2022. Testing performed by: [address] [address] Calcium 9.3 8.5 - 10.3 mg/dL ABHIJEET Comment:Testing performed by : [address] [address] Bilirubin, total 0.4 0.1 - 1.2 mg/dL ABHIJEET Comment:Testing performed by : [address] [address] Protein, pl 6.8 6.5 - 8.5 g/dL ABHIJEET Comment:Testing performed by : [address] [address] Albumin 3.9 3.5 - 5.0 g/dL ABHIJEET Comment:Testing performed by : [address] [address] Alk phos 122 40 - 130 Units/L ABHIJEET Comment:Testing performed by : [address] [address] ALT 22 7 - 45 Units/L ABHIJEET Comment:Testing performed by : [address] [address] AST 29 10 - 45 Units/L ABHIJEET Comment:Testing performed by : [address] [address] Blood 12/15/2024 10:1 8 AM LITHOGRAPHIC PRESS OPERATOR APPRENTICE 12/15/2024 10:19 AM LITHOGRAPHIC PRESS OPERATOR APPRENTICE us Jose G Jimenez MD LAB BLOOD ORDERABLES Final Result ABHIJEET [address] [facility] Department [place] [address] * eGFR (12/01/2024 12:48 PM LITHOGRAPHIC PRESS OPERATOR APPRENTICE) eGFR >90 >=60 mL/min/1. 73 m2 Comment: Interpretive Data Reference Interval Normal >/= 90 mL/min/1.73m2 Mildly decreased* 60 - 89 mL/min/1.73m2 Mildly to moderately decreased 45 - 59 mL/min/1.73m2 Moderately to severely decreased 30 - 44 mL/min/1.73m2 Severely decreased 15 - 29 mL/min/1.73m2 Kidney Failure < 15 mL/min/1.73m2 *Relative to young adult level Estimated glomerular [...] was last reviewed 2021. Testing performed by: [address] [address] Blood 12/01/2024 12:4 8 PM LITHOGRAPHIC PRESS OPERATOR APPRENTICE 12/01/2024 12:56 PM LITHOGRAPHIC PRESS OPERATOR APPRENTICE Jose G Jimenez MD LAB BLOOD ORDERABLES Final Result [facility] [address] [facility] [place] [address] * Differential, auto (12/01/2024 12:48 PM LITHOGRAPHIC PRESS OPERATOR APPRENTICE) Neutrophil abs 3.5 1.5 - 6.5 K/cumm Comment:Testing performed by : [address] [address] Imm gran abs 0.0 0.0 - 0.1 K/cumm ABHIJEET Comment:Testing performed by : [address] [address] Lymphocyte abs 2.0 0.8 - 3.3 K/cumm ABHIJEET Comment:Testing performed by : [address] [address] Monocyte abs 0.6 0.2 - 0.8 K/cumm ABHIJEET Comment:Testing performed by : [address] [address] Eosinophil abs 0.1 0.0 - 0.5 K/cumm [facility] Comment:Testing performed by : [address] [address] Basophil abs 0.0 0.0 - 0.1 K/cumm [facility] Comment:Testing performed by : [address] [address] Neutrophil pct 55.8 % [facility] Comment: Interpretive Data Percent cell count reference ranges are not reported, since discordance with absolute values may lead to misinterpretation of CBC data. Current Interpretive Data was last revised on 2018. Testing performed by: [address] [address] Imm gran pct 0.3 % [facility] Comment: Interpretive Data Percent cell count reference ranges are not reported, since discordance with absolute values may lead to misinterpretation of CBC data. Current Interpretive Data was last revised on 2018. Testing performed by: [address] [address] Lymphocyte pct 32.0 % [facility] Comment: Interpretive Data Percent cell count reference ranges are not reported, since discordance with absolute values may lead to misinterpretation of CBC data. Current Interpretive Data was last revised on 2018. Testing performed by: [address] [address] Monocyte pct 10.0 % [facility] Comment: Interpretive Data Percent cell count reference ranges are not reported, since discordance with absolute values may lead to misinterpretation of CBC data. Current Interpretive Data was last revised on 2018. Testing performed by: [address] [address] Eosinophil pct 1.4 % [facility] Comment: Interpretive Data Percent cell count reference ranges are not reported, since discordance with absolute values may lead to misinterpretation of CBC data. Current Interpretive Data was last revised on 2018. Testing performed by: [address] [address] Basophil pct 0.5 % [facility] Comment: Interpretive Data Percent cell count reference ranges are not reported, since discordance with absolute values may lead to misinterpretation of CBC data. Current Interpretive Data was last revised on 2018. Testing performed by: [address] [address] Blood 12/01/2024 12:4 8 PM LITHOGRAPHIC PRESS OPERATOR APPRENTICE 12/01/2024 12:56 PM LITHOGRAPHIC PRESS OPERATOR APPRENTICE Jose G Jimenez MD LAB BLOOD ORDERABLES Final Result Performing Organization Address City/[facility] Co de Phone Number RANCHO[address] [place] [address] * Thyroid Function [place] (12/01/2024 12:48 PM LITHOGRAPHIC PRESS OPERATOR APPRENTICE) Pathologist [facility] TSH 3.07 0.30 - 4.20 mcIUnit/mL Comment:Testing performed by : [address] [address] Blood 12/01/2024 12:4 8 PM LITHOGRAPHIC PRESS OPERATOR APPRENTICE 12/01/2024 1:44 PM LITHOGRAPHIC PRESS OPERATOR APPRENTICE Jose G Jimenez MD LAB BLOOD ORDERABLES Final Result Performing Organization Address [facility] de Phone Number [address] [address] * CBC with auto differential (12/01/2024 12:48 PM LITHOGRAPHIC PRESS OPERATOR APPRENTICE) Pathologist [facility] WBC 6.3 3.8 - 9.9 K/cumm Comment:Testing performed by : [address] [address] Hgb 12.5 11.9 - 15.5 g/dL ABHIJEET Comment:Testing performed by : [address] [address] Hct 37.1 35.6 - 45.5 % ABHIJEET NOONAN Comment:Testing performed by : [address] [address] Plt 217 150 - 400 K/cumm ABHIJEET NOONAN Comment:Testing performed by : [address] [address] MPV 9.9 9.1 - 12.3 fL ABHIJEET NOONAN Comment:Testing performed by : [address], [address] RBC 4.38 3.90 - 5.20 M/cumm ABHIJEET NOONAN Comment:Testing performed by : [address] [address] MCV 84.7 81.3 - 96.4 fL ABIHJEET NOONAN Comment:Testing performed by : [address] [address] MCH 28.5 27.1 - 33.3 pg ABHIJEET NOONAN Comment:Testing performed by : [address] [address] MCHC 33.7 32.3 - 35.7 g/dL ABHIJEET NOONAN Comment:Testing performed by : [address] [address] RDW CV 13.8 11.1 - 14.9 % ABHIJEET Comment:Testing performed by : [address] [address] RDW SD 42.7 35.7 - 48.1 fL ABHIJEET Comment:Testing performed by : [address] [address] NRBC abs 0.00 0.00 - 0.01 K/cumm ABHIJEET Comment:Testing performed by : [address] [address] Blood 12/01/2024 12:4 8 PM LITHOGRAPHIC PRESS OPERATOR APPRENTICE 12/01/2024 12:56 PM LITHOGRAPHIC PRESS OPERATOR APPRENTICE us Jose G Jimenez MD LAB BLOOD ORDERABLES Final Result ABHIJEET [facility] [place] [address] * Cortisol (12/01/2024 12:48 PM LITHOGRAPHIC PRESS OPERATOR APPRENTICE) Cortisol 10.0 4.8 - 19.5 mcg/dl Blood 12/01/2024 12:4 8 PM LITHOGRAPHIC PRESS OPERATOR APPRENTICE 12/01/2024 2:40 PM LITHOGRAPHIC PRESS OPERATOR APPRENTICE Jose G Jimenez MD LAB BLOOD ORDERABLES Final Result Performing Organization Address [facility] de Phone Number ABHIJEET [address] [facility] [address] * CEA (12/01/2024 12:48 PM LITHOGRAPHIC PRESS OPERATOR APPRENTICE) Pathologist [facility] CEA 1.4 <=5.0 ng/mL Comment: Interpretive Data: Reference Range: Non-Smokers: 0.0 5.0 ng/mL Smokers: 0.0 6.5 ng/mL The Benny CEA assay procedure was used. Results from different manufacturers or methods may not be comparable. Serial testing should be performed using the same method. Current interpretive data was last revised 2023. Testing performed by: [address] [address] Blood 12/01/2024 12:4 8 PM LITHOGRAPHIC PRESS OPERATOR APPRENTICE 12/01/2024 1:44 PM LITHOGRAPHIC PRESS OPERATOR APPRENTICE Jose G Jimenez MD LAB BLOOD ORDERABLES Final Result Performing Organization Address [facility] de Phone Number ABHIJEET [address] [place] [address] * Comprehensive metabolic panel (12/01/2024 12:48 PM LITHOGRAPHIC PRESS OPERATOR APPRENTICE) Pathologist [facility] Sodium 140 135 - 145 mmol/L Comment:Testing performed by : [address] [address] Potassium, pl 3.9 3.3 - 4.9 mmol/L ABHIJEET Comment:Testing performed by : [address] [address] Chloride 102 97 - 110 mmol/L ABHIJEET Comment:Testing performed by : [address] [address] CO2 27 22 - 32 mmol/L ABHIJEET Comment:Testing performed by : [address] [address] Anion gap 11 2 - 15 mmol/L ABHIJEET Comment:Testing performed by : [address] [address] BUN 22 6 - 25 mg/dL ABHIJEET Comment:Testing performed by : [address] [address] Creatinine 0.70 0.60 - 1.10 mg/dL ABHIJEET Comment:Testing performed by : [address] [address] Glucose 89 70 - 199 mg/dL ABHIJEET Comment: Interpretive Data Fasting glucose >/= 126 mg/dl is diagnostic for diabetes. Fasting is defined as no caloric intake [...] was last revised 2022. Testing performed by: [address] [address] Calcium 9.6 8.5 - 10.3 mg/dL ABHIJEET Comment:Testing performed by : [address] [address] Bilirubin, total 0.5 0.1 - 1.2 mg/dL ABHIJEET Comment:Testing performed by : [address] [address] Protein, pl 7.4 6.5 - 8.5 g/dL ABHIJEET Comment:Testing performed by : [address] [address] Albumin 4.2 3.5 - 5.0 g/dL ABHIJEET Comment:Testing performed by : [address] [address] Alk phos 120 40 - 130 Units/L BAHIJEET Comment:Testing performed by : [address] [address] ALT 20 7 - 45 Units/L ABHIJEET Comment:Testing performed by : [address] [address] AST 32 10 - 45 Units/L ABHIJEET Comment:Testing performed by : [address] [address] Blood 12/01/2024 12:4 8 PM LITHOGRAPHIC PRESS OPERATOR APPRENTICE 12/01/2024 12:56 PM LITHOGRAPHIC PRESS OPERATOR APPRENTICE Jose G Jimenez MD LAB BLOOD ORDERABLES Final Result Performing Organization Address City/[facility] Co de Phone Number ABHIJEET [address] [facility] [place] [address] * eGFR (11/17/2024 12:40 PM LITHOGRAPHIC PRESS OPERATOR APPRENTICE) eGFR >90 >=60 mL/min/1. 73 m2 Comment: Interpretive Data Reference Interval Normal >/= 90 mL/min/1.73m2 Mildly decreased* 60 - 89 mL/min/1.73m2 Mildly to moderately decreased 45 - 59 mL/min/1.73m2 Moderately to severely decreased 30 - 44 mL/min/1.73m2 Severely decreased 15 - 29 mL/min/1.73m2 Kidney Failure < 15 mL/min/1.73m2 *Relative to young adult level Estimated glomerular [...] was last reviewed 2021. Testing performed by: [address] [address] Blood 11/17/2024 12:4 0 PM LITHOGRAPHIC PRESS OPERATOR APPRENTICE 11/17/2024 12:43 PM LITHOGRAPHIC PRESS OPERATOR APPRENTICE Jose G Jimenez MD LAB BLOOD ORDERABLES Final Result Performing Organization Address City/[facility]/ZIP Co de Phone Number RANCHOMARISSA [address] [facility] Department [place] [address] * Differential, auto (11/17/2024 12:40 PM LITHOGRAPHIC PRESS OPERATOR APPRENTICE) Neutrophil abs 2.7 1.5 - 6.5 K/cumm Comment:Testing performed by : [address] [address] Imm gran abs 0.0 0.0 - 0.1 K/cumm ABHIJEET Comment:Testing performed by : [address] [address] Lymphocyte abs 2.3 0.8 - 3.3 K/cumm CERMARISSA Comment:Testing performed by : [address] [address] Monocyte abs 0.5 0.2 - 0.8 K/cumm [facility] Comment:Testing performed by : [address] [address] Eosinophil abs 0.1 0.0 - 0.5 K/cumm ABHIJEET Comment:Testing performed by : [address] [address] Basophil abs 0.0 0.0 - 0.1 K/cumm [facility] Comment:Testing performed by : [address] [address] Neutrophil pct 47.7 % [facility] Comment: Interpretive Data Percent cell count reference ranges are not reported, since discordance with absolute values may lead to misinterpretation of CBC data. Current Interpretive Data was last revised on 2018. Testing performed by: [address] [address] Imm gran pct 0.2 % CERNER Comment: Interpretive Data Percent cell count reference ranges are not reported, since discordance with absolute values may lead to misinterpretation of CBC data. Current Interpretive Data was last revised on 2018. Testing performed by: [address] [address] Lymphocyte pct 39.8 % CERNER Comment: Interpretive Data Percent cell count reference ranges are not reported, since discordance with absolute values may lead to misinterpretation of CBC data. Current Interpretive Data was last revised on 2018. Testing performed by: [address] [address] Monocyte pct 9.3 % ABHIJEET Comment: Interpretive Data Percent cell count reference ranges are not reported, since discordance with absolute values may lead to misinterpretation of CBC data. Current Interpretive Data was last revised on 2018. Testing performed by: [address] [address] Eosinophil pct 2.5 % ABHIJEET Comment: Interpretive Data Percent cell count reference ranges are not reported, since discordance with absolute values may lead to misinterpretation of CBC data. Current Interpretive Data was last revised on 2018. Testing performed by: [address] [address] Basophil pct 0.5 % ABHIJEET Comment: Interpretive Data Percent cell count reference ranges are not reported, since discordance with absolute values may lead to misinterpretation of CBC data. Current Interpretive Data was last revised on 2018. Testing performed by: [address] [address] Blood 11/17/2024 12:4 0 PM LITHOGRAPHIC PRESS OPERATOR APPRENTICE 11/17/2024 12:43 PM LITHOGRAPHIC PRESS OPERATOR APPRENTICE us Jose G Jimenez MD LAB BLOOD ORDERABLES Final Result [facility] [address] [facility] Department of Laboratories [place], [place] [id number] * (ABNORMAL) CBC with auto differential (11/17/2024 12:40 PM LITHOGRAPHIC PRESS OPERATOR APPRENTICE) WBC 5.7 3.8 - 9.9 K/cumm Comment:Testing performed by : [address] [address] Hgb 11.4(L) 11.9 - 15.5 g/dL ABHIJEET NOONAN Comment:Testing performed by : [address] [address] Hct 34.6(L) 35.6 - 45.5 % ABHIJEET Comment:Testing performed by : [address] [address] Plt 165 150 - 400 K/cumm ABHIJEET NOONAN Comment:Testing performed by : [address] [address] MPV 10.4 9.1 - 12.3 fL ABHIJEET NOONAN Comment:Testing performed by : [address] [address] RBC 3.99 3.90 - 5.20 M/cumm ABHIJEET NOONAN Comment:Testing performed by : [address] [address] MCV 86.7 81.3 - 96.4 fL ABHIJEET Comment:Testing performed by : [address] [address] MCH 28.6 27.1 - 33.3 pg ABHIJEET NOONAN Comment:Testing performed by : [address] [address] MCHC 32.9 32.3 - 35.7 g/dL ABHIJEET Comment:Testing performed by : [address] [address] RDW CV 14.6 11.1 - 14.9 % ABHIJEET Comment:Testing performed by : [address] [address] RDW SD 46.9 35.7 - 48.1 fL ABHIJEET NOONAN Comment:Testing performed by : [address] [address] NRBC abs 0.00 0.00 - 0.01 K/cumm ABHIJEET Comment:Testing performed by : [address] [address] Blood 11/17/2024 12:4 0 PM LITHOGRAPHIC PRESS OPERATOR APPRENTICE 11/17/2024 12:43 PM LITHOGRAPHIC PRESS OPERATOR APPRENTICE us Jose G Jimenez MD LAB BLOOD ORDERABLES Final Result ABHIJEET [address] [facility] [place] [address] * (ABNORMAL) Comprehensive metabolic panel (11/17/2024 12:40 PM LITHOGRAPHIC PRESS OPERATOR APPRENTICE) Sodium 141 135 - 145 mmol/L Comment:Testing performed by : [address] [address] Potassium, pl 3.9 3.3 - 4.9 mmol/L ABHIJEET Comment:Testing performed by : [address], [place]., [address] Chloride 105 97 - 110 mmol/L ABHIJEET Comment:Testing performed by : [address], [place]., [address] CO2 26 22 - 32 mmol/L ABHIJEET Comment:Testing performed by : [address], [place]., [address] Anion gap 10 2 - 15 mmol/L ABHIJEET Comment:Testing performed by : [address], [place]., [address] BUN 15 6 - 25 mg/dL ABHIJEET Comment:Testing performed by : [address] [address] Creatinine 0.60 0.60 - 1.10 mg/dL ABHIJEET Comment:Testing performed by : [address] [address] Glucose 127 70 - 199 mg/dL ABHIJEET Comment: Interpretive Data Fasting glucose >/= 126 mg/dl is diagnostic for diabetes. Fasting is defined as no caloric intake [...] was last revised 2022. Testing performed by: [address] [address] Calcium 9.0 8.5 - 10.3 mg/dL ABHIJEET Comment:Testing performed by : [address], [place]., [address] Bilirubin, total 0.2 0.1 - 1.2 mg/dL ABHIJEET NOONAN Comment:Testing performed by : [facility], [address] [place] [address]., [address] Protein, pl 6.9 6.5 - 8.5 g/dL ABHIJEET NOONAN Comment:Testing performed by : [address] [address] Albumin 3.8 3.5 - 5.0 g/dL ABHIJEET Comment:Testing performed by : [address] [address] Alk phos 139(H) 40 - 130 Units/L ABHIJEET Comment:Testing performed by : [address] [address] ALT 18 7 - 45 Units/L ABHIJEET Comment:Testing performed by : [address] [address] AST 25 10 - 45 Units/L ABHIJEET Comment:Testing performed by : [address] [address] Blood 11/17/2024 12:4 0 PM LITHOGRAPHIC PRESS OPERATOR APPRENTICE 11/17/2024 12:43 PM LITHOGRAPHIC PRESS OPERATOR APPRENTICE Jose G Jimenez MD LAB BLOOD ORDERABLES Final Result ABHIJEET [address] [facility] [place] [address] * eGFR (11/03/2024 9:39 AM LITHOGRAPHIC PRESS OPERATOR APPRENTICE) eGFR >90 >=60 mL/min/1. 73 m2 Comment: Interpretive Data Reference Interval Normal >/= 90 mL/min/1.73m2 Mildly decreased* 60 - 89 mL/min/1.73m2 Mildly to moderately decreased 45 - 59 mL/min/1.73m2 Moderately to severely decreased 30 - 44 mL/min/1.73m2 Severely decreased 15 - 29 mL/min/1.73m2 Kidney Failure < 15 mL/min/1.73m2 *Relative to young adult level Estimated glomerular [...] was last reviewed 2021. Testing performed by: [address] [address] Blood 11/03/2024 9:39 AM LITHOGRAPHIC PRESS OPERATOR APPRENTICE 11/03/2024 9:40 AM LITHOGRAPHIC PRESS OPERATOR APPRENTICE us Jose G Jimenez MD LAB BLOOD ORDERABLES Final Result ABHIJEET [address] [facility] Department [place] [address] * Differential, auto (11/03/2024 9:39 AM LITHOGRAPHIC PRESS OPERATOR APPRENTICE) Neutrophil abs 3.6 1.5 - 6.5 K/cumm Comment:Testing performed by : [address] [address] Imm gran abs 0.0 0.0 - 0.1 K/cumm ABHIJEET Comment:Testing performed by : [address] [address] Lymphocyte abs 1.6 0.8 - 3.3 K/cumm ABHIJEET Comment:Testing performed by : [address] [address] Monocyte abs 0.4 0.2 - 0.8 K/cumm ABHIJEET Comment:Testing performed by : [address] [address] Eosinophil abs 0.1 0.0 - 0.5 K/cumm ABHIJEET Comment:Testing performed by : [address] [address] Basophil abs 0.0 0.0 - 0.1 K/cumm ABHIJEET Comment:Testing performed by : [address] [address] Neutrophil pct 63.4 % ABHIJEET Comment: Interpretive Data Percent cell count reference ranges are not reported, since discordance with absolute values may lead to misinterpretation of CBC data. Current Interpretive Data was last revised on 2018. Testing performed by: [address] [address] Imm gran pct 0.2 % [facility] Comment: Interpretive Data Percent cell count reference ranges are not reported, since discordance with absolute values may lead to misinterpretation of CBC data. Current Interpretive Data was last revised on 2018. Testing performed by: [address] [address] Lymphocyte pct 27.1 % [facility] Comment: Interpretive Data Percent cell count reference ranges are not reported, since discordance with absolute values may lead to misinterpretation of CBC data. Current Interpretive Data was last revised on 2018. Testing performed by: [address] [address] Monocyte pct 7.0 % [facility] Comment: Interpretive Data Percent cell count reference ranges are not reported, since discordance with absolute values may lead to misinterpretation of CBC data. Current Interpretive Data was last revised on 2018. Testing performed by: [address] [address] Eosinophil pct 1.8 % [facility] Comment: Interpretive Data Percent cell count reference ranges are not reported, since discordance with absolute values may lead to misinterpretation of CBC data. Current Interpretive Data was last revised on 2018. Testing performed by: [address] [address] Basophil pct 0.5 % [facility] Comment: Interpretive Data Percent cell count reference ranges are not reported, since discordance with absolute values may lead to misinterpretation of CBC data. Current Interpretive Data was last revised on 2018. Testing performed by: [address] [address] Blood 11/03/2024 9:39 AM LITHOGRAPHIC PRESS OPERATOR APPRENTICE 11/03/2024 9:40 AM LITHOGRAPHIC PRESS OPERATOR APPRENTICE Jose G Jimenez MD LAB BLOOD ORDERABLES Final Result ABHIJEET [address] [facility] [place] [address] * (ABNORMAL) CBC with auto differential (11/03/2024 9:39 AM LITHOGRAPHIC PRESS OPERATOR APPRENTICE) WBC 5.7 3.8 - 9.9 K/cumm Comment:Testing performed by : [address] [address] Hgb 11.8(L) 11.9 - 15.5 g/dL ABHIJEET Comment:Testing performed by : [address] [address] Hct 35.9 35.6 - 45.5 % ABHIJEET Comment:Testing performed by : [address] [address] Plt 211 150 - 400 K/cumm ABHIJEET Comment:Testing performed by : [address] [address] MPV 9.7 9.1 - 12.3 fL ABHIJEET Comment:Testing performed by : [address] [address] RBC 4.16 3.90 - 5.20 M/cumm ABHIJEET Comment:Testing performed by : [address] [address] MCV 86.3 81.3 - 96.4 fL ABHIJEET Comment:Testing performed by : [address] [address] MCH 28.4 27.1 - 33.3 pg ABHIJEET Comment:Testing performed by : [address] [address] MCHC 32.9 32.3 - 35.7 g/dL ABHIJEET Comment:Testing performed by : [address] [address] RDW CV 13.6 11.1 - 14.9 % ABHIJEET Comment:Testing performed by : [address] [address] RDW SD 43.5 35.7 - 48.1 fL CERMARISSA NOONAN Comment:Testing performed by : [address] [address] NRBC abs 0.00 0.00 - 0.01 K/cumm ABHIJEET NOONAN Comment:Testing performed by : [address] [address] Blood 11/03/2024 9:39 AM LITHOGRAPHIC PRESS OPERATOR APPRENTICE 11/03/2024 9:40 AM LITHOGRAPHIC PRESS OPERATOR APPRENTICE Jose G Jimenez MD LAB BLOOD ORDERABLES Final Result Performing Organization Address [facility] de Phone Number ABHIJEET [address] [place] [address] * CEA (11/03/2024 9:39 AM LITHOGRAPHIC PRESS OPERATOR APPRENTICE) Pathologist [facility] CEA 1.5 <=5.0 ng/mL Comment: Interpretive Data: Reference Range: Non-Smokers: 0.0 5.0 ng/mL Smokers: 0.0 6.5 ng/mL The Benny CEA assay procedure was used. Results from different manufacturers or methods may not be comparable. Serial testing should be performed using the same method. Current interpretive data was last revised 2023. Testing performed by: [address] [address] Blood 11/03/2024 9:39 AM LITHOGRAPHIC PRESS OPERATOR APPRENTICE 11/03/2024 11:30 AM LITHOGRAPHIC PRESS OPERATOR APPRENTICE Result [facility] Jose G Jimenez MD LAB BLOOD ORDERABLES Final Result Performing Organization Address [facility] de Phone Number [place] [id number] [facility] [place] [address] * Comprehensive metabolic panel (11/03/2024 9:39 AM LITHOGRAPHIC PRESS OPERATOR APPRENTICE) Pathologist [facility] Sodium 145 135 - 145 mmol/L Comment:Testing performed by : [address] [address] Potassium, pl 3.9 3.3 - 4.9 mmol/L ABHIJEET NOONAN Comment:Testing performed by : [address] [place]., [address] Chloride 108 97 - 110 mmol/L [facility] Comment:Testing performed by : [address], [place]., [address] CO2 27 22 - 32 mmol/L ABHIJEET Comment:Testing performed by : [address], [place]., [address] Anion gap 10 2 - 15 mmol/L [facility] Comment:Testing performed by : [address], [place]., [address] BUN 9 6 - 25 mg/dL [facility] Comment:Testing performed by : [address], [place]., [address] Creatinine 0.60 0.60 - 1.10 mg/dL [facility] Comment:Testing performed by : [address], [place]., [address] Glucose 98 70 - 199 mg/dL [facility] Comment: Interpretive Data Fasting glucose >/= 126 mg/dl is diagnostic for diabetes. Fasting is defined as no caloric intake [...] was last revised 2022. Testing performed by: [address] [address] Calcium 9.2 8.5 - 10.3 mg/dL [facility] Comment:Testing performed by : [address] [address] Bilirubin, total 0.3 0.1 - 1.2 mg/dL [facility] Comment:Testing performed by : [address] [address] Protein, pl 6.7 6.5 - 8.5 g/dL [facility] Comment:Testing performed by : [address] [address] Albumin 3.9 3.5 - 5.0 g/dL ABHIJEET NOONAN Comment:Testing performed by : [facility], [address] [place] [address]., [address] Alk phos 112 40 - 130 Units/L ABHIJEET NOONAN Comment:Testing performed by : [address] [address] ALT 18 7 - 45 Units/L ABHIJEET NOONAN Comment:Testing performed by : [address] [address] AST 27 10 - 45 Units/L ABHIJEET NOONAN Comment:Testing performed by : [address] [address] Blood 11/03/2024 9:39 AM LITHOGRAPHIC PRESS OPERATOR APPRENTICE 11/03/2024 9:40 AM LITHOGRAPHIC PRESS OPERATOR APPRENTICE Jose G Jimenez MD LAB BLOOD ORDERABLES Final Result ABHIJEET [address] [facility] Department [place] [address] * CT Chest Abdomen Pelvis W Contrast (10/27/2024 8:27 AM LITHOGRAPHIC PRESS OPERATOR APPRENTICE) Anatomical Region Laterality Modality Body N/A Computed Tomogra phy 11/01/2024 7:50 AM LITHOGRAPHIC PRESS OPERATOR APPRENTICE Narrative 11/01/2024 8:00 AM LITHOGRAPHIC PRESS OPERATOR APPRENTICE EXAM DESCRIPTION: CT CHEST ABDOMEN PELVIS W CONTRAST REASON FOR STUDY: Colon cancer with previous surgery. CT imaging for restaging and subsequent treatment strategy. TECHNIQUE: CT scan of the chest, abdomen, and pelvis performed with intravenous and without oral contrast using helical scanning technique with dynamic [...] no pneumonic consolidation present within either lung. Mild subsegmental scarring/atelectasis most evident in the right middle lobe and lingula. No suspicious pulmonary nodule. PLEURA: No [...] No masses. No subcutaneous air. HARDWARE/LINES/TUBES: Right Nzunct-V-Wlyh catheter is noted. Distal tip is at the cavoatrial junction MUSCULOSKELETAL CHEST: There [...] peripancreatic fluid collections. Pancreatic duct not dilated. ADRENALS: Normal. KIDNEYS/URINARY TRACT: No identified significant cystic or solid masses. No visualized stones. No hydronephrosis or hydroureter. Symmetric enhancement. Urinary bladder is unremarkable. GI: The stomach is decompressed. Small bowel loops are normal in caliber. There is no obstruction. Postsurgical changes of right hemicolectomy with ileocolonic anastomosis. There is increased stool burden within the colon. There is equivocal wall thickening involving the splenic flexure and descending colon, not significantly changed compared to the previous examination. Correlate with regards to any symptoms of colitis. PERITONEUM: There is no free intraperitoneal air. No significant free fluid. No mesenteric lymphadenopathy. RETROPERITONEUM: There are retroperitoneal nodes again demonstrated. Left posterolateral periaortic node measures 8 mm short axis, stable compared to the previous examination. Node on image 53 measures 1.6 x 0.8 cm, stable. Node on image 60 measures 6 mm short axis. The previously documented tubular soft tissue attenuation structure within the posterior right retroperitoneum interposed between the psoas and iliacus muscle is stable. External iliac chain node on the left on image number 108 measures 1 cm short axis, stable. Node on the right on image number 105 measures 9 mm short axis, stable. REPRODUCTIVE: The uterus and ovaries appear [...] Merced Michael M.D. TW T: Report ID: [id number] Reading Location: [id number] Procedure Note Merced Michael MD - 11/01/2024 [...] No masses. No subcutaneous air. HARDWARE/LINES/TUBES: Right Vsbwcn-T-Otxy catheter is noted. Distal tipis at the [...] Merced Michael M.D. TW T: Report ID: [id number] Reading Location: [id number] Jose G Jimenez MD IMG CT PROCEDURES Fi nal Result * eGFR (10/20/2024 8:23 AM LITHOGRAPHIC PRESS OPERATOR APPRENTICE) eGFR >90 >=60 mL/min/1. 73 m2 Comment: Interpretive Data Reference Interval Normal >/= 90 mL/min/1.73m2 Mildly decreased* 60 - 89 mL/min/1.73m2 Mildly to moderately decreased 45 - 59 mL/min/1.73m2 Moderately to severely decreased 30 - 44 mL/min/1.73m2 Severely decreased 15 - 29 mL/min/1.73m2 Kidney Failure < 15 mL/min/1.73m2 *Relative to young adult level Estimated glomerular [...] was last reviewed 2021. Testing performed by: [address] [address] Blood 10/20/2024 8:23 AM LITHOGRAPHIC PRESS OPERATOR APPRENTICE 10/20/2024 8:26 AM LITHOGRAPHIC PRESS OPERATOR APPRENTICE Jose G Jimenez MD LAB BLOOD ORDERABLES Final Result ABHIJEET [address] [facility] Department [place] [address] * Differential, auto (10/20/2024 8:23 AM LITHOGRAPHIC PRESS OPERATOR APPRENTICE) Pathologist [facility] Neutrophil abs 2.8 1.5 - 6.5 K/cumm Comment:Testing performed by : [address] [address] Imm gran abs 0.0 0.0 - 0.1 K/cumm ABHIJEET NOONAN Comment:Testing performed by : [address] [place]., [address] Lymphocyte abs 1.6 0.8 - 3.3 K/cumm CERNER Comment:Testing performed by : [address] [address] Monocyte abs 0.7 0.2 - 0.8 K/cumm CERNER Comment:Testing performed by : [address] [address] Eosinophil abs 0.1 0.0 - 0.5 K/cumm [facility] Comment:Testing performed by : [address] [address] Basophil abs 0.0 0.0 - 0.1 K/cumm CERMARISSA Comment:Testing performed by : [address] [address] Neutrophil pct 52.6 % [facility] Comment: Interpretive Data Percent cell count reference ranges are not reported, since discordance with absolute values may lead to misinterpretation of CBC data. Current Interpretive Data was last revised on 2018. Testing performed by: [address] [address] Imm gran pct 0.2 % [facility] Comment: Interpretive Data Percent cell count reference ranges are not reported, since discordance with absolute values may lead to misinterpretation of CBC data. Current Interpretive Data was last revised on 2018. Testing performed by: [address] [address] Lymphocyte pct 30.6 % [facility] Comment: Interpretive Data Percent cell count reference ranges are not reported, since discordance with absolute values may lead to misinterpretation of CBC data. Current Interpretive Data was last revised on 2018. Testing performed by: [address] [address] Monocyte pct 13.3 % CERNER Comment: Interpretive Data Percent cell count reference ranges are not reported, since discordance with absolute values may lead to misinterpretation of CBC data. Current Interpretive Data was last revised on 2018. Testing performed by: [address] [address] Eosinophil pct 2.5 % CERNER Comment: Interpretive Data Percent cell count reference ranges are not reported, since discordance with absolute values may lead to misinterpretation of CBC data. Current Interpretive Data was last revised on 2018. Testing performed by: [address] [address] Basophil pct 0.8 % ABHIJEET NOONAN Comment: Interpretive Data Percent cell count reference ranges are not reported, since discordance with absolute values may lead to misinterpretation of CBC data. Current Interpretive Data was last revised on 2018. Testing performed by: [address] [address] Blood 10/20/2024 8:23 AM LITHOGRAPHIC PRESS OPERATOR APPRENTICE 10/20/2024 8:26 AM LITHOGRAPHIC PRESS OPERATOR APPRENTICE Jose G Jimenez MD LAB BLOOD ORDERABLES Final Result Performing Organization Address [facility]/ZIP Co de Phone Number [address] [place] [address] * Thyroid Function [place] (10/20/2024 8:23 AM LITHOGRAPHIC PRESS OPERATOR APPRENTICE) TSH 4.13 0.30 - 4.20 mcIUnit/mL Comment:Testing performed by : [address] [address] Blood 10/20/2024 8:23 AM LITHOGRAPHIC PRESS OPERATOR APPRENTICE 10/20/2024 9:55 AM LITHOGRAPHIC PRESS OPERATOR APPRENTICE Jose G Jimenez MD LAB BLOOD ORDERABLES Final Result [address] [place] [address] * (ABNORMAL) CBC with auto differential (10/20/2024 8:23 AM LITHOGRAPHIC PRESS OPERATOR APPRENTICE) WBC 5.3 3.8 - 9.9 K/cumm Comment:Testing performed by : [address] [address] Hgb 11.7(L) 11.9 - 15.5 g/dL ABHIJEET NOONAN Comment:Testing performed by : [address], [address] Hct 35.4(L) 35.6 - 45.5 % ABHIJEET Comment:Testing performed by : [address] [address] Plt 131(L) 150 - 400 K/cumm ABHIJEET Comment:Testing performed by : [address] [address] MPV 9.8 9.1 - 12.3 fL ABHIJEET Comment:Testing performed by : [address], [address] RBC 4.07 3.90 - 5.20 M/cumm ABHIJEET Comment:Testing performed by : [address], [address] MCV 87.0 81.3 - 96.4 fL ABHIJEET Comment:Testing performed by : [address], [address] MCH 28.7 27.1 - 33.3 pg ABHIJEET Comment:Testing performed by : [address], [address] MCHC 33.1 32.3 - 35.7 g/dL ABHIJEET Comment:Testing performed by : [address], [address] RDW CV 14.3 11.1 - 14.9 % ABHIJEET Comment:Testing performed by : [address], [address] RDW SD 45.7 35.7 - 48.1 fL ABHIJEET Comment:Testing performed by : [address], [address] NRBC abs 0.00 0.00 - 0.01 K/cumm ABHIJEET Comment:Testing performed by : [address], [address] Blood 10/20/2024 8:23 AM LITHOGRAPHIC PRESS OPERATOR APPRENTICE 10/20/2024 8:26 AM LITHOGRAPHIC PRESS OPERATOR APPRENTICE Jose G Jimenez MD LAB BLOOD ORDERABLES Final Result ABHIJEET [address] [facility] [place] [address] * Cortisol (10/20/2024 8:23 AM LITHOGRAPHIC PRESS OPERATOR APPRENTICE) [facility] Cortisol 9.6 4.8 - 19.5 mcg/dl Blood 10/20/2024 8:23 AM LITHOGRAPHIC PRESS OPERATOR APPRENTICE 10/20/2024 12:38 PM LITHOGRAPHIC PRESS OPERATOR APPRENTICE us Jose G Jimenez MD LAB BLOOD ORDERABLES Final Result Performing Organization Address [facility] Co de Phone Number ABHIJEET [address] [facility] [place] [address] * Comprehensive metabolic panel (10/20/2024 8:23 AM LITHOGRAPHIC PRESS OPERATOR APPRENTICE) [facility] Sodium 143 135 - 145 mmol/L Comment:Testing performed by : [address] [address] Potassium, pl 4.0 3.3 - 4.9 mmol/L ABHIJEET Comment:Testing performed by : [address] [address] Chloride 105 97 - 110 mmol/L ABHIJEET Comment:Testing performed by : [address] [address] CO2 27 22 - 32 mmol/L ABHIJEET Comment:Testing performed by : [address] [address] Anion gap 11 2 - 15 mmol/L ABHIJEET Comment:Testing performed by : [address] [address] BUN 12 6 - 25 mg/dL ABHIJEET Comment:Testing performed by : [address] [address] Creatinine 0.70 0.60 - 1.10 mg/dL ABHIJEET Comment:Testing performed by : [address] [address] Glucose 101 70 - 199 mg/dL ABHIJEET Comment: Interpretive Data Fasting glucose >/= 126 mg/dl is diagnostic for diabetes. Fasting is defined as no caloric intake [...] was last revised 2022. Testing performed by: [address] [address] Calcium 9.2 8.5 - 10.3 mg/dL ABHIJEET Comment:Testing performed by : [address] [address] Bilirubin, total 0.5 0.1 - 1.2 mg/dL ABHIJEET Comment:Testing performed by : [address] [address] Protein, pl 6.7 6.5 - 8.5 g/dL ABHIJEET Comment:Testing performed by : [address] [address] Albumin 3.7 3.5 - 5.0 g/dL ABHIJEET Comment:Testing performed by : [address] [address] Alk phos 121 40 - 130 Units/L ABHIJEET Comment:Testing performed by : [address] [address] ALT 19 7 - 45 Units/L ABHIJEET Comment:Testing performed by : [address] [address] AST 27 10 - 45 Units/L ABHIJEET Comment:Testing performed by : [address] [address] Blood 10/20/2024 8:23 AM LITHOGRAPHIC PRESS OPERATOR APPRENTICE 10/20/2024 8:26 AM LITHOGRAPHIC PRESS OPERATOR APPRENTICE us Jose G Jimenez MD LAB BLOOD ORDERABLES Final Result ABHIJEET [address] [facility] [place] [address] from Last 3 Months Insurance [facility] CHOICE PLUS [facility] HMO/PPO Address: [address] [place] [address] MEDICARE [facility] MEDICARE MEDICARE Advance Directives For more information, please contact: [phone] * Full Code (Latest Code Status on File) Date Activated Date Inactivated Comments 06/27/2022 7:04 AM 06/28/2022 5:09 AM Care Teams Patrol Supervisor Relationship Specialty Start Date End Date Rodney Mckay MD PCP - General Internal Medicine 05/30/22 Yves Moreno DO [address] [facility] [address] [facility] [address] [place], [place] [id number] Referring Physician Surgery 06/04/22 Jose G Jimenez MD [facility], [facility] [address] [place] [address] Medical Oncologist/Chief Enterprise Architect Medical Oncology 09/04/23
--- OUTSIDE RECORDS SUMMARY | 2025-01-12 13:14 | XMS_ITS | Clinical Summary ---
Author Organization [address] Address [address] [place] [phone] Care Team Providers Care Java Jsf Developer Name Role Phone Rodney Mckay MD Primary Care Provider [phone] Yves Moreno DO Unavailable [phone] Jose G Jimenez MD Unavailable [phone] Allergies Active Allergy Reactions Criticality Noted Date [...] with simethicone-diphen hydramine-lidocain e (MAGIC MOUTHWASH) suspension 5-2-0Exfweqprdhl:C hemotherapy-Induce d Mucositis Swish and swallow 15 [...] Department Care Team Description 01/12/2025 Orders Only [facility] Oncology [address] [place] [phone] Monica Wilder, RN 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); Malignant neoplasm of ascending colon (CMS/HCC) (HCC) 01/12/2025 Orders Only [facility] Oncology [address] [place] [phone] Jose G Jimenez MD 01/12/2025 Telephone [facility] Bone Marrow Transplant [address] [place] [phone] Adela Leal RN 12/29/2024 10:45 AM LUNCH TRUCK DRIVER Infusion [address] [phone] Malignant neoplasm of ascending colon (CMS/HCC) (HCC) (Primary Dx); 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) 12/29/2024 10:15 AM LUNCH TRUCK DRIVER Clinical Support [address] [address] 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); Malignant neoplasm of ascending colon (CMS/HCC) (HCC) 12/29/2024 Orders Only [facility] Oncology [address] [place] [phone] Jose G Jimenez MD 12/29/2024 Orders Only [facility] Oncology [address] [place] [phone] Monica Wilder, RN 12/15/2024 11:00 AM LUNCH TRUCK DRIVER Infusion [address] [phone] Malignant neoplasm of ascending colon (CMS/HCC) (HCC) (Primary Dx); 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) 12/15/2024 10:30 AM LUNCH TRUCK DRIVER Office Visit [facility] Oncology [address] [place] [phone] Jose G Jimenez MD Malignant neoplasm of ascending colon (CMS/HCC) (HCC) (Primary Dx); 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) 12/15/2024 10:00 AM LUNCH TRUCK DRIVER Clinical Support [facility] at [address] [address] 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); Malignant neoplasm of ascending colon (CMS/HCC) (HCC) 12/01/2024 1:00 PM LUNCH TRUCK DRIVER Infusion [facility] at [address] [phone] Malignant neoplasm of ascending colon (CMS/HCC) (HCC) (Primary Dx); 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) 12/01/2024 12:30 PM LUNCH TRUCK DRIVER Clinical Support [facility] at [address] [address] 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); Malignant neoplasm of ascending colon (CMS/HCC) (HCC) 12/01/2024 Orders Only [facility] Oncology [address] [place] [phone] Jose G Jimenez MD 11/17/2024 1:00 PM LUNCH TRUCK DRIVER Infusion [facility] at [address] [phone] Malignant neoplasm of ascending colon (CMS/HCC) (HCC) (Primary Dx); 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) 11/17/2024 12:30 PM LUNCH TRUCK DRIVER Clinical Support [facility] at [address] [address] 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); Malignant neoplasm of ascending colon (CMS/HCC) (HCC) 11/17/2024 Orders Only [facility] Oncology [address] [place] [phone] Kathie Stockton NP 11/17/2024 Orders Only [facility] Oncology [address] [place] [phone] Monica Wilder, AJ 11/03/2024 10:45 AM LUNCH TRUCK DRIVER Infusion [facility] at [address] [phone] Malignant neoplasm of ascending colon (CMS/HCC) (HCC) (Primary Dx); 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) 11/03/2024 10:15 AM LUNCH TRUCK DRIVER Office Visit [facility] Oncology [address] [place] [phone] Jose G Jimenez MD Malignant neoplasm of ascending colon (CMS/HCC) (HCC) (Primary Dx); 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); Malignant neoplasm of ascending colon (CMS/HCC) (HCC) 10/20/2024 Orders Only [facility]'s [address] [phone] Jose G Jimenez MD 10/13/2024 Orders Only [facility] Hematology [address] [place] [address] Provider, MD Adore from Last 3 Months Immunizations Immunization Administration Dates Next Due Influenza, [...] on file Legal Sex Female 12:09 PM LUNCH TRUCK DRIVER Gender Identity Not on file Sexual Orientation Not on file Obstetrics History Last Filed Vital Signs Vital Sign Reading Time Taken Comments Blood Pressure 94/63 12/29/2024 10:26 AM LUNCH TRUCK DRIVER pt has been feeling very tired x3-4 days Pulse 81 12/29/2024 10:26 AM LUNCH TRUCK DRIVER Temperature 36.8 C (98.3 F) 12/29/2024 10:26 AM LUNCH TRUCK DRIVER Respiratory Rate 20 12/29/2024 10:2 6 AM LUNCH TRUCK DRIVER Oxygen Saturation 96% 12/29/2024 10: 26 AM LUNCH TRUCK DRIVER Inhaled Oxygen Concentration - - Weight 63.9 kg (140 lb 12.8 oz) 12/29/2024 10:26 AM LUNCH TRUCK DRIVER w/o shoes Height 160 cm (5' 3 ) 08/18/2024 9:36 AM CDT Body Mass Index 24.94 08/18/2024 9:36 AM CDT Plan of Treatment Health Maintenance Due Date Last Done Comments Breast Cancer Screening-Mammogram 1957 Colon Cancer Screening-Colonoscopy 1955 Depression Screening 1957 Hepatitis C Screening 1957 Osteoporosis Screening-Bone Density Scan 1957 Hepatitis B Screening 1975 Pneumococcal vaccine 65+ (1 of 2 - PCV) 1976 Well Visit 65+ 2022 Covid-19 Vaccine (4 - 2023-2 5 season) 2024 10/31/2021, 01/13/2021, 12/23/2020 Influenza Vaccine (#1) 2024 3, 08/29/2022, 08/10/2021, Additional history exists Fall Risk Assessment 07/26/2024 07/26/2023 DTaP/Tdap/Td Vaccine (3 - Td or Tdap) 06/14/2030 06/14/2020, 05/11/2009 Zoster Vaccine Completed 09/06/2019, 06/30/2019 Medical Devices Implanted Type Area Steam Pressure Chamber Operator Device Identifier Shelf Expiration Date Model / Serial / Lot [employer] Excela Low Porfile Power Port 8fr 1.6mm 1 Lumen [id number] - [id number] Implanted:Qty: 1 on 06/27/2022 at [facility] [employer] 02/06/2027 [id number] / / [id number] Procedures Procedure Name Priority Date/Time Associated Diagnosis Comments EGFR STAT 12/29/2024 10:05 AM LUNCH TRUCK DRIVER 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) Malignant neoplasm of ascending colon (CMS/HCC) (HCC) DIFFERENTIAL AUTO Routine 12/29/2024 10: 05 AM LUNCH TRUCK DRIVER 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) Malignant neoplasm of ascending colon (CMS/HCC) (HCC) CBC WITH AUTO DIFFERENTIAL Routine 12/29/2024 10:05 AM LUNCH TRUCK DRIVER 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) Malignant neoplasm of ascending colon (CMS/HCC) (HCC) COMPREHENSIVE METABOLIC PANEL STAT 12/29/2024 10:05 AM LUNCH TRUCK DRIVER 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) Malignant neoplasm of ascending colon (CMS/HCC) (HCC) EGFR STAT 12/15/2024 10:18 AM LUNCH TRUCK DRIVER 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) Malignant neoplasm of ascending colon (CMS/HCC) (HCC) DIFFERENTIAL AUTO Routine 12/15/2024 10: 18 AM LUNCH TRUCK DRIVER 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) Malignant neoplasm of ascending colon (CMS/HCC) (HCC) CBC WITH AUTO DIFFERENTIAL Routine 12/15/2024 10:18 AM LUNCH TRUCK DRIVER 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) Malignant neoplasm of ascending colon (CMS/HCC) (HCC) COMPREHENSIVE METABOLIC PANEL STAT 12/15/2024 10:18 AM LUNCH TRUCK DRIVER 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) Malignant neoplasm of ascending colon (CMS/HCC) (HCC) EGFR STAT 12/01/2024 12:48 PM LUNCH TRUCK DRIVER 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) Malignant neoplasm of ascending colon (CMS/HCC) (HCC) DIFFERENTIAL AUTO Routine 12/01/2024 12: 48 PM LUNCH TRUCK DRIVER 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) Malignant neoplasm of ascending colon (CMS/HCC) (HCC) CEA Routine 12/01/2024 12:48 PM LUNCH TRUCK DRIVER 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) Malignant neoplasm of ascending colon (CMS/HCC) (HCC) CBC WITH AUTO DIFFERENTIAL Routine 12/01/2024 12:48 PM LUNCH TRUCK DRIVER 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) Malignant neoplasm of ascending colon (CMS/HCC) (HCC) COMPREHENSIVE METABOLIC PANEL STAT 12/01/2024 12:48 PM LUNCH TRUCK DRIVER 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) Malignant neoplasm of ascending colon (CMS/HCC) (HCC) THYROID FUNCTION CASCADE STAT 12/01/2024 12:48 PM LUNCH TRUCK DRIVER 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) Malignant neoplasm of ascending colon (CMS/HCC) (HCC) CORTISOL Routine 12/01/2024 12:48 PM LUNCH TRUCK DRIVER 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) Malignant neoplasm of ascending colon (CMS/HCC) (HCC) EGFR STAT 11/17/2024 12:40 PM LUNCH TRUCK DRIVER 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) Malignant neoplasm of ascending colon (CMS/HCC) (HCC) DIFFERENTIAL AUTO Routine 11/17/2024 12: 40 PM LUNCH TRUCK DRIVER 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) Malignant neoplasm of ascending colon (CMS/HCC) (HCC) CBC WITH AUTO DIFFERENTIAL Routine 11/17/2024 12:40 PM LUNCH TRUCK DRIVER 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) Malignant neoplasm of ascending colon (CMS/HCC) (HCC) COMPREHENSIVE METABOLIC PANEL STAT 11/17/2024 12:40 PM LUNCH TRUCK DRIVER 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) Malignant neoplasm of ascending colon (CMS/HCC) (HCC) EGFR STAT 11/03/2024 9:39 AM LUNCH TRUCK DRIVER 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) Malignant neoplasm of ascending colon (CMS/HCC) (HCC) DIFFERENTIAL AUTO Routine 11/03/2024 9:3 9 AM LUNCH TRUCK DRIVER 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) Malignant neoplasm of ascending colon (CMS/HCC) (HCC) CEA Routine 11/03/2024 9:39 AM LUNCH TRUCK DRIVER Malignant neoplasm of ascending colon (CMS/HCC) (HCC) CBC WITH AUTO DIFFERENTIAL Routine 11/03/2024 9:39 AM LUNCH TRUCK DRIVER 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) Malignant neoplasm of ascending colon (CMS/HCC) (HCC) COMPREHENSIVE METABOLIC PANEL STAT 11/03/2024 9:39 AM LUNCH TRUCK DRIVER 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) Malignant neoplasm of ascending colon (CMS/HCC) (HCC) CT CHEST ABDOMEN PELVIS W CONTRAST Schedule Routine, Read Routine (OP Routine) 10/27/2024 8:27 AM LUNCH TRUCK DRIVER Malignant neoplasm of ascending colon (CMS/HCC) (HCC) EGFR STAT 10/20/2024 8:23 AM LUNCH TRUCK DRIVER 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) Malignant neoplasm of ascending colon (CMS/HCC) (HCC) DIFFERENTIAL AUTO Routine 10/20/2024 8:2 3 AM LUNCH TRUCK DRIVER 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) Malignant neoplasm of ascending colon (CMS/HCC) (HCC) CBC WITH AUTO DIFFERENTIAL Routine 10/20/2024 8:23 AM LUNCH TRUCK DRIVER 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) Malignant neoplasm of ascending colon (CMS/HCC) (HCC) COMPREHENSIVE METABOLIC PANEL STAT 10/20/2024 8:23 AM LUNCH TRUCK DRIVER 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 73 m2 Comment: [...] was last reviewed 2021. Testing performed by: [address] [address] Blood 12/29/2024 10:0 5 AM LUNCH TRUCK DRIVER 12/29/2024 10:06 AM LUNCH TRUCK DRIVER us Jose G Jimenez MD LAB BLOOD ORDERABLES Final Result [facility] Department [place] [address] * Differential, auto (12/29/2024 10:05 AM LUNCH TRUCK DRIVER) Neutrophil abs 2.7 1.5 - 6.5 K/cumm Comment:Testing performed by : [address] [address] Imm gran abs 0.0 0.0 - 0.1 K/cumm ABHIJEET Comment:Testing performed by : [address] [address] Lymphocyte abs 1.3 0.8 - 3.3 K/cumm ABHIJEET Comment:Testing performed by : [address] [address] Monocyte abs 0.5 0.2 - 0.8 K/cumm ABHIJEET Comment:Testing performed by : [address] [address] Eosinophil abs 0.1 0.0 - 0.5 K/cumm ABHIJEET Comment:Testing performed by : [address] [address] Basophil abs 0.0 0.0 - 0.1 K/cumm ABHIJEET Comment:Testing performed by : [address] [address] Neutrophil pct 59.7 % [facility] Comment: Interpretive Data Percent cell count reference ranges are not reported, since discordance with absolute values may lead to misinterpretation of CBC data. Current Interpretive Data was last revised on 2018. Testing performed by: [address] [address] Imm gran pct 0.4 % [facility] Comment: Interpretive Data Percent cell count reference ranges are not reported, since discordance with absolute values may lead to misinterpretation of CBC data. Current Interpretive Data was last revised on 2018. Testing performed by: [address] [address] Lymphocyte pct 27.7 % [facility] Comment: Interpretive Data Percent cell count reference ranges are not reported, since discordance with absolute values may lead to misinterpretation of CBC data. Current Interpretive Data was last revised on 2018. Testing performed by: [address] [address] Monocyte pct 10.5 % [facility] Comment: Interpretive Data Percent cell count reference ranges are not reported, since discordance with absolute values may lead to misinterpretation of CBC data. Current Interpretive Data was last revised on 2018. Testing performed by: [address] [address] Eosinophil pct 1.3 % [facility] Comment: Interpretive Data Percent cell count reference ranges are not reported, since discordance with absolute values may lead to misinterpretation of CBC data. Current Interpretive Data was last revised on 2018. Testing performed by: [address] [address] Basophil pct 0.4 % [facility] Comment: Interpretive Data Percent cell count reference ranges are not reported, since discordance with absolute values may lead to misinterpretation of CBC data. Current Interpretive Data was last revised on 2018. Testing performed by: [address] [address] Blood 12/29/2024 10:0 5 AM LUNCH TRUCK DRIVER 12/29/2024 10:06 AM LUNCH TRUCK DRIVER Jose G Jimenez MD LAB BLOOD ORDERABLES Final Result [facility] [address] [facility] Department [place] [address] * (ABNORMAL) CBC with auto differential (12/29/2024 10:05 AM LUNCH TRUCK DRIVER) WBC 4.6 3.8 - 9.9 K/cumm Comment:Testing performed by : [address] [address] Hgb 11.6(L) 11.9 - 15.5 g/dL ABHIJEET Comment:Testing performed by : [address] [address] Hct 35.0(L) 35.6 - 45.5 % ABHIJEET Comment:Testing performed by : [address] [address] Plt 154 150 - 400 K/cumm ABHIJEET Comment:Testing performed by : [address] [address] MPV 9.8 9.1 - 12.3 fL ABHIJEET Comment:Testing performed by : [address] [address] RBC 4.06 3.90 - 5.20 M/cumm ABHIJEET Comment:Testing performed by : [address] [address] MCV 86.2 81.3 - 96.4 fL ABHIJEET Comment:Testing performed by : [address] [address] MCH 28.6 27.1 - 33.3 pg ABHIJEET Comment:Testing performed by : [address] [address] MCHC 33.1 32.3 - 35.7 g/dL ABHIJEET Comment:Testing performed by : [address] [address] RDW CV 14.2 11.1 - 14.9 % ABHIJEET Comment:Testing performed by : [address], [address] RDW SD 45.6 35.7 - 48.1 fL ABHIJEET NOONAN Comment:Testing performed by : [address] [address] NRBC abs 0.00 0.00 - 0.01 K/cumm ABHIJEET NOONAN Comment:Testing performed by : [address] [address] Blood 12/29/2024 10:0 5 AM LUNCH TRUCK DRIVER 12/29/2024 10:06 AM LUNCH TRUCK DRIVER us Jose G Jimenez MD LAB BLOOD ORDERABLES Final Result [facility] Department [place] [address] * (ABNORMAL) Comprehensive metabolic panel (12/29/2024 10:05 AM LUNCH TRUCK DRIVER) Sodium 142 135 - 145 mmol/L Comment:Testing performed by : [address] [address] Potassium, pl 4.1 3.3 - 4.9 mmol/L ABHIJEET Comment:Testing performed by : [address] [address] Chloride 105 97 - 110 mmol/L ABHIJEET Comment:Testing performed by : [address] [address] CO2 27 22 - 32 mmol/L ABHIJEET Comment:Testing performed by : [address] [address] Anion gap 10 2 - 15 mmol/L ABHIJEET Comment:Testing performed by : [address] [address] BUN 20 6 - 25 mg/dL ABHIJEET Comment:Testing performed by : [address] [address] Creatinine 0.60 0.60 - 1.10 mg/dL ABHIJEET Comment:Testing performed by : [address] [address] Glucose 125 70 - 199 mg/dL ABHIJEET NOONAN Comment: Interpretive Data Fasting glucose >/= 126 [...] was last revised 2022. Testing performed by: [address] [address] Calcium 9.2 8.5 - 10.3 mg/dL ABHIJEET Comment:Testing performed by : [address] [address] Bilirubin, total 0.3 0.1 - 1.2 mg/dL [facility] Comment:Testing performed by : [address] [address] Protein, pl 6.7 6.5 - 8.5 g/dL [facility] Comment:Testing performed by : [address] [address] Albumin 3.8 3.5 - 5.0 g/dL [facility] Comment:Testing performed by : [address] [address] Alk phos 140(H) 40 - 130 Units/L [facility] Comment:Testing performed by : [address] [address] ALT 25 7 - 45 Units/L ABHIJEET Comment:Testing performed by : [address] [address] AST 34 10 - 45 Units/L [facility] Comment:Testing performed by : [address] [address] Blood 12/29/2024 10:0 5 AM LUNCH TRUCK DRIVER 12/29/2024 10:06 AM LUNCH TRUCK DRIVER Jose G Jimenez MD LAB BLOOD ORDERABLES Final Result [facility] Department [place] [address] * eGFR (12/15/2024 10:18 AM LUNCH TRUCK DRIVER) Pathologist [facility] eGFR >90 >=60 mL/min/1. 73 m2 [...] was last reviewed 2021. Testing performed by: [address] [address] Blood 12/15/2024 10:1 8 AM LUNCH TRUCK DRIVER 12/15/2024 10:19 AM LUNCH TRUCK DRIVER Jose G Jimenez MD LAB BLOOD ORDERABLES Final Result Performing Organization Address [facility] Co de Phone Number [place] [phone] [facility] Department [place] [address] * Differential, auto (12/15/2024 10:18 AM LUNCH TRUCK DRIVER) Pathologist [facility] Neutrophil abs 3.3 1.5 - 6.5 K/cumm Comment:Testing performed by : [address] [address] Imm gran abs 0.0 0.0 - 0.1 K/cumm ABHIJEET Comment:Testing performed by : [address] [address] Lymphocyte abs 1.4 0.8 - 3.3 K/cumm [facility] Comment:Testing performed by : [address] [address] Monocyte abs 0.6 0.2 - 0.8 K/cumm [facility] Comment:Testing performed by : [address], [place]., [address] Eosinophil abs 0.2 0.0 - 0.5 K/cumm [facility] Comment:Testing performed by : [address], [place]., [address] Basophil abs 0.0 0.0 - 0.1 K/cumm [facility] Comment:Testing performed by : [address] [address] Neutrophil pct 59.8 % [facility] Comment: Interpretive Data Percent cell count reference ranges are not reported, since discordance with absolute values may lead to misinterpretation of CBC data. Current Interpretive Data was last revised on 2018. Testing performed by: [address] [address] Imm gran pct 0.2 % [facility] Comment: Interpretive Data Percent cell count reference ranges are not reported, since discordance with absolute values may lead to misinterpretation of CBC data. Current Interpretive Data was last revised on 2018. Testing performed by: [address] [address] Lymphocyte pct 25.9 % [facility] Comment: Interpretive Data Percent cell count reference ranges are not reported, since discordance with absolute values may lead to misinterpretation of CBC data. Current Interpretive Data was last revised on 2018. Testing performed by: [address] [address] Monocyte pct 10.7 % CERNER Comment: Interpretive Data Percent cell count reference ranges are not reported, since discordance with absolute values may lead to misinterpretation of CBC data. Current Interpretive Data was last revised on 2018. Testing performed by: [address] [address] Eosinophil pct 2.9 % [facility] Comment: Interpretive Data Percent cell count reference ranges are not reported, since discordance with absolute values may lead to misinterpretation of CBC data. Current Interpretive Data was last revised on 2018. Testing performed by: [address] [address] Basophil pct 0.5 % ABHIJEET NOONAN Comment: Interpretive Data Percent cell count reference ranges are not reported, since discordance with absolute values may lead to misinterpretation of CBC data. Current Interpretive Data was last revised on 2018. Testing performed by: [address] [address] Blood 12/15/2024 10:1 8 AM LUNCH TRUCK DRIVER 12/15/2024 10:19 AM LUNCH TRUCK DRIVER Jose G Jimenez MD LAB BLOOD ORDERABLES Final Result [facility] [address] [facility] Department [place] [address] * (ABNORMAL) CBC with auto differential (12/15/2024 10:18 AM LUNCH TRUCK DRIVER) WBC 5.5 3.8 - 9.9 K/cumm Comment:Testing performed by : [address] [address] Hgb 12.0 11.9 - 15.5 g/dL ABHIJEET NOONAN Comment:Testing performed by : [address] [address] Hct 35.2(L) 35.6 - 45.5 % ABHIJEET NOONAN Comment:Testing performed by : [address] [address] Plt 174 150 - 400 K/cumm ABHIJEET NOONAN Comment:Testing performed by : [address] [address] MPV 9.9 9.1 - 12.3 fL ABHIJEET NOONAN Comment:Testing performed by : [address] [address] RBC 4.12 3.90 - 5.20 M/cumm ABHIJEET NOONAN Comment:Testing performed by : [address] [place]., [address] MCV 85.4 81.3 - 96.4 fL ABHIJEET NOONAN Comment:Testing performed by : [address] [address] MCH 29.1 27.1 - 33.3 pg ABHIJEET NOONAN Comment:Testing performed by : [address] [address] MCHC 34.1 32.3 - 35.7 g/dL ABHIJEET NOONAN Comment:Testing performed by : [address] [address] RDW CV 13.9 11.1 - 14.9 % ABHIJEET NOONAN Comment:Testing performed by : [address], [address] RDW SD 43.2 35.7 - 48.1 fL ABHIJEET NOONAN Comment:Testing performed by : [address] [address] [address] NRBC abs 0.00 0.00 - 0.01 K/cumm ABHIJEET NOONAN Comment:Testing performed by : [address] [address] Blood 12/15/2024 10:1 8 AM LUNCH TRUCK DRIVER 12/15/2024 10:19 AM LUNCH TRUCK DRIVER us Jose G Jimenez MD LAB BLOOD ORDERABLES Final Result ABHIJEET 2254 [facility] Department of Laboratories [place], [place] [id number] * Comprehensive metabolic panel (12/15/2024 10:18 AM LUNCH TRUCK DRIVER) Sodium 142 135 - 145 mmol/L Comment:Testing performed by : [address], [address] Potassium, pl 4.0 3.3 - 4.9 mmol/L ABHIJEET NOONAN Comment:Testing performed by : [address], [address] Chloride 105 97 - 110 mmol/L ABHIJEET NOONAN Comment:Testing performed by : [address], [address] CO2 29 22 - 32 mmol/L ABHIJEET Comment:Testing performed by : [address] [address] Anion gap 8 2 - 15 mmol/L ABHIJEET Comment:Testing performed by : [address] [address] BUN 17 6 - 25 mg/dL ABHIJEET Comment:Testing performed by : [address] [address] Creatinine 0.60 0.60 - 1.10 mg/dL [facility] Comment:Testing performed by : [address] [address] Glucose 93 70 - 199 mg/dL [facility] Comment: Interpretive Data Fasting glucose >/= 126 [...] was last revised 2022. Testing performed by: [address] [address] Calcium 9.3 8.5 - 10.3 mg/dL [facility] Comment:Testing performed by : [address] [address] Bilirubin, total 0.4 0.1 - 1.2 mg/dL [facility] Comment:Testing performed by : [address] [address] Protein, pl 6.8 6.5 - 8.5 g/dL ABHIJEET Comment:Testing performed by : [address] [address] Albumin 3.9 3.5 - 5.0 g/dL ABHIJEET Comment:Testing performed by : [address] [address] Alk phos 122 40 - 130 Units/L ABHIJEET NOONAN Comment:Testing performed by : [address] [address] ALT 22 7 - 45 Units/L ABHIJEET NOONAN Comment:Testing performed by : [address] [address] AST 29 10 - 45 Units/L ABHIJEET NOONAN Comment:Testing performed by : [address] [address] Blood 12/15/2024 10:1 8 AM LUNCH TRUCK DRIVER 12/15/2024 10:19 AM LUNCH TRUCK DRIVER Jose G Jimenez MD LAB BLOOD ORDERABLES Final Result ABHIJEET [facility]3 [facility] Department [place] [address] * eGFR (12/01/2024 12:48 PM LUNCH TRUCK DRIVER) eGFR >90 >=60 mL/min/1. 73 m2 Comment: [...] was last reviewed 2021. Testing performed by: [address] [address] Blood 12/01/2024 12:4 8 PM LUNCH TRUCK DRIVER 12/01/2024 12:56 PM LUNCH TRUCK DRIVER us Jose G Jimenez MD LAB BLOOD ORDERABLES Final Result ABHIJEET 1179 [facility] Department [place] [address] * Differential, auto (12/01/2024 12:48 PM LUNCH TRUCK DRIVER) Neutrophil abs 3.5 1.5 - 6.5 K/cumm Comment:Testing performed by : [address] [address] Imm gran abs 0.0 0.0 - 0.1 K/cumm ABHIJEET Comment:Testing performed by : [address] [address] Lymphocyte abs 2.0 0.8 - 3.3 K/cumm ABHIJEET Comment:Testing performed by : [address] [address] Monocyte abs 0.6 0.2 - 0.8 K/cumm ABHIJEET Comment:Testing performed by : [address] [address] Eosinophil abs 0.1 0.0 - 0.5 K/cumm ABHIJEET Comment:Testing performed by : [address] [address] Basophil abs 0.0 0.0 - 0.1 K/cumm ABHIJEET Comment:Testing performed by : [address] [address] Neutrophil pct 55.8 % ABHIJEET Comment: Interpretive Data Percent cell count reference ranges are not reported, since discordance with absolute values may lead to misinterpretation of CBC data. Current Interpretive Data was last revised on 2018. Testing performed by: [address] [address] Imm gran pct 0.3 % ABHIJEET Comment: Interpretive Data Percent cell count reference ranges are not reported, since discordance with absolute values may lead to misinterpretation of CBC data. Current Interpretive Data was last revised on 2018. Testing performed by: [address] [address] Lymphocyte pct 32.0 % [facility] Comment: Interpretive Data Percent cell count reference ranges are not reported, since discordance with absolute values may lead to misinterpretation of CBC data. Current Interpretive Data was last revised on 2018. Testing performed by: [address] [address] Monocyte pct 10.0 % [facility] Comment: Interpretive Data Percent cell count reference ranges are not reported, since discordance with absolute values may lead to misinterpretation of CBC data. Current Interpretive Data was last revised on 2018. Testing performed by: [address] [address] Eosinophil pct 1.4 % [facility] Comment: Interpretive Data Percent cell count reference ranges are not reported, since discordance with absolute values may lead to misinterpretation of CBC data. Current Interpretive Data was last revised on 2018. Testing performed by: [address] [address] Basophil pct 0.5 % [facility] Comment: Interpretive Data Percent cell count reference ranges are not reported, since discordance with absolute values may lead to misinterpretation of CBC data. Current Interpretive Data was last revised on 2018. Testing performed by: [address] [address] Blood 12/01/2024 12:4 8 PM LUNCH TRUCK DRIVER 12/01/2024 12:56 PM LUNCH TRUCK DRIVER Jose G Jimenez MD LAB BLOOD ORDERABLES Final Result ABHIJEET 2046 [facility] Department of Laboratories [place], [place] [id number] * Thyroid Function [place] (12/01/2024 12:48 PM LUNCH TRUCK DRIVER) TSH 3.07 0.30 - 4.20 mcIUnit/mL Comment:Testing performed by : [address] [address] Blood 12/01/2024 12:4 8 PM LUNCH TRUCK DRIVER 12/01/2024 1:44 PM LUNCH TRUCK DRIVER us Jose G Jimenez MD LAB BLOOD ORDERABLES Final Result ABHIJEET 4500 [facility] Department [place] [address] * CBC with auto differential (12/01/2024 12:48 PM LUNCH TRUCK DRIVER) WBC 6.3 3.8 - 9.9 K/cumm Comment:Testing performed by : [address] [address] Hgb 12.5 11.9 - 15.5 g/dL ABHIJEET NOONAN Comment:Testing performed by : [address] [address] Hct 37.1 35.6 - 45.5 % ABHIJEET Comment:Testing performed by : [address] [address] Plt 217 150 - 400 K/cumm ABHIJEET Comment:Testing performed by : [address] [address] MPV 9.9 9.1 - 12.3 fL ABHIJEET Comment:Testing performed by : [address] [address] RBC 4.38 3.90 - 5.20 M/cumm ABHIJEET NOONAN Comment:Testing performed by : [address] [address] MCV 84.7 81.3 - 96.4 fL ABHIJEET Comment:Testing performed by : [address] [address] MCH 28.5 27.1 - 33.3 pg ABHIJEET Comment:Testing performed by : [address] [address] MCHC 33.7 32.3 - 35.7 g/dL ABHIJEET Comment:Testing performed by : [address] [address] RDW CV 13.8 11.1 - 14.9 % ABHIJEET Comment:Testing performed by : [address] [address] RDW SD 42.7 35.7 - 48.1 fL ABHIJEET NOONAN Comment:Testing performed by : [address] [address] NRBC abs 0.00 0.00 - 0.01 K/cumm ABHIJEET NOONAN Comment:Testing performed by : [address] [address] Blood 12/01/2024 12:4 8 PM LUNCH TRUCK DRIVER 12/01/2024 12:56 PM LUNCH TRUCK DRIVER Jose G Jimenez MD LAB BLOOD ORDERABLES Final Result Performing Organization Address City/[facility] Co de Phone Number [address] [place] [address] * Cortisol (12/01/2024 12:48 PM LUNCH TRUCK DRIVER) Pathologist [facility] Cortisol 10.0 4.8 - 19.5 mcg/dl Blood 12/01/2024 12:4 8 PM LUNCH TRUCK DRIVER 12/01/2024 2:40 PM LUNCH TRUCK DRIVER Jose G Jimenez MD LAB BLOOD ORDERABLES Final Result Performing Organization Address [facility] de Phone Number [address] [address] * CEA (12/01/2024 12:48 PM LUNCH TRUCK DRIVER) CEA 1.4 <=5.0 ng/mL Comment: Interpretive Data: Reference Range: Non-Smokers: 0.0 5.0 ng/mL Smokers: 0.0 6.5 ng/mL The Benny CEA assay procedure was used. Results from different manufacturers or methods may not be comparable. Serial testing should be performed using the same method. Current interpretive data was last revised 2023. Testing performed by: [address] [address] Blood 12/01/2024 12:4 8 PM LUNCH TRUCK DRIVER 12/01/2024 1:44 PM LUNCH TRUCK DRIVER us Jose G Jimenez MD LAB BLOOD ORDERABLES Final Result ABHIJEET 4500 [facility] Department [place] [address] * Comprehensive metabolic panel (12/01/2024 12:48 PM LUNCH TRUCK DRIVER) Sodium 140 135 - 145 mmol/L Comment:Testing performed by : [address] [address] Potassium, pl 3.9 3.3 - 4.9 mmol/L ABHIJEET Comment:Testing performed by : [address] [address] Chloride 102 97 - 110 mmol/L ABHIJEET Comment:Testing performed by : [address] [address] CO2 27 22 - 32 mmol/L ABHIJEET Comment:Testing performed by : [address] [address] Anion gap 11 2 - 15 mmol/L ABHIJEET Comment:Testing performed by : [address] [address] BUN 22 6 - 25 mg/dL ABHIJEET Comment:Testing performed by : [address] [address] Creatinine 0.70 0.60 - 1.10 mg/dL ABHIJEET Comment:Testing performed by : [address] [address] Glucose 89 70 - 199 mg/dL ABHIJEET [...] was last revised 2022. Testing performed by: [facility], [address] [place] [address]., [address] Calcium 9.6 8.5 - 10.3 mg/dL ABHIJEET Comment:Testing performed by : [address] [address] Bilirubin, total 0.5 0.1 - 1.2 mg/dL ABHIJEET Comment:Testing performed by : [address] [address] Protein, pl 7.4 6.5 - 8.5 g/dL ABHIJEET Comment:Testing performed by : [address] [address] Albumin 4.2 3.5 - 5.0 g/dL ABHIJEET Comment:Testing performed by : [address] [address] Alk phos 120 40 - 130 Units/L ABHIJEET Comment:Testing performed by : [address] [address] ALT 20 7 - 45 Units/L ABHIJEET Comment:Testing performed by : [address] [address] AST 32 10 - 45 Units/L ABHIJEET Comment:Testing performed by : [address] [address] Blood 12/01/2024 12:4 8 PM LUNCH TRUCK DRIVER 12/01/2024 12:56 PM LUNCH TRUCK DRIVER Jose G Jimenez MD LAB BLOOD ORDERABLES Final Result ABHIJEET 5079 [facility] Department of Laboratories [place], [place] [id number] * eGFR (11/17/2024 12:40 PM LUNCH TRUCK DRIVER) eGFR >90 >=60 mL/min/1. 73 m2 Comment: [...] was last reviewed 2021. Testing performed by: [address] [address] Blood 11/17/2024 12:4 0 PM LUNCH TRUCK DRIVER 11/17/2024 12:43 PM LUNCH TRUCK DRIVER Jose G Jimenez MD LAB BLOOD ORDERABLES Final Result [place] [id number] [facility] Department of Laboratories [place], [place] [id number] * Differential, auto (11/17/2024 12:40 PM LUNCH TRUCK DRIVER) Neutrophil abs 2.7 1.5 - 6.5 K/cumm Comment:Testing performed by : [address] [address] Imm gran abs 0.0 0.0 - 0.1 K/cumm ABHIJEET Comment:Testing performed by : [address] [address] Lymphocyte abs 2.3 0.8 - 3.3 K/cumm ABHIJEET Comment:Testing performed by : [address] [address] Monocyte abs 0.5 0.2 - 0.8 K/cumm BAHIJEET Comment:Testing performed by : [address] [address] Eosinophil abs 0.1 0.0 - 0.5 K/cumm ABHIJEET Comment:Testing performed by : [address] [address] Basophil abs 0.0 0.0 - 0.1 K/cumm ABHIJEET Comment:Testing performed by : [address] [address] Neutrophil pct 47.7 % [facility] Comment: Interpretive Data Percent cell count reference ranges are not reported, since discordance with absolute values may lead to misinterpretation of CBC data. Current Interpretive Data was last revised on 2018. Testing performed by: [address] [address] Imm gran pct 0.2 % [facility] Comment: Interpretive Data Percent cell count reference ranges are not reported, since discordance with absolute values may lead to misinterpretation of CBC data. Current Interpretive Data was last revised on 2018. Testing performed by: [address] [address] Lymphocyte pct 39.8 % [facility] Comment: Interpretive Data Percent cell count reference ranges are not reported, since discordance with absolute values may lead to misinterpretation of CBC data. Current Interpretive Data was last revised on 2018. Testing performed by: [address] [address] Monocyte pct 9.3 % [facility] Comment: Interpretive Data Percent cell count reference ranges are not reported, since discordance with absolute values may lead to misinterpretation of CBC data. Current Interpretive Data was last revised on 2018. Testing performed by: [address] [address] Eosinophil pct 2.5 % [facility] Comment: Interpretive Data Percent cell count reference ranges are not reported, since discordance with absolute values may lead to misinterpretation of CBC data. Current Interpretive Data was last revised on 2018. Testing performed by: [address] [address] Basophil pct 0.5 % [facility] Comment: Interpretive Data Percent cell count reference ranges are not reported, since discordance with absolute values may lead to misinterpretation of CBC data. Current Interpretive Data was last revised on 2018. Testing performed by: [address] [address] Blood 11/17/2024 12:4 0 PM LUNCH TRUCK DRIVER 11/17/2024 12:43 PM LUNCH TRUCK DRIVER us Jose G Jimenez MD LAB BLOOD ORDERABLES Final Result [facility] 5143 [facility] Department [place] [address] * (ABNORMAL) CBC with auto differential (11/17/2024 12:40 PM LUNCH TRUCK DRIVER) WBC 5.7 3.8 - 9.9 K/cumm Comment:Testing performed by : [address] [address] Hgb 11.4(L) 11.9 - 15.5 g/dL ABHIJEET Comment:Testing performed by : [address] [address] Hct 34.6(L) 35.6 - 45.5 % ABHIJEET Comment:Testing performed by : [address] [address] Plt 165 150 - 400 K/cumm ABHIJEET Comment:Testing performed by : [address] [address] MPV 10.4 9.1 - 12.3 fL ABHIJEET Comment:Testing performed by : [address] [address] RBC 3.99 3.90 - 5.20 M/cumm ABHIJEET Comment:Testing performed by : [address] [address] MCV 86.7 81.3 - 96.4 fL ABHIJEET Comment:Testing performed by : [address] [address] MCH 28.6 27.1 - 33.3 pg ABHIJEET NOONAN Comment:Testing performed by : [address] [address] MCHC 32.9 32.3 - 35.7 g/dL ABHIJEET NOONAN Comment:Testing performed by : [address] [address] RDW CV 14.6 11.1 - 14.9 % ABHIJEET NOONAN Comment:Testing performed by : [address] [address] RDW SD 46.9 35.7 - 48.1 fL ABHIJEET NOONAN Comment:Testing performed by : [address] [address] NRBC abs 0.00 0.00 - 0.01 K/cumm ABHIJEET NOONAN Comment:Testing performed by : [address] [address] Blood 11/17/2024 12:4 0 PM LUNCH TRUCK DRIVER 11/17/2024 12:43 PM LUNCH TRUCK DRIVER Jose G Jimenez MD LAB BLOOD ORDERABLES Final Result ABHIJEET [address] Department [place] [address] * (ABNORMAL) Comprehensive metabolic panel (11/17/2024 12:40 PM LUNCH TRUCK DRIVER) Sodium 141 135 - 145 mmol/L Comment:Testing performed by : [address] [address] Potassium, pl 3.9 3.3 - 4.9 mmol/L ABHIJEET NOONAN Comment:Testing performed by : [address] [address] Chloride 105 97 - 110 mmol/L ABHIJEET NOONAN Comment:Testing performed by : [address] [address] CO2 26 22 - 32 mmol/L ABHIJEET NOONAN Comment:Testing performed by : [address] [address] Anion gap 10 2 - 15 mmol/L ABHIJEET NOONAN Comment:Testing performed by : [address] [address] BUN 15 6 - 25 mg/dL ABHIJEET NOONAN Comment:Testing performed by : [address] [address] Creatinine 0.60 0.60 - 1.10 mg/dL ABHIJEET Comment:Testing performed by : [address] [address] Glucose 127 70 - 199 mg/dL ABHIJEET [...] was last revised 2022. Testing performed by: [address] [address] Calcium 9.0 8.5 - 10.3 mg/dL ABHIJEET Comment:Testing performed by : [address] [address] Bilirubin, total 0.2 0.1 - 1.2 mg/dL [facility] Comment:Testing performed by : [address] [address] Protein, pl 6.9 6.5 - 8.5 g/dL ABHIJEET Comment:Testing performed by : [address] [address] Albumin 3.8 3.5 - 5.0 g/dL [facility] Comment:Testing performed by : [address] [address] Alk phos 139(H) 40 - 130 Units/L ABHIJEET Comment:Testing performed by : [address] [address] ALT 18 7 - 45 Units/L ABHIJEET Comment:Testing performed by : [address] [address] AST 25 10 - 45 Units/L ABHIJEET Comment:Testing performed by : [address] [address] Blood 11/17/2024 12:4 0 PM LUNCH TRUCK DRIVER 11/17/2024 12:43 PM LUNCH TRUCK DRIVER Jose G Jimenez MD LAB BLOOD ORDERABLES Final Result Performing Organization Address [facility] Co de Phone Number ABHIJEET [address] [address] * eGFR (11/03/2024 9:39 AM LUNCH TRUCK DRIVER) eGFR >90 >=60 mL/min/1. 73 m2 Comment: [...] was last reviewed 2021. Testing performed by: [facility], [address] [place] [address]., [address] Blood 11/03/2024 9:39 AM LUNCH TRUCK DRIVER 11/03/2024 9:40 AM LUNCH TRUCK DRIVER Jose G Jimenez MD LAB BLOOD ORDERABLES Final Result Performing Organization Address City/[facility]/ZIP Co de Phone Number ABHIJEET [facility]0 [facility] [place] [address] * Differential, auto (11/03/2024 9:39 AM LUNCH TRUCK DRIVER) Neutrophil abs 3.6 1.5 - 6.5 K/cumm Comment:Testing performed by : [facility], [address] [place] [address], [place]., [address] Imm gran abs 0.0 0.0 - 0.1 K/cumm [facility] Comment:Testing performed by : [address], [place]., [address] Lymphocyte abs 1.6 0.8 - 3.3 K/cumm [facility] Comment:Testing performed by : [address] [address] Monocyte abs 0.4 0.2 - 0.8 K/cumm [facility] Comment:Testing performed by : [address] [address] Eosinophil abs 0.1 0.0 - 0.5 K/cumm [facility] Comment:Testing performed by : [address] [address] Basophil abs 0.0 0.0 - 0.1 K/cumm [facility] Comment:Testing performed by : [address] [address] Neutrophil pct 63.4 % [facility] Comment: Interpretive Data Percent cell count reference ranges are not reported, since discordance with absolute values may lead to misinterpretation of CBC data. Current Interpretive Data was last revised on 2018. Testing performed by: [address] [address] Imm gran pct 0.2 % [facility] Comment: Interpretive Data Percent cell count reference ranges are not reported, since discordance with absolute values may lead to misinterpretation of CBC data. Current Interpretive Data was last revised on 2018. Testing performed by: [address] [address] Lymphocyte pct 27.1 % [facility] Comment: Interpretive Data Percent cell count reference ranges are not reported, since discordance with absolute values may lead to misinterpretation of CBC data. Current Interpretive Data was last revised on 2018. Testing performed by: [address] [address] Monocyte pct 7.0 % [facility] Comment: Interpretive Data Percent cell count reference ranges are not reported, since discordance with absolute values may lead to misinterpretation of CBC data. Current Interpretive Data was last revised on 2018. Testing performed by: [address] [address] Eosinophil pct 1.8 % ABHIJEET Comment: Interpretive Data Percent cell count reference ranges are not reported, since discordance with absolute values may lead to misinterpretation of CBC data. Current Interpretive Data was last revised on 2018. Testing performed by: [address] [address] Basophil pct 0.5 % ABHIJEET Comment: Interpretive Data Percent cell count reference ranges are not reported, since discordance with absolute values may lead to misinterpretation of CBC data. Current Interpretive Data was last revised on 2018. Testing performed by: [address] [address] Blood 11/03/2024 9:39 AM LUNCH TRUCK DRIVER 11/03/2024 9:40 AM LUNCH TRUCK DRIVER us Jose G Jimenez MD LAB BLOOD ORDERABLES Final Result [facility] 6554 [facility] Department [place] [address] * (ABNORMAL) CBC with auto differential (11/03/2024 9:39 AM LUNCH TRUCK DRIVER) WBC 5.7 3.8 - 9.9 K/cumm Comment:Testing performed by : [address] [address] Hgb 11.8(L) 11.9 - 15.5 g/dL ABHIJEET Comment:Testing performed by : [address] [address] Hct 35.9 35.6 - 45.5 % ABHIJEET Comment:Testing performed by : [address] [address] Plt 211 150 - 400 K/cumm ABHIJEET Comment:Testing performed by : [address] [address] MPV 9.7 9.1 - 12.3 fL ABHIJEET NOONAN Comment:Testing performed by : [address] [address] RBC 4.16 3.90 - 5.20 M/cumm ABHIJEET NOONAN Comment:Testing performed by : [address] [address] MCV 86.3 81.3 - 96.4 fL ABHIJEET Comment:Testing performed by : [address] [address] MCH 28.4 27.1 - 33.3 pg ABHIJEET Comment:Testing performed by : [address] [address] MCHC 32.9 32.3 - 35.7 g/dL ABHIJEET Comment:Testing performed by : [address] [address] RDW CV 13.6 11.1 - 14.9 % ABHIJEET Comment:Testing performed by : [address], [address] RDW SD 43.5 35.7 - 48.1 fL ABHIJEET Comment:Testing performed by : [address] [address] NRBC abs 0.00 0.00 - 0.01 K/cumm ABHIJEET Comment:Testing performed by : [address] [address] Blood 11/03/2024 9:39 AM LUNCH TRUCK DRIVER 11/03/2024 9:40 AM LUNCH TRUCK DRIVER us Jose G Jimenez MD LAB BLOOD ORDERABLES Final Result [facility] 3728 [facility] Department [place] [address] * CEA (11/03/2024 9:39 AM LUNCH TRUCK DRIVER) [facility] CEA 1.5 <=5.0 ng/mL Comment: Interpretive Data: Reference Range: Non-Smokers: 0.0 5.0 ng/mL Smokers: 0.0 6.5 ng/mL The Benny CEA assay procedure was used. Results from different manufacturers or methods may not be comparable. Serial testing should be performed using the same method. Current interpretive data was last revised 2023. Testing performed by: [address] [address] Blood 11/03/2024 9:39 AM LUNCH TRUCK DRIVER 11/03/2024 11:30 AM LUNCH TRUCK DRIVER Jose G Jimenez MD LAB BLOOD ORDERABLES Final Result [facility] 45[address] [facility] Department [place] [address] * Comprehensive metabolic panel (11/03/2024 9:39 AM LUNCH TRUCK DRIVER) Sodium 145 135 - 145 mmol/L Comment:Testing performed by : [address] [address] Potassium, pl 3.9 3.3 - 4.9 mmol/L ABHIJEET Comment:Testing performed by : [address] [address] Chloride 108 97 - 110 mmol/L ABHIJEET Comment:Testing performed by : [address] [address] CO2 27 22 - 32 mmol/L ABHIJEET Comment:Testing performed by : [address] [address] Anion gap 10 2 - 15 mmol/L ABHIJEET Comment:Testing performed by : [address] [address] BUN 9 6 - 25 mg/dL ABHIJEET Comment:Testing performed by : [address] [address] Creatinine 0.60 0.60 - 1.10 mg/dL ABHIJEET Comment:Testing performed by : [address] [address] Glucose 98 70 - 199 mg/dL ABHIJEET [...] was last revised 2022. Testing performed by: [address] [address] Calcium 9.2 8.5 - 10.3 mg/dL ABHIJEET Comment:Testing performed by : [address] [address] Bilirubin, total 0.3 0.1 - 1.2 mg/dL ABHIJEET Comment:Testing performed by : [address] [address] Protein, pl 6.7 6.5 - 8.5 g/dL ABHIJEET Comment:Testing performed by : [address] [address] Albumin 3.9 3.5 - 5.0 g/dL ABHIJEET Comment:Testing performed by : [address] [address] Alk phos 112 40 - 130 Units/L ABHIJEET Comment:Testing performed by : [address] [address] ALT 18 7 - 45 Units/L ABHIJEET Comment:Testing performed by : [address] [address] AST 27 10 - 45 Units/L ABHIJEET Comment:Testing performed by : [address] [address] Blood 11/03/2024 9:39 AM LUNCH TRUCK DRIVER 11/03/2024 9:40 AM LUNCH TRUCK DRIVER us Jose G Jimenez MD LAB BLOOD ORDERABLES Final Result ABHIJEET [address] [facility] [place] [address] * CT Chest Abdomen Pelvis W Contrast (10/27/2024 8:27 AM LUNCH TRUCK DRIVER) Anatomical Region Laterality Modality Body N/A Computed Tomogra phy 11/01/2024 7:50 AM LUNCH TRUCK DRIVER Narrative 11/01/2024 8:00 AM LUNCH TRUCK DRIVER EXAM DESCRIPTION: CT CHEST ABDOMEN PELVIS W [...] No masses. No subcutaneous air. HARDWARE/LINES/TUBES: Right Vreqff-Q-Hrys catheter is noted. Distal tip is at [...] Merced Michael M.D. TW T: Report ID: [id number] Reading Location: [id number] Procedure Note Merced Michael MD - 11/01/2024 [...] No masses. No subcutaneous air. HARDWARE/LINES/TUBES: Right [id number]-D-[id number] catheter is noted. Distal tipis at the [...] Merced Michael M.D. TW T: Report ID: [id number] Reading Location: [place] [address] Jose G Jimenez MD IMG CT PROCEDURES Fi nal Result * eGFR (10/20/2024 8:23 AM LUNCH TRUCK DRIVER) eGFR >90 >=60 mL/min/1. 73 m2 Comment: [...] was last reviewed 2021. Testing performed by: [address] [address] Blood 10/20/2024 8:23 AM LUNCH TRUCK DRIVER 10/20/2024 8:26 AM LUNCH TRUCK DRIVER Jose G Jimenez MD LAB BLOOD ORDERABLES Final Result [facility] [address] [facility] Department of Laboratories [place], [place] [id number] * Differential, auto (10/20/2024 8:23 AM LUNCH TRUCK DRIVER) Neutrophil abs 2.8 1.5 - 6.5 K/cumm Comment:Testing performed by : [address] [address] Imm gran abs 0.0 0.0 - 0.1 K/cumm ABHIJEET Comment:Testing performed by : [address] [address] Lymphocyte abs 1.6 0.8 - 3.3 K/cumm ABHIJEET Comment:Testing performed by : [address] [address] Monocyte abs 0.7 0.2 - 0.8 K/cumm ABHIJEET Comment:Testing performed by : [address] [address] Eosinophil abs 0.1 0.0 - 0.5 K/cumm ABHIJEET Comment:Testing performed by : [address] [address] Basophil abs 0.0 0.0 - 0.1 K/cumm ABHIJEET Comment:Testing performed by : [address] [address] Neutrophil pct 52.6 % ABHIJEET Comment: Interpretive Data Percent cell count reference ranges are not reported, since discordance with absolute values may lead to misinterpretation of CBC data. Current Interpretive Data was last revised on 2018. Testing performed by: [address] [address] Imm gran pct 0.2 % [facility] Comment: Interpretive Data Percent cell count reference ranges are not reported, since discordance with absolute values may lead to misinterpretation of CBC data. Current Interpretive Data was last revised on 2018. Testing performed by: [address] [address] Lymphocyte pct 30.6 % [facility] Comment: Interpretive Data Percent cell count reference ranges are not reported, since discordance with absolute values may lead to misinterpretation of CBC data. Current Interpretive Data was last revised on 2018. Testing performed by: [address] [address] Monocyte pct 13.3 % [facility] Comment: Interpretive Data Percent cell count reference ranges are not reported, since discordance with absolute values may lead to misinterpretation of CBC data. Current Interpretive Data was last revised on 2018. Testing performed by: [address] [address] Eosinophil pct 2.5 % [facility] Comment: Interpretive Data Percent cell count reference ranges are not reported, since discordance with absolute values may lead to misinterpretation of CBC data. Current Interpretive Data was last revised on 2018. Testing performed by: [address] [address] Basophil pct 0.8 % [facility] Comment: Interpretive Data Percent cell count reference ranges are not reported, since discordance with absolute values may lead to misinterpretation of CBC data. Current Interpretive Data was last revised on 2018. Testing performed by: [address] [address] Blood 10/20/2024 8:23 AM LUNCH TRUCK DRIVER 10/20/2024 8:26 AM LUNCH TRUCK DRIVER us Jose G Jimenez MD LAB BLOOD ORDERABLES Final Result [facility] [facility] Department [place] [address] * Thyroid Function [place] (10/20/2024 8:23 AM LUNCH TRUCK DRIVER) Pathologist [facility] TSH 4.13 0.30 - 4.20 mcIUnit/mL Comment:Testing performed by : [address] [address] Blood 10/20/2024 8:23 AM LUNCH TRUCK DRIVER 10/20/2024 9:55 AM LUNCH TRUCK DRIVER us Jose G Jimenez MD LAB BLOOD ORDERABLES Final Result [facility] [address] [facility] Department [place] [address] * (ABNORMAL) CBC with auto differential (10/20/2024 8:23 AM LUNCH TRUCK DRIVER) Pathologist [facility] WBC 5.3 3.8 - 9.9 K/cumm Comment:Testing performed by : [address] [address] Hgb 11.7(L) 11.9 - 15.5 g/dL ABHIJEET Comment:Testing performed by : [address] [address] Hct 35.4(L) 35.6 - 45.5 % ABHIJEET Comment:Testing performed by : [address] [address] Plt 131(L) 150 - 400 K/cumm ABHIJEET Comment:Testing performed by : [address] [address] MPV 9.8 9.1 - 12.3 fL ABHIJEET Comment:Testing performed by : [address] [address] RBC 4.07 3.90 - 5.20 M/cumm ABHIJEET Comment:Testing performed by : [address] [address] MCV 87.0 81.3 - 96.4 fL ABHIJEET Comment:Testing performed by : [address] [address] MCH 28.7 27.1 - 33.3 pg ABHIJEET NOONAN Comment:Testing performed by : [facility], [address] [place] [address]., [address] MCHC 33.1 32.3 - 35.7 g/dL ABHIJEET NOONAN Comment:Testing performed by : [facility], [address] [place] [address]., [address] RDW CV 14.3 11.1 - 14.9 % ABHIJEET NOONAN Comment:Testing performed by : [address] [address] RDW SD 45.7 35.7 - 48.1 fL ABHIJEET NOONAN Comment:Testing performed by : [address], [address] NRBC abs 0.00 0.00 - 0.01 K/cumm ABHIJEET NOONAN Comment:Testing performed by : [address], [address] Blood 10/20/2024 8:23 AM LUNCH TRUCK DRIVER 10/20/2024 8:26 AM LUNCH TRUCK DRIVER Jose G Jimenez MD LAB BLOOD ORDERABLES Final Result Performing Organization Address [facility] de Phone Number [address] [place] [address] * Cortisol (10/20/2024 8:23 AM LUNCH TRUCK DRIVER) Cortisol 9.6 4.8 - 19.5 mcg/dl Blood 10/20/2024 8:23 AM LUNCH TRUCK DRIVER 10/20/2024 12:38 PM LUNCH TRUCK DRIVER Jose G Jimenez MD LAB BLOOD ORDERABLES Final Result Performing Organization Address [facility] Co de Phone Number [address] [place] [address] * Comprehensive metabolic panel (10/20/2024 8:23 AM LUNCH TRUCK DRIVER) Sodium 143 135 - 145 mmol/L Comment:Testing performed by : [address] [address] Potassium, pl 4.0 3.3 - 4.9 mmol/L ABHIJEET Comment:Testing performed by : [address] [address] Chloride 105 97 - 110 mmol/L ABHIJEET Comment:Testing performed by : [address], [place]., [address] CO2 27 22 - 32 mmol/L ABHIJEET Comment:Testing performed by : [address], [place]., [address] Anion gap 11 2 - 15 mmol/L [facility] Comment:Testing performed by : [address], [place]., [address] BUN 12 6 - 25 mg/dL ABHIJEET Comment:Testing performed by : [address], [place]., [address] Creatinine 0.70 0.60 - 1.10 mg/dL ABHIJEET Comment:Testing performed by : [address] [address] Glucose 101 70 - 199 mg/dL [facility] Comment: Interpretive Data Fasting glucose >/= 126 [...] was last revised 2022. Testing performed by: [address] [address] Calcium 9.2 8.5 - 10.3 mg/dL ABHIJEET Comment:Testing performed by : [address] [address] Bilirubin, total 0.5 0.1 - 1.2 mg/dL ABHIJEET Comment:Testing performed by : [address] [address] Protein, pl 6.7 6.5 - 8.5 g/dL ABHIJEET Comment:Testing performed by : [address] [address] Albumin 3.7 3.5 - 5.0 g/dL ABHIJEET Comment:Testing performed by : [address] [address] Alk phos 121 40 - 130 Units/L ABHIJEET Comment:Testing performed by : [address] [address] ALT 19 7 - 45 Units/L ABHIJEET Comment:Testing performed by : [address] [address] AST 27 10 - 45 Units/L ABHIJEET Comment:Testing performed by : [address] [address] Blood 10/20/2024 8:23 AM LUNCH TRUCK DRIVER 10/20/2024 8:26 AM LUNCH TRUCK DRIVER Jose G Jimenez MD LAB BLOOD ORDERABLES Final Result Performing Organization Address City/State/[facility] Co de Phone Number [place] [address] [facility] Department [place] [address] from Last 3 Months Insurance [facility] CHOICE PLUS [facility] MEDICARE [facility] Address: [address] [address] [facility] MEDICARE MEDICARE Advance Directives For more information, please contact: [phone] * Full Code (Latest Code Status on File) Date Activated Date Inactivated Comments 06/27/2022 7:04 AM 06/28/2022 5:09 AM Care Teams Java Jsf Developer Relationship Specialty Start Date End Date Rodney Mckay MD PCP - General Internal Medicine 05/30/22 Yves Moreno DO [address] [place] [address] Referring Physician Surgery 06/04/22 Jose G Jimenez MD [address] [facility] IM MEDICAL ONCOLOGY, [facility] [address] [place] [address] Medical Oncologist/Sociology Instructor Medical Oncology 09/04/23
--- OUTSIDE RECORDS SUMMARY | 2025-01-12 13:14 | XMS_ITS | Encounter Summary ---
Author Organization [facility] Address [address] [place] [address] Care Team Providers Care Etcher Printed Circuit Boards Name Role Phone Rodney Mckay MD Primary Care Provider Danyel Romero MD Unavailable Unavailabl e Encounter Details Date Type Department Care Team (Late st Contact Info) Description 06/09/2018 Abstract [facility] [address] [place] [phone] Danyel Romero MD Social History Tobacco Use Types Packs/Day Years Used Date Smoking Tobacco: Never Smokeless Tobacco: Never Alcohol Use Standard Drinks/Week Comments No 0 (1 standard drink = 0.6 oz pur e alcohol) Comments Unknown Sex and Gender Information Value Date Recorded Sex Assigned at Not on file Legal 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
--- OUTSIDE RECORDS SUMMARY | 2025-01-12 13:14 | XMS_ITS | Encounter Summary ---
Author Organization [facility] Address [address] [place] [address] Phone Care Team Providers Care Ring Packer Name Role Phone Rodney Mckay MD Primary Care Provider [phone] Yves Moreno DO Unavailable Jose G Jimenez MD Unavailable [phone] Encounter Details Date Type Department Care Team [...] on file Legal Sex Female 12:09 PM WIRE WELDER Gender Identity Not on file Sexual Orientation [...] on filedocumented in this encounter Care Teams Ring Packer Relationship Specialty Start Date End Date Rodney Mckay MD PCP - General Internal Medicine 05/30/22 Yves Moreno DO [address] [facility] [address] [place], [place] [address] Referring Physician Surgery 06/04/22 Jose G Jimenez MD [facility]5 [address] [facility] MEDICAL ONCOLOGY, [facility] [address] [place] [address] Medical Oncologist/Spa Associate Medical Oncology 09/04/23 documented as of this encounter
--- OUTSIDE RECORDS SUMMARY | 2025-01-12 13:14 | XMS_ITS | Encounter Summary ---
Author Organization [facility] Address [address] [place] [address] Phone Care Team Providers Care Hospitality Manager Name Role Phone Rodney Mckay MD Primary Care Provider [phone] Yves Moreno DO Unavailable [phone] Jose G Jimenez MD Unavailable [phone] Encounter Details Date Type Department Care Team (Latest Contact Info) Description 05/16/2022 Orders Only [facility] Scanning, Provider Social History Tobacco Use Types Packs/Day Years Used Date Smoking Tobacco: Never Assessed Comments Unknown Sex and Gender Information Value Date Recorded Sex Assigned at Not on file Legal Sex Female 12:09 PM VIDEO COORDINATOR Gender Identity Not on file Sexual [...] documented as of this encounter Care Teams Hospitality Manager Relationship Specialty Start Date End Date Rodney Mckay MD PCP - General Internal Medicine 05/30/22 Yves Moreno DO [address] [facility] [address] [facility] [address] [place] [address] Referring Physician Surgery 06/04/22 Jose G Jimenez MD [address] [facility] MEDICAL ONCOLOGY, [facility] [address] [place] [address] Medical Oncologist/Oven Heater Medical Oncology 09/04/23 documented as of this encounter
--- OUTSIDE RECORDS SUMMARY | 2025-01-12 13:14 | XMS_ITS | Encounter Summary ---
Author Organization [facility] Address [address] [place] [address] Phone Care Team Providers Care Security Assessor Name Role Phone Rodney Mckay MD Primary Care Provider [phone] Yves Moreno DO Unavailable [phone] Jose G Jimenez MD Unavailable [phone] Encounter Details Date Type Department Care Team [...] on file Legal Sex Female 12:09 PM LIGHT COIL WINDER Gender Identity Not on file Sexual Orientation [...] on filedocumented in this encounter Care Teams Security Assessor Relationship Specialty Start Date End Date Rodney Mckay MD PCP - General Internal Medicine 05/30/22 Yves Moreno DO [address] [facility] [address] [place], [place] [id number] Referring Physician Surgery 06/04/22 Jose G Jimenez MD [facility]5 [address] [facility] MEDICAL ONCOLOGY, [facility] [address] [place] [address] Medical Oncologist/Bricklayer Tender Medical Oncology 09/04/23 documented as of this encounter
--- OUTSIDE RECORDS SUMMARY | 2025-01-12 13:14 | XMS_ITS | Referral Summary ---
Author Organization [facility] Address [address] [place] [address] Care Team Providers Care Emergency Medcl Emt Name Role Phone Rodney Mckay MD Primary Care Provider [phone] Source Comments [facility] and Associated Physician Practices is amultiple site organization consisting of ambulatory clinics and hospital sitesin [place], [place], [place] and [place]. This disclosure is being madepursuant to the Care Everywhere program and may not contain all information available regarding this patient. Last updated 18.[facility] AgentPiggy Allergies Active Allergy Reactions Criticality Noted Date [...] 82 03/07/2023 8:13 AM CDT Temperature 36.8 C (98.2 F) 03/07/2023 8:13 AM CDT Respiratory Rate - - Oxygen Saturation 95% 03/07/2023 8:13 AM CDT Inhaled Oxygen Concentration - - Weight 62.9 kg (138 lb 9.6 oz) 03/07/2023 8:13 A M CDT Height 160 cm (5' 3 ) 03/07/2023 8:13 AM CDT Body Mass Index 24.55 03/07/2023 8:13 AM CDT Plan of Treatment Not on file Care Teams Emergency Medcl Emt Relationship Specialty Start Date End Date Rodney Mckay MD [address] [place] [address] PCP - General 05/25/22
--- OUTSIDE RECORDS SUMMARY | 2025-01-12 13:14 | XMS_ITS | Clinical Summary ---
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
--- OUTSIDE RECORDS SUMMARY | 2025-01-12 13:14 | XMS_ITS | Encounter Summary ---
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
--- OUTSIDE RECORDS SUMMARY | 2025-01-12 13:14 | XMS_ITS ---
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) 06/07/2022 Current Treatment and Therapy Plans Hydration Therapy Plan* Plan Start Date:07/25/2023 [...] (CMS/HCC) (HCC) Treatment Medications Current Day (Day 1 , Cycle 13 - Planned for 01/19/2025) Next Day (Day 15, Cycle 13 - Planned for 02/02/2025) ipilimumab (YERVOY)ipilimumab (YERVOY) IVPB in 25 mLnivolumab (OPDIVO)nivolumab (OPDIVO) in 50 mL IVPB ipilimumab (YERVOY) 65 mg in sodium chloride 0.9% 38 mL IVPBnivolumab (OPDIVO) 190 mg in sodium chloride 0.9% 50 mL IVPB nivolumab (OPDIVO) 190 mg in sodium chloride 0.9% 50 mL IVPB Past Treatment and Therapy Plans Oncology Chemotherapy Treatment Plan Name Start [...] Jimenez MD 25 of 28 cycles started Lifetime Dose Tracking * Chemical Lifetime Dose Automatic Entry Manual Entr y Fluoro Time 0.1 minutes 0.1 minutes 0 minutes DLP 3,410 mGycm 3,410 mGycm 0 mGycm
--- OUTSIDE RECORDS SUMMARY | 2025-01-12 13:14 | XMS_ITS | Patient Health Summary ---
Author Organization [facility] Address [address] [place] [address] Care Team Providers Care Ride Assembly Supervisor Name Role Phone Rodney Mckay MD Primary Care Provider [phone] Note from [facility],non-owned Affiliates and Associated Physician Practices is amultiple site organization consisting of ambulatory clinics and hospital sitesin [place], [place] and [place]. This disclosure is being madepursuant to the Care Everywhere program and may not contain all information available regarding this patient. Last updated 18.[facility] Allergies * Azithromycin(Palpitations) -Low Criticality * Codeine(Nausea [...] 24.55 03/07/2023 8:13 AM CDT Care Teams Ride Assembly Supervisor Relationship Specialty Start Date End Date Rodney Mckay MD [address] [place], [place] [address] PCP - General 05/25/22
--- OUTSIDE RECORDS SUMMARY | 2025-01-12 13:14 | XMS_ITS | Clinical Summary ---
Author Organization [facility] Address [address] [place] [address] Care Team Providers Care Circus Supervisor Name Role Phone Rodney Mckay MD Primary Care Provider [phone] Source Comments [facility] and Associated Physician Practices is amultiple site organization consisting of ambulatory clinics and hospital sitesin [place], [place], [place] and [place]. This disclosure is being madepursuant to the Care Everywhere program and may not contain all information available regarding this patient. Last updated 18.[facility] Allergies Active Allergy Reactions Criticality Noted Date [...] age to complete this topic Care Teams Circus Supervisor Relationship Specialty Start Date End Date Rodney Mckay MD [address] [place] [address] PCP - General 05/25/22
== END 2025-01-12 11:08 | disposition home or self-care (01) ==
PROVIDERS: PCP Internal Medicine; Visit Provider Internal Medicine
DX: J18.8 Other pneumonia, unspecified organism (principal)
CPT/HCPCS: 71046

== ENCOUNTER 2025-11-15 09:59 | Outpatient (CLI) | payer MEDICARE, SELFPAY ==
--- OUTSIDE RECORDS SUMMARY | 2025-11-15 10:29 | XMS_ITS | Clinical Summary ---
Author Organization [facility] Address [address] [place] [address] Care Team Providers Care Machine Mover Name Role Phone Rodney Mckay MD Primary Care Provider [phone] Source Comments [facility] and [facility] Practices is amultiple site organization consisting of ambulatory clinics and hospital sitesin [place], [place], [place] and [place]. This disclosure is being madepursuant to the Care Everywhere program and may not contain all information available regarding this patient. Last updated 18.[facility] [employer] Allergies Active Allergy Reactions Criticality Noted Date Comments Azithromycin Palpitations Low 06/09/2018 Codeine Nausea and/or Vomiting Low 06/09/2018 Medications * Be aware that medications may not be up to date on this document. Alwaysverify current medications with the patient. vitamin D3 (Cholecalcifero l) (25 MCG) 1000 UNIT capsule Take 1 (one) capsule by mouth once daily Active dexAMETHasone (Decadron) 4 MG tablet 3 Active Ferrous Sulfate 324 MG TBEC Take 324 mg by mouth once daily Active gabapentin (Neurontin) 300 MG capsule TAKE ONE CAPSULE BY MOUTH IN THE AM. TAKE TWO CAPSULES BY MOUTH IN THE PM 3 Active lidocaine-prilo afsaneh (Emla) 2.5-2.5 % cream APPLY TOPICALLY NEEDED FOR PAIN PLEASE APPLY ONE HOUR PRIOR TO PORT USE 2 Active montelukast (Singulair) 10 MG tablet Take 1 (one) tablet by mouth once daily 3 Active omeprazole (PriLOSEC) 40 MG capsule TAKE 1 CAPSULE BY MOUTH EVERY DAY BEFORE A MEAL 2 Active ondansetron (Zofran) 8 MG tablet 2 Active oxyBUTYnin CR 24hr (Ditropan-XL) 10 MG tablet Take 1 (one) tablet by mouth 2 times daily 3 Active prochlorperazin e (Compazine) 10 MG tablet 2 Active Pyridoxine HCl 100 MG Take 1 (one) tablet by mouth once daily Active Social History Tobacco Use Types Packs/Day Years Used Date Smoking Tobacco: Never Smokeless Tobacco: Never Comments Unknown Sex and Gender Information Value Date Recorded Sex Assigned at Not on file Legal Sex Female 2:35 PM CDT Gender Identity Not on file Sexual Orientation [...] A M CDT Height 160 cm (5' 3) 03/07/2023 8:13 AM CDT Body Mass Index [...] 2007 ZOSTER VACCINE (1 of 2) 2007 DEPRESSION SCREENING 11/18/2024 COVID-19 VACCINE (1 - 2024-2 6 season) 2025 INFLUENZA VACCINE (#1) 2025 08/29/2022 Respiratory Syncytial Virus (RSV) Vaccine Pt: or [...] to complete this topic MENINGOCOCCAL (Group B) VACC INE SHARED DECISION-MAKING Aged Out No longer eligibl e based on patient's age to complete this topic MENINGOCOCCAL GROUPS A/C/Y/W VACCINE Aged Out No longer eligible b ased on patient's age to complete this topic Insurance [employer] Care Teams Machine Mover Relationship Specialty Start Date End Date Rodney Mckay MD [address] [place] [address] PCP - General 05/25/22
--- OUTSIDE RECORDS SUMMARY | 2025-11-15 10:29 | XMS_ITS | Encounter Summary ---
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 Gender Identity Not on file Sexual Orientation [...] documented as of this encounter Care Teams Associate Field Service Engineer Relationship Specialty Start Date End Date Rodney Mckay MD PCP - General Internal Medicine 05/30/22 Yves Moreno DO [address] [place], [place] [id number] Referring Physician Surgery 06/04/22 Jose G Jimenez MD [address] [place] [address] Medical Oncologist/Deputy Administrator Medical Oncology 09/04/23 05/25/25 Frakn Curry MD [address] [place] [address] Consulting Physician Medical Oncology 05/26/25 documented as of this encounter
--- OUTSIDE RECORDS SUMMARY | 2025-11-15 10:29 | XMS_ITS | Clinical Summary ---
Author Organization [address] Address [address] [place] [address] Care Team Providers Care Rubber Goods Assembler Name Role Phone Rodney Mckay MD Primary Care Provider [phone] Yves Moreno DO Unavailable [phone] Frank Curry Unavailable [phone] Allergies Active Allergy Reactions Criticality Noted Date Comments Azithromycin Palpitations Low 06/09/2018 Codeine Nausea only,Nausea & Vomiting Low 06/09/2018 Nivolumab Other (See comments) Low 08/07/2023 Lower back pain/tightening Medications ascorbic acid (VITAMIN C) 100 mg tabletIndications :Vitamin C Deficiency Take 1 tablet (100 mg total) by mouth every morning Active cholecalciferol (VITAMIN D-3) 2000 unit capsuleIndication s:Vitamin D Deficiency Take 1 capsule (2,000 Units total) by mouth every morning Active ferrous sulfate ER 324 mg (65 mg iron) EC tabletIndications :Iron Deficiency Anemia Take 1 tablet (324 mg total) by mouth nightly Active montelukast (SINGULAIR) 10 mg tabletIndications :Seasonal Allergic Rhinitis Take 1 tablet (10 mg total) by mouth every morning Active oxybutynin XL (DITROPAN-XL) 10 mg 24 hr tabletIndications :Bladder Hyperactivity Take 1 tablet (10 mg total) by mouth 2 (two) times a day Active lidocaine-priloca ine (EMLA) creamIndications: Administration of Local Anesthesia Apply topically as needed for pain Please apply one hour prior to port use 30 g 11 06/29/ 022 Active Additional Information Patient taking differently: 1 Applicationtopical As needed, pain, Please apply one hour prior to port use, Indications: Administration of Local Anesthesia, Informant: Self, Reported on 11/02/2025 pyridoxine (VITAMIN B-6) 100 mg tabletIndications :OTC Take 1 tablet (100 mg total) by mouth 2 (two) times a day Active cetirizine (ZyrTEC) 10 mg tabletIndications :Seasonal Allergic Rhinitis Take 1 tablet (10 mg total) by mouth as needed for allergies Acti ve acetaminophen (TYLENOL) 500 mg tablet Take 2 tablets (1,000 mg total) by mouth every 6 (six) hours as needed for pain Active ibuprofen 200 mg tab/capIndication s:Pain Take 2 tablet/capsule (400 mg total) by mouth every 6 (six) hours as needed for pain Active naproxen sodium 220 mg capsule Take 1 capsule by mouth as needed Active fluticasone propionate (FLONASE) 50 mcg/actuation nasal spray Administer 2 sprays into each nostril as needed for rhinitis Activ e docusate sodium (COLACE) 100 mg capsuleIndication s:constipation Take 1 capsule (100 mg total) by mouth 2 (two) times a day with a glass of water for constipation every time you take oxycodone 60 capsule Active Additional Information Patient not taking.Reported on 11/02/2025 acetaminophen (TYLENOL) 500 mg tablet Take 1 tablet (500 mg total) by mouth every 6 (six) hours as needed for pain 30 tablet Active oxyCODONE (ROXICODONE) 5 mg immediate release tabletIndications :Pain Take 1 tablet (5 mg total) by mouth every 4 (four) hours as needed for pain for up to 10 doses 10 tablet Active gabapentin (NEURONTIN) 300 mg capsuleIndication s:Neuropathic Pain Take 1 capsule (300 mg total) by mouth 2 (two) times a day Take 2 capsule by mouth in the am. Take 1 capsules by mouth in the pm 90 capsule 3 Active gabapentin (NEURONTIN) 300 mg capsuleIndication s:Malignant neoplasm of ascending colon (HCC),Drug-induce d polyneuropathy Take one capsule by mouth in the am. 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 Floor 5 [place] [address] Frank Curry MD Malignant neoplasm of ascending colon (HCC) (Primary Dx) 11/02/2025 10:00 AM PLANT CYTOLOGIST Clinical Support [facility] [place] [facility] [facility] [place] [address] [place] [address] Malignant neoplasm of ascending colon (HCC) 11/02/2025 9:15 AM PLANT CYTOLOGIST [facility] Floor 5 [place] [address] Malignant neoplasm of ascending colon (HCC) 11/02/2025 7:19 AM PLANT CYTOLOGIST - 11/02/2025 11:59 PM PLANT CYTOLOGIST Hospital Encounter [facility] - PET [facility] 8 [place] [address] Discharge Disposition: Discharge to home or self care 11/02/2025 7:18 AM PLANT CYTOLOGIST - 11/02/2025 11:59 PM PLANT CYTOLOGIST Hospital Encounter [facility] [place] - PET [facility] [address] [place] [address] Malignant neoplasm of ascending colon (HCC) Discharge Disposition: Discharge to home or self care 10/29/2025 Telephone [facility] [address] [place] [address] [address] [place] [address] Catalina Desai CMA Scheduling Appointments 10/08/2025 12:45 PM PLANT CYTOLOGIST [facility] [address] [place] [address] Floor 5 [place] [address] Nereyda Murray MD Malignant neoplasm of ascending colon (HCC) (Primary Dx) 09/15/2025 Results Follow-Up [facility] Surgeon [address] [place] [address] Nereyda Murray MD Surgical pathology 09/13/2025 1:18 PM CDT Anesthesia Event [facility] ([facility]) [address] [place] [address] Louann Argueta MD Ridenour Denise ValeraALECIA smith 09/13/2025 1:05 PM CDT - 09/13/2025 4:15 PM CDT Surgery [facility] ([facility]) [address] [place] [phone] Nereyda Murray MD BIOPSY LYMPH NODE - AXILLARY 09/13/2025 10:34 AM CDT - 09/13/2025 5:39 PM CDT Hospital Encounter [facility] ([facility]) [address] [place] [address] Nereyda Murray MD Lymphadenopathy Discharge Disposition: Discharge to home or self care 08/20/2025 2:00 PM CDT Office Visit [facility] Medicine Surgery [facility] Floor [address] [place] [address] Nereyda Murray MD Malignant neoplasm of ascending colon (HCC) (Primary Dx) 08/19/2025 Telephone [facility] Medicine Oncology [address] [place] [address] [place] [phone] Astrid Charles RN 08/19/2025 Orders Only [facility] Medicine Oncology [address] [place], [place] [address] [phone] Frank Curry MD from Last 3 Months Immunizations Immunization Administration Dates Next Due Influenza, Quadrivalent, Michelle l Culture-based MDCK, Preservative Free, Antibiotic Free, Intramuscular 08/29/2022 Influenza, Quadrivalent, Split, Intramuscular Influenza, Quadrivalent, Spl it, Preservative Free, Intramuscular 08/10/2021,11/03/2020 Influenza, Unspecified 07/19/2023 Tdap 06/14/2020,05/11/2009 ZOSTER Recombinant 09/06/2019,06/30/2019 Surgical History Surgery Date Site/Laterality Comments PORT PLACEMENT CHEST >5 YEARS 06/27/2022 N/A COLON SURGERY 05/17/2022 COLONOSCOPY 11/18/2017 - 11/17/2018 BONE MARROW BIOPSY 02/16/2022 - 03/17/2022 Medical History Medical History Date Comments Cancer (HCC) FHx: chemotherapy 05/2023 Social History Tobacco Use Types Packs/Day Years Used Date Smoking Tobacco: Never Passive Smoke Exposure: Past Smokeless Tobacco: Never Tobacco Cessation:Counseling Given: Not Answered Alcohol Use Standard Drinks/Week Comments Not Currently 0 (1 standard drink = 0.6 oz pur e alcohol) AUDIT-C Answer Date Recorded Q1: How often do you have a drink containing alcohol? Never 09/13/2025 Q2: How many drinks containi ng alcohol do you have on a typical day when you are drinking? Patient does not drink Q3: How often do you have si x or more drinks on one occasion? Never 09/13/2025 Personal Safety Answer Date Recorded Have you ever been in or are you currently in a harmful physical or emotional relationship or is someone making you feel afraid or unsafe? Denies 09/13/2025 Comments No Sex and Gender Information Value Date Recorded Sex Assigned at Not on file Legal Sex Female 12:09 PM PLANT CYTOLOGIST Gender Identity Not on file Sexual Orientation Not on file Last Filed Vital Signs Vital Sign Reading Time Taken Comments Blood Pressure 109/71 11/02/2025 10:08 AM PLANT CYTOLOGIST Pulse 66 11/02/2025 10:08 AM PLANT CYTOLOGIST Temperature 36.3 C (97.3 F) 11/02/2025 10:08 AM PLANT CYTOLOGIST Respiratory Rate 18 11/02/2025 10:08 AM PLANT CYTOLOGIST Oxygen Saturation 98% 11/02/2025 10:08 AM PLANT CYTOLOGIST Inhaled Oxygen Concentration - - Weight 61.5 kg (135 lb 9.6 oz) 11/02/2025 10:08 AM PLANT CYTOLOGIST Height 160 cm (5' 3) 09/13/2025 12:35 PM CDT Body Mass Index 24.02 09/13/2025 12:35 PM CDT Plan of Treatment Health Maintenance Due Date Last Done Comments Breast Cancer Screening-Mammogram 1957 Colon Cancer Screening-Colonoscopy 1957 Depression Screening 1957 Hepatitis C Screening 1957 Osteoporosis Screening-Bone Density Scan 1957 Hepatitis B Screening 1975 Pneumococcal vaccine 65+ (1 of 2 - PCV) 1976 Well Visit 65+ 2022 Covid-19 Vaccine (4 - 2024-2 6 season) 2025 10/31/2021, 01/13/2021, 12/23/2020 Influenza Vaccine (#1) 2025 3, 08/29/2022, 08/10/2021, Additional history exists Fall Risk Assessment 09/13/2026 09/13/2025 DTaP/Tdap/Td Vaccine (3 - Td or Tdap) 06/14/2030 06/14/2020, 05/11/2009 Zoster Vaccine Completed 09/06/2019, 06/30/2019 Medical Devices Implanted Type Area Commodities Requirements Analyst Device Identifier Shelf Expiration Date Model / Serial / Lot [employer] Excela Low Porfile Power Port 8fr 1.6mm 1 Lumen [id number] - [id number] Implanted:Qty: 1 on 06/27/2022 at [facility] [employer] 02/06/2027 [id number] / / [id number] Procedures Procedure Name Priority Date/Time Associated Diagnosis Comments EGFR Routine 11/02/2025 9:48 AM PLANT CYTOLOGIST Malignant neoplasm of ascending colon (HCC) MANUAL DIFFERENTIAL Routine 11/02/2025 9 :48 AM PLANT CYTOLOGIST Malignant neoplasm of ascending colon (HCC) CBC WITH AUTO DIFFERENTIAL Routine 11/02/2025 9:48 AM PLANT CYTOLOGIST Malignant neoplasm of ascending colon (HCC) COMPREHENSIVE METABOLIC PANEL Routine 11/02/2025 9:48 AM PLANT CYTOLOGIST Malignant neoplasm of ascending colon (HCC) PET/CT FDG SKULL TO THIGH Schedule Routine, Read Routine (OP Routine) 11/02/2025 9:33 AM PLANT CYTOLOGIST Malignant neoplasm of ascending colon (HCC) SIGNATERA ONLY Routine 11/02/2025 9:32 AM PLANT CYTOLOGIST Malignant neoplasm of ascending colon (HCC) FLOW LEUKEMIA/LYMPHOMA Routine 09/13/2025 2:21 PM CDT FLOW LEUKEMIA/LYMPHOMA Routine 09/13/2025 2:03 PM CDT SURGICAL PATHOLOGY Routine 09/13/2025 2: 02 PM CDT Lymphadenopathy DE AN PROCEDURE PLACEHOLDER Routine 09/13/2025 1:39 PM CDT BIOPSY LYMPH NODE - GROIN 09/13/2025 1:20 PM CDT Lymphadenopathy [facility] [place]. BIOPSY LYMPH NODE - AXILLARY 09/13/2025 1:20 PM CDT Lymphadenopathy [facility] [place]. from Last 3 Months Results * eGFR (11/02/2025 9:48 AM PLANT CYTOLOGIST) eGFR 87 >=60 mL/min/1. 73 m2 Comment: Interpretive Data [...] Current interpretive data was last reviewed 2021. Blood 11/02/2025 9:48 AM PLANT CYTOLOGIST 11/02/2025 10:02 AM PLANT CYTOLOGIST us Moh'Mehdi Curry MD LAB BLOOD ORDERABLES Christina mariee Result ABHIJEET [facility] [place] [address] * CBC with auto differential (11/02/2025 9:48 AM PLANT CYTOLOGIST) WBC 4.39 3.80 - 9.90 K/cumm Comment:Testing performed by : [facility], [address] [place], [place] [phone] Hgb 12.1 11.9 - 15.5 g/dL CERNER BJ Comment:Testing performed by : [facility], [address] [place], [place] [phone] Hct 36.4 35.6 - 45.5 % CERNER BJ Comment:Testing performed by : [facility], [address] [place], [place] [phone] Plt 153 150 - 400 K/cumm CERNER BJ Comment:Testing performed by : [facility], [address] [place], [place] [phone] MPV 7.9 6.8 - 10.4 fL CERNER BJ Comment:Testing performed by : [facility], [address] [place], [place] [phone] RBC 4.29 3.90 - 5.20 M/cumm CERNER BJ Comment:Testing performed by : [facility], [address] [place], [place] [phone] MCV 84.7 81.3 - 96.4 fL CERNER BJ Comment:Testing performed by : [facility], [address] [place], [place] [phone] MCH 28.2 27.1 - 33.3 pg CERNER BJ Comment:Testing performed by : [facility], [address] [place] [address] MCHC 33.3 32.3 - 35.7 g/dL CERNER BJ Comment:Testing performed by : [facility], [address] [place] [address] RDW CV 14.2 11.1 - 14.9 % CERNER BJ Comment:Testing performed by : [facility], [address] [place], [place] [phone] NRBC abs 0.00 0.00 - 0.01 K/cumm CERNER BJ Comment:Testing performed by : [facility], [address] [place] [phone] Blood 11/02/2025 9:48 AM PLANT CYTOLOGIST 11/02/2025 10:02 AM PLANT CYTOLOGIST Frank Curry MD LAB BLOOD ORDERABLES Edit ed Result - Final ABHIJEET FREED [facility] [place] [address] * (ABNORMAL) Manual Differential (11/02/2025 9:48 AM PLANT CYTOLOGIST) Cells Counted 199 Comment:Testing performed by : [facility], [address] [place], [place] [phone] Neutrophil abs 3.16 1.50 - 6.50 K/cumm ABHIJEET FREED Comment:Testing performed by : [facility], [address] [place], [place] [phone] Lymphocyte abs 0.79(L) 0.80 - 3.30 K/cumm ABHIJEET FREED Comment:Testing performed by : [facility], [address] [place], [place] [phone] Monocyte abs 0.26 0.20 - 0.80 K/cumm ABHIJEET FREED Comment:Testing performed by : [facility], [address] [place] [address] Eosinophil abs 0.09 0.00 - 0.50 K/cumm ABHIJEET FREED Comment:Testing performed by : [facility], [address] [place], [place] [phone] Basophil abs 0.00 0.00 - 0.10 K/cumm ABHIJEET FREED Comment:Testing performed by : [facility], [address] [place], [place] [phone] Neutrophil pct 72.0 % ABHIJEET FREED Comment: Interpretive Data Percent cell count reference ranges are not reported, since discordance with absolute values may lead to misinterpretation of CBC data. Current Interpretive Data was last revised on 2018. Testing performed by: [facility], [address] [place] [phone] Lymphocyte pct 18.0 % CERNER [facility] Comment: Interpretive Data Percent cell count reference ranges are not reported, since discordance with absolute values may lead to misinterpretation of CBC data. Current Interpretive Data was last revised on 2018. Testing performed by: [facility], [address] [place] [address] Monocyte pct 6.0 % CERNER [facility] Comment: Interpretive Data Percent cell count reference ranges are not reported, since discordance with absolute values may lead to misinterpretation of CBC data. Current Interpretive Data was last revised on 2018. Testing performed by: [facility], [address] [place] [address] Eosinophil pct 2.0 % CERNER [facility] Comment: Interpretive Data Percent cell count reference ranges are not reported, since discordance with absolute values may lead to misinterpretation of CBC data. Current Interpretive Data was last revised on 2018. Testing performed by: [facility], [address] [place] [phone] Basophil pct 0.0 % CERNER BJ Comment: Interpretive Data Percent cell count reference ranges are not reported, since discordance with absolute values may lead to misinterpretation of CBC data. Current Interpretive Data was last revised on 2018. Testing performed by: [facility], [address] [place] [phone] Variant lymph pct 4.0(H) 0.0 - 0.0 % CERNER [facility] Comment:Testing performed by : [facility], [address] [place] [phone] RBC morphology NRBCs present(A) CERNER [facility] Comment:Testing performed by : [facility], [address] [place], [place] [phone] Anisocytosis 1+(A) C[facility]ER [facility] Comment:Testing performed by : [facility], [address] [place], [place] [phone] Platelet estimate Adequate [facility]ER [facility] Comment:Testing performed by : [facility], [address] [place] [address] Blood 11/02/2025 9:48 AM PLANT CYTOLOGIST 11/02/2025 10:02 AM PLANT CYTOLOGIST Frank Curry MD LAB BLOOD ORDERABLES Christina mariee Result [facility] [place] [address] * Comprehensive metabolic panel (11/02/2025 9:48 AM PLANT CYTOLOGIST) Sodium 142 135 - 145 mmol/L Potassium, pl 4.0 3.3 - 4.9 mmol/L [facility] Chloride 106 97 - 110 mmol/L [facility] CO2 30 22 - 32 mmol/L [facility] Anion gap 6 2 - 15 mmol/L [facility] BUN 15 6 - 25 mg/dL [facility] Creatinine 0.75 0.60 - 1.10 mg/dL [facility] Glucose 94 70 - 199 mg/dL [facility] Comment: Interpretive Data Fasting glucose >/= [...] Current interpretive data was last revised 2022. Calcium 9.3 8.5 - 10.3 mg/dL [facility] Bilirubin, total 0.6 0.1 - 1.2 mg/dL [facility] Protein, pl 6.9 6.5 - 8.5 g/dL [facility] Albumin 3.8 3.5 - 5.0 g/dL [facility] Alk phos 116 40 - 130 Units/L CERNER [facility] ALT 16 7 - 45 Units/L [facility] AST 24 10 - 45 Units/L [facility] Blood 11/02/2025 9:48 AM PLANT CYTOLOGIST 11/02/2025 10:02 AM PLANT CYTOLOGIST [facility] MD LAB BLOOD ORDERABLES Christina kodi Result ABHIJEET [facility] [place] [address] * PET/CT FDG Skull to Thigh (11/02/2025 9:33 AM PLANT CYTOLOGIST) Anatomical Region Laterality Modality N/A Positron Emissio n Tomography (PET) 11/02/2025 10:3 1 AM PLANT CYTOLOGIST Impressions 11/02/2025 1:13 PM PLANT CYTOLOGIST Hypermetabolic lymphadenopathy above and below the diaphragm is largely similar to prior study with the exception of portocaval node with now marked uptake but stable in size. Splenomegaly with moderately increased splenic uptake is also unchanged. The differential for this findings again includes sarcoid-like reaction to immunotherapy versus other systemic inflammatory etiology or hematologic neoplasm. Colon cancer metastasis is favored to be less likely. Dictated by: Jack White MD The radiology attending physician has personally reviewed this study, and had reviewed and/or edited this written report and agrees with it. Electronically signed by: Cynthia Fonseca M.D. Narrative 11/02/2025 1:13 PM PLANT CYTOLOGIST EXAMINATION: TUMOR FDG-PET/CT IMAGING DATE OF STUDY: 11/02/2025 SCANNER: [facility] Advanced Chip Express[employer] (SQ1). This is a high-resolution scanner, which can result in higher SUVs (and even detection of previously unrecognized small lesions) compared to older scanners. RADIOPHARMACEUTICAL: 7.2 mCi F-18 Fluorodeoxyglucose (FDG) i.v. 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 The study is requested for treatment monitoring during therapy. Subsequent treatment strategy. TECHNIQUE: The patient's fasting blood glucose level, measured by glucometer before injection of FDG, was 94 mg/dL. After intravenous administration of FDG, noncontrast CT images were obtained for attenuation correction and for fusion with emission PET images to allow for anatomical localization of PET findings. Emission PET images were then obtained. The study was interpreted on the [employer] workstation. The mean liver SUV (reported for quality tester purposes) is 2.7. The total scanned area was skull base to proximal thighs. Images of the body were obtained starting 64 minutes after injection of tracer. All reported SUVs are maximum SUVs, unless otherwise specified. COMPARISON: 2025 DESCRIPTORS OF LESION FDG AVIDITY: Minimal: <= blood pool Mild: > blood pool and <= liver Moderate: > liver and <= 2x SUVmax liver Moderate to marked: >2x SUVmax liver and <= 3x SUVmax liver Marked: > 3x SUVmax liver FINDINGS: Again seen are enlarged and mild to moderately hypermetabolic lymph nodes above and below the diaphragm. These include bilateral axillary lymph nodes, bilateral supraclavicular lymph nodes, a subcarinal node, bilateral hilar nodes, and hepatic hilar nodes, retroperitoneal nodes, internal and external iliac nodes, and inguinal nodes. The uptake within these nodes is overall similar to prior study (for example right external iliac maximum SUV 6.6, previously 7.7, retroperitoneal 4.4, previously 3.6 , and left axillary 4.2, previously 6.1). The exception to this is a aortocaval node, which now exhibits marked uptake (slice 169, maximum SUV 10.3, previously 5.2) 6. Postbiopsy change of the right axilla and left groin. There is splenomegaly and moderately increased homogeneous splenic uptake, similar to prior study. The most FDG-avid lesion is an aortocaval node, has a maximum SUV of 10.3, and approximate axial dimensions of 1.8 [address] findings: Right chest port catheter terminates at the superior cavoatrial junction. Bibasilar atelectasis. Mild aortoiliac atherosclerosis. Postoperative right axillary seroma. Procedure Note Cynthia Fonseca MD - 11/02/2025 EXAMINATION: TUMOR FDG-PET/CT IMAGING DATE OF STUDY: 11/02/2025 SCANNER: [facility] [employer] (SQ1). This is a high-resolution scanner, which can result in higher SUVs (and even detection of previously unrecognized small lesions) compared to older scanners. RADIOPHARMACEUTICAL: 7.2 mCi F-18 Fluorodeoxyglucose (FDG) i.v. 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 The study is requested for treatment monitoring during therapy. Subsequent treatment strategy. TECHNIQUE: The patient's fasting blood glucose level, measured by glucometer before injection of FDG, was 94 mg/dL. After intravenous administration of FDG, noncontrast CT images were obtained for attenuation correction and for fusion with emission PET images to allow for anatomical localization of PET findings. Emission PET images were then obtained. The study was interpreted on the [employer] workstation. The mean liver SUV (reported for quality tester purposes) is 2.7. The total scanned area was skull base to proximal thighs. Images of the body were obtained starting 64 minutes after injection of tracer. All reported SUVs are maximum SUVs, unless otherwise specified. COMPARISON: 2025 DESCRIPTORS OF LESION FDG AVIDITY: Minimal: <= blood pool Mild: > blood pool and <= liver Moderate: > liver and <= 2x SUVmax liver Moderate to marked: >2x SUVmax liver and <= 3x SUVmax liver Marked: > 3x SUVmax liver FINDINGS: Again seen are enlarged and mild to moderately hypermetabolic lymph nodes above and below the diaphragm. These include bilateral axillary lymph nodes, bilateral supraclavicular lymph nodes, a subcarinal node, bilateral hilar nodes, and hepatic hilar nodes, retroperitoneal nodes, internal and external iliac nodes, and inguinal nodes. The uptake within these nodes is overall similar to prior study (for example right external iliac maximum SUV 6.6, previously 7.7, retroperitoneal 4.4, previously 3.6 , and left axillary 4.2, previously 6.1). The exception to this is a aortocaval node, which now exhibits marked uptake (slice 169, maximum SUV 10.3, previously 5.2) 6. Postbiopsy change of the right axilla and left groin. There is splenomegaly and moderately increased homogeneous splenic uptake, similar to prior study. The most FDG-avid lesion is an aortocaval node, has a maximum SUV of 10.3, and approximate axial dimensions of 1.8 x [address] findings: Right chest port catheter terminates at the superior cavoatrial junction. Bibasilar atelectasis. Mild aortoiliac atherosclerosis. Postoperative right axillary seroma. IMPRESSION: Hypermetabolic lymphadenopathy above and below the diaphragm is largely similar to prior study with the exception of portocaval node with now marked uptake but stable in size. Splenomegaly with moderately increased splenic uptake is also unchanged. The differential for this findings again includes sarcoid-like reaction to immunotherapy versus other systemic inflammatory etiology or hematologic neoplasm. Colon cancer metastasis is favored to be less likely. Dictated by: Jack White MD The radiology attending physician has personally reviewed this study, and had reviewed and/or edited this written report and agrees with it. Electronically signed by: Cynthia Fonseca M.D. [facility]Mehdi Curry MD IMG PET PROCEDURES Final Result * Signatera Only Draw 3 (11/02/2025 9:32 AM PLANT CYTOLOGIST) SIGNATERA TEST RESULT NEGATIVE 7:00 AM PLANT CYTOLOGIST [facility] SIGNATERA MTM READOUT 0 MTM/ml 7:00 AM PLANT CYTOLOGIST [facility] Comment: Please see the attached PDF for more information. Limitations Signatera is a personalized, tumor-informed test for the longitudinal detection of circulating tumor DNA (ctDNA). Interval testing is recommended for all patients. Studies have demonstrated that when ctDNA is detected (Signatera Positive) following surgery or definitive treatment, the risk for disease relapse is high without further treatment. Conversely, when ctDNA is not detected, the patient may be considered at lower risk for relapse. For those with multiple timepoints, upward trending ctDNA levels are suggestive of increasing tumor burden (1,2). For a single time point in isolation, the absolute MTM/mL value has no known clinical significance and should not be compared across patients. Test results should be interpreted in context of other clinicopathological features. ctDNA detection sensitivity may be limited due to blood collection within two weeks of surgery and while the patient is on therapy. Signatera is a quantitative test and reports in units of mean tumor molecules per ml (MTM/mL), which is comprised of three measured components (plasma volume, cell free DNA (cfDNA) concentration, and Variant Allele Frequency (VAF)). The MTM/mL number will be qualified if any measured component falls outside the analytical measurement range for that component. The analytical sensitivity is 95% at the limit of detection (0.3 MTM/mL). Results obtained are specific to the assessed time point. A negative test result does not definitively indicate the absence of cancer. This test is not designed to detect or report germline variation, nor does it infer hereditary cancer risk for the patient. Each Signatera assay is designed to a single tumor for a given patient. At this time, multiple personalized Signatera assays cannot be developed for the same patient. This test is designed to detect ctDNA from the assayed tumor only; new primary tumors will not be detected. There is a low risk that a new primary may share a variant that could interfere with the Signatera test. Testing cannot be performed in patients who are , have a history of bone marrow transplant, or history of blood transfusion within three months. This test is expected to have limited sensitivity in cancer types such as GIST, renal cell carcinomas, primary brain tumors, and lymphoma due to limited ctDNA shed. 1 Tomas SV, Lamin LUCIOC, Adriana DESHPANDE, et al. Personalized circulating tumor DNA analysis as a predictive biomarker in solid tumor patients treated with pembrolizumab. Nature Cancer. 2020;1(9):873-881. 2 Aryan ALVARADO, Estevan Jones, et al., Circulating Tumor DNA in Stage III Colorectal Cancer, beyond Minimal Residual Disease Detection, toward Assessment of Adjuvant Therapy Efficacy and Clinical Behavior of Recurrences. Clin Cancer Res. 2020; 28(3):507-517. Methodology FFPE samples are reviewed by a pathologist to assess tumor content and percent tumor nuclei. Tumor DNA is extracted using [place] [employer] Mag-Bind FFPE DNA/RNA kit. Whole genomic DNA is isolated from peripheral blood using QIAamp DNA Blood MiniKit to provide DNA for germline sequencing. Circulating tumor DNA (ctDNA) is extracted from plasma derived from whole blood samples collected in cell-free DNA blood tubes ([employer]) using the QIAPersonSpotmphony automated or manual extraction method (Qiagen). Whole-exome sequencing is performed on tumor and peripheral blood DNA using the CheapFlightsFinder whole-exome sequencing assay. Using a proprietary algorithm, putative, clonal variants present in the tumor but absent in the germline DNA are identified to design the customized multiplex PCR assay. The customized PCR assays are run to detect presence or absence of these variants within circulating plasma. A patient's plasma sample is considered ctDNA positive when at least two individual-specific tumor variants are detected. When fewer than two individual-specific tumor variants are observed, a negative result is issued. Pathology services and whole exome sequencing is performed at [facility] (CLIA ID# [id number]), [address] [place] [address] [address] Disclaimer The extraction, library preparation, and sequencing for this test were performed by [facility] [address] [place] [address] [facility] [address], [place] [address] (CLIA ID [id number]). The data analysis and reporting for this test were performed by [facility] [address] [address] (CLIA ID [id number]). This test was developed and its performance characteristics determined by [facility]. The test has not been cleared or approved by the U.S. Food and Drug Administration (FDA). CAP accredited, ISO 07547 certified, and CLIA certified. Pathology services and whole exome sequencing for this test were performed by [facility] [address], [place] [address] (CLIA ID [id number]). 2020 [employer]. All Rights Reserved. Blood specimen (specimen) (Blood, arterial) 11/02/2025 9:32 AM PLANT CYTOLOGIST 11/03/2025 2:00 AM PLANT CYTOLOGIST [facility]Mehdi Curry MD LAB GENETIC TESTING Final Result [facility] [address] [place] [address], [facility] * Flow Leukemia/Lymphoma Lymph node (09/13/2025 2:21 PM CDT) Cullen Stain Test Completed Leukemia/Lymp ronna Result See separate Surgical Pathology report. ABHIJEET FREED Lymph node 09/13/2025 2:21 PM CDT 09/13/2025 6:44 PM CDT us Nereyda Murray MD LAB PATHOLOGY ORDERABLES Final R esult [facility] [place] [address] * Flow Leukemia/Lymphoma Lymph node (09/13/2025 2:03 PM CDT) Cullen Stain Test Completed Leukemia/Lymp ronna Result See separate Surgical Pathology report. [facility] Lymph node 09/13/2025 2:03 PM CDT 09/13/2025 6:44 PM CDT us Nereyda Murray MD LAB PATHOLOGY ORDERABLES Final R esult Performing Organization Address City/[facility]/ZIP Co de Phone Number [facility] [place] [address] * Surgical pathology (09/13/2025 2:02 PM CDT) Tissue (Lymph Node, Single excision) 09/13/2025 2:02 PM CDT Tissue specimen (specimen) (Lymph Node, Single excision) 09/13/2025 2:03 PM CDT Tissue specimen (specimen) (Lymph Node, Single excision) 09/13/2025 2:20 PM CDT Tissue specimen (specimen) (Lymph Node, Single excision) 09/13/2025 2:21 PM CDT Narrative PATHOLOGY [facility] - 09/15/2025 5:23 PM CDT EPIC results best viewed via link to PDF [facility] [place] [address] Note to Patients: This report may contain a detailed description of human tissue sent by a health care provider to the laboratory for pathologic evaluation. The content of this report is essential for diagnosis and may provide important critical findings. This information may be unfamiliar to patients to review without a medical professional present. It is advised that the patient review this report in the presence of a health care provider who can answer questions and explain the details. SURGICAL PATHOLOGY REPORT FINAL Patient Name: BRUNA TURCIOS Gender: F : 1955 (Age: 70) Address: [address] [place] [id number] Hospital #: [id number] Taken:09/13/2025 Received:09/13/2025 Reported: 09/15/2025 Patient Type: [facility] Service: Oncology Location: Physician(s): MD Rodney Huff M.D. Diagnosis: A. Lymph node, left groin, excision - Three lymph nodes negative for carcinoma (0/3) - Organized lymphoid tissue with no evidence of lymphoma B. Lymph node, left groin, excision - Two lymph nodes negative for carcinoma (0/2) - Organized lymphoid tissue with no evidence of lymphoma C. Lymph node, right axillary, excision - One lymph node negative for carcinoma (0/1) - Organized lymphoid tissue with no evidence of lymphoma D. Lymph node, right axillary, excision - One lymph node negative for carcinoma (0/1) - Organized lymphoid tissue with no evidence of lymphoma E. Lymph node, left groin, tissue for flow cytometry - No clonal B-cell or aberrant T-cell populations detected F. Lymph node, right axillary, tissue for flow cytometry - No clonal B-cell or aberrant T-cell populations detected mf/09/15/2025 11:22 By this signature, I attest that the above diagnosis is based upon my personal examination of the slides(and/or other material indicated in the diagnosis). Thiago Hayes M.D. Report Electronically Reviewed and Signed Out By Thiago Hayes M.D. 09/15/2025 17:23:10 Microscopic Description and Comment: Lymph node, left groin, tissue for flow cytometry: Specimen quality: Adequate Flow cytometry analysis shows the lymphocyte-gated events account for 95% of the overall cellularity of the specimen. The CD19+CD20+ B-cell population comprises 20% of lymphocytes, is polytypic, and displays no significant co-expression of CD5 or CD10. The CD3+ T-cells comprise 79% of lymphocytes and show no significant loss of betancourt T-cell antigens. The CD4 to CD8 ratio is within normal limits. There is a small population of CD56+ events (1% of lymphocytes) consistent with natural killer cells. There is no overt increase in CD38+ plasma cells. The CD45 dim-gated events are <1% of overall cellularity, and CD34+ events are not increased. A Cullen-Giemsa stained slide from the flow cytometry specimen was examined for internal quality tester purposes. Flow cytometry was performed using antibodies to the following cellular antigens: CD45, CD34, CD19, CD20, [place], Lambda, CD10, CD5, CD200, CD38, CD2, CD3, CD4, CD7, CD8, CD56, TCR-GD. Total antigens analyzed: 17 Lymph node, right axillary, tissue for flow cytometry: Specimen quality: Adequate Flow cytometry analysis shows the lymphocyte-gated events account for 97% of the overall cellularity of the specimen. The CD19+CD20+ B-cell population comprises 23% of lymphocytes, is polytypic, and displays no significant co-expression of CD5 or CD10. The CD3+ T-cells comprise 74% of lymphocytes and show no significant loss of betancourt T-cell antigens. The CD4 to CD8 ratio is within normal limits. There is a small population of CD56+ events (1% of lymphocytes) consistent with natural killer cells. There is no overt increase in CD38+ plasma cells. The CD45 dim-gated events are <1% of overall cellularity, and CD34+ events are not increased. A Cullen-Giemsa stained slide from the flow cytometry specimen was examined for internal quality tester purposes. Flow cytometry was performed using antibodies to the following cellular antigens: CD45, CD34, CD19, CD20, [place], Lambda, CD10, CD5, CD200, CD38, CD2, CD3, CD4, CD7, CD8, CD56, TCR-GD. Total antigens analyzed: 17 Vanessa Cohen M.D. History: The patient is a 70-year-old woman with history of colon cancer with lymphadenopathy. Operative procedure: Lymph node biopsy-axillary and groin. Specimen(s) Received: A: Left groin lymph nodes B: Left groin lymph nodes C: Right axillary lymph nodes D: Right axillary lymph nodes E: Left groin lymph nodes F: Right axillary lymph nodes Gross Description: Received in six formalin jars labeled with the patient's identifiers. A. Labeled left groin lymph node, are two pieces of cauterized fibroadipose tissue (2.7 x 1.7 x 1.1 and 3.0 x 2.0 x 1.0 cm) with two putative pink-phillips lymph nodes (1.5 x 1.2 x 1.0 and 2.3 x 1.3 x 1.2 cm). The putative nodes are bisected longitudinally and have phillips-yellow fibrofatty to phillips, solid cut surfaces. The putative lymph nodes are entirely submitted in cassettes A1-A2. Jar 1. B. Labeled left groin lymph nodes, are two putative phillips lymph nodes (1.3 x 1.0 x 1.0 and 1.5 x 1.3 x 0.8 cm). The putative lymph nodes are bisected and have phillips, solid to phillips-yellow, fatty cut surfaces. A portion of a node (B1) is sent for flow. The putative lymph nodes are entirely submitted in cassettes B1-B2. Jar 0. C. Labeled right axillary lymph nodes, is a putative phillips lymph node (1.5 x 1.8 x 1.2 cm) with adipose tissue. The putative node is trisected and has a phillips-yellow, fatty to phillips, solid cut surface. The putative lymph node is entirely submitted in cassette C1. Jar 1. D. Labeled right axillary lymph nodes, is a putative phillips lymph node (1.5 x 1.3 x 0.7 cm) with adipose tissue. The putative node is bisected and has a phillips, solid cut surface with dark brown discoloration. A portion of the node is sent for flow. The putative lymph node is entirely submitted in cassette D1. Jar 0. E. Tissue for flow. F. Tissue for flow. [facility]09/14/2025 10:32 PA(s): Samantha Whitten MS, KYLEIGH(ASCP)CM By this signature, I attest that the above diagnosis is based upon my personal examination of the slides(and/or other material). MD Jah Castano M.D. Addenda/Procedures The performance characteristics of some immunohistochemical stains, fluorescence in-situ hybridization tests and immunophenotyping by flow cytometry cited in this report (if any) were determined by the Surgical Pathology and Flow Cytometry Departments at [facility] as part of an ongoing quality tester program and in compliance with federally mandated regulations drawn from the Clinical Laboratory Improvement Act of 1988 (CLIA '88). Some of these tests rely on the use of analyte specific reagents and are subject to specific labeling requirements by the US Food and Drug Administration. Such diagnostic tests may only be performed in a facility that is certified by the Department of Health and Human Services as a high complexity laboratory under CLIA '88. The FDA has determined that such clearance or approval is not necessary. This test is used for clinical purposes. It should not be regarded as investigational or for research. Nevertheless, federal rules concerning the medical use of analyte specific reagents require that the following disclaimer be attached to the report: This test was developed and its performance characteristics determined by the Surgical Pathology and Flow Cytometry Departments of [facility]. It has not been cleared or approved by the U. S. Food and Drug Administration. IMAGES AND SCANNED DOCUMENTS, IF INCLUDED, ONLY VIEWABLE IN PDF VERSION OF REPORT us Nereyda Murray MD LAB PATHOLOGY ORDERABLES Final R esult PATHOLOGY [facility] [address] [place], [place] [phone] * DE AN PROCEDURE PLACEHOLDER (09/13/2025 1:39 PM CDT) Narrative Erika Jackson CRNA - 09/13/2025 1:39 PM CDT Erika Jackson CRNA 09/13/2025 1:40 PM Airway Patient location: OR Date/time: 09/13/2025 1:26 PM Indications for airway management: anesthesia Difficult airway: no Staff: Placed by: WEALTH MANAGEMENT MANAGER: Erika Jackson CRNA Emergent airway documentation: Risks and benefits discussed: yes Consent obtained: yes Consent given by: patient Airway prep: Preoxygenated: yes Patient position: sniffing Mask difficulty assessment: 1 - vent by mask Spontaneous ventilation during airway: absent Sedation level during airway: deep Final airway details: Final airway type: supraglottic airway Final supraglottic airway: IGel SGA size: 4 Number of attempts: 1no us Louann Argueta MD ANESTHESIA ORDERABLES Final Result from Last 3 Months Insurance [facility] AET MEDICARE AET MEDICARE Advance Directives For more information, please contact: [phone] * Full Code (Latest Code Status on File) Date Activated Date Inactivated Comments 06/27/2022 7:04 AM 06/28/2022 5:09 AM Care Teams Rubber Goods Assembler Relationship Specialty Start Date End Date Rodney Mckay MD PCP - General Internal Medicine 05/30/22 Yves Moreno DO [address] [facility] [address] [place], [place] [id number] Referring Physician Surgery 06/04/22 Frank Curry MD [address] [address] Consulting Physician Medical Oncology 05/26/25
--- OUTSIDE RECORDS SUMMARY | 2025-11-15 10:29 | XMS_ITS | Clinical Summary ---
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 Gender Identity Not on file Sexual [...] 10:44 AM CDT Height 162.6 cm (5' 4) 06/13/2018 10:44 AM CDT Body Mass Index 23.17 06/13/2018 10:44 AM CDT Plan of Treatment Health Maintenance Due Date Last Done Comments Colorectal Cancer Screening Colonoscopy (10 Years) 1955 Hepatitis C 1975 DTaP, Tdap and Td Vaccines ( 1 - Tdap) 1976 Mammogram Screening 1997 Pneumococcal Vaccine: 50+ Ye ars (1 of 1 - PCV) 2007 Zoster Vaccines (1 of 2) 2007 Dexa Scan (General) 2022 COVID-19 Vaccine (1 - 2024-2 6 season) 2025 Influenza Adult (#1) 2025 RSV Immunization or 60+ Years (1 - 1-dose 75+ series) 2032 Hepatitis A Vaccines Aged Out No long er eligible based on patient's age to complete this topic Meningococcal B Vaccine Aged Out No l onger eligible based on patient's age to complete this topic Meningococcal Vaccine Aged Out No bhavani pedrito eligible based on patient's age to complete this topic RSV Immunizations Under 20 Months Aged Out No longer eligible based on patient's age to complete this topic Insurance Care Teams Care Management Assistant Relationship Specialty Start Date End Date Rodney Mckay MD [address] [place] [address] PCP - General INTERNAL MEDICINE 06/11/18 Danyel Romero MD [address] [place] [address] [place] Doctor Naturopathic CARDIOVASCULAR DISEASE 06/11/18
--- OUTSIDE RECORDS SUMMARY | 2025-11-15 10:29 | XMS_ITS ---
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 IV Maintenance Therapy Plan* Plan Start Date:07/06/2025 Plan Provider:Frank Curry MD Linked Problems Malignant neoplasm of ascend ing colon (HCC) Treatment Medications No medications scheduled. Past Treatment and Therapy Plans Line Care Plan Name Start Date Discontinue Date Treatment Medications Discontinue Reason Plan Provider IV Maintenance Therapy Plan 07/18/2022 07/06/2025 No medications scheduled. Protocol Amendment/Jose G Royal MD Oncology Chemotherapy Treatment Plan Name Start Date [...] Jimenez MD 25 of 28 cycles started Oncology Treatment (2) Plan Name Start Date Discontinue Date Treatment Medications Discontinue Reason Plan Provider Cycles Nivolumab/ Ipilimumab (c1-14) followed by Nivolumab 480 mg Q28D (C15+)-colon with metastatic 07/24/2023 08/19/2025 ipilimumab (YERVOY)ipilim umab (YERVOY) IVPB in 25 mLnivolumab (OPDIVO)nivolu mab (OPDIVO) in 50 mL IVPB Provider Discretion Frank Curry MD 18 of 18 cycles started Lifetime Dose Tracking * Chemical Lifetime Dose Automatic Entry Manual Entr y Fluoro Time 0.1 minutes 0.1 minutes 0 minutes DLP 3,410 mGycm 3,410 mGycm 0 mGycm
--- OUTSIDE RECORDS SUMMARY | 2025-11-15 10:29 | XMS_ITS | Encounter Summary ---
Author Organization 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 Gender Identity Not on file Sexual [...] on filedocumented in this encounter Care Teams Abrasive Sawyer Relationship Specialty Start Date End Date Rodney Mckay MD PCP - General Internal Medicine 05/30/22 Yves Moreno DO [address] [place] [address] Referring Physician Surgery 06/04/22 Jose G Jimenez MD [address] [place], [place] [id number] Medical Oncologist/Ecommerce Marketing Manager Medical Oncology 09/04/23 05/25/25 Frank Curry MD [address] [place], [place] [id number] Consulting Physician Medical Oncology 05/26/25 documented as of this encounter
--- OUTSIDE RECORDS SUMMARY | 2025-11-15 10:29 | XMS_ITS | Encounter Summary ---
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 Gender Identity Not on file Sexual Orientation [...] on filedocumented in this encounter Care Teams Local Area Network Systems Adminstrator Relationship Specialty Start Date End Date Rodney Mckay MD PCP - General Internal Medicine 05/30/22 Yves Moreno DO [address] [place] [address] Referring Physician Surgery 06/04/22 Jose G Jimenez MD [address] [place], [place] [id number] Medical Oncologist/Patient Safety Manager Medical Oncology 09/04/23 05/25/25 Frank Curry MD [address] [place], [place] [id number] Consulting Physician Medical Oncology 05/26/25 documented as of this encounter
--- OUTSIDE RECORDS SUMMARY | 2025-11-15 10:29 | XMS_ITS | Encounter Summary ---
Author Organization [facility] [facility] Address [address] [place] [address] Care Team Providers Care Medical Record Clerk Name Role Phone Rodney Mckay MD Primary Care Provider Danyel Romero MD Unavailable [phone] Encounter Details Date Type Department Care Team (Late st Contact Info) Description 06/09/2018 Abstract [facility] [address] [place] [address] Danyel Romero MD [address] [place] [address] Social History Tobacco Use Types Packs/Day Years Used Date Smoking Tobacco: Never Smokeless Tobacco: Never Alcohol Use Standard Drinks/Week Comments No 0 (1 standard drink = 0.6 oz pur e alcohol) Comments Unknown Sex and Gender Information Value Date Recorded Sex Assigned at Not on file 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
--- OUTSIDE RECORDS SUMMARY | 2025-11-15 10:29 | XMS_ITS | Encounter Summary ---
Author Organization [facility] Address [address] [place] [address] Phone Care Team Providers Care Stereotype Molder Name Role Phone Rodney Mckay MD Primary Care Provider [phone] Yves Moreno DO Unavailable Jose G Jimenez MD Unavailable [phone] Frank Curry MD Unavailable [phone] Encounter Details Date Type Department Care Team (Latest Contact Info) Description 05/16/2022 Orders Only [facility] Scanning, Provider Social History Tobacco Use Types Packs/Day Years Used Date Smoking Tobacco: Never Assessed Comments Unknown Sex and Gender Information Value Date Recorded Sex Assigned at Not on file 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 Gender Identity Not on file Sexual Orientation Not on file documented as of this encounter Plan of Treatment Not on file documented as of this encounter Procedures Procedure Name Priority Date/Time Associated Diagnosis Comments SCAN - PATHOLOGY 05/16/2022 documented in this encounter Results * SCAN - PATHOLOGY (05/16/2022) us Provider Scanning Edited Result - Final documented in this encounter Visit Diagnoses Not on filedocumented in this encounter Additional Health Concerns Infection Onset Date Last Indicated Resolved Time COVID: Suspected 07/26/2023 07/26/2023 07/26/2023 2:20 PM CDT documented as of this encounter Care Teams Stereotype Molder Relationship Specialty Start Date End Date Rodney Mckay MD PCP - General Internal Medicine 05/30/22 Yves Moreno DO [address] [address] Referring Physician Surgery 06/04/22 Jose G Jimenez MD [address] [address] Medical Oncologist/Bleacher Lard Medical Oncology 09/04/23 05/25/25 Frank Curry MD [address] [id number] Consulting Physician Medical Oncology 05/26/25 documented as of this encounter
--- OUTSIDE RECORDS SUMMARY | 2025-11-15 10:29 | XMS_ITS | Patient Health Record ---
Author Organization [facility] Address [address], [address] [place] [address] Support Name Relationship Address Phone ANNIE DELCID Guarantor Unknown Reason For Referral No Information Plan Of Treatment No Information Insurance Providers Payer Name Payer Address Payer Phone Subscriber Number Group Number Insured Name Patient Relationship to Insured Coverage Start Date Coverage End Date STATE [facility] [address] [place], [place] [id number] ANNIE DELCID Self - patient is the insured
--- OUTSIDE RECORDS SUMMARY | 2025-11-15 10:29 | XMS_ITS | Encounter Summary ---
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 Gender Identity Not on file Sexual Orientation Not on file documented as of this encounter Plan of Treatment Not on file documented as of this encounter Procedures Procedure Name Priority Date/Time Associated Diagnosis Comments SCAN - PATHOLOGY 07/06/2025 documented in this encounter Results * SCAN - PATHOLOGY (07/06/2025) us Provider Scanning Final Result documented in this encounter Visit Diagnoses Not on filedocumented in this encounter Care Teams Creel Cleaner Relationship Specialty Start Date End Date Rodney Mckay MD PCP - General Internal Medicine 05/30/22 Yves Moreno DO [address] [facility] [address] [place] [address] Referring Physician Surgery 06/04/22 Frank Curry MD [address] [facility] [address] [place] [address] Consulting Physician Medical Oncology 05/26/25 documented as of this encounter
[2025-11-15 11:13] LABS: Influenza A QL RT-PCR Negative (Negative); Influenza B QL RT-PCR Negative (Negative); RSV RNA, RT-PCR Negative (Negative); SARS-CoV-2 RNA PCR Negative (Negative)
== END 2025-11-15 10:00 | disposition home or self-care (01) ==
PROVIDERS: PCP Internal Medicine; Visit Provider Nurse Practitioner Family
DX: J02.9 Acute pharyngitis, unspecified (principal); R05.9 Cough, unspecified
CPT/HCPCS: 87637